=== PATIENT | female | born 1955 | race Caucasian/White ===

== ENCOUNTER → 2020-05-02 | Outpatient (CLI) | payer MEDICARE, BC ==
--- NOTE | 2020-05-02 11:10 | CT ---
EXAMINATION TYPE: CT sinus wo con DATE OF EXAM: 05/02/2020 COMPARISON: CT sinus 04/08/2015 HISTORY: Chronic sinusitis CT DLP: 619.7 mGycm. Automated Exposure Control for Dose Reduction was Utilized. TECHNIQUE: CT scan of the sinuses is performed without contrast, axial images are obtained, coronal r eformatted images are also reviewed. FINDINGS: The paranasal sinuses are remarkable for inflammatory change within the bilateral maxillar y sinuses, there is some lobular soft tissue within the bilateral maxillary sinuses. There is a devia arianna nasal septum present. Ostiomeatal units are patent. Visualized portion of mastoid air cells show no abnormal opacification. The globes are intact bilate rally. IMPRESSION: Correlate for chronic sinusitis, additional findings above
== END | disposition home or self-care (01) ==
LOC: RADCTMAIN 08:09
PROVIDERS: ATTEND Otolaryngology
DX: J32.0 Chronic maxillary sinusitis (principal); M79.89 Other specified soft tissue disorders; J34.2 Deviated nasal septum
CPT/HCPCS: 70486

== ENCOUNTER → 2022-12-02 | Outpatient (CLI) | payer MEDICARE, BC ==
[2022-12-02 12:55] LABS: African American GFR (CKD) 89 (>60 ml/min/1.73 sqM); Blood Urea Nitrogen 14 mg/dL (7-17); Non-African American GFR(CKD) 77 (>60 ml/min/1.73 sqM)
--- NOTE | 2022-12-02 14:46 | CT ---
EXAMINATION TYPE: CT abdomen pelvis wo/w con CT DLP: 1007.6 mGycm, Automated exposure control for dose reduction was used. DATE OF EXAM: 12/02/2022 2:34 PM COMPARISON: None CLINICAL INDICATION:Female, 67 years old with history of R19.00 INTRA-ABD AND PELVIC SWELLING; Incont inence, Intra-ABD and Pelvic swelling. TECHNIQUE: Standard CT of the abdomen and pelvis before and after the uneventful administration of 100 cc of Isovue-300 intravenously and oral contrast. Coronal and sagittal reformats were performed. FINDINGS: LOWER CHEST: Posterior dependent subsegmental atelectasis is noted. ABDOMEN LIVER: Unremarkable GALLBLADDER AND BILE DUCTS: Unremarkable. PANCREAS: Unremarkable. SPLEEN: Unremarkable. ADRENAL GLANDS: Unremarkable. KIDNEYS AND URETERS: No evidence of hydronephrosis or renal calculus. The kidneys enhance symmetrical ly. Subcentimeter hypodense focus within the cortex of the right kidney superior pole which is too sm all characterize. Contrast is demonstrated within both collecting systems on the delayed phase. PELVIS BLADDER: Unremarkable REPRODUCTIVE: The uterus is surgically absent. ABDOMEN & PELVIS STOMACH AND BOWEL: Stomach and duodenum are unremarkable. No focal bowel wall thickening or surroundi ng inflammatory changes. No evidence of bowel obstruction. Enteric contrast reaches the transverse co kan. Mild colonic stool burden. The appendix is within normal limits. PERITONEUM: No evidence of pneumoperitoneum or free fluid. VASCULATURE: No evidence of aortic aneurysm. MUSCULOSKELETAL: No acute osseous abnormalities LYMPH NODES: No gross evidence for lymphadenopathy. SOFT TISSUE/ABDOMINAL WALL: Tiny fat filled umbilical hernia. IMPRESSION: No acute abdominal/pelvic process.
== END | disposition home or self-care (01) ==
LOC: RADCTMAIN 12:06
PROVIDERS: ATTEND Obstetrics & Gynecology
DX: R19.09 Other intra-abdominal and pelvic swelling, mass and lump (principal)
CPT/HCPCS: 82565; 84520; 74178; 36415; Q9967

== ENCOUNTER → 2023-01-17 | Outpatient (CLI) | payer MEDICARE, BC ==
--- NOTE | 2023-01-18 09:07 | MR ---
EXAMINATION TYPE: MR pelvis wo/w con DATE OF EXAM: 01/17/2023 COMPARISON: Pet/CT 01/07/2023 CLINICAL INDICATION:Female, 67 years old with history of C52 MALIGNANT NEOPLASM OF VAGINA; Malignant neoplasm of vagina TECHNIQUE: Triplane multisequence imaging was performed of the pelvis. IV Contrast: 6.5 cc Gadavist FINDINGS: Reproductive: Vagina: Irregular vagina wall thickening extending from 11 to 7 o clock with wall thickening measurin g rand 5.0 x 3.0 x 4.4 cm with pedunculated mass projecting into the vagina. This extends through the posterior into the surrounding soft tissues measuring up to 26 mm in thickness anteriorly. This exte nds down towards the vagina introitus. Suspected microinvasion extends closely to the posterior bladd er wall 2-3 mm series 901 image 23 and closely to the right distal ureter series 701 image 25. Uterus: Uterus is surgically absent. Ovaries: Ovaries are not visualized and may be surgically absent. Bladder: Posterior bladder wall is in close approximation to suspected malignancy invasion. Bowel: Unremarkable as visualized. Peritoneum: No free fluid identified. Lymph nodes: No evidence of adenopathy. Vasculature: Unremarkable. Musculoskeletal: Bone marrow signal is within normal signal intensity. Abdominal wall/soft tissues: Right fat containing inguinal hernia. IMPRESSION: Findings compatible with vagina malignancy with thickening of the vagina wall and pedunculated mass e xtending into the vagina. This extends approximately from 11-7 o'clock with wall thickening and invas ion through the wall extending towards the posterior bladder wall. There is also close approximation of invasion to the right ureter and extends down towards the introitus.
== END | disposition home or self-care (01) ==
LOC: RADMRIMAIN 19:23
PROVIDERS: ATTEND Radiology Radiation Oncology
DX: C52 Malignant neoplasm of vagina (principal)
CPT/HCPCS: 72197; A9585

== ENCOUNTER → 2023-03-02 | Outpatient (CLI) | payer MEDICARE, BC ==
--- NOTE | 2023-03-03 10:16 | MR ---
EXAMINATION TYPE: MR pelvis wo/w con DATE OF EXAM: 03/02/2023 2:51 PM CLINICAL INDICATION:Female, 67 years old with history of C52 MALIG NEOPLASM OF VAGINA; PHH, Malignant neoplasm of vagina. Follow-up comparison to prior MRI 01-17-23. COMPARISON: MRI 01/17/2023 TECHNIQUE: Triplane multisequence imaging was performed of the pelvis. IV Contrast: 6 cc Gadavist FINDINGS: Reproductive: Vagina: There remains Irregular vagina wall thickening extending from 11 to 7 o clock on prior now ma y be 11 to 5:00 o'clock on today's exam with wall thickening measuring suspected post treatment baker es the vagina. There remains enhancing mucosa within the vagina. Wall thickening up to 9 mm anteriorl y and more superiorly up to 14 mm. This continues to extends inferiorly towards the vagina introitus. There remains hazy T1 intermediate signal around the vagina suspicious for microinvasion extends ray sely to the posterior bladder wall series 201 image 16. Uterus: Uterus is surgically absent. Ovaries: Ovaries are not visualized and may be surgically absent. Bladder: Posterior bladder wall is in close approximation to suspected malignancy likely invasion ser ies 201 image 16. The left ureter appears to have improved clearance now measuring up to possibly 8 m m though a, previously 5 mm from the vagina mass on today's exam. Bowel: Unremarkable as visualized. Peritoneum: No free fluid identified. Lymph nodes: No evidence of adenopathy. Vasculature: Unremarkable. Musculoskeletal: Bone marrow signal is within normal signal intensity. Abdominal wall/soft tissues: Right fat containing inguinal hernia. IMPRESSION: Interval decrease in size with persistent thickening of the vagina wall with underlying mass still ex tending towards the vagina introitus. This remains approximately from the 11-5 o'clock with wall thic kening and suspected micro- invasion through the wall extending towards the posterior bladder wall wh ich remains on this exam. There is improved clearance of the suspected malignancy microinvasion away from the left ureter when comparing to prior. No lymphadenopathy visualized.
== END | disposition home or self-care (01) ==
LOC: RADMRIMAIN 13:22
PROVIDERS: ATTEND Radiology Radiation Oncology
DX: C52 Malignant neoplasm of vagina (principal); N76.89 Other specified inflammation of vagina and vulva
CPT/HCPCS: 72197; A9585

== ENCOUNTER 2023-05-12 18:15 | Inpatient (IN) | payer MEDICARE, BC ==
[2023-05-12] MEDS ORDERED: HYDROcodone/APAP 7.5-325MG 1 EACH TAB PO ONE (20:30)
[2023-05-12] MEDS: LIDOCAINE 5% PATCH TOPICAL SCH (20:47)
[2023-05-12 21:14] LABS: Basophils % (A) 0 %; Eosinophils # (A) 0.2 k/uL (0-0.7); Eosinophils % (A) 2 %; HCT 34.7 % (34.0-46.0); HGB 11.8 gm/dL (11.4-16.0); Lymphocytes # (A) 0.8 k/uL (1.0-4.8); Lymphocytes % (A) 8 %; MCH 31.7 pg (25.0-35.0); MCV 93.3 fL (80.0-100.0); Mean Platelet Volume 8.5; Monocytes # (A) 0.5 k/uL (0-1.0); Monocytes % (A) 5 %; Neutrophils % (A) 84 %; Platelet Count 294 k/uL (150-450); RBC 3.72 m/uL (3.80-5.40); RDW 15.1 % (11.5-15.5); WBC 9.6 k/uL (3.8-10.6)
[2023-05-12 21:43] LABS: ALT 20 U/L (4-34); AST 37 U/L (14-36); African American GFR (CKD) >90 (>60 ml/min/1.73 sqM); Albumin 3.6 g/dL (3.5-5.0); Alkaline Phosphatase 60 U/L (38-126); Anion Gap 10 mmol/L; Blood Urea Nitrogen 14 mg/dL (7-17); Calcium 8.9 mg/dL (8.4-10.2); Carbon Dioxide 23 mmol/L (22-30); Chloride 101 mmol/L (98-107); Glucose 107 mg/dL (74-99); Non-African American GFR(CKD) 88 (>60 ml/min/1.73 sqM); Potassium 4.1 mmol/L (3.5-5.1); Sodium 134 mmol/L (137-145); Total Bilirubin 0.5 mg/dL (0.2-1.3); Total Protein 6.4 g/dL (6.3-8.2)
[2023-05-12] MEDS ORDERED: SODIUM CHLORIDE 0.9% 1,000 ML IV SCH (22:30)
[2023-05-12 23:24] LABS: Appearance,Urine Clear (Clear); Bilirubin,Urine Negative (Negative); Blood,Urine Negative (Negative); Color,Urine Yellow; Glucose,Urine (UA) Negative (Negative); Ketones,Urine 1+ (Negative); Leukocyte Esterase,Urine Small (Negative); Mucus,Urine Many /hpf; Nitrite,Urine Negative (Negative); PH, Urine 5.5 (5.0-8.0); Protein,Urine Trace (Negative); RBC,Urine 7 /hpf (0-5); Squamous Epithelial Cell,Urine <1 /hpf (0-4); Urobilinogen,Urine <2.0 mg/dL (<2.0); WBC,Urine 6 /hpf (0-5)
--- NOTE | 2023-05-12 23:24 | XR ---
EXAMINATION TYPE: XR chest 2V DATE OF EXAM: 05/12/2023 9:33 PM CLINICAL INDICATION:Female, 67 years old with history of cough, SOB; URI symptoms and lower left-side d back pain since Tuesday. COMPARISON: PET/CT 01/07/2023 TECHNIQUE: XR chest 2V Frontal and lateral views of the chest. FINDINGS: Lines/Tubes: No indwelling lines are seen. Lungs/Pleura: Large right pleural effusion with adjacent lung opacities. In the portion of visualized aerated right upper lung, there are a few nodules visible the largest about 9 mm in size. On the lef t, no significant effusion is seen. There are multiple left-sided pulmonary nodules, one of the large st 15.7 mm. No sizable left pleural effusion or pneumothorax identified. Of note, these lung findings are new since the prior PET/CT. Pulmonary vascularity: Unremarkable. Heart/mediastinum: Cardiomediastinal silhouette is partially obscured by the right lung opacities, ho wever heart does not appear grossly enlarged. Mildly tortuous aorta. Musculoskeletal: No acute osseous abnormality is suggested. Mild degenerative changes of the thoracol umbar spine with mild S-shaped scoliosis. Other findings: None IMPRESSION: 1. Large right pleural effusion with adjacent lung opacities, may reflect atelectasis and/or infiltr ate. 2. Multiple new bilateral pulmonary nodules. Findings may represent metastatic disease or septic emb isa, less likely granulomatous disease.
--- NOTE | 2023-05-12 23:27 | XR ---
EXAMINATION TYPE: XR lumbar spine 2 or 3V DATE OF EXAM: 05/12/2023 9:33 PM CLINICAL INDICATION:Female, 67 years old with history of low back pain; PHH COMPARISON: None TECHNIQUE: XR lumbar spine 2 or 3V - frontal and lateral views of the lumbar spine with coned-down la teral of the lumbosacral junction. FINDINGS: There appear to be 5 lumbar-type vertebral bodies. There is mild/moderate multilevel degenerative dis c disease and facet arthrosis mostly in the mid to lower lumbar spine. There is no evidence of acute compression fracture, significant listhesis, or osseous destructive process. Mild apex right curvatur e of the upper lumbar spine towards the right. Unremarkable bowel gas pattern is seen. Multiple speck led radiodensities are seen, mostly in the left abdomen, which are probably related to stool contents . Mild degenerative changes of the SI joints. IMPRESSION: 1. No acute compression fracture. 2. Mild to moderate multilevel spondylosis.
[2023-05-12 23:32] LABS: Specific Gravity,Urine >1.050 (1.001-1.035)
--- NOTE | 2023-05-13 | CT ---
EXAM: CT Angiography Chest With Intravenous Contrast CLINICAL HISTORY: CT Reason: elevated dimer, pleural effusion, hx malignancy TECHNIQUE: Axial computed tomographic angiography images of the chest with intravenous contrast. CTDI is the [place] 15.8 mGy and DLP is 279.9 mGy- cm. This CT exam was performed using one or more of the following dose reduction techniques: automated exposure control, adjustment of the mA and/or kV according to patient size, and/or use of iterative reconstruction technique. MIP reconstructed images were created and reviewed. COMPARISON: No relevant prior studies available. FINDINGS: Pulmonary arteries: The pulmonary arterial tree is well opacified with contrast. No pulmonary embolism is identified. Aorta: No acute findings. No thoracic aortic aneurysm. Lungs: There are multiple round mass lesion scattered throughout the left lung measuring up to 1.7 cm in diameter consistent with metastatic neoplasm. There are multiple pulmonary nodules in the remaining aerated right lung as well as rounded areas of decreased enhancement in the atelectatic right lower lobe and right middle lobe consistent with neoplasm. Pleural space: There is a large right pleural effusion measuring 11 cm AP filling approximately two thirds of the right hemithorax. No pneumothorax. Heart: Unremarkable. No cardiomegaly. No significant pericardial effusion. No evidence of RV dysfunction. Bones/joints: Mild multilevel degenerative change are seen throughout the spine. No acute fracture or destructive bone lesion is seen. No dislocation. Soft tissues: Unremarkable. Lymph nodes: There is right hilar fullness and lymphadenopathy. IMPRESSION: 1. There are multiple round mass lesion scattered throughout the left lung measuring up to 1.7 cm in diameter consistent with metastatic neoplasm. There are multiple pulmonary nodules in the remaining aerated right lung as well as rounded areas of decreased enhancement in the atelectatic right lower lobe and right middle lobe consistent with neoplasm. 2. There is a large right pleural effusion measuring 11 cm AP filling approximately two thirds of the right hemithorax. 3. The pulmonary arterial tree is well opacified with contrast. No pulmonary embolism is identified.
[2023-05-13] MEDS ORDERED: NALOXONE 0.4 MG/ML 1 ML VIAL IV PRN (00:14)
[2023-05-13] MEDS ORDERED: MORPHINE SULFATE 4 MG/ML SYRINGE IV PRN (00:14)
--- NOTE | 2023-05-13 00:20 | ED ---
General Adult HPI - General Chief complaint: Back Pain/Injury Stated complaint: Back Pain Time Seen by Provider: 05/12/23 20:19 Source: patient Mode of arrival: ambulatory Limitations: no limitations - History of Present Illness Initial comments: 67-year-old female presenting with chief complaint of lower back pain. Patient has had left-sided lower back pain since Tuesday. No injury or trauma. No loss of bowel or bladder control. No saddle paresthesia. No radiation of pain down the leg. No abdominal pain. No dysuria, hematuria, fever, chills. Patient also admits to URI like symptoms and shortness of breath. This has also been ongoing since Tuesday. She was to cough and congestion. She states that her symptoms have not improved since Tuesday. - Related Data Allergies Allergy/AdvReac Type Severity Reaction Status Date / Time prednisone Allergy Rash/Hives Verified 05/12/23 18:44 sulfamethoxazole Allergy Rash/Hives Verified 05/12/23 18:44 [From Bactrim] trimethoprim [From Bactrim] Allergy Rash/Hives Verified 05/12/23 18:44 Review of Systems ROS Statement: Those systems with pertinent positive or pertinent negative responses have been documented in the HPI. ROS Other: All systems not noted in ROS Statement are negative. Past Medical History Past Medical History: Cancer Additional Past Medical History / Comment(s): vaginal CA. History of Any Multi-Drug Resistant Organisms: None Reported Past Surgical History: Bladder Surgery, Hysterectomy Past Psychological History: No Psychological Hx Reported Smoking Status: Never smoker Past Alcohol Use History: None Reported Past Drug Use History: None Reported General Exam Limitations: no limitations General appearance: alert, in no apparent distress Head exam: Present: atraumatic, normocephalic, normal inspection Eye exam: Present: normal appearance, EOMI Neck exam: Present: normal inspection, full ROM Respiratory exam: Present: decreased breath sounds (large right-sided pleural effusion, diminished lung sounds). Absent: respiratory distress, wheezes, rales, rhonchi, stridor Cardiovascular Exam: Present: normal rhythm, tachycardia, normal heart sounds. Absent: systolic murmur, diastolic murmur, rubs, gallop, clicks Extremities exam: Present: normal inspection, full ROM Back exam: Present: normal inspection, paraspinal tenderness Neurological exam: Present: alert, oriented X3 Psychiatric exam: Present: normal affect, normal mood Skin exam: Present: warm, dry, intact, normal color. Absent: rash Course Vital Signs 05/12/23 05/12/23 18:40 23:42 Temperature 97.9 F Pulse Rate 122 H 89 Respiratory 20 18 Rate Blood Pressure 138/87 123/75 O2 Sat by Pulse 99 90 L Oximetry EKG Findings - EKG Comments: EKG Findings:: sinus tachycardia ventricular rate 110. NE interval 127. QRS 122. QT 348. QTC 413. Medical Decision Making - Medical Decision Making Was pt. sent in by a medical professional or institution (, PA, FRONT OFFICE SPEC, urgent care, hospital, or residential...) When possible be specific @ -[No] Did you speak to anyone other than the patient for history (EMS, parent, family, police, friend...)? What history was obtained from this source @ -[No] Did you review nursing and triage notes (agree or disagree)? Why? @ -[I reviewed and agree with nursing and triage notes] Were old charts reviewed (outside hosp., previous admission, EMS record, old EKG, old radiological studies, urgent care reports/EKG's, residential records)? Report findings @ -[No old charts were reviewed] Differential Diagnosis (chest pain, altered mental status, abdominal pain women, abdominal pain men, vaginal bleeding, weakness, fever, dyspnea, syncope, headache, dizziness, GI bleed, back pain, seizure, CVA, palpatations, mental health, musculoskeletal)? @ - [facility] Differential Back Pain: Strain, zoster, cauda equina syndrome, epidural abscess, vertebral osteomyelitis, discitis, fracture, subluxation, disc herniation, DJD, spinal stenosis, dissection, AAA, pancreatitis, peptic ulcer disease, pyelonephritis, kidney stone this is not meant to be an all-inclusive list. EKG interpreted by me (3pts min.). @ -[As above] X-rays interpreted by me (1pt min.). @ -Chest x-ray shows large right pleural effusion with adjacent lung opacities, may reflect atelectasis and/or infiltrate. Multiple bilateral pulmonary nodules. Findings may represent metastatic disease or septic emboli, less likely granulomatous disease Lumbar spine x-ray shows no acute compression fracture. Mild to moderate multilevel spondylosis CT interpreted by me (1pt min.). @ -There are multiple round mass lesion scattered throughout the left lung measuring up to 1.7 cm in diameter consistent with metastatic neoplasm. There are multiple pulmonary nodules and the remaining aerated right lung as well as rounded areas of decreased enhancement and atelectatic right lower lobe and right middle lobe consistent with neoplasm. There is a large right pleural effusion measuring 11 cm AP filling approximately two thirds of the right hemithorax. The pulmonary arterial tree is well opacified with contrast. No pulmonary embolism is identified. U/S interpreted by me (1pt. min.). @ -[None done] What testing was considered but not performed or refused? (CT, X-rays, U/S, labs)? Why? @ -[None] What meds were considered but not given or refused? Why? @ -[None] Did you discuss the management of the patient with other professionals (professionals i.e. , PA, FRONT OFFICE SPEC, lab, RT, psych nurse, forensic social worker, scientific artist, teacher, code enforcement officer, counseling case manager)? Give summary @ -I spoke with Dr. Jose who accepted admission Was smoking cessation discussed for >3mins.? @ -[No] Was critical care preformed (if so, how long)? @ -[No] Were there social determinants of health that impacted care today? How? (Homelessness, low income, unemployed, alcoholism, drug addiction, transportation, low edu. Level, literacy, decrease access to med. care, senior care, rehab)? @ -[No] Was there de-escalation of care discussed even if they declined (Discuss DNR or withdrawal of care, Hospice)? DNR status @ -[No] What co-morbidities impacted this encounter? (DM, HTN, Smoking, COPD, CAD, Cancer, CVA, ARF, Chemo, Hep., AIDS, mental health diagnosis, sleep apnea, mo rbid obesity)? @ -Vaginal cancer Was patient admitted / discharged? Hospital course, mention meds given and route, prescriptions, significant lab abnormalities, going to OR and other pertinent info. @ -67-year-old male with history of vaginal cancer presenting with chief complaint of pain URI-like symptoms. History and physical exam were conducted. No leukocytosis or anemia. Negative for influenza, RSV, and Covid. Urine shows no infectious process. D-dimer is 0.76. Chest x-ray shows large right- sided pleural effusion, CTA confirms multiple new pulmonary nodules and effusion. Negative x-ray of the lumbar spine. Patient is educated on today's findings. She has no knowledge of any metastatic disease or pleural effusion. She will be admitted with consult for thoracentesis. Patient is agreeable with this plan. I discussed this case with my attending Dr. Wallace Undiagnosed new problem with uncertain prognosis? @ -[No] Drug Therapy requiring intensive monitoring for toxicity (Heparin, Nitro, Insulin, Cardizem)? @ -[No] Were any procedures done? @ -[No] Diagnosis/symptom? @ -Pleural effusion Acute, or Chronic, or Acute on Chronic? @ -Acute Uncomplicated (without systemic symptoms) or Complicated (systemic symptoms)? @ -complicated Side effects of treatment? @ -[No] Exacerbation, Progression, or Severe Exacerbation? @ -[No] Poses a threat to life or bodily function? How? (Chest pain, USA, VT, pneumonia, PE, COPD, DKA, ARF, appy, cholecystitis, CVA, Diverticulitis, Homicidal, Suicidal, threat to staff... and all critical care pts) @ -yes - Lab Data Result diagrams: 05/12/23 20:42 05/12/23 20:42 Lab Results 05/12/23 05/12/23 05/12/23 Range/Units 20:42 20:42 20:42 WBC 9.6 (3.8-10.6) k/uL RBC 3.72 L (3.80-5.40) m/uL Hgb 11.8 (11.4-16.0) gm/dL Hct 34.7 (34.0-46.0) % MCV 93.3 (80.0-100.0) fL MCH 31.7 (25.0-35.0) pg MCHC 34.0 (31.0-37.0) g/dL RDW 15.1 (11.5-15.5) % Plt Count 294 (150-450) k/uL MPV 8.5 Neutrophils % 84 % Lymphocytes % 8 % Monocytes % 5 % Eosinophils % 2 % Basophils % 0 % Neutrophils # 8.0 H (1.3-7.7) k/uL Lymphocytes # 0.8 L (1.0-4.8) k/uL Monocytes # 0.5 (0-1.0) k/uL Eosinophils # 0.2 (0-0.7) k/uL Basophils # 0.0 (0-0.2) k/uL D-Dimer 0.76 H (<0.60) mg/L FEU Sodium (137-145) mmol/L Potassium (3.5-5.1) mmol/L Chloride (98-107) mmol/L Carbon Dioxide (22-30) mmol/L Anion Gap mmol/L BUN (7-17) mg/dL Creatinine (0.52-1.04) mg/dL Est GFR (CKD-EPI)AfAm (>60 ml/min/1.73 sqM) Est GFR (CKD-EPI)NonAf (>60 ml/min/1.73 sqM) Glucose (74-99) mg/dL Calcium (8.4-10.2) mg/dL Total Bilirubin (0.2-1.3) mg/dL AST (14-36) U/L ALT (4-34) U/L Alkaline Phosphatase (38-126) U/L Total Protein (6.3-8.2) g/dL Albumin (3.5-5.0) g/dL Urine Color Urine Appearance (Clear) Urine pH (5.0-8.0) Ur Specific [place] (1.001-1.035) Urine Protein (Negative) Urine Glucose (UA) (Negative) Urine Ketones (Negative) Urine Blood (Negative) Urine Nitrite (Negative) Urine Bilirubin (Negative) Urine Urobilinogen (<2.0) mg/dL Ur Leukocyte Esterase (Negative) Urine RBC (0-5) /hpf Urine WBC (0-5) /hpf Ur Squamous Epith Cells (0-4) /hpf Urine Mucus (None) /hpf Influenza Type A (PCR) Not Detected (Not Detectd) Influenza Type B (PCR) Not Detected (Not Detectd) RSV (PCR) Not Detected (Not Detectd) SARS-CoV-2 (PCR) Not Detected (Not Detectd) 05/12/23 05/12/23 Range/Units 20:42 23:00 WBC (3.8-10.6) k/uL RBC (3.80-5.40) m/uL Hgb (11.4-16.0) gm/dL Hct (34.0-46.0) % MCV (80.0-100.0) fL MCH (25.0-35.0) pg MCHC (31.0-37.0) g/dL RDW (11.5-15.5) % Plt Count (150-450) k/uL MPV Neutrophils % % Lymphocytes % % Monocytes % % Eosinophils % % Basophils % % Neutrophils # (1.3-7.7) k/uL Lymphocytes # (1.0-4.8) k/uL Monocytes # (0-1.0) k/uL Eosinophils # (0-0.7) k/uL Basophils # (0-0.2) k/uL D-Dimer (<0.60) mg/L FEU Sodium 134 L (137-145) mmol/L Potassium 4.1 (3.5-5.1) mmol/L Chloride 101 (98-107) mmol/L Carbon Dioxide 23 (22-30) mmol/L Anion Gap 10 mmol/L BUN 14 (7-17) mg/dL Creatinine 0.71 (0.52-1.04) mg/dL Est GFR (CKD-EPI)AfAm >90 (>60 ml/min/1.73 sqM) Est GFR (CKD-EPI)NonAf 88 (>60 ml/min/1.73 sqM) Glucose 107 H (74-99) mg/dL Calcium 8.9 (8.4-10.2) mg/dL Total Bilirubin 0.5 (0.2-1.3) mg/dL AST 37 H (14-36) U/L ALT 20 (4-34) U/L Alkaline Phosphatase 60 (38-126) U/L Total Protein 6.4 (6.3-8.2) g/dL Albumin 3.6 (3.5-5.0) g/dL Urine Color Yellow Urine Appearance Clear (Clear) Urine pH 5.5 (5.0-8.0) Ur Specific [place] >1.050 H (1.001-1.035) Urine Protein Trace H (Negative) Urine Glucose (UA) Negative (Negative) Urine Ketones 1+ H (Negative) Urine Blood Negative (Negative) Urine Nitrite Negative (Negative) Urine Bilirubin Negative (Negative) Urine Urobilinogen <2.0 (<2.0) mg/dL Ur Leukocyte Esterase Small H (Negative) Urine RBC 7 H (0-5) /hpf Urine WBC 6 H (0-5) /hpf Ur Squamous Epith Cells <1 (0-4) /hpf Urine Mucus Many H (None) /hpf Influenza Type A (PCR) (Not Detectd) Influenza Type B (PCR) (Not Detectd) RSV (PCR) (Not Detectd) SARS-CoV-2 (PCR) (Not Detectd) Disposition Clinical Impression: Pleural effusion, Pulmonary nodules Disposition: ADMITTED IP TO THIS HOSP Condition: Fair Time of Disposition: 00:20
[2023-05-13] MEDS: HYDROcodone/APAP 5-325MG 1 EACH TAB PO PRN ×4 (04:05→17:34)
[2023-05-13 08:25] VITALS: RESP 16
[2023-05-13] MEDS: LIDOCAINE 5% PATCH TOPICAL SCH (09:21)
--- NOTE | 2023-05-13 16:09 | P.CNPUL ---
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 She had undergone chemotherapy, radiation therapy and brachial therapy. She was due for a follow-up PET scan in June 2023. She presented here to the emergency room last evening with complaints of low back pain for the past several days. X-ray of the lumbar spine revealed no acute compression fractures. Mild to moderate multilevel spondylosis. Chest x-ray revealed a large right pleural effusion with adjacent lung opacities. Multiple new bilateral pulmonary nodules. Computed tomography scan of the chest revealed no evidence of pulmonary embolism however multiple round mass lesions scattered throughout the left lung measuring up to 1.7 cm consistent with metastatic neoplasm. There are multiple pulmonary nodules in the aerated portion of the right lung as well as a moderate right pleural effusion. White count 9.6. Hemoglobin 11.8. Platelets 294. Sodium 134. Potassium 4.1. Bicarb 23. BUN 14. Creatinine 0.71. Glucose 107. Viral screen negative. She is seen today in consultation in the emergency department. Currently sitting up in a stretcher. Awake and alert in no acute distress. His been receiving [place] for her low back pain which has improved. She denied any significant shortness of breath, cough or congestion. No hemoptysis. Normal saline at 50 MLS per hour. Review of Systems REVIEW OF SYSTEMS: CONSTITUTIONAL: Denies any recent significant weight loss or weight gain. EYES: Denies change in vision. EARS, NOSE, MOUTH, THROAT: Denies headaches, denies sore throat. CARDIOVASCULAR: Denies chest pain, palpitations or syncopal episodes. RESPIRATORY: Denies shortness of breath, cough, congestion or hemoptysis. GASTROINTESTINAL: Denies change in appetite, denies abdominal pain GENITOURINARY: Denies hematuria, denies infections. MUSKULOSKELETAL: Positive for low back pain. INTEGUMENTARY: Denies rash, denies eczema. NEUROLOGICAL: Denies recent memory loss, no recent seizure activity. PSYCHIATRIC: Denies anxiety, denies depression. HEMATOLOGIC/LYMPHATIC: Denies anemia, denies enlarged lymph nodes. Past Medical History Past Medical History: Cancer Additional Past Medical History / Comment(s): vaginal CA. History of Any Multi-Drug Resistant Organisms: None Reported Past Surgical History: Bladder Surgery, Hysterectomy Past Psychological History: No Psychological Hx Reported Smoking Status: Never smoker Past Alcohol Use History: None Reported Past Drug Use History: None Reported Medications and Allergies Home Medications Medication Instructions Recorded Confirmed Type Aspirin EC [Ecotrin Low Dose] 81 mg PO DAILY 05/13/23 05/13/23 History Benazepril HCl 20 mg PO DAILY 05/13/23 05/13/23 History Calcium Carbonate [Calcium] 600 mg PO BID 05/13/23 05/13/23 History Cholecalciferol [Vitamin D3 (25 25 mcg PO BID 05/13/23 05/13/23 History Mcg = 1000 Iu)] Loratadine [Claritin] 10 mg PO BID 05/13/23 05/13/23 History Multivitamins, Thera [Multivitamin 1 tab PO DAILY 05/13/23 05/13/23 History (formulary)] Sertraline [Zoloft] 100 mg PO DAILY 05/13/23 05/13/23 History Simvastatin [Zocor] 40 mg PO HS 05/13/23 05/13/23 History amLODIPine [Norvasc] 10 mg PO DAILY 05/13/23 05/13/23 History Allergies Allergy/AdvReac Type Severity Reaction Status Date / Time prednisone Allergy Rash/Hives Verified 05/13/23 08:10 sulfamethoxazole Allergy Rash/Hives Verified 05/13/23 08:10 [From Bactrim] trimethoprim [From Bactrim] Allergy Rash/Hives Verified 05/13/23 08:10 Physical Exam Vitals: Vital Signs Temp Pulse Resp BP Pulse Ox 05/13/23 14:00 96 05/13/23 13:42 97.6 F 90 106/62 91 L 05/13/23 08:00 97.1 F L 89 16 110/70 96 05/13/23 04:06 104 H 18 116/79 97 05/12/23 23:42 89 18 123/75 90 L 05/12/23 18:40 97.9 F 122 H 20 138/87 99 GENERAL EXAM: Alert, very pleasant 67-year-old female, on room air, fairly comfortable in no apparent distress. HEAD: Normocephalic. EYES: Normal reaction of pupils, equal size. NOSE: Clear with pink turbinates. THROAT: No erythema or exudates. NECK: No masses, no JVD. CHEST: No chest wall deformity. LUNGS: Equal air entry with diminished breath sounds in the right base. CVS: S1 and S2 normal with no audible murmur, regular rhythm. ABDOMEN: No hepatosplenomegaly, normal bowel sounds, no guarding or rigidity. SPINE: No scoliosis or deformity SKIN: No rashes CENTRAL NERVOUS SYSTEM: No focal deficits, tone is normal in all 4 extremities. EXTREMITIES: There is no peripheral edema. No clubbing, no cyanosis. Peripheral pulses are intact. Results - Laboratory Findings CBC and BMP: 05/12/23 20:42 05/12/23 20:42 PT/INR, D-dimer D-Dimer 0.76 mg/L FEU (<0.60) H 05/12/23 20:42 Abnormal lab findings: Abnormal Labs 05/12/23 05/12/23 05/12/23 20:42 20:42 20:42 RBC 3.72 L Neutrophils # 8.0 H Lymphocytes # 0.8 L D-Dimer 0.76 H Sodium 134 L Glucose 107 H AST 37 H Ur Specific [place] Urine Protein Urine Ketones Ur Leukocyte Esterase Urine RBC Urine WBC Urine Mucus 05/12/23 23:00 RBC Neutrophils # Lymphocytes # D-Dimer Sodium Glucose AST Ur Specific [place] >1.050 H Urine Protein Trace H Urine Ketones 1+ H Ur Leukocyte Esterase Small H Urine RBC 7 H Urine WBC 6 H Urine Mucus Many H - Diagnostic Findings Chest x-ray: image reviewed CT scan - chest: image reviewed Assessment and Plan Assessment: Acute low back pain of unclear etiology. Lumbar spine x-ray revealed no acute compression fracture. Mild to moderate multilevel spondylosis Acute hypoxemic respiratory failure secondary to a large right pleural effusion, status post thoracentesis today 05/13/2023 with 1.2 L bloody fluid returned Multiple new bilateral pulmonary nodules suspicious for metastatic disease History of vaginal cancer diagnosed in November 2022, status post chemotherapy, radiation therapy, brachial therapy Hypertension Hyperlipidemia Plan: The patient was seen and evaluated Chest x-ray, CAT scan chest, lumbar x-rays, medications and labs reviewed She did undergo a thoracentesis today with 1.2 L of bloody fluid returned Follow-up chest x-ray pending Fluid analysis and cytology pending Stable for discharge from the pulmonary standpoint Assure adequate pain control Follow-up in our office in 1 week I have personally seen and examined the patient, performed the documentation and the assessment and plan as written. Number of minutes spent on the visit: 20.
--- NOTE | 2023-05-13 16:23 | OP ---
OPERATIVE REPORT DATE OF SERVICE : PROCEDURE PERFORMED: Right-sided thoracentesis. PREOPERATIVE DIAGNOSIS: Large right-sided pleural effusion. POSTOPERATIVE DIAGNOSIS: Large right-sided pleural effusion. ANESTHESIA USED: 2 mL of 1% lidocaine. PROCEDURE: The patient was placed in a sitting upright position, the area below the right scapula was prepared in a sterile fashion and drapes were applied. At the level of the 8th intercostal space and tip of the scapula, the area was locally anesthetized with lidocaine and the pleural space was entered with a needle until the fluid was localized with the needle. Then, a small tiny incision was made, and a standard thoracentesis catheter and needle were used, advanced into the pleural space, and as soon as the fluid was obtained, the catheter was advanced over the needle and the needle was pulled out of the pleural space. Freely flowing fluid was removed, roughly 1200 mL of serosanguineous fluid was removed from the right pleural space. Fluid was sent for diagnostic studies/cytology and the procedure was well tolerated, no complications, chest x-ray was ordered postoperatively. MMODL / IJN: [id number] /
--- NOTE | 2023-05-13 16:48 | XR ---
EXAMINATION TYPE: XR chest 1V portable DATE OF EXAM: 05/13/2023 Comparison: 05/12/2023 Clinical History: 67-year-old female Post right sided thoracentesis Findings: Right heart margin remains obscured by adjacent pleural parenchymal opacity. A moderate right pleural effusion remains though decreased from prior. Opacity continues to extend up to the midlung level. S cattered pulmonary nodules are redemonstrated bilaterally. No appreciable pneumothorax. Impression: Residual moderate right pleural effusion with underlying atelectasis and/or consolidation. Opacity co ntinues to extend to the mid lung level though is slightly decreased from prior. Bilateral pulmonary nodules redemonstrated. No appreciable pneumothorax.
--- NOTE | 2023-05-13 17:09 | P.HPIM ---
History of Present Illness H&P Date: 05/13/23 This is a 67-year-old female patient who presented to the ER with concerns of lower back pain has been occurring since Tuesday. Patient denies any trauma. Patient also reports that she's had increase coughing and upper respiratory symptoms over the past few days. Patient has medical history of vaginal cancer in which she was treated with chemo and radiation and follows with oncology services. Chest x-ray completed showing large right pleural effusion with adjacent lung lipase studies which may reflect atelectasis and/or infiltrate. Multiple new bilateral pulmonary nodules findings may represent metastatic disease or septic emboli, less likely granulomatous disease. Lumbar spine x-ray completed showing no acute compression fracture. Mild to moderate multilevel spondylosis. Chest CTA completed showing multiple round mass lesions scattered throughout the left lung measuring up to 1.7 cm in diameter consistent with metastatic neoplasm their multiple pulmonary nodules in the remaining right lung as well as rounded areas of decreased enhancement in the atelectatic right lower lobe and lower lobe consistent with neoplasm. Large right pleural effusion measuring 11 cm no pulmonary embolism identified. At this time oncology services have been consulted will also consult pulmonary services. Patient is resting comfortably in bed. Patient still complaining of some shortness of br eath. Vital signs temp 97.1, heart rate 89, respiratory rate 16, blood pressure 110/70 with a pulse ox 96% on 2 L. Review of Systems Please refer to HPI otherwise unremarkable Past Medical History Past Medical History: Cancer Additional Past Medical History / Comment(s): vaginal CA. History of Any Multi-Drug Resistant Organisms: None Reported Past Surgical History: Bladder Surgery, Hysterectomy Past Psychological History: No Psychological Hx Reported Smoking Status: Never smoker Past Alcohol Use History: None Reported Past Drug Use History: None Reported Medications and Allergies Home Medications Medication Instructions Recorded Confirmed Type Aspirin EC [Ecotrin Low Dose] 81 mg PO DAILY 05/13/23 05/13/23 History Benazepril HCl 20 mg PO DAILY 05/13/23 05/13/23 History Calcium Carbonate [Calcium] 600 mg PO BID 05/13/23 05/13/23 History Cholecalciferol [Vitamin D3 (25 25 mcg PO BID 05/13/23 05/13/23 History Mcg = 1000 Iu)] Loratadine [Claritin] 10 mg PO BID 05/13/23 05/13/23 History Multivitamins, Thera [Multivitamin 1 tab PO DAILY 05/13/23 05/13/23 History (formulary)] Sertraline [Zoloft] 100 mg PO DAILY 05/13/23 05/13/23 History Simvastatin [Zocor] 40 mg PO HS 05/13/23 05/13/23 History amLODIPine [Norvasc] 10 mg PO DAILY 05/13/23 05/13/23 History Allergies Allergy/AdvReac Type Severity Reaction Status Date / Time prednisone Allergy Rash/Hives Verified 05/13/23 08:10 sulfamethoxazole Allergy Rash/Hives Verified 05/13/23 08:10 [From Bactrim] trimethoprim [From Bactrim] Allergy Rash/Hives Verified 05/13/23 08:10 Physical Exam Vitals: Vital Signs Temp Pulse Resp BP Pulse Ox 05/13/23 08:00 97.1 F L 89 16 110/70 96 05/13/23 04:06 104 H 18 116/79 97 05/12/23 23:42 89 18 123/75 90 L 05/12/23 18:40 97.9 F 122 H 20 138/87 99 Intake and Output 05/12/23 05/13/23 05/13/23 22:59 06:59 14:59 Other: Weight 58.967 kg Head normocephalic Neck supple Lungs diminished bilaterally Heart regular rate and rhythm S1-S2, no rub or gallop Abdomen is soft nontender nondistended positive bowel sounds no hepatosplenomegaly Extremities no edema Neuro alert and orientated to 3 Results CBC & Chem 7: 05/12/23 20:42 05/12/23 20:42 Labs: Abnormal Lab Results - Last 24 Hours (Table) 05/12/23 05/12/23 05/12/23 Range/Units 20:42 20:42 20:42 RBC 3.72 L (3.80-5.40) m/uL Neutrophils # 8.0 H (1.3-7.7) k/uL Lymphocytes # 0.8 L (1.0-4.8) k/uL D-Dimer 0.76 H (<0.60) mg/L FEU Sodium 134 L (137-145) mmol/L Glucose 107 H (74-99) mg/dL AST 37 H (14-36) U/L Ur Specific [place] (1.001-1.035) Urine Protein (Negative) Urine Ketones (Negative) Ur Leukocyte Esterase (Negative) Urine RBC (0-5) /hpf Urine WBC (0-5) /hpf Urine Mucus (None) /hpf 05/12/23 Range/Units 23:00 RBC (3.80-5.40) m/uL Neutrophils # (1.3-7.7) k/uL Lymphocytes # (1.0-4.8) k/uL D-Dimer (<0.60) mg/L FEU Sodium (137-145) mmol/L Glucose (74-99) mg/dL AST (14-36) U/L Ur Specific [place] >1.050 H (1.001-1.035) Urine Protein Trace H (Negative) Urine Ketones 1+ H (Negative) Ur Leukocyte Esterase Small H (Negative) Urine RBC 7 H (0-5) /hpf Urine WBC 6 H (0-5) /hpf Urine Mucus Many H (None) /hpf Assessment and Plan Assessment: 1. Back pain 2. Shortness of breath 3. Pleural effusion 4. Abnormal chest x-ray with new findings of pulmonary nodules 5. History of vaginal cancer patient reports she has been getting chemo and radiation. Follows with oncology services DVT prophylaxis SCDs due to possible thoracentesis. GI prophylaxis Protonix Oncology and pulmonary service is consulted Repeat labs ordered Time with Patient: Greater than 30 (Greater than 60% of the total time spent in counseling and coordination of care)
--- NOTE | 2023-05-13 17:13 | P.DS ---
Providers Date of admission: 05/13/23 14:40 Expected date of discharge: 05/13/23 Attending physician: Bernie Jose Consults: 05/13/23 03:11 Consult Physician Stat Consulting Provider: Codey Merino Consult Reason/Comments: vaginal cancer Do you want consulting provider notified?: Yes, Notify in am 05/13/23 12:00 Consult Physician Routine Consulting Provider: Bethany Leahy Consult Reason/Comments: Pleural effusion, abnormal chest x-ray pulmonary nodules Do you want consulting provider notified?: Yes Primary care physician: Emelia Whitney Hospital Course: Diagnosis on discharge: 1. Back pain 2. Shortness of breath 3. Pleural effusion 4. Abnormal chest x-ray with new findings of pulmonary nodules 5. History of vaginal cancer patient reports she has been getting chemo and radiation. Follows with oncology services Hospital course: This is a 67-year-old female patient who presented to the ER with concerns of lower back pain has been occurring since Tuesday. Patient denies any trauma. Patient also reports that she's had increase coughing and upper respiratory symptoms over the past few days. Patient has medical history of vaginal cancer in which she was treated with chemo and radiation and follows with oncology services. Chest x-ray completed showing large right pleural effusion with adjacent lung lipase studies which may reflect atelectasis and/or infiltrate. Multiple new bilateral pulmonary nodules findings may represent metastatic disease or septic emboli, less likely granulomatous disease. Lumbar spine x-ray completed showing no acute compression fracture. Mild to moderate multilevel spondylosis. Chest CTA completed showing multiple round mass lesions scattered throughout the left lung measuring up to 1.7 cm in diameter consistent with metastatic neoplasm their multiple pulmonary nodules in the remaining right lung as well as rounded areas of decreased enhancement in the atelectatic right lower lobe and lower lobe consistent with neoplasm. Large right pleural effusion measuring 11 cm no pulmonary embolism identified. At this time oncology services have been consulted will also consult pulmonary services. Patient is resting comfortably in bed. Patient still complaining of some shortness of breath. Vital signs temp 97.1, heart rate 89, respiratory rate 16, blood pressure 110/70 with a pulse ox 96% on 2 L. On 05/13/2023 patient was seen and examined on the medical floor she is alert and oriented 3 in no apparent distress she is feeling much better at this time she was seen earlier by Dr. Cotto and underwent right sided thoracentesis. 1200 mL of serosanguineous fluid were removed. Patient was feeling much better she was cleared by pulmonary for discharge patient was asking to be discharged home she was also asking for a prescription for pain medications. She was given a prescription for [place] 5 mg 1 every 4 hours when necessary #18 tablets she will follow-up with her primary care physician Dr. 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 Patient Condition at Discharge: Fair Plan - Discharge Summary New Discharge Prescriptions: Continue Multivitamins, Thera [Multivitamin (formulary)] 1 tab PO DAILY Loratadine [Claritin] 10 mg PO BID Cholecalciferol [Vitamin D3 (25 Mcg = 1000 Iu)] 25 mcg PO BID Calcium Carbonate [Calcium] 600 mg PO BID Benazepril HCl 20 mg PO DAILY Aspirin EC [Ecotrin Low Dose] 81 mg PO DAILY amLODIPine [Norvasc] 10 mg PO DAILY Simvastatin [Zocor] 40 mg PO HS Sertraline [Zoloft] 100 mg PO DAILY Discharge Medication List Aspirin EC [Ecotrin Low Dose] 81 mg PO DAILY 05/13/23 [History] Benazepril HCl 20 mg PO DAILY 05/13/23 [History] Calcium Carbonate [Calcium] 600 mg PO BID 05/13/23 [History] Cholecalciferol [Vitamin D3 (25 Mcg = 1000 Iu)] 25 mcg PO BID 05/13/23 [History] Loratadine [Claritin] 10 mg PO BID 05/13/23 [History] Multivitamins, Thera [Multivitamin (formulary)] 1 tab PO DAILY 05/13/23 [History] Sertraline [Zoloft] 100 mg PO DAILY 05/13/23 [History] Simvastatin [Zocor] 40 mg PO HS 05/13/23 [History] amLODIPine [Norvasc] 10 mg PO DAILY 05/13/23 [History] Follow up Appointment(s)/Referral(s): Emelia Whitney MD [Primary Care Provider] - 1-2 days
[2023-05-13 18:14] VITALS: BP 115/79; PULSE 86; TEMP 98
[2023-05-13] MEDS ORDERED: ATORVASTATIN 20 MG TAB PO SCH (21:00)
[2023-05-13] MEDS ORDERED: CALCIUM CARBONATE 500 MG CHEWABLE PO SCH (21:00)
[2023-05-13] MEDS ORDERED: LORATADINE 10 MG TAB PO SCH (21:00)
[2023-05-13] MEDS ORDERED: CHOLECALCIFEROL 25 MCG (1000 IU) TABLET PO SCH (21:00)
[2023-05-14] MEDS ORDERED: PANTOPRAZOLE 40 MG TABLET PO SCH (07:30)
[2023-05-14] MEDS ORDERED: ASPIRIN 81 MG PO SCH (09:00)
[2023-05-14] MEDS ORDERED: MULTIVITAMINS, THERA 1 EACH TAB PO SCH (09:00)
[2023-05-14] MEDS ORDERED: lisinopriL 20 MG TAB PO SCH (09:00)
[2023-05-14] MEDS ORDERED: SERTRALINE 100 MG TAB PO SCH (09:00)
[2023-05-14] MEDS ORDERED: amLODIPine 10 MG TAB PO SCH (09:00)
== END 2023-05-13 18:10 | disposition home or self-care (01) | DRG 186 ==
LOC: EC 18:15 → 5NMEDONC 05-13 00:14 → OBSVTOIN 05-13 14:40
PROVIDERS: ADMIT Internal Medicine; ATTEND Internal Medicine
PROC: 0W993ZZ Drainage of Right Pleural Cavity, Percutaneous Approach (ICD-10-PCS; principal; 2023-05-13)
DX: J90 Pleural effusion, not elsewhere classified (principal); J96.01 Acute respiratory failure with hypoxia; M47.896 Other spondylosis, lumbar region; E78.5 Hyperlipidemia, unspecified; Z92.21 Personal history of antineoplastic chemotherapy; Z92.3 Personal history of irradiation; I10 Essential (primary) hypertension; Z90.710 Acquired absence of both cervix and uterus; Z85.44 Personal history of malignant neoplasm of other female genital organs; Z79.899 Other long term (current) drug therapy; Z79.82 Long term (current) use of aspirin; Z20.822 Contact with and (suspected) exposure to COVID-19
CPT/HCPCS: 36415; 71045; 71046; 71275; 72100; 80053; 81001; 85025; 85379; 87636; 93005; 99285

== ENCOUNTER 2023-05-16 14:01 | Inpatient (IN) | payer MEDICARE, BC ==
--- NOTE | 2023-05-16 14:48 | ED ---
General Adult HPI - General Chief complaint: Shortness of Breath Stated complaint: SOB Time Seen by Provider: 05/16/23 14:30 Source: patient, RN notes reviewed Mode of arrival: ambulatory Limitations: no limitations - History of Present Illness Initial comments: Patient is a pleasant 67-year-old female presenting to the emergency department with concerns with shortness of breath. Onset of symptoms was last couple of days. Patient was in the hospital several days ago and did have 1.2 L removed from her right lung. Patient is unclear why she had fluid buildup in her lung. Patient does have history of vaginal cancer with chemotherapy and radiation less than one year ago followed by recent brachytherapy. Patient does not use oxygen at home. No significant cough. No fever. - Related Data Home Medications Medication Instructions Recorded Confirmed Aspirin EC [Ecotrin Low Dose] 81 mg PO DAILY 05/13/23 05/13/23 Benazepril HCl 20 mg PO DAILY 05/13/23 05/13/23 Calcium Carbonate [Calcium] 600 mg PO BID 05/13/23 05/13/23 Cholecalciferol [Vitamin D3 (25 25 mcg PO BID 05/13/23 05/13/23 Mcg = 1000 Iu)] Loratadine [Claritin] 10 mg PO BID 05/13/23 05/13/23 Multivitamins, Thera [Multivitamin 1 tab PO DAILY 05/13/23 05/13/23 (formulary)] Sertraline [Zoloft] 100 mg PO DAILY 05/13/23 05/13/23 Simvastatin [Zocor] 40 mg PO HS 05/13/23 05/13/23 amLODIPine [Norvasc] 10 mg PO DAILY 05/13/23 05/13/23 Allergies Allergy/AdvReac Type Severity Reaction Status Date / Time prednisone Allergy Rash/Hives Verified 05/16/23 14:34 sulfamethoxazole Allergy Rash/Hives Verified 05/16/23 14:34 [From Bactrim] trimethoprim [From Bactrim] Allergy Rash/Hives Verified 05/16/23 14:34 Review of Systems ROS Statement: Those systems with pertinent positive or pertinent negative responses have been documented in the HPI. ROS Other: All systems not noted in ROS Statement are negative. Constitutional: Denies: fever Eyes: Denies: eye pain ENT: Denies: ear pain Respiratory: Reports: as per HPI, dyspnea Cardiovascular: Denies: chest pain Endocrine: Reports: fatigue Gastrointestinal: Denies: abdominal pain Genitourinary: Denies: dysuria Musculoskeletal: Denies: back pain Past Medical History Past Medical History: Cancer Additional Past Medical History / Comment(s): vaginal CA. History of Any Multi-Drug Resistant Organisms: None Reported Past Surgical History: Bladder Surgery, Breast Surgery, Hysterectomy Past Psychological History: No Psychological Hx Reported Smoking Status: Never smoker Past Alcohol Use History: None Reported Past Drug Use History: None Reported General Exam Limitations: no limitations General appearance: alert, in no apparent distress Head exam: Present: normocephalic Eye exam: Present: normal appearance Neck exam: Present: normal inspection Respiratory exam: Present: decreased breath sounds (Right-sided up to the midlung.) Cardiovascular Exam: Present: regular rate, normal rhythm GI/Abdominal exam: Present: soft. Absent: tenderness Extremities exam: Present: normal inspection. Absent: pedal edema, calf tenderness Neurological exam: Present: alert Psychiatric exam: Present: normal affect, normal mood Skin exam: Present: normal color Course Vital Signs 05/16/23 14:29 Temperature 98.1 F Pulse Rate 98 Respiratory 20 Rate Blood Pressure 82/62 O2 Sat by Pulse 89 L Oximetry Medical Decision Making - Medical Decision Making Was pt. sent in by a medical professional or institution (, PA, FUNERAL SERVICE LICENSEE, urgent care, hospital, or [facility]...) When possible be specific @ -No Did you speak to anyone other than the patient for history (EMS, parent, family, police, friend...)? What history was obtained from this source @ -No Did you review nursing and triage notes (agree or disagree)? Why? @ -I reviewed and agree with nursing and triage notes Were old charts reviewed (outside hosp., previous admission, EMS record, old EKG, old radiological studies, urgent care reports/EKG's, [facility] records)? Report findings @ -Previous admission reviewed Differential Diagnosis (chest pain, altered mental status, abdominal pain women, abdominal pain men, vaginal bleeding, weakness, fever, dyspnea, syncope, head ache, dizziness, GI bleed, back pain, seizure, CVA, palpatations, mental health, musculoskeletal)? @ -Differential Dyspnea: Coronary syndrome, arrhythmia, tamponade, asthma, COPD, pulmonary embolism, pneumonia, pneumothorax, pulmonary effusion, anaphylaxis, diabetic ketoacidosis, flailed chest, pulmonary contusion, diaphragmatic rupture, anemia, neuromuscular, this is not meant to be an all-inclusive list. EKG interpreted by me (3pts min.). @ -As above X-rays interpreted by me (1pt min.). @ -Chest x-ray interpreted by myself shows large right effusion CT interpreted by me (1pt min.). @ -None done U/S interpreted by me (1pt. min.). @ -None done What testing was considered but not performed or refused? (CT, X-rays, U/S, labs)? Why? @ -None What meds were considered but not given or refused? Why? @ -None Did you discuss the management of the patient with other professionals (professionals i.e. , PA, FUNERAL SERVICE LICENSEE, lab, RT, psych nurse, social service director, heel seat fitter, teacher, youth probation officer, major case detective)? Give summary @ -Case was discussed with Dr. Jose who will admit covering Dr. nice. He is familiar with patient. Was smoking cessation discussed for >3mins.? @ -No Was critical care preformed (if so, how long)? @ -No Were there social determinants of health that impacted care today? How? (Homelessness, low income, unemployed, alcoholism, drug addiction, transportation, low edu. Level, literacy, decrease access to med. care, nursing home, rehab)? @ -No Was there de-escalation of care discussed even if they declined (Discuss DNR or withdrawal of care, Hospice)? DNR status @ -No What co-morbidities impacted this encounter? (DM, HTN, Smoking, COPD, CAD, Cancer, CVA, ARF, Chemo, Hep., AIDS, mental health diagnosis, sleep apnea, morbid obesity)? @ -History of vaginal cancer Was patient admitted / discharged? Hospital course, mention meds given and route, prescriptions, significant lab abnormalities, going to OR and other pertinent info. @ -Patient will be admitted with pulmonary consult. Admission orders written. Patient will remain on oxygen. Patient reevaluated and updated. Undiagnosed new problem with uncertain prognosis? @ -No Drug Therapy requiring intensive monitoring for toxicity (Heparin, Nitro, Insulin, Cardizem)? @ -No Were any procedures done? @ -No Diagnosis/symptom? @ -Pleural effusion Acute, or Chronic, or Acute on Chronic? @ -Acute Uncomplicated (without systemic symptoms) or Complicated (systemic symptoms)? @ -default Side effects of treatment? @ -No Exacerbation, Progression, or Severe Exacerbation? @ -No Poses a threat to life or bodily function? How? (Chest pain, [place], ID, pneumonia, PE, COPD, DKA, ARF, appy, cholecystitis, CVA, Diverticulitis, Homicidal, Suicidal, threat to staff... and all critical care pts) @ -No Disposition Clinical Impression: Pleural effusion Disposition: ADMITTED IP TO THIS HOSP Condition: Serious Is patient prescribed a controlled substance at d/c from ED?: No Referrals: Emelia Whitney MD [Primary Care Provider] - 1-2 days Time of Disposition: 15:35
--- NOTE | 2023-05-16 15:18 | XR ---
EXAMINATION TYPE: XR chest 2V DATE OF EXAM: 05/16/2023 COMPARISON: 05/13/2023 TECHNIQUE: PA and lateral views submitted. HISTORY: Shortness of breath FINDINGS: There is complete opacification right hemithorax progressed from prior exam. There are mass es seen in the left lung compatible with pulmonary metastases. Scoliosis is noted. Osseous structures stable. Heart size stable. Atherosclerotic change aorta. No pneumothorax. IMPRESSION: 1. Progressive findings in the right lung with near complete opacification now noted likely represent ing a combination of consolidation and pleural effusion. Obstructing neoplasm not excluded. 2. Multiple left-sided pulmonary masses.
[2023-05-16] MEDS ORDERED: ACETAMINOPHEN TAB 325 MG TAB PO PRN (15:35)
[2023-05-16] MEDS ORDERED: NALOXONE 0.4 MG/ML 1 ML VIAL IV PRN (15:35)
[2023-05-16 17:06] LABS: Basophils % (A) 0 %; Eosinophils # (A) 0.1 k/uL (0-0.7); Eosinophils % (A) 1 %; HCT 35.9 % (34.0-46.0); HGB 11.8 gm/dL (11.4-16.0); Lymphocytes # (A) 0.5 k/uL (1.0-4.8); Lymphocytes % (A) 5 %; MCH 30.7 pg (25.0-35.0); MCHC 32.7 g/dL (31.0-37.0); MCV 93.9 fL (80.0-100.0); Monocytes # (A) 0.5 k/uL (0-1.0); Monocytes % (A) 5 %; Neutrophils # (A) 10.1 k/uL (1.3-7.7); Neutrophils % (A) 88 %; Platelet Count 404 k/uL (150-450); RBC 3.83 m/uL (3.80-5.40); RDW 14.6 % (11.5-15.5); WBC 11.5 k/uL (3.8-10.6)
[2023-05-16 17:46] LABS: ALT 14 U/L (4-34); AST 20 U/L (14-36); African American GFR (CKD) 69 (>60 ml/min/1.73 sqM); Albumin 2.7 g/dL (3.5-5.0); Alkaline Phosphatase 67 U/L (38-126); Anion Gap 10 mmol/L; Blood Urea Nitrogen 31 mg/dL (7-17); Calcium 8.3 mg/dL (8.4-10.2); Carbon Dioxide 20 mmol/L (22-30); Chloride 103 mmol/L (98-107); Glucose 119 mg/dL (74-99); Non-African American GFR(CKD) 60 (>60 ml/min/1.73 sqM); Potassium 4.4 mmol/L (3.5-5.1); Sodium 133 mmol/L (137-145); Total Bilirubin 0.3 mg/dL (0.2-1.3); Total Protein 5.4 g/dL (6.3-8.2)
[2023-05-16] MEDS: MORPHINE SULFATE 4 MG/ML SYRINGE IV PRN (20:28)
[2023-05-17] MEDS: ONDANSETRON 4 MG/2 ML VIAL IVP PRN ×2 (00:08→20:32)
[2023-05-17] MEDS: MORPHINE SULFATE 4 MG/ML SYRINGE IV PRN ×4 (00:09→20:32)
--- NOTE | 2023-05-17 00:43 | P.CNPUL ---
History of Present Illness Consult date: 05/17/23 Requesting physician: Beto Wright Reason for consult: pleural effusion Chief complaint: Shortness of breath History of present illness: I am seeing this patient in consultation today 05/17/2023 on the general medical floor after she returned with shortness of breath and a recurrent large right-s ided pleural effusion. Patient is a 67-year-old white female with past medical history significant for hypertension, hyperlipidemia, and vaginal cancer. Vaginal cancer recently diagnosed November, and she underwent a combination of radiation and chemotherapy followed by brachytherapy. Patient did have a recent hospital admission back on May 13 for similar symptoms and right lower back pain. She was found to have a moderate to large size right-sided pleural effusion. Chest CTA demonstrated multiple pulmonary nodules throughout the left lung measuring up to 1.7 cm consistent with metastatic neoplasms. There were also multiple pulmonary nodules within the right lung and a large right-sided pleural effusion. Patient did undergo right sided thoracentesis that day, and had a total of 1.2 L of serosanguineous fluid drained. Cytology is still pending. Patient is currently sitting up in bed, on room air, in no acute distress. She does endorse shortness of breath especially with exertion and an occasional cough with minimal sputum production. Denies any fevers, hemoptysis. Denies any sick contacts. Chest x-ray demonstrated a recurrent large right- sided pleural effusion. Underlying consolidation and obstructive neoplasm not excluded. Multiple pulmonary nodules were again appreciated on the left. CBC on arrival shows a WBC count 11.5, hemoglobin 11.8, hematocrit 35.9, platelets 404. BMP on arrival shows sodium 133, potassium 4.4, chloride 103, serum bicarb 20, BUN 31, creatinine 0.97, glucose 119. Pain is reportedly well managed. Review of Systems REVIEW OF SYSTEMS: CONSTITUTIONAL: Denies any recent significant weight loss or weight gain. EYES: Denies change in vision. EARS, NOSE, MOUTH, THROAT: Denies headaches, denies sore throat. CARDIOVASCULAR: Denies chest pain, palpitations or syncopal episodes. RESPIRATORY: See HPI GASTROINTESTINAL: Denies change in appetite, abdominal pain, nausea and vomiting, or diarrhea GENITOURINARY: Denies hematuria or vaginal bleeding. Admits urinary incontinence that started back in November,. MUSKULOSKELETAL: Denies pain, denies swelling. INTEGUMENTARY: Denies rash, denies eczema. NEUROLOGICAL: Denies recent memory loss, no recent seizure activity. PSYCHIATRIC: Denies anxiety, denies depression. HEMATOLOGIC/LYMPHATIC: Denies anemia, denies enlarged lymph node Past Medical History Past Medical History: Cancer Additional Past Medical History / Comment(s): vaginal CA. History of Any Multi-Drug Resistant Organisms: None Reported Past Surgical History: Bladder Surgery, Breast Surgery, Hysterectomy Past Anesthesia/Blood Transfusion Reactions: No Reported Reaction Past Psychological History: No Psychological Hx Reported Smoking Status: Never smoker Past Alcohol Use History: None Reported Past Drug Use History: None Reported Medications and Allergies Home Medications Medication Instructions Recorded Confirmed Type Aspirin EC [Ecotrin Low Dose] 81 mg PO DAILY 05/13/23 05/16/23 History Benazepril HCl 20 mg PO DAILY 05/13/23 05/16/23 History Calcium Carbonate [Calcium] 600 mg PO BID 05/13/23 05/16/23 History Cholecalciferol [Vitamin D3 (25 25 mcg PO BID 05/13/23 05/16/23 History Mcg = 1000 Iu)] Loratadine [Claritin] 10 mg PO BID 05/13/23 05/16/23 History Multivitamins, Thera [Multivitamin 1 tab PO DAILY 05/13/23 05/16/23 History (formulary)] Sertraline [Zoloft] 100 mg PO DAILY 05/13/23 05/16/23 History Simvastatin [Zocor] 40 mg PO HS 05/13/23 05/16/23 History amLODIPine [Norvasc] 10 mg PO DAILY 05/13/23 05/16/23 History HYDROcodone/APAP 5-325MG [[place] 1 tab PO Q4HR 05/16/23 05/16/23 History 5-325] Allergies Allergy/AdvReac Type Severity Reaction Status Date / Time prednisone Allergy Rash/Hives Verified 05/16/23 16:43 sulfamethoxazole Allergy Rash/Hives Verified 05/16/23 16:43 [From Bactrim] trimethoprim [From Bactrim] Allergy Rash/Hives Verified 05/16/23 16:43 Physical Exam Vitals: Vital Signs Temp Pulse Resp BP BP Pulse Ox 05/16/23 20:00 98.6 F 16 99/64 94 L 05/16/23 18:16 98.0 F 96 20 98/61 95 05/16/23 16:24 101 H 20 108/82 97 05/16/23 14:29 98.1 F 98 20 82/62 89 L Intake and Output 05/16/23 05/16/23 05/17/23 14:59 22:59 06:59 Intake Total 120 Balance 120 Intake: Oral 120 Other: # Voids 2 Weight 58.967 kg 58.967 kg GENERAL EXAM: Alert, 67-year-old white female appearing stated age, comfortable in no apparent distress. HEAD: Normocephalic and atraumatic EYES: Normal reaction of pupils, equal size. NOSE: Clear with pink turbinates. THROAT: No erythema or exudates. NECK: No masses, no JVD. CHEST: No chest wall deformity. LUNGS: Markedly diminished right lung sounds. no crackles, wheeze, rhonchi. On room air. No conversational dyspnea or accessory muscle use.. CVS: S1 and S2 normal with no audible murmur, regular rhythm. No extra heart sounds ABDOMEN: No hepatosplenomegaly, active bowel sounds, no guarding or rigidity. SPINE: No scoliosis or deformity SKIN: No rashes CENTRAL NERVOUS SYSTEM: No focal deficits, tone is normal in all 4 extremities. EXTREMITIES: There is no peripheral edema, clubbing, or cyanosis. Peripheral pulses are intact. Results - Laboratory Findings CBC and BMP: 05/16/23 16:25 05/16/23 16:25 Abnormal lab findings: Abnormal Labs 05/16/23 05/16/23 16:25 16:25 WBC 11.5 H Neutrophils # 10.1 H Lymphocytes # 0.5 L Sodium 133 L Carbon Dioxide 20 L BUN 31 H Glucose 119 H Calcium 8.3 L Total Protein 5.4 L Albumin 2.7 L - Diagnostic Findings Chest x-ray: image reviewed Assessment and Plan Assessment: Acute dyspnea, secondary to recurrent large right-sided pleural effusion. Patient did recently have a right-sided thoracentesis done on 05/13/2023 with a total of 1.2 L of serosanguineous fluid removed. Cytology pending. Chest x-ray demonstrated a recurrent large right-sided pleural effusion. Underlying consolidation and obstructive neoplasm not excluded. Multiple pulmonary nodules were again appreciated on the left. Multiple bilateral pulmonary nodules, suspicious for metastatic disease History of vaginal cancer, recently diagnosed November, status/post chemotherapy and radiation therapy followed by brachytherapy Benign essential hypertension Hyperlipidemia Never smoker Plan: Patient's right-sided pleural effusion has returned relatively quickly. Recently drained on May 13, and fluid reaccumulated within 3 days. Consider cardiothoracic consultation for Pleurx catheter, and this will be discussed with Dr. Roberson in the morning. Fluid analysis and cytology are currently pending. CXR reporting a possible consolidative process along with the large right sided effusion. Will check procalcitonin level. Clinically, infectious processes felt to be less likely. Pain is reportedly well managed on current analgesics. We will continue to follow, and further recommendations are forthcoming. I have personally seen and examined the patient, performed the documentation and the assessment and plan as written. Number of minutes spent on the visit:20 Time with Patient: Greater than 30
[2023-05-17] MEDS: traMADol 50 MG TAB PO PRN ×2 (02:08→23:14)
[2023-05-17] MEDS ORDERED: HYDROcodone/APAP 5-325MG 1 EACH TAB PO SCH (08:00)
[2023-05-17] MEDS ORDERED: CALCIUM CARBONATE 500 MG CHEWABLE PO PRN (08:48)
[2023-05-17] MEDS: LORATADINE 10 MG TAB PO SCH (08:55)
[2023-05-17] MEDS: CHOLECALCIFEROL 25 MCG (1000 IU) TABLET PO SCH ×2 (08:55→20:32)
[2023-05-17] MEDS: SERTRALINE 100 MG TAB PO SCH (08:55)
[2023-05-17] MEDS: MULTIVITAMINS, THERA 1 EACH TAB PO SCH (08:55)
[2023-05-17] MEDS ORDERED: lisinopriL 20 MG TAB PO SCH (09:00)
[2023-05-17] MEDS ORDERED: amLODIPine 10 MG TAB PO SCH (09:00)
[2023-05-17] MEDS ORDERED: CALCIUM CARBONATE 500 MG CHEWABLE PO SCH (09:00)
--- NOTE | 2023-05-17 09:21 | P.HPIM ---
History of Present Illness H&P Date: 05/16/23 Harleen Santana, is a 67-year-old female who presented to [facility] emergency room with a chief complaint of worsening shortness of breath with concerns of recurrent pleural effusion patient was recently admitted and treated for pleural effusion with status post thoracentesis. 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 Patient was recently admitted for pleural effusions status post thoracentesis. A On review of systems patient is alert and oriented 3. Patient reports shortness of breath. Patient denies chest pain. Patient denies nausea vomiting or diarrhea. Patient denies any urinary burning or frequency Review of Systems Please refer to HPI otherwise unremarkable Past Medical History Past Medical History: Cancer Additional Past Medical History / Comment(s): vaginal CA. History of Any Multi-Drug Resistant Organisms: None Reported Past Surgical History: Bladder Surgery, Breast Surgery, Hysterectomy Past Psychological History: No Psychological Hx Reported Smoking Status: Never smoker Past Alcohol Use History: None Reported Past Drug Use History: None Reported Medications and Allergies Home Medications Medication Instructions Recorded Confirmed Type Aspirin EC [Ecotrin Low Dose] 81 mg PO DAILY 05/13/23 05/16/23 History Benazepril HCl 20 mg PO DAILY 05/13/23 05/16/23 History Calcium Carbonate [Calcium] 600 mg PO BID 05/13/23 05/16/23 History Cholecalciferol [Vitamin D3 (25 25 mcg PO BID 05/13/23 05/16/23 History Mcg = 1000 Iu)] Loratadine [Claritin] 10 mg PO BID 05/13/23 05/16/23 History Multivitamins, Thera [Multivitamin 1 tab PO DAILY 05/13/23 05/16/23 History (formulary)] Sertraline [Zoloft] 100 mg PO DAILY 05/13/23 05/16/23 History Simvastatin [Zocor] 40 mg PO HS 05/13/23 05/16/23 History amLODIPine [Norvasc] 10 mg PO DAILY 05/13/23 05/16/23 History HYDROcodone/APAP 5-325MG [[place] 1 tab PO Q4HR 05/16/23 05/16/23 History 5-325] Allergies Allergy/AdvReac Type Severity Reaction Status Date / Time prednisone Allergy Rash/Hives Verified 05/16/23 16:43 sulfamethoxazole Allergy Rash/Hives Verified 05/16/23 16:43 [From Bactrim] trimethoprim [From Bactrim] Allergy Rash/Hives Verified 05/16/23 16:43 Physical Exam Vitals: Vital Signs Temp Pulse Resp BP Pulse Ox 05/16/23 16:24 101 H 20 108/82 97 05/16/23 14:29 98.1 F 98 20 82/62 89 L Intake and Output 05/16/23 05/16/23 05/16/23 06:59 14:59 22:59 Other: Weight 58.967 kg In general patient is alert and oriented x 3 in no distress HEENT head normocephalic and atraumatic Neck is supple no JVD no goiter no lymphadenopathy no carotid bruit Chest examination is clear to auscultation no crackles no wheezing Cardiac exam reveals regular heart sounds S1 and S2 no gallops no murmurs Abdomen is soft nontender no organomegaly with normal bowel sounds Extremity exam reveals no edema no cyanosis or clubbing Neurological examination reveals no gross focal deficits Results CBC & Chem 7: 05/16/23 16:25 05/16/23 16:25 Assessment and Plan Plan: Worsening shortness of breath Recurrent pleural effusion Abnormal x-ray revealing multiple left-sided pulmonary masses History of malignant neoplasm of the vagina, patient received chemotherapy and radiation therapy Underlying history of hypertension Underlying history of hyperlipidemia Underlying history of anxiety disorder At this time patient will be admitted to telemetry floor Home medications reviewed and reordered Pulmonary and oncology consultation requested Will follow closely
--- NOTE | 2023-05-17 09:23 | P.PN ---
Subjective Progress Note Date: 05/17/23 Harleen Santana, is a 67-year-old female who presented to [facility] emergency room with a chief complaint of worsening shortness of breath with concerns of recurrent pleural effusion patient was recently admitted and treated for pleural effusion with status post thoracentesis. 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 Patient was recently admitted for pleural effusions status post thoracentesis. A On review of systems patient is alert and oriented 3. Patient reports shortness of breath. Patient denies chest pain. Patient denies nausea vomiting or diarrhea. Patient denies any urinary burning or frequency On 05/17/2023 patient is alert and oriented 3. Per pulmonary services consult placed for cardiothoracic surgery for possible Pleurx drain placement. Ultrasound of chest ordered. Current vital signs temp 97.4, heart rate 94, respiratory rate 16, blood pressure 84/59 with a pulse ox of 97%. Patient reports shortness breath. Patient denies chest pain. Patient denies nausea vomiting or diarrhea. Patient denies any urinary burning or frequency Objective - Vital Signs Vital signs: Vital Signs Temp 97.4 F L 05/17/23 07:27 Pulse 94 05/17/23 02:00 Resp 16 05/17/23 07:27 BP 84/60 05/17/23 08:57 Pulse Ox 97 05/17/23 07:27 FiO2 Intake & Output 05/16/23 05/17/23 05/17/23 18:59 06:59 18:59 Intake Total 120 Balance 120 Weight 58.967 kg 58.967 kg Intake: Oral 120 Other: # Voids 2 2 - Exam In general patient is alert and oriented x 3 in no distress HEENT head normocephalic and atraumatic Neck is supple no JVD no goiter no lymphadenopathy no carotid bruit Chest examination is clear to auscultation no crackles no wheezing Cardiac exam reveals regular heart sounds S1 and S2 no gallops no murmurs Abdomen is soft nontender no organomegaly with normal bowel sounds Extremity exam reveals no edema no cyanosis or clubbing Neurological examination reveals no gross focal deficits - Labs CBC & Chem 7: 05/16/23 16:25 05/16/23 16:25 Labs: Abnormal Lab Results - Last 24 Hours (Table) 05/16/23 05/16/23 05/16/23 Range/Units 16:25 16:25 16:25 WBC 11.5 H (3.8-10.6) k/uL Neutrophils # 10.1 H (1.3-7.7) k/uL Lymphocytes # 0.5 L (1.0-4.8) k/uL Sodium 133 L (137-145) mmol/L Carbon Dioxide 20 L (22-30) mmol/L BUN 31 H (7-17) mg/dL Glucose 119 H (74-99) mg/dL Calcium 8.3 L (8.4-10.2) mg/dL Total Protein 5.4 L (6.3-8.2) g/dL Albumin 2.7 L (3.5-5.0) g/dL Procalcitonin 0.22 H (0.02-0.09) ng/mL Assessment and Plan Plan: Worsening shortness of breath Recurrent pleural effusion Abnormal x-ray revealing multiple left-sided pulmonary masses History of malignant neoplasm of the vagina, patient received chemotherapy and radiation therapy Underlying history of hypertension Underlying history of hyperlipidemia Underlying history of anxiety disorder At this time patient will be admitted to telemetry floor Home medications reviewed and reordered Pulmonary and oncology consultation requested cardio thoracic surgery consulted for possible Pleurx catheter placement Will follow closely
--- NOTE | 2023-05-17 09:49 | US ---
EXAMINATION TYPE: US chest DATE OF EXAM: 05/17/2023 COMPARISON: 04/15/2023. CLINICAL INDICATION: Female, 67 years old with history of right pleural effusion; known effusion, SOB TECHNIQUE: Targeted ultrasound of the posterior lower Right EXAM MEASUREMENTS: Right Pleural Effusion pocket size: 20.7 cm Right skin surface to fluid distance: 3.9 cm Right side marked for possible thoracentesis outside the dept. Pulmonologists are able to review the images in the patient?s EMR. IMPRESSIONS: Moderate to large right pleural effusion.
[2023-05-17] MEDS: ALBUMIN HUMAN 25% 50 ML in EMPTY BAG 1 BAG IVPB SCH ×2 (10:46→11:41)
--- NOTE | 2023-05-17 10:56 | P.GSCN ---
History of Present Illness Consult date: 05/17/23 Reason for Consult: recurrent right pleural effusion, need for pleurx Requesting physician: Aren Roberson History of present illness: This is a 67 year old female who follows outpatient with Dr. Whitney for primary care and Dr. Sandoval for oncology. She has a previous medical history of vaginal cancer diagnosed in 11/2022 status post chemo and radiation as well as brachytherapy, hypertension, hyperlipidemia, and is a lifelong non-smoker. She was recently hospitalized for shortness of breath with findings of moderate right sided pleural effusion as well as multiple pulmonary nodules throughout the left lung felt to be consistent with metastatic disease. She underwent right sided thoracentesis on 05/13/23 with removal of 1.2L fluid which was sent for cytology and culture, results still pending. She was discharged to home but unfortunately has had increased shortness of breath and productive cought causing her to return to [facility] last night. CXR revealed complete opacification of the right lung felt to be combination of consolidation and pleural effusion, and multiple left-sided pulmonary masses. She was admitted for evaluation and treatment with consultation placed to pulmonology and on cology. This morning she had an ultrasound of the chest demonstrating 20.7 cm right sided fluid pocket. Consultation was placed to cardiothoracic surgery for consideration for placement of pleurx catheter. Review of Systems ROS was completed and was negative except as noted - Respiratory Reports as per HPI, Reports cough with sputum, Reports dyspnea Past Medical History Past Medical History: Cancer, Hyperlipidemia, Hypertension Additional Past Medical History / Comment(s): vaginal CA. History of Any Multi-Drug Resistant Organisms: None Reported Past Surgical History: Bladder Surgery, Breast Surgery, Hysterectomy Past Anesthesia/Blood Transfusion Reactions: No Reported Reaction Past Psychological History: No Psychological Hx Reported Smoking Status: Never smoker Past Alcohol Use History: None Reported Past Drug Use History: None Reported Medications and Allergies Home Medications Medication Instructions Recorded Confirmed Type Aspirin EC [Ecotrin Low Dose] 81 mg PO DAILY 05/13/23 05/16/23 History Benazepril HCl 20 mg PO DAILY 05/13/23 05/16/23 History Calcium Carbonate [Calcium] 600 mg PO BID 05/13/23 05/16/23 History Cholecalciferol [Vitamin D3 (25 25 mcg PO BID 05/13/23 05/16/23 History Mcg = 1000 Iu)] Loratadine [Claritin] 10 mg PO BID 05/13/23 05/16/23 History Multivitamins, Thera [Multivitamin 1 tab PO DAILY 05/13/23 05/16/23 History (formulary)] Sertraline [Zoloft] 100 mg PO DAILY 05/13/23 05/16/23 History Simvastatin [Zocor] 40 mg PO HS 05/13/23 05/16/23 History amLODIPine [Norvasc] 10 mg PO DAILY 05/13/23 05/16/23 History HYDROcodone/APAP 5-325MG [[place] 1 tab PO Q4HR 05/16/23 05/16/23 History 5-325] Allergies Allergy/AdvReac Type Severity Reaction Status Date / Time prednisone Allergy Rash/Hives Verified 05/16/23 16:43 sulfamethoxazole Allergy Rash/Hives Verified 05/16/23 16:43 [From Bactrim] trimethoprim [From Bactrim] Allergy Rash/Hives Verified 05/16/23 16:43 Surgical - Exam Vital Signs Temp Pulse Resp BP Pulse Ox 98.1 F 98 20 82/62 89 L 05/16/23 14:29 05/16/23 14:29 05/16/23 14:29 05/16/23 14:29 05/16/23 14:29 CONSTITUTIONAL: Awake and alert, appears comfortable, cooperative, well- developed, well-nourished, no pain, no acute distress EYES: Pupils equal, round, reactive to light, normal ocular movement ENT: Moist mucous membranes without oral lesions present NECK: No masses, no bruits, trachea midline RESPIRATORY: Lungs sounds diminished on the right. Respirations even, nonlabored. Currently on 2 LPM NC with oxygen saturation 97%. Strong cough CARDIOVASCULAR: S1, S2 present. Regular rate and rhythm. Palpable peripheral pulses bilaterally. No edema present GASTROINTESTINAL: Abdomen soft, nontender, nondistended without masses or organomegaly noted. There is no rebound or guarding present. Active bowel sounds present 4 quadrants. GENITOURINARY: Deferred INTEGUMENTARY: Skin is warm and dry NEUROLOGIC: Cranial nerves II through XII intact, normal coordination, no obvious motor or sensory deficits, speech is normal MUSKULOSKELETAL: Able to move all extremities, strength equal bilaterally, normal posture PSYCHIATRIC: Alert and oriented to person place and time, appropriate affect, intact judgment and insight Results - Labs 05/16/23 16:25 05/16/23 16:25 Abnormal Lab Results - Last 24 Hours (Table) 05/16/23 05/16/23 05/16/23 Range/Units 16:25 16:25 16:25 WBC 11.5 H (3.8-10.6) k/uL Neutrophils # 10.1 H (1.3-7.7) k/uL Lymphocytes # 0.5 L (1.0-4.8) k/uL Sodium 133 L (137-145) mmol/L Carbon Dioxide 20 L (22-30) mmol/L BUN 31 H (7-17) mg/dL Glucose 119 H (74-99) mg/dL Calcium 8.3 L (8.4-10.2) mg/dL Total Protein 5.4 L (6.3-8.2) g/dL Albumin 2.7 L (3.5-5.0) g/dL Procalcitonin 0.22 H (0.02-0.09) ng/mL Diabetes panel 05/16/23 Range/Units 16:25 Sodium 133 L (137-145) mmol/L Potassium 4.4 (3.5-5.1) mmol/L Chloride 103 (98-107) mmol/L Carbon Dioxide 20 L (22-30) mmol/L BUN 31 H (7-17) mg/dL Creatinine 0.97 (0.52-1.04) mg/dL Glucose 119 H (74-99) mg/dL Calcium 8.3 L (8.4-10.2) mg/dL AST 20 (14-36) U/L ALT 14 (4-34) U/L Alkaline Phosphatase 67 (38-126) U/L Total Protein 5.4 L (6.3-8.2) g/dL Albumin 2.7 L (3.5-5.0) g/dL Calcium panel 05/16/23 Range/Units 16:25 Calcium 8.3 L (8.4-10.2) mg/dL Albumin 2.7 L (3.5-5.0) g/dL Pituitary panel 05/16/23 Range/Units 16:25 Sodium 133 L (137-145) mmol/L Potassium 4.4 (3.5-5.1) mmol/L Chloride 103 (98-107) mmol/L Carbon Dioxide 20 L (22-30) mmol/L BUN 31 H (7-17) mg/dL Creatinine 0.97 (0.52-1.04) mg/dL Glucose 119 H (74-99) mg/dL Calcium 8.3 L (8.4-10.2) mg/dL Adrenal panel 05/16/23 Range/Units 16:25 Sodium 133 L (137-145) mmol/L Potassium 4.4 (3.5-5.1) mmol/L Chloride 103 (98-107) mmol/L Carbon Dioxide 20 L (22-30) mmol/L BUN 31 H (7-17) mg/dL Creatinine 0.97 (0.52-1.04) mg/dL Glucose 119 H (74-99) mg/dL Calcium 8.3 L (8.4-10.2) mg/dL Total Bilirubin 0.3 (0.2-1.3) mg/dL AST 20 (14-36) U/L ALT 14 (4-34) U/L Alkaline Phosphatase 67 (38-126) U/L Total Protein 5.4 L (6.3-8.2) g/dL Albumin 2.7 L (3.5-5.0) g/dL - Imaging Chest x-ray: report reviewed, image reviewed Additional studies: previous CTA (05/13/23) and PET (01/07/23) reviewed Assessment and Plan Assessment: Large right sided recurrent pleural effusion, last drained for 1.2 L on 05/13/23, cytology and culture pending Multiple left-sided pulmonary nodules, felt to be consistent with metastatic disease Shortness of breath secondary to above History of vaginal cancer diagnosed in 11/2022 status post chemo and radiation as well as brachytherapy History of hypertension, currently hypotensive History of hyperlipidemia Lifelong non-smoker Plan: The patient was seen and examined laying in bed on the medical oncology unit in no current acute distress although she is a bit hypotensive, does complain of shortness of breath with any activity. Chart/diagnostics were reviewed. The case was discussed in detail with Dr. Langford. We can place a right sided pleurx catheter to allow patient to drain recurrent effusions at home. This was discus sed with the patient and she is in agreement. The usual perioperative course was discussed, risks and benefits were reviewed, all questions were answered. We have tentatively scheduled her for pleurx placement tomorrow as she has already eaten today. She will be NPO after midnight. We will order home care to arrange drainage bottle delivery and teaching regarding pleurx drainage at home. Once pleurx placed patient may be discharged to home from our standpoint when ok with other services, and she may follow up in our office for pleurx removal once drainage less than 50 mL for 3 times in a row. Management of other comorbidities per internal medicine, pulmonology, oncology. Thank you Dr. Roberson for this consult, we will follow along with you. I have personally seen and examined the patient, performed the documentation and the assessment and plan as written. Number of minutes spent on the visit: 30. SVETA TavaresC Attending Addendum: Pt seen and evaluated with TECH ED/[employer] TE[employer]ER above. Agree with her assessment and plan. This is a 67 year-old F with recurrent right sided effusion, likely malignant. Will plan for pleurX placement. I spent 35 minutes reviewing the data and discussing the plan of care with the team. Time with Patient: Greater than 30
[2023-05-17] MEDS ORDERED: IOPAMIDOL CONTRAST (ORAL USE) VIAL PO PRN (12:52)
[2023-05-17 14:39] VITALS: BMI 24.5
[2023-05-17] MEDS: HYDROcodone/APAP 5-325MG 1 EACH TAB PO PRN (16:47)
[2023-05-17] MEDS: ALPRAZolam 0.25 MG TAB PO PRN (18:15)
[2023-05-17] MEDS: ATORVASTATIN 20 MG TAB PO SCH (20:32)
--- NOTE | 2023-05-17 21:59 | P.CONS ---
History of Present Illness - Reason for Consult Consult date: 05/17/23 hx vaginal cancer Requesting physician: Bernie Jose - Chief Complaint SOB - History of Present Illness Patient is a 67 yr old female with a significantt history of vaginal cancer. She is a patient of Dr. Megan Orozco. She initially presented with vulvovaginal itching with irritation with subsequent painless vaginal bleeding initially developing in October 2022. Vaginal exam noted fixed 5 x 3 cm nodular mass along the posterior vaginal wall. 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 IHC noted CD56 to be positive, there was no notation of synaptophysin staining being done. P53 was wild-type. CT abdomen/pelvis on 12/02/2022 followed by subsequent PET/CT on 01/07/2023 noted no evidence of lymphadenopathy or distant metastatic disease. PET/CT did note potential microinvasion of surrounding vaginal tissues. 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 Case was discussed with Dr. Garg of gynecologic oncology and upon review of her pathology at [facility], she was deemed not to have small cell component. She initiated concurrent chemoradiotherapy with weekly cisplatin on 01/31/2023 and completed cycle 5 of we ekly cisplatin on 02/28/2023 and completed radiation therapy on 03/09/2023. MRI of the pelvis on 03/02/2023 revealed persistent involvement of the vaginal introitus, but revealed no evidence of disease progression. Brachytherapy was performed on 04/13/2023 and 04/14/2023. PET/CT and MRI of the pelvis was planned for June 2023 Patient presented to the emergecy room with worsening SOB. Of note patient did have a recent hospitalization last week for similar symptoms. Chest CTA on 05/12 Revealed multiple round mass lesions scattered throughout the left lung measuring up to 1.7 cm in diameter. Multiple pulmonary nodules in the remaining aerated right lung as well as rounded areas of decreased enhancement in the atelectatic right lower lobe and right middle lobe. Large right pleural effusion was also noted. She had right sided thoracentesis at that time, with 1.2 L of serosanguineous fluid drained. Cytology is still pending. At today's visit patient is reporting persisting shortness of breath. Patient reports that shortness of breath began worsening over the last couple days with intermittent cough. Denies any associated fever or hemoptysis. Upon admission chest x-ray revealed progressive findings in the right lung with near complete opacification now noted. Multiple left-sided pulmonary masses. Cardiothoracic surgery has been consulted for possible Pleurx placement. Patient is afebrile. SPO2 97% on 2 L. Procalcitonin 0.22. CBC revealed WBC 11.5, hemoglobin 11.8, platelets 404,000. Review of Systems 10 point ROS is negative except as stated in the HPI Past Medical History Past Medical History: Cancer Additional Past Medical History / Comment(s): vaginal CA. History of Any Multi-Drug Resistant Organisms: None Reported Past Surgical History: Bladder Surgery, Breast Surgery, Hysterectomy Past Anesthesia/Blood Transfusion Reactions: No Reported Reaction Past Psychological History: No Psychological Hx Reported Smoking Status: Never smoker Past Alcohol Use History: None Reported Past Drug Use History: None Reported Medications and Allergies Home Medications Medication Instructions Recorded Confirmed Type Aspirin EC [Ecotrin Low Dose] 81 mg PO DAILY 05/13/23 05/16/23 History Benazepril HCl 20 mg PO DAILY 05/13/23 05/16/23 History Calcium Carbonate [Calcium] 600 mg PO BID 05/13/23 05/16/23 History Cholecalciferol [Vitamin D3 (25 25 mcg PO BID 05/13/23 05/16/23 History Mcg = 1000 Iu)] Loratadine [Claritin] 10 mg PO BID 05/13/23 05/16/23 History Multivitamins, Thera [Multivitamin 1 tab PO DAILY 05/13/23 05/16/23 History (formulary)] Sertraline [Zoloft] 100 mg PO DAILY 05/13/23 05/16/23 History Simvastatin [Zocor] 40 mg PO HS 05/13/23 05/16/23 History amLODIPine [Norvasc] 10 mg PO DAILY 05/13/23 05/16/23 History HYDROcodone/APAP 5-325MG [[place] 1 tab PO Q4HR 05/16/23 05/16/23 History 5-325] Allergies Allergy/AdvReac Type Severity Reaction Status Date / Time prednisone Allergy Rash/Hives Verified 05/16/23 16:43 sulfamethoxazole Allergy Rash/Hives Verified 05/16/23 16:43 [From Bactrim] trimethoprim [From Bactrim] Allergy Rash/Hives Verified 05/16/23 16:43 Physical Exam Vitals: Vital Signs Temp Pulse Pulse Resp BP BP BP 05/17/23 09:30 05/17/23 08:57 84/60 05/17/23 08:42 71/44 05/17/23 07:27 97.4 F L 16 84/59 05/17/23 02:00 97.6 F 94 16 90/62 05/16/23 20:00 98.6 F 16 99/64 05/16/23 18:16 98.0 F 96 20 98/61 05/16/23 16:24 101 H 20 108/82 05/16/23 14:29 98.1 F 98 20 82/62 BP BP BP Pulse Ox 05/17/23 09:30 93/64 82/54 77/48 05/17/23 08:57 05/17/23 08:42 05/17/23 07:27 97 05/17/23 02:00 92 L 05/16/23 20:00 94 L 05/16/23 18:16 95 05/16/23 16:24 97 05/16/23 14:29 89 L Intake and Output 05/16/23 05/17/23 05/17/23 22:59 06:59 14:59 Intake Total 120 Balance 120 Intake: Oral 120 Other: # Voids 2 2 Weight 58.967 kg - Constitutional General appearance: average body habitus, no acute distress - EENT Eyes: anicteric sclerae, EOMI ENT: hearing grossly normal - Neck Neck: no lymphadenopathy - Respiratory Respiratory: right: diminished - Cardiovascular Rhythm: regular Heart sounds: normal: S1, S2 - Gastrointestinal General gastrointestinal: soft, no tenderness - Integumentary Integumentary: no cyanotic - Neurologic grossly intact - Musculoskeletal Musculoskeletal: strength equal bilaterally - Psychiatric Psychiatric: A&O x's 3 Results CBC & Chem 7: 05/16/23 16:25 05/16/23 16:25 Labs: Abnormal Lab Results - Last 24 Hours (Table) 05/16/23 05/16/23 05/16/23 Range/Units 16:25 16:25 16:25 WBC 11.5 H (3.8-10.6) k/uL Neutrophils # 10.1 H (1.3-7.7) k/uL Lymphocytes # 0.5 L (1.0-4.8) k/uL Sodium 133 L (137-145) mmol/L Carbon Dioxide 20 L (22-30) mmol/L BUN 31 H (7-17) mg/dL Glucose 119 H (74-99) mg/dL Calcium 8.3 L (8.4-10.2) mg/dL Total Protein 5.4 L (6.3-8.2) g/dL Albumin 2.7 L (3.5-5.0) g/dL Procalcitonin 0.22 H (0.02-0.09) ng/mL Chest x-ray: report reviewed CT scan - chest: report reviewed Assessment and Plan (1) Pleural effusion Current Visit: Yes Status: Acute Priority: High Code(s): J90 - PLEURAL EFFUSION, NOT ELSEWHERE CLASSIFIED SNOMED Code(s): 23458626 (2) Pulmonary nodules Current Visit: Yes Status: Acute Code(s): R91.8 - OTHER NONSPECIFIC ABNORMAL FINDING OF LUNG FIELD SNOMED Code(s): 816227485 (3) Vaginal cancer Current Visit: Yes Status: Acute Priority: High Code(s): C52 - MALIGNANT NEOPLASM OF VAGINA SNOMED Code(s): 294183495 Plan: Lung nodules/Pleural effusion: -Chest CTA on 05/12 Revealed multiple round mass lesions scattered throughout the left lung measuring up to 1.7 cm in diameter. Multiple pulmonary nodules in the remaining aerated right lung as well as rounded areas of decreased enhancement in the atelectatic right lower lobe and right middle lobe. Large right pleural effusion was also noted. Discussed with patient scan findings and concern of recurrence of disease -Patient underwent right sided thoracentesis on 05/13, with 1.2 L of serosanguineous fluid drained. Cytology is still pending. -Upon admission chest x-ray revealed progressive findings in the right lung with near complete opacification now noted. Multiple left-sided pulmonary masses. Cardiothoracic surgery has been consulted with plan for Pleurx placement -Will obtain CT AP and bone scan to complete staging -Once cytology resulted, if malignancy is noted will request NGS and PDL1 on specimen -Clinic f/u with Dr. Megan Orozco will be scheduled upon discharge Vaginal Cancer: -Full oncological history in HPI -Completed concurrent chemo/RT in 02/2023 and brachytherapy in 03/2023. Pt was scheduled for repeat MRI pelvis and PET CT in 06/2023 Attests: I have seen and examined pt, performed H&P, developed impression and plan of care. Discussed with dictator. Agree with documentation, dictated as a scribe.
[2023-05-18] MEDS: MORPHINE SULFATE 4 MG/ML SYRINGE IV PRN (00:09)
[2023-05-18] MEDS: HYDROcodone/APAP 5-325MG 1 EACH TAB PO PRN ×2 (04:17→19:43)
[2023-05-18] MEDS: traMADol 50 MG TAB PO PRN (05:12)
[2023-05-18] MEDS: ONDANSETRON 4 MG/2 ML VIAL IVP PRN (06:56)
[2023-05-18] MEDS: SERTRALINE 100 MG TAB PO SCH (08:00)
[2023-05-18] MEDS: LORATADINE 10 MG TAB PO SCH (08:00)
[2023-05-18] MEDS: MULTIVITAMINS, THERA 1 EACH TAB PO SCH (08:00)
[2023-05-18] MEDS: CHOLECALCIFEROL 25 MCG (1000 IU) TABLET PO SCH ×2 (08:00→20:03)
--- NOTE | 2023-05-18 08:46 | CT ---
EXAMINATION TYPE: CT abdomen pelvis w con DATE OF EXAM: 05/17/2023 COMPARISON: 12/02/2022 HISTORY: abdominal pain, nausea, vomiting CT DLP: 562.5 mGycm CONTRAST: CT scan of the abdomen and pelvis is performed with Oral Contrast and with IV Contrast, patient injec arianna with 100cc mL of Isovue 300. FINDINGS: LUNG BASES-: Large right-sided pleural effusion with apparent collapse of the right lung. Underlying mass is not excluded. Multiple left pulmonary nodules appreciated. Correlate with recent CT chest. LIVER/GB: No calcified gallstones. No space occupying hepatic lesion. Biliary tree is of normal ca liber. PANCREAS: No inflammation. No distinct mass. SPLEEN: No splenic enlargement. No lesion seen. ADRENALS: 11 mm nodule left adrenal gland. Right adrenal gland is unremarkable. No thickening. KIDNEYS/BLADDER: No hydronephrosis. No nephrolithiasis. No distinct renal mass. Urinary bladder g rossly unremarkable. BOWEL: Normal appendix. Normal bowel caliber. No inflammation. GENITAL ORGANS: Abnormal attenuation in the region of the vagina. There is evidence of prior hystere ctomy. No adnexal masses seen. LYMPH NODES: No greater than 1cm abdominal or pelvic lymph nodes are appreciated. AORTA: No significant abnormality. OSSEOUS STRUCTURES: No significant abnormality is seen. OTHER: No significant additional abnormality is seen. IMPRESSION: 1. Abnormal attenuation in the region of the vagina. There is evidence of prior hysterectomy. No adne xal masses seen. 2. No evidence for metastatic disease to the abdomen or pelvis. 3. Multiple left pulmonary nodules. Large right-sided pleural effusion with collapse of the right russell ng
[2023-05-18] MEDS ORDERED: ONDANSETRON 4 MG/2 ML VIAL IVP ONE (09:05)
[2023-05-18] MEDS ORDERED: LACTATED RINGERS 1,000 ML IV ONE (09:05)
[2023-05-18] MEDS ORDERED: KETAMINE HCL IN 0.9 % NACL 50 MG/5 ML SYRINGE ONE (09:40)
[2023-05-18] MEDS ORDERED: MIDAZOLAM 2 MG/2 ML VIAL ONE (09:40)
[2023-05-18] MEDS ORDERED: fentaNYL (PF) 50 MCG/ML 2 ML AMP ONE (09:40)
[2023-05-18] MEDS ORDERED: LIDOCAINE 1% INJ 10MG/ML (5 ML VIAL-PF) SQ ONE ×2 (09:54)
--- NOTE | 2023-05-18 10:21 | P.OP ---
Date of Procedure: 05/18/23 Preoperative Diagnosis: Recurrent right sided pleural effusion Postoperative Diagnosis: Same Procedure(s) Performed: 1. Right sided pleurX catheter insertion Anesthesia: CANDACEA Surgeon: Prosper Langford Estimated Blood Loss (ml): 10 Pathology: other (pleural fluid for cytology) Condition: stable Disposition: PACU Indications for Procedure: This patient is a 67 year-old female with a hx of vaginal cancer who recently had a right sided pleural effusion which was tapped for 1.4L. Within several days she had complete opacification of her right yazan-thorax with recurrent effusion. Although cytology is pending this is most likely a malignant recurrent effusion and she now requires a pleurX catheter. Operative Findings: 4L of serous fluid drained. Description of Procedure: The patient was brought back to the operating room and placed in the supine position with right side bumped up. She was sedated and antibiotics were given. Two areas of the skin were anesthetized using 1% lidocaine. Two incisions were made. The catheter was tunneled from the costal margin posteriorly. Introducer needle was used to enter chest cavity with good return of pleural fluid. Guidewire was inserted. Then introducer sheath was inserted over the wire and catheter threaded into the pleural cavity. 4L of serous fluid was drained. A sterile dressing was applied and the posterior incision was closed with monocryl and glue.
--- NOTE | 2023-05-18 10:37 | XR ---
EXAMINATION TYPE: XR chest 1V portable DATE OF EXAM: 05/18/2023 COMPARISON: 05/16/2023. HISTORY: Post Pleurx placement. TECHNIQUE: Single frontal view of the chest is obtained. IMPRESSION: Significant decrease in the previously seen large right pleural effusion. There is patchy parietal ch anges remain as well as a [id number] right pleural effusion. Multiple nodules and masses are s een within the left lung which are unchanged. The cardiac silhouette is within normal limits.
[2023-05-18 11:02] LABS: Basophils # (A) 0.06 X 10*3/uL (0.00-0.10); Basophils % (A) 0.6 %; Eosinophils # (A) 0.11 X 10*3/uL (0.04-0.35); HCT 33.2 % (37.2-46.3); HGB 10.1 g/dL (12.0-15.0); Lymphocytes # (A) 0.33 X 10*3/uL (0.90-5.00); MCH 29.9 pg (27.0-32.0); MCHC 30.4 g/dL (32.0-37.0); MCV 98.2 FL (80.0-97.0); Mean Platelet Volume 9.8 FL (9.5-12.2); Monocytes % (A) 8.3 %; NRBC Per 100 WBC 0 X 10*3/uL (0.00-0.01); Neutrophils # (A) 9.33 X 10*3/uL (1.80-7.70); Neutrophils % (A) 86.2 %; Platelet Count 441 X 10*3/uL (140-440); RBC 3.38 X 10*6/uL (4.10-5.20); WBC 10.83 X 10*3/uL (4.50-10.00)
[2023-05-18 11:22] LABS: ALT 11 U/L (8-44); AST 11 U/L (13-35); Albumin 3.2 g/dL (3.8-4.9); Albumin/Globulin Ratio 1.39 Ratio (1.60-3.17); Alkaline Phosphatase 66 U/L (41-126); BUN/Creat Ratio 17.03 Ratio (12.00-20.00); Blood Urea Nitrogen 49.4 mg/dL (9.0-27.0); Calcium 9.4 mg/dL (8.7-10.3); Carbon Dioxide 21.7 mmol/L (21.6-31.8); Chloride 98 mmol/L (96-109); Globulin 2.3 g/dL (1.6-3.3); Glucose 123 mg/dL (70-110); Potassium 5.8 mmol/L (3.5-5.5); Sodium 134 mmol/L (135-145); Total Bilirubin 0.2 mg/dL (0.3-1.2); Total Protein 5.5 g/dL (6.2-8.2)
--- NOTE | 2023-05-18 11:28 | P.PN ---
Subjective Progress Note Date: 05/18/23 Harleen Santana, is a 67-year-old female who presented to [facility] emergency room with a chief complaint of worsening shortness of breath with concerns of recurrent pleural effusion patient was recently admitted and treated for pleural effusion with status post thoracentesis. 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 Patient was recently admitted for pleural effusions status post thoracentesis. A On review of systems patient is alert and oriented 3. Patient reports shortness of breath. Patient denies chest pain. Patient denies nausea vomiting or diarrhea. Patient denies any urinary burning or frequency On 05/17/2023 patient is alert and oriented 3. Per pulmonary services consult placed for cardiothoracic surgery for possible Pleurx drain placement. Ultrasound of chest ordered. Current vital signs temp 97.4, heart rate 94, respiratory rate 16, blood pressure 84/59 with a pulse ox of 97%. Patient reports shortness breath. Patient denies chest pain. Patient denies nausea vomiting or diarrhea. Patient denies any urinary burning or frequency On 05/18/2023 patient is alert and oriented 3 status post Pleurx catheter placement per cardiothoracic surgery. Bone scan ordered per oncology services. Patient reports improvement status post Pleurx catheter placement 4 L removed. Patient denies chest pain or shortness of breath. Patient denies nausea vomiting or diarrhea. Patient denies any urinary burning or frequency Objective - Vital Signs Vital signs: Vital Signs Temp 96.9 F L 05/18/23 10:13 Pulse 82 05/18/23 10:43 Resp 16 05/18/23 10:43 BP 79/44 05/18/23 10:43 Pulse Ox 95 05/18/23 10:43 FiO2 Intake & Output 05/17/23 05/18/23 05/18/23 18:59 06:59 18:59 Intake Total 100 550 Output Total 4010 Balance 100 -3460 Weight 58.967 kg Intake: IV 550 Intake, IV Titration 100 Amount Albumin Human 25% 50 ml 100 In Empty Bag 1 bag @ 50 mls/hr IVPB Q1H [facility] Rx#: [id number] Output: Pleural Fluid 4000 Estimated Blood Loss 10 Other: Voiding Method Toilet Toilet # Voids 3 - Exam In general patient is alert and oriented x 3 in no distress HEENT head normocephalic and atraumatic Neck is supple no JVD no goiter no lymphadenopathy no carotid bruit Chest examination is clear to auscultation no crackles no wheezing Cardiac exam reveals regular heart sounds S1 and S2 no gallops no murmurs Abdomen is soft nontender no organomegaly with normal bowel sounds Extremity exam reveals no edema no cyanosis or clubbing Neurological examination reveals no gross focal deficits - Labs CBC & Chem 7: 05/18/23 06:27 05/18/23 06:27 Labs: Abnormal Lab Results - Last 24 Hours (Table) 05/18/23 05/18/23 Range/Units 06:27 06:27 WBC 10.83 H (4.50-10.00) X 10*3/uL RBC 3.38 L (4.10-5.20) X 10*6/uL Hgb 10.1 L (12.0-15.0) g/dL Hct 33.2 L (37.2-46.3) % MCV 98.2 H (80.0-97.0) FL MCHC 30.4 L (32.0-37.0) g/dL RDW 15.0 H (11.5-14.5) % Plt Count 441 H (140-440) X 10*3/uL Neutrophils # 9.33 H (1.80-7.70) X 10*3/uL Lymphocytes # 0.33 L (0.90-5.00) X 10*3/uL Sodium 134 L (135-145) mmol/L Potassium 5.8 H (3.5-5.5) mmol/L Anion Gap 14.30 H (4.00-12.00) mmol/L BUN 49.4 H (9.0-27.0) mg/dL Creatinine 2.9 H (0.6-1.5) mg/dL Est GFR (CKD-EPI) 17 L (>=60) Glucose 123 H (70-110) mg/dL Total Bilirubin 0.2 L (0.3-1.2) mg/dL AST 11 L (13-35) U/L Total Protein 5.5 L (6.2-8.2) g/dL Albumin 3.2 L (3.8-4.9) g/dL Albumin/Globulin Ratio 1.39 L (1.60-3.17) Ratio Assessment and Plan Plan: Worsening shortness of breath Recurrent pleural effusion Abnormal x-ray revealing multiple left-sided pulmonary masses History of malignant neoplasm of the vagina, patient received chemotherapy and radiation therapy Underlying history of hypertension Underlying history of hyperlipidemia Underlying history of anxiety disorder At this time patient will be admitted to telemetry floor Home medications reviewed and reordered Pulmonary and oncology consultation requested Pleurx catheter placed on 05/18/2023 Bone scan ordered per oncology Will follow closely
--- NOTE | 2023-05-18 13:21 | P.CRDCN ---
History of Present Illness Consult date: 05/18/23 Reason for Consult (text): hypotension History of present illness: History of present illness: This is a 67-year-old female with no previous cardiac history does not follow with a sleep manager. We have been asked to evaluate the patient for h ypotension. She has a past medical history of recurrent right-sided pleural effusion status post right-sided thoracentesis with removal of 1.2 L of serosanguineous fluid followed by Pleurx catheter insertion which was performed today. She also has past medical history of hypertension, hyperlipidemia, vaginal cancer. Patient presented to the hospital due to shortness of breath was found to have recurrent large right-sided pleural effusion, multiple pulmonary nodules. Patient's heart rate is running in the 80s, blood pressure 70s systolic. Patient is followed by multiple consultants including oncology and scheduled for bone scan. Chest x-ray: Cardiac silhouette within normal limits following Pleurx placement CAT scan of the abdomen and pelvis revealed abnormal attenuation in the region of the vagina. Evidence of prior hysterectomy. No evidence of metastatic disease to the abdomen or pelvis. Multiple left pulmonary nodules. Large right-sided pleural effusion with collapse of the right lung. WBC 10.8, hemoglobin 10.1, platelet count 441. Sodium 134, potassium 5.8, chloride 98, CO2 21, BUN 49 creatinine 2.9 Home cardiac medications: Amlodipine 10 mg daily, benazepril 20 g daily, simvastatin 40 mg at bedtime Review Of Systems: At the time of my evaluation: Constitutional: No fever, no chills. + weakness, + fatigue. EENT: No headache. No dizziness. Lungs: No shortness of breath, cough, no sputum production. No wheezing. Cardiovascular: No chest pain, no lower extremity edema. No palpitations. No paroxysmal nocturnal dyspnea. No orthopnea. No lightheadedness or dizziness. No syncopal episodes. Abdominal: No abdominal pain. No nausea, vomiting. Musculoskeletal: No myalgias. No muscle weakness, no frequent falls. Integumentary: No wounds. No rash. No unusual bruising. Neurologic: No aphasia. No facial droop. No change in mentation. Physical examination: Gen: This is a ill-appearing 67-year-old female. No acute distress VS: reviewed HEENT: Head is atraumatic, normocephalic. Pupils equal, round. Sclerae is anicteric. NECK: Supple. No JVD. LUNGS: Clear to auscultation. No wheezes or rhonchi. No intercostal retractions. HEART: Regular rate and rhythm. No murmur. ABDOMEN: Soft No tenderness. EXTREMITIES: No pedal edema. No calf tenderness. NEUROLOGICAL: Patient is awake, alert and oriented x3. Assessment: Hypotension Recurrent right-sided pleural effusion status post thoracentesis and Pleurx catheter placement Acute kidney injury Pulmonary nodules, multiple Hypertension Hyperlipidemia History of vaginal cancer Plan: Start patient on midodrine 5 mg 3 times daily Obtain 2-D echocardiogram and Doppler study to assess cardiac structure and rule out pericardial effusion Obtain EKG Further recommendations to follow based upon clinical course Thank you kindly for this consultation. Nurse practitioner note has been reviewed, I agree with documented findings and plan of care. Patient was seen and examined. Past Medical History Past Medical History: Cancer, Hyperlipidemia, Hypertension Additional Past Medical History / Comment(s): vaginal CA. History of Any Multi-Drug Resistant Organisms: None Reported Past Surgical History: Bladder Surgery, Breast Surgery, Hysterectomy Past Anesthesia/Blood Transfusion Reactions: No Reported Reaction Past Psychological History: No Psychological Hx Reported Smoking Status: Never smoker Past Alcohol Use History: None Reported Past Drug Use History: None Reported Medications and Allergies Home Medications Medication Instructions Recorded Confirmed Type Aspirin EC [Ecotrin Low Dose] 81 mg PO DAILY 05/13/23 05/16/23 History Benazepril HCl 20 mg PO DAILY 05/13/23 05/16/23 History Calcium Carbonate [Calcium] 600 mg PO BID 05/13/23 05/16/23 History Cholecalciferol [Vitamin D3 (25 25 mcg PO BID 05/13/23 05/16/23 History Mcg = 1000 Iu)] Loratadine [Claritin] 10 mg PO BID 05/13/23 05/16/23 History Multivitamins, Thera [Multivitamin 1 tab PO DAILY 05/13/23 05/16/23 History (formulary)] Sertraline [Zoloft] 100 mg PO DAILY 05/13/23 05/16/23 History Simvastatin [Zocor] 40 mg PO HS 05/13/23 05/16/23 History amLODIPine [Norvasc] 10 mg PO DAILY 05/13/23 05/16/23 History HYDROcodone/APAP 5-325MG [[place] 1 tab PO Q4HR 05/16/23 05/16/23 History 5-325] Allergies Allergy/AdvReac Type Severity Reaction Status Date / Time prednisone Allergy Rash/Hives Verified 05/18/23 09:06 sulfamethoxazole Allergy Rash/Hives Verified 05/18/23 09:06 [From Bactrim] trimethoprim [From Bactrim] Allergy Rash/Hives Verified 05/18/23 09:06 Physical Exam Vitals: Vital Signs Temp Pulse Pulse Resp BP BP BP 05/18/23 10:43 82 16 79/44 05/18/23 10:28 86 16 78/44 05/18/23 10:13 96.9 F L 84 12 75/44 05/18/23 09:06 97.3 F L 96 16 88/58 05/18/23 07:20 98.2 F 96 17 78/52 05/18/23 06:43 98.7 F 92 16 05/18/23 06:30 88/59 05/18/23 05:10 99 89/60 05/18/23 04:18 94/68 05/18/23 01:49 114/67 05/18/23 01:25 05/18/23 01:22 05/18/23 01:17 96.5 F L 104 H 16 75/48 78/54 05/17/23 20:00 97.4 F L 96 18 05/17/23 15:04 96 18 05/17/23 14:21 98.5 F 94 20 BP BP Pulse Ox 05/18/23 10:43 95 05/18/23 10:28 99 05/18/23 10:13 92 L 05/18/23 09:06 96 05/18/23 07:20 94 L 05/18/23 06:43 94 L 05/18/23 06:30 05/18/23 05:10 05/18/23 04:18 05/18/23 01:49 05/18/23 01:25 90/63 05/18/23 01:22 87/60 05/18/23 01:17 97 05/17/23 20:00 102/57 96 05/17/23 15:04 100/65 92 L 05/17/23 14:21 101/69 90 L Intake and Output 05/17/23 05/18/2323 22:59 06:59 14:59 Intake Total 100 550 Output Total 4010 Balance 100 -3460 Intake: IV 550 Intake, IV Titration 100 Amount Albumin Human 25% 50 ml 100 In Empty Bag 1 bag @ 50 mls/hr IVPB Q1H [facility] Rx#: [id number] Output: Pleural Fluid 4000 Estimated Blood Loss 10 Other: Voiding Method Toilet Toilet # Voids 3 Results 05/18/23 06:27 05/18/23 06:27 Cardiac Enzymes 05/18/23 Range/Units 06:27 AST 11 L (13-35) U/L CBC 05/18/23 Range/Units 06:27 WBC 10.83 H (4.50-10.00) X 10*3/uL RBC 3.38 L (4.10-5.20) X 10*6/uL Hgb 10.1 L (12.0-15.0) g/dL Hct 33.2 L (37.2-46.3) % Plt Count 441 H (140-440) X 10*3/uL Comprehensive Metabolic Panel 05/18/23 Range/Units 06:27 Sodium 134 L (135-145) mmol/L Potassium 5.8 H (3.5-5.5) mmol/L Chloride 98 (96-109) mmol/L Carbon Dioxide 21.7 (21.6-31.8) mmol/L BUN 49.4 H (9.0-27.0) mg/dL Creatinine 2.9 H (0.6-1.5) mg/dL Glucose 123 H (70-110) mg/dL Calcium 9.4 (8.7-10.3) mg/dL AST 11 L (13-35) U/L ALT 11 (8-44) U/L Alkaline Phosphatase 66 (41-126) U/L Total Protein 5.5 L (6.2-8.2) g/dL Albumin 3.2 L (3.8-4.9) g/dL Current Medications Generic Name Dose Route Start Last Admin Trade Name Freq PRN Reason Stop Dose Admin Acetaminophen 650 mg 05/16/23 15:35 05/17/23 08:54 Acetaminophen Tab 325 Mg Tab PO 650 mg Q6HR PRN Administration Mild Pain or Fever > 100.5 Hydrocodone Bitart/Acetaminophen 1 each 05/17/23 07:56 05/18/23 04:17 Hydrocodone/Apap 5-325mg 1 Each Tab PO 1 each Q4HR PRN Administration Mild to Moderate Pain (1 - 6) Alprazolam 0.25 mg 05/17/23 15:04 05/17/23 18:15 Alprazolam 0.25 Mg Tab PO 0.25 mg QID PRN Administration Anxiety Atorvastatin Calcium 20 mg 05/17/23 21:00 05/17/23 20:32 Atorvastatin 20 Mg Tab PO 20 mg HS TARIQ Administration Calcium Carbonate/Glycine 500 mg 05/17/23 08:48 Calcium Carbonate 500 Mg Chewable PO BID PRN Indigestion Cholecalciferol 25 mcg 05/17/23 09:00 05/18/23 08:00 Cholecalciferol 25 Mcg (1000 Iu) Tablet PO Not Given BID TARIQ Loratadine 10 mg 05/17/23 09:00 05/18/23 08:00 Loratadine 10 Mg Tab PO Not Given DAILY [facility] Midodrine 5 mg 05/18/23 12:30 Midodrine 5 Mg Tab PO AC-TID [facility] Morphine Sulfate 4 mg 05/16/23 15:35 05/18/23 00:09 Morphine Sulfate 4 Mg/Ml Syringe IV 4 mg Q4HR PRN Administration Severe Pain (Scale 7 to 10) Multivitamins 1 each 05/17/23 09:00 05/18/23 08:00 Multivitamins, Thera 1 Each Tab PO Not Given DAILY [facility] Naloxone HCl 0.2 mg 05/16/23 15:35 Naloxone 0.4 Mg/Ml 1 Ml Vial IV Q2M PRN Opioid Reversal Ondansetron HCl 4 mg 05/16/23 22:26 05/18/23 06:56 Ondansetron 4 Mg/2 Ml Vial IVP 4 mg Q6HR PRN Administration Nausea And Vomiting Sertraline HCl 100 mg 05/17/23 09:00 05/18/23 08:00 Sertraline 100 Mg Tab PO Not Given DAILY [facility] Tramadol HCl 50 mg 05/16/23 15:35 05/18/23 05:12 Tramadol 50 Mg Tab PO 50 mg Q6H PRN Administration Moderate Pain (Scale 4 to 6) Intake and Output 05/17/23 05/18/23 05/18/23 22:59 06:59 14:59 Intake Total 100 550 Output Total 4010 Balance 100 -3460 Intake: IV 550 Intake, IV Titration 100 Amount Albumin Human 25% 50 ml 100 In Empty Bag 1 bag @ 50 mls/hr IVPB Q1H [facility] Rx#: [id number] Output: Pleural Fluid 4000 Estimated Blood Loss 10 Other: Voiding Method Toilet Toilet # Voids 3 05/18/23 06:27 05/18/23 06:27
[2023-05-18] MEDS: MIDODRINE 5 MG TAB PO SCH ×2 (13:36→17:48)
--- NOTE | 2023-05-18 14:25 | NM ---
EXAMINATION TYPE: NM bone scan whole body DATE OF EXAM: 05/18/2023 1:33 PM CLINICAL INDICATION:Female, 67 years old with history of lung mass, staging; COMPARISON: CT abdomen pelvis 05/09/2023 TECHNIQUE: Intravenous administration 23.0 mCi Tc 99m MDP followed by multiple scintigraphic images o f the appendicular and axial skeleton. Additionally, small field of view planar anterior and posterio r images of the lumbosacral spine and pelvis. Lastly, coronal, transverse, and sagittal SPECT images of the lumbosacral spine and pelvis were generated for review.Lastly, small [id number] anterior, p osterior and lateral views of the chest were submitted for review. Images acquired 5.25 hours post injection. FINDINGS: No abnormal uptake is identified within the appendicular or axial skeleton to suggest metastatic dise ase. There is increased uptake within the bilateral shoulder, sternoclavicular, and sacroiliac joints con sistent with degenerative changes. No other photopenic areas or areas of increased activity are ident ified. Physiologic radiotracer activity is demonstrated in the kidneys and bladder. IMPRESSION: 1. Nothing to suggest osteoblastic metastatic disease. Multiple pulmonary nodules seen on CT from however suggested diffuse metastatic disease at least to the lungs.
--- NOTE | 2023-05-18 14:36 | P.PN ---
Subjective Progress Note Date: 05/18/23 I am seeing this patient in consultation today 05/17/2023 on the general medical floor after she returned with shortness of breath and a recurrent large right- sided pleural effusion. Patient is a 67-year-old white female with past medical history significant for hypertension, hyperlipidemia, and vaginal cancer. Vaginal cancer recently diagnosed November, and she underwent a combination of radiation and chemotherapy followed by brachytherapy. Patient did have a recent hospital admission back on May 13 for similar symptoms and right lower back pain. She was found to have a moderate to large size right-sided pleural effusion. Chest CTA demonstrated multiple pulmonary nodules throughout the left lung measuring up to 1.7 cm consistent with metastatic neoplasms. There were also multiple pulmonary nodules within the right lung and a large right-sided pleural effusion. Patient did undergo right sided thoracentesis that day, and had a total of 1.2 L of serosanguineous fluid drained. Cytology is still pending. Patient is currently sitting up in bed, on room air, in no acute distress. She does endorse shortness of breath especially with exertion and an occasional cough with minimal sputum production. Denies any fevers, hemoptysis. Denies any sick contacts. Chest x-ray demonstrated a recurrent large right- sided pleural effusion. Underlying consolidation and obstructive neoplasm not excluded. Multiple pulmonary nodules were again appreciated on the left. CBC on arrival shows a WBC count 11.5, hemoglobin 11.8, hematocrit 35.9, platelets 404. BMP on arrival shows sodium 133, potassium 4.4, chloride 103, serum bicarb 20, BUN 31, creatinine 0.97, glucose 119. Pain is reportedly well managed. The patient is seen today 05/18/2023 in follow-up on the regular medical floor. She is currently sitting up in bed. Awake and alert in no acute distress. She is maintaining good O2 saturations in the 90s on 2 L/m nasal cannula. She did undergo a right-sided Pleurx catheter placement this morning. 4 L of fluid removed. Follow-up chest x-ray shows significant decrease in the previously seen large right pleural effusion. Pulmonary nodules and masses are seen within the left lung. Unchanged. Nuclear bone scan revealed no osteoblastic metastatic disease. Computed tomography scan of the abdomen and pelvis revealed no metastatic disease noted. White count 10.8. Hemoglobin 10.1. Let's 441. Sodium 134. Potassium 5.8. BUN 50. Creatinine 2.9. Glucose 123. AST 11. ALT 11. Pro-calcitonin was 0.22. Objective - Vital Signs Vital signs: Vital Signs Temp 96.9 F L 05/18/23 10:13 Pulse 97 05/18/23 14:17 Resp 20 05/18/23 14:17 BP 90/58 05/18/23 14:17 Pulse Ox 95 05/18/23 11:35 FiO2 Intake & Output 05/17/23 05/18/23 05/18/23 18:59 06:59 18:59 Intake Total 100 550 Output Total 4010 Balance 100 -3460 Weight 58.967 kg Intake: IV 550 Intake, IV Titration 100 Amount Albumin Human 25% 50 ml 100 In Empty Bag 1 bag @ 50 mls/hr IVPB Q1H [facility] Rx#: [id number] Output: Pleural Fluid 4000 Estimated Blood Loss 10 Other: Voiding Method Toilet Toilet # Voids 3 - Exam GENERAL EXAM: Alert, very pleasant 67-year-old female, on 2 L nasal cannula, early comfortable in no apparent distress. HEAD: Normocephalic and atraumatic EYES: Normal reaction of pupils, equal size. NOSE: Clear with pink turbinates. THROAT: No erythema or exudates. NECK: No masses, no JVD. CHEST: No chest wall deformity. Right chest Pleurx catheter placed LUNGS: Markedly diminished right lung sounds. no crackles, wheeze, rhonchi. No conversational dyspnea. CVS: S1 and S2 normal with no audible murmur, regular rhythm. No extra heart sounds ABDOMEN: No hepatosplenomegaly, active bowel sounds, no guarding or rigidity. SPINE: No scoliosis or deformity SKIN: No rashes CENTRAL NERVOUS SYSTEM: No focal deficits, tone is normal in all 4 extremities. EXTREMITIES: There is no peripheral edema, clubbing, or cyanosis. Peripheral pulses are intact. - Labs CBC & Chem 7: 05/18/23 06:27 05/18/23 06:27 Labs: Abnormal Lab Results - Last 24 Hours (Table) 05/18/23 05/18/23 Range/Units 06:27 06:27 WBC 10.83 H (4.50-10.00) X 10*3/uL RBC 3.38 L (4.10-5.20) X 10*6/uL Hgb 10.1 L (12.0-15.0) g/dL Hct 33.2 L (37.2-46.3) % MCV 98.2 H (80.0-97.0) FL MCHC 30.4 L (32.0-37.0) g/dL RDW 15.0 H (11.5-14.5) % Plt Count 441 H (140-440) X 10*3/uL Neutrophils # 9.33 H (1.80-7.70) X 10*3/uL Lymphocytes # 0.33 L (0.90-5.00) X 10*3/uL Sodium 134 L (135-145) mmol/L Potassium 5.8 H (3.5-5.5) mmol/L Anion Gap 14.30 H (4.00-12.00) mmol/L BUN 49.4 H (9.0-27.0) mg/dL Creatinine 2.9 H (0.6-1.5) mg/dL Est GFR (CKD-EPI) 17 L (>=60) Glucose 123 H (70-110) mg/dL Total Bilirubin 0.2 L (0.3-1.2) mg/dL AST 11 L (13-35) U/L Total Protein 5.5 L (6.2-8.2) g/dL Albumin 3.2 L (3.8-4.9) g/dL Albumin/Globulin Ratio 1.39 L (1.60-3.17) Ratio Assessment and Plan Assessment: Acute dyspnea, secondary to recurrent large right-sided pleural effusion. Patient did recently have a right-sided thoracentesis done on 05/13/2023 with a total of 1.2 L of serosanguineous fluid removed. Cytology pending. Chest x-ray demonstrated a recurrent large right-sided pleural effusion. Underlying consolidation and obstructive neoplasm not excluded. Multiple pulmonary nodules were again appreciated on the left. Recurrent right-sided pleural effusion, status post Pleurx catheter placement today 05/18/2023 with 4 L removed Acute kidney injury possibly contrast related Hyperkalemia secondary to above Hypotension, echocardiogram pending, initiated on midodrine Multiple bilateral pulmonary nodules, suspicious for metastatic disease History of vaginal cancer, recently diagnosed November, status/post chemotherapy and radiation therapy followed by brachytherapy. The CAT scan of the abdomen and pelvis revealed abnormal attenuation in the region of the vagina. No adnexal masses seen. No evidence of metastatic disease to the abdomen or pelvis. Benign essential hypertension Hyperlipidemia Never smoker Plan: The patient was seen and evaluated Operative report, abdominal computed tomography scan, bone scan, labs and medications reviewed Right-sided Pleurx catheter placed with 4 L removed Follow-up chest x-ray showed improved aeration, no pneumothorax Currently stable and on 2 L nasal cannula Heparin for DVT prophylaxis We will continue to follow This patient was seen independently by the nurse practitioner I have personally seen and examined the patient, performed the documentation and the assessment and plan as written. Number of minutes spent on the visit: 24.
[2023-05-18] MEDS ORDERED: LACTULOSE 20 GM/30 ML CUP PO ONE (17:31)
[2023-05-18] MEDS: HEPARIN SODIUM,PORCINE 5,000 UNIT/ML 1 ML VIAL SQ SCH (17:48)
[2023-05-18] MEDS: ATORVASTATIN 20 MG TAB PO SCH (20:03)
[2023-05-19] MEDS: HEPARIN SODIUM,PORCINE 5,000 UNIT/ML 1 ML VIAL SQ SCH ×4 (00:08→23:18)
[2023-05-19] MEDS: HYDROcodone/APAP 5-325MG 1 EACH TAB PO PRN ×3 (01:54→23:19)
--- NOTE | 2023-05-19 08:25 | XR ---
EXAMINATION TYPE: XR chest 1V portable DATE OF EXAM: 05/19/2023 HISTORY: post pleurx COMPARISON: 05/18/2023 TECHNIQUE: Single view of the chest is submitted. FINDINGS: Right basilar pleural catheter has been placed. Right-sided chest tube has been removed. There is inc reased right basilar effusion. Underlying infiltrate or mass suspected. Multiple left-sided pulmonary nodules redemonstrated. No sizable pneumothorax. There is no evidence for focal infiltrate. The heart is stable. Hilar and mediastinal structures are within normal limits. Degenerative changes are seen of the dorsal spine. IMPRESSION: 1. Right basilar pleural catheter has been placed. Right-sided chest tube has been removed. There is increased right basilar effusion. Underlying infiltrate or mass suspected. Multiple left-sided pulmo nary nodules redemonstrated.
[2023-05-19] MEDS: MIDODRINE 5 MG TAB PO SCH ×3 (09:42→16:54)
[2023-05-19] MEDS: CHOLECALCIFEROL 25 MCG (1000 IU) TABLET PO SCH ×2 (09:43→21:01)
[2023-05-19] MEDS: SERTRALINE 100 MG TAB PO SCH (09:43)
[2023-05-19] MEDS: LORATADINE 10 MG TAB PO SCH (09:43)
[2023-05-19] MEDS: MULTIVITAMINS, THERA 1 EACH TAB PO SCH (09:43)
[2023-05-19 11:08] LABS: Basophils # (A) 0.04 X 10*3/uL (0.00-0.10); Basophils % (A) 0.4 %; Eosinophils # (A) 0.09 X 10*3/uL (0.04-0.35); Eosinophils % (A) 0.9 %; HGB 9.8 g/dL (12.0-15.0); Lymphocytes # (A) 0.33 X 10*3/uL (0.90-5.00); Lymphocytes % (A) 3.5 %; MCH 29.7 pg (27.0-32.0); MCHC 31.6 g/dL (32.0-37.0); MCV 93.9 FL (80.0-97.0); Mean Platelet Volume 9.9 FL (9.5-12.2); Monocytes % (A) 9.4 %; NRBC Per 100 WBC 0 X 10*3/uL (0.00-0.01); Neutrophils # (A) 8.11 X 10*3/uL (1.80-7.70); Platelet Count 396 X 10*3/uL (140-440); RDW 14.9 % (11.5-14.5); WBC 9.55 X 10*3/uL (4.50-10.00)
--- NOTE | 2023-05-19 11:36 | P.PN ---
Subjective Progress Note Date: 05/19/23 I am seeing this patient in consultation today 05/17/2023 on the general medical floor after she returned with shortness of breath and a recurrent large right- sided pleural effusion. Patient is a 67-year-old white female with past medical history significant for hypertension, hyperlipidemia, and vaginal cancer. Vaginal cancer recently diagnosed November, and she underwent a combination of radiation and chemotherapy followed by brachytherapy. Patient did have a recent hospital admission back on May 13 for similar symptoms and right lower back pain. She was found to have a moderate to large size right-sided pleural effusion. Chest CTA demonstrated multiple pulmonary nodules throughout the left lung measuring up to 1.7 cm consistent with metastatic neoplasms. There were also multiple pulmonary nodules within the right lung and a large right-sided pleural effusion. Patient did undergo right sided thoracentesis that day, and had a total of 1.2 L of serosanguineous fluid drained. Cytology is still pending. Patient is currently sitting up in bed, on room air, in no acute distress. She does endorse shortness of breath especially with exertion and an occasional cough with minimal sputum production. Denies any fevers, hemoptysis. Denies any sick contacts. Chest x-ray demonstrated a recurrent large right- sided pleural effusion. Underlying consolidation and obstructive neoplasm not excluded. Multiple pulmonary nodules were again appreciated on the left. CBC on arrival shows a WBC count 11.5, hemoglobin 11.8, hematocrit 35.9, platelets 404. BMP on arrival shows sodium 133, potassium 4.4, chloride 103, serum bicarb 20, BUN 31, creatinine 0.97, glucose 119. Pain is reportedly well managed. The patient is seen today 05/18/2023 in follow-up on the regular medical floor. She is currently sitting up in bed. Awake and alert in no acute distress. She is maintaining good O2 saturations in the 90s on 2 L/m nasal cannula. She did undergo a right-sided Pleurx catheter placement this morning. 4 L of fluid removed. Follow-up chest x-ray shows significant decrease in the previously seen large right pleural effusion. Pulmonary nodules and masses are seen within the left lung. Unchanged. Nuclear bone scan revealed no osteoblastic metastatic disease. Computed tomography scan of the abdomen and pelvis revealed no metastatic disease noted. White count 10.8. Hemoglobin 10.1. Let's 441. Sodium 134. Potassium 5.8. BUN 50. Creatinine 2.9. Glucose 123. AST 11. ALT 11. Pro-calcitonin was 0.22. The patient is seen today 05/19/2023 in follow-up on the regular medical floor. She is awake and alert in no acute distress. She is maintaining O2 saturations in the low 90s on 3 L/m per nasal cannula. She's afebrile. Pleural fluid cytology pending. Chest x-ray reveals a right basilar pleural catheter in place. Right-sided chest tube had been removed. There is increased right basilar effusion. Underlying infiltrate or mass suspected. Multiple left-sided pulmonary nodules redemonstrated. White count 9.5. Hemoglobin 9.8. Platelets 396. She is continued on heparin for DVT prophylaxis. Objective - Vital Signs Vital signs: Vital Signs Temp 97.6 F 05/19/23 07:47 Pulse 86 05/19/23 07:47 Resp 24 05/19/23 07:47 BP 109/71 05/19/23 07:47 Pulse Ox 90 L 05/19/23 07:47 FiO2 Intake & Output 05/18/23 05/19/23 05/19/23 18:59 06:59 18:59 Intake Total 1258 Output Total 4010 Balance -2752 Intake: IV 550 Oral 708 Output: Pleural Fluid 4000 Estimated Blood Loss 10 Other: Voiding Method Toilet Toilet # Voids 2 2 - Exam GENERAL EXAM: Alert, 67-year-old female, on 3 L nasal cannula, early comfortable in no apparent distress. HEAD: Normocephalic and atraumatic EYES: Normal reaction of pupils, equal size. NOSE: Clear with pink turbinates. THROAT: No erythema or exudates. NECK: No masses, no JVD. CHEST: No chest wall deformity. Right chest Pleurx catheter in place LUNGS: Diminished right lung sounds with few crackles, no wheeze, rhonchi. No conversational dyspnea. CVS: S1 and S2 normal with no audible murmur, regular rhythm. No extra heart sounds ABDOMEN: No hepatosplenomegaly, active bowel sounds, no guarding or rigidity. SPINE: No scoliosis or deformity SKIN: No rashes CENTRAL NERVOUS SYSTEM: No focal deficits, tone is normal in all 4 extremities. EXTREMITIES: There is no peripheral edema, clubbing, or cyanosis. Peripheral pulses are intact. - Labs CBC & Chem 7: 05/19/23 06:42 05/18/23 06:27 Labs: Abnormal Lab Results - Last 24 Hours (Table) 05/19/23 Range/Units 06:42 RBC 3.30 L (4.10-5.20) X 10*6/uL Hgb 9.8 L (12.0-15.0) g/dL Hct 31.0 L (37.2-46.3) % MCHC 31.6 L (32.0-37.0) g/dL RDW 14.9 H (11.5-14.5) % Neutrophils # 8.11 H (1.80-7.70) X 10*3/uL Lymphocytes # 0.33 L (0.90-5.00) X 10*3/uL Assessment and Plan Assessment: Acute dyspnea, secondary to recurrent large right-sided pleural effusion. Patient did recently have a right-sided thoracentesis done on 05/13/2023 with a total of 1.2 L of serosanguineous fluid removed. Cytology still pending. Chest x-ray demonstrated a recurrent large right-sided pleural effusion. Underlying consolidation and obstructive neoplasm not excluded. Multiple pulmonary nodules were again appreciated on the left. Recurrent right-sided pleural effusion, status post Pleurx catheter placement 05/18/2023 with 4 L removed, cytology pending Acute kidney injury possibly contrast related Hyperkalemia secondary to above Hypotension, echocardiogram pending, initiated on midodrine Multiple bilateral pulmonary nodules, suspicious for metastatic disease History of vaginal cancer, recently diagnosed November, status/post chemoth erapy and radiation therapy followed by brachytherapy. The CAT scan of the abdomen and pelvis revealed abnormal attenuation in the region of the vagina. No adnexal masses seen. No evidence of metastatic disease to the abdomen or pelvis. Benign essential hypertension Hyperlipidemia Never smoker Plan: The patient was seen and evaluated Chest x-ray, labs and medications reviewed Right-sided Pleurx catheter in place Chest x-ray showed improved aeration, no pneumothorax Currently stable and on 3 L nasal cannula Heparin for DVT prophylaxis We will continue to follow This patient was seen independently by the nurse practitioner I have personally seen and examined the patient, performed the documentation and the assessment and plan as written. Number of minutes spent on the visit: 22.
[2023-05-19 12:07] LABS: ALT 12 U/L (8-44); AST 20 U/L (13-35); Albumin 2.5 g/dL (3.8-4.9); Albumin/Globulin Ratio 1.32 Ratio (1.60-3.17); Alkaline Phosphatase 123 U/L (41-126); BUN/Creat Ratio 23.91 Ratio (12.00-20.00); Calcium 8.6 mg/dL (8.7-10.3); Carbon Dioxide 21.6 mmol/L (21.6-31.8); Chloride 98 mmol/L (96-109); Globulin 1.9 g/dL (1.6-3.3); Glucose 114 mg/dL (70-110); Potassium 5.2 mmol/L (3.5-5.5); Sodium 131 mmol/L (135-145); Total Bilirubin <0.2 mg/dL (0.3-1.2); Total Protein 4.4 g/dL (6.2-8.2)
--- NOTE | 2023-05-19 12:28 | P.PN ---
Subjective Progress Note Date: 05/19/23 hypotension History of present illness: This is a 67-year-old female with no previous cardiac history does not follow with a planning management it specialist. We have been asked to evaluate the patient for hypotension. She has a past medical history of recurrent right-sided pleural effusion status post right-sided thoracentesis with removal of 1.2 L of serosanguineous fluid followed by Pleurx catheter insertion which was performed today. She also has past medical history of hypertension, hyperlipidemia, vaginal cancer. Patient presented to the hospital due to shortness of breath was found to have recurrent large right-sided pleural effusion, multiple pulmonary nodules. Patient's heart rate is running in the 80s, blood pressure 70s systolic. Patient is followed by multiple consultants including oncology and scheduled for bone scan. Chest x-ray: Cardiac silhouette within normal limits following Pleurx placement CAT scan of the abdomen and pelvis revealed abnormal attenuation in the region of the vagina. Evidence of prior hysterectomy. No evidence of metastatic disease to the abdomen or pelvis. Multiple left pulmonary nodules. Large right-sided pleural effusion with collapse of the right lung. WBC 10.8, hemoglobin 10.1, platelet count 441. Sodium 134, potassium 5.8, chloride 98, CO2 21, BUN 49 creatinine 2.9 Home cardiac medications: Amlodipine 10 mg daily, benazepril 20 g daily, simvastatin 40 mg at bedtime 05/19 Patient is seen today in follow-up. Yesterday, we started patient on midodrine 5 mg 3 times daily. Blood pressures have been slightly better. Systolic blood pressure overnight has been in the 80s, this morning 90/58. Heart rate is in the 80s and 90s. Echocardiogram is pending. EKG is sinus rhythm with incomplete right bundle branch block Physical examination: Gen: This is a ill-appearing 67-year-old female. No acute distress VS: reviewed HEENT: Head is atraumatic, normocephalic. Pupils equal, round. Sclerae is anicteric. NECK: Supple. No JVD. LUNGS: Clear to auscultation. No wheezes or rhonchi. No intercostal retractions. HEART: Regular rate and rhythm. No murmur. ABDOMEN: Soft No tenderness. EXTREMITIES: No pedal edema. No calf tenderness. NEUROLOGICAL: Patient is awake, alert and oriented x3. Assessment: Hypotension Recurrent right-sided pleural effusion status post thoracentesis and Pleurx catheter placement Acute kidney injury Pulmonary nodules, multiple Hypertension Hyperlipidemia History of vaginal cancer Plan: Continue patient on midodrine 5 mg 3 times daily to continue for another 24 hours. May consider increasing to 10 mg Obtain 2-D echocardiogram and Doppler study to assess cardiac structure and rule out pericardial effusion Further recommendations to follow based upon clinical course Thank you kindly for this consultation. Nurse practitioner note has been reviewed, I agree with documented findings and plan of care. Patient was seen and examined. Objective - Vital Signs Vital signs: Vital Signs Temp 97.6 F 05/19/23 07:47 Pulse 86 05/19/23 07:47 Resp 24 05/19/23 07:47 BP 109/71 05/19/23 07:47 Pulse Ox 90 L 05/19/23 07:47 FiO2 Intake & Output 05/18/23 05/19/23 05/19/23 18:59 06:59 18:59 Intake Total 1258 Output Total 4010 Balance -2752 Intake: IV 550 Oral 708 Output: Pleural Fluid 4000 Estimated Blood Loss 10 Other: Voiding Method Toilet Toilet # Voids 2 2 - Labs CBC & Chem 7: 05/19/23 06:42 05/19/23 06:42 Labs: Abnormal Lab Results - Last 24 Hours (Table) 05/18/23 05/18/23 Range/Units 06:27 06:27 WBC 10.83 H (4.50-10.00) X 10*3/uL RBC 3.38 L (4.10-5.20) X 10*6/uL Hgb 10.1 L (12.0-15.0) g/dL Hct 33.2 L (37.2-46.3) % MCV 98.2 H (80.0-97.0) FL MCHC 30.4 L (32.0-37.0) g/dL RDW 15.0 H (11.5-14.5) % Plt Count 441 H (140-440) X 10*3/uL Neutrophils # 9.33 H (1.80-7.70) X 10*3/uL Lymphocytes # 0.33 L (0.90-5.00) X 10*3/uL Sodium 134 L (135-145) mmol/L Potassium 5.8 H (3.5-5.5) mmol/L Anion Gap 14.30 H (4.00-12.00) mmol/L BUN 49.4 H (9.0-27.0) mg/dL Creatinine 2.9 H (0.6-1.5) mg/dL Est GFR (CKD-EPI) 17 L (>=60) Glucose 123 H (70-110) mg/dL Total Bilirubin 0.2 L (0.3-1.2) mg/dL AST 11 L (13-35) U/L Total Protein 5.5 L (6.2-8.2) g/dL Albumin 3.2 L (3.8-4.9) g/dL Albumin/Globulin Ratio 1.39 L (1.60-3.17) Ratio
--- NOTE | 2023-05-19 13:14 | P.PN ---
Subjective Progress Note Date: 05/19/23 Principal diagnosis: Large right sided recurrent pleural effusion, multiple left-sided pulmonary nodules, felt to be consistent with metastatic disease. History of vaginal cancer diagnosed in 11/2022 status post chemo and radiation as well as brachytherapy, hypertension, hyperlipidemia, lifelong non-smoker POD #1 right-sided Pleurx catheter insertion with removal of 4 L serous fluid The patient was seen and examined sitting up in bed in no acute distress on the medical oncology unit. Does complain of some incisional type pain, states shortness of breath has gotten better. Remains on 3 L nasal cannula. Blood pressure better this morning with addition of midodrine. Showered this morning. No other new concerns. Objective - Vital Signs Vital signs: Vital Signs Temp 97.6 F 05/19/23 07:47 Pulse 86 05/19/23 07:47 Resp 24 05/19/23 07:47 BP 109/71 05/19/23 07:47 Pulse Ox 90 L 05/19/23 07:47 FiO2 Intake & Output 05/18/23 05/19/23 05/19/23 18:59 06:59 18:59 Intake Total 1258 Output Total 4010 Balance -2752 Intake: IV 550 Oral 708 Output: Pleural Fluid 4000 Estimated Blood Loss 10 Other: Voiding Method Toilet Toilet # Voids 2 2 - Exam CONSTITUTIONAL: Appears comfortable, cooperative, no acute distress RESPIRATORY: Lungs sounds diminished bilaterally. Respirations even, nonlabored. Currently on 3 L nasal cannula with oxygen saturation 90% CARDIOVASCULAR: S1, S2 present. Regular rate and rhythm. Palpable peripheral pulses bilaterally. No edema present. No calf pain or tenderness noted GASTROINTESTINAL: Abdomen soft, nontender, nondistended. Active bowel sounds present 4 quadrants. Tolerating diet GENITOURINARY: Continues to void INTEGUMENTARY: Skin is warm and dry. Pleurx catheter present under clean dry dressing right-sided chest NEUROLOGIC: Cranial nerves II through XII intact MUSKULOSKELETAL: Able to move all extremities, strength equal bilaterally, gait normal PSYCHIATRIC: Alert and oriented to person place and time, appropriate affect, intact judgment and insight - Allied health notes Allied health notes reviewed: nursing - Labs CBC & Chem 7: 05/19/23 06:42 05/19/23 06:42 Labs: Abnormal Lab Results - Last 24 Hours (Table) 05/18/23 05/18/23 Range/Units 06:27 06:27 WBC 10.83 H (4.50-10.00) X 10*3/uL RBC 3.38 L (4.10-5.20) X 10*6/uL Hgb 10.1 L (12.0-15.0) g/dL Hct 33.2 L (37.2-46.3) % MCV 98.2 H (80.0-97.0) FL MCHC 30.4 L (32.0-37.0) g/dL RDW 15.0 H (11.5-14.5) % Plt Count 441 H (140-440) X 10*3/uL Neutrophils # 9.33 H (1.80-7.70) X 10*3/uL Lymphocytes # 0.33 L (0.90-5.00) X 10*3/uL Sodium 134 L (135-145) mmol/L Potassium 5.8 H (3.5-5.5) mmol/L Anion Gap 14.30 H (4.00-12.00) mmol/L BUN 49.4 H (9.0-27.0) mg/dL Creatinine 2.9 H (0.6-1.5) mg/dL Est GFR (CKD-EPI) 17 L (>=60) Glucose 123 H (70-110) mg/dL Total Bilirubin 0.2 L (0.3-1.2) mg/dL AST 11 L (13-35) U/L Total Protein 5.5 L (6.2-8.2) g/dL Albumin 3.2 L (3.8-4.9) g/dL Albumin/Globulin Ratio 1.39 L (1.60-3.17) Ratio - Imaging and Cardiology Chest x-ray: report reviewed, image reviewed Assessment and Plan Assessment: Large right sided recurrent pleural effusion, last drained for 1.2 L on 05/13/23, cytology and culture pending, status post Pleurx catheter placement with removal of 4 L serous fluid Multiple left-sided pulmonary nodules, felt to be consistent with metastatic disease Shortness of breath secondary to above History of vaginal cancer diagnosed in 11/2022 status post chemo and radiation as well as brachytherapy History of hypertension, currently hypotensive History of hyperlipidemia Lifelong non-smoker Plan: Pleurx catheter drained for 1000 mL bloody fluid with family present for teaching Cleared for discharge from our standpoint when ok with other services May follow up in our office for pleurx removal once drainage less than 50 mL for 3 times in a row Pleurx discharge instructions placed on discharge plan Home care ordered, to bring bottles and teach patient/family drainage Patient may be drained daily, every other day, twice weekly, etc. based on her needs Management of other comorbidities per internal medicine, pulmonology, oncology. Please call us with any further questions
[2023-05-19] MEDS ORDERED: NA PHOS,M-B/NA PHOS,DI-BA 133 ML ENEMA RECTAL ONE (13:30)
[2023-05-19] MEDS: SODIUM CHLORIDE 0.9% 1,000 ML IV SCH (15:01)
--- NOTE | 2023-05-19 16:16 | P.PN ---
Subjective Progress Note Date: 05/19/23 Harleen Santana, is a 67-year-old female who presented to [facility] emergency room with a chief complaint of worsening shortness of breath with concerns of recurrent pleural effusion patient was recently admitted and treated for pleural effusion with status post thoracentesis. 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 Patient was recently admitted for pleural effusions status post thoracentesis. A On review of systems patient is alert and oriented 3. Patient reports shortness of breath. Patient denies chest pain. Patient denies nausea vomiting or diarrhea. Patient denies any urinary burning or frequency On 05/17/2023 patient is alert and oriented 3. Per pulmonary services consult placed for cardiothoracic surgery for possible Pleurx drain placement. Ultrasound of chest ordered. Current vital signs temp 97.4, heart rate 94, respiratory rate 16, blood pressure 84/59 with a pulse ox of 97%. Patient reports shortness breath. Patient denies chest pain. Patient denies nausea vomiting or diarrhea. Patient denies any urinary burning or frequency On 05/18/2023 patient is alert and oriented 3 status post Pleurx catheter placement per cardiothoracic surgery. Bone scan ordered per oncology services. Patient reports improvement status post Pleurx catheter placement 4 L removed. Patient denies chest pain or shortness of breath. Patient denies nausea vomiting or diarrhea. Patient denies any urinary burning or frequency. On 05/19/2023 patient was seen and examined on to medical floor, she is alert and oriented 3 in no apparent distress there is no fever or chills no headache or dizziness no chest pain or shortness of breath has been improving there is occasional cough no nausea or vomiting no abdominal pain, she is complaining of constipation there is no urinary symptoms. Objective - Vital Signs Vital signs: Vital Signs Temp 97.8 F 05/19/23 12:31 Pulse 95 05/19/23 12:31 Resp 16 05/19/23 12:31 BP 114/81 05/19/23 12:31 Pulse Ox 95 05/19/23 12:38 FiO2 Intake & Output 05/18/23 05/19/23 05/19/23 18:59 06:59 18:59 Intake Total 1258 Output Total 4010 Balance -2752 Intake: IV 550 Oral 708 Output: Pleural Fluid 4000 Estimated Blood Loss 10 Other: Voiding Method Toilet Toilet Toilet # Voids 2 2 - Exam In general patient is alert and oriented x 3 in no distress HEENT head normocephalic and atraumatic Neck is supple no JVD no goiter no lymphadenopathy no carotid bruit Chest examination is clear to auscultation no crackles no wheezing Cardiac exam reveals regular heart sounds S1 and S2 no gallops no murmurs Abdomen is soft nontender no organomegaly with normal bowel sounds Extremity exam reveals no edema no cyanosis or clubbing Neurological examination reveals no gross focal deficits - Labs CBC & Chem 7: 05/19/23 06:42 05/19/23 06:42 Labs: Abnormal Lab Results - Last 24 Hours (Table) 05/19/23 05/19/23 Range/Units 06:42 06:42 RBC 3.30 L (4.10-5.20) X 10*6/uL Hgb 9.8 L (12.0-15.0) g/dL Hct 31.0 L (37.2-46.3) % MCHC 31.6 L (32.0-37.0) g/dL RDW 14.9 H (11.5-14.5) % Neutrophils # 8.11 H (1.80-7.70) X 10*3/uL Lymphocytes # 0.33 L (0.90-5.00) X 10*3/uL Sodium 131 L (135-145) mmol/L BUN 55.0 H (9.0-27.0) mg/dL Creatinine 2.3 H (0.6-1.5) mg/dL Est GFR (CKD-EPI) 22 L (>=60) BUN/Creatinine Ratio 23.91 H (12.00-20.00) Ratio Glucose 114 H (70-110) mg/dL Calcium 8.6 L (8.7-10.3) mg/dL Total Bilirubin <0.2 L (0.3-1.2) mg/dL Total Protein 4.4 L (6.2-8.2) g/dL Albumin 2.5 L (3.8-4.9) g/dL Albumin/Globulin Ratio 1.32 L (1.60-3.17) Ratio Assessment and Plan Plan: Worsening shortness of breath Recurrent pleural effusion Abnormal x-ray revealing multiple left-sided pulmonary masses History of malignant neoplasm of the vagina, patient received chemotherapy and radiation therapy Underlying history of hypertension Underlying history of hyperlipidemia Underlying history of anxiety disorder At this time patient will be admitted to telemetry floor Home medications reviewed and reordered Pulmonary and oncology consultation requested Pleurx catheter placed on 05/18/2023 Bone scan ordered per oncology Will follow closely
--- NOTE | 2023-05-19 20:07 | P.PN ---
Subjective Progress Note Date: 05/19/23 Patient is resting comfortably in bed. S/p Pleurx placement with 4 L of fluid removed. Patient is reporting improvement in breathing but discomfort around insertion site. Objective - Vital Signs Vital signs: Vital Signs Temp 97.7 F 05/19/23 19:42 Pulse 92 05/19/23 19:42 Resp 16 05/19/23 19:42 BP 105/71 05/19/23 19:42 Pulse Ox 95 05/19/23 19:42 FiO2 Intake & Output 05/19/23 05/19/23 05/20/23 06:59 18:59 06:59 Intake Total 200 Balance 200 Weight 58.967 kg Intake: Intake, IV Titration 200 Amount Sodium Chloride 0.9% 1, 200 000 ml @ 100 mls/hr IV . Q10H [facility] Rx#:[id number] Other: Voiding Method Toilet Toilet # Voids 2 # Bowel Movements 1 - Constitutional General appearance: Present: average body habitus, no acute distress - EENT Eyes: Present: anicteric sclerae, EOMI ENT: Present: hearing grossly normal - Respiratory Details: breathing is even and unlabored - Cardiovascular Details: skin warm and dry - Integumentary Integumentary: Absent: cyanotic - Neurologic Neurologic Comment(s): grossly intact - Musculoskeletal Musculoskeletal: Present: strength equal bilaterally - Psychiatric Psychiatric: Present: A&O x's 3 - Labs CBC & Chem 7: 05/19/23 06:42 05/19/23 06:42 Labs: Abnormal Lab Results - Last 24 Hours (Table) 05/19/23 05/19/23 Range/Units 06:42 06:42 RBC 3.30 L (4.10-5.20) X 10*6/uL Hgb 9.8 L (12.0-15.0) g/dL Hct 31.0 L (37.2-46.3) % MCHC 31.6 L (32.0-37.0) g/dL RDW 14.9 H (11.5-14.5) % Neutrophils # 8.11 H (1.80-7.70) X 10*3/uL Lymphocytes # 0.33 L (0.90-5.00) X 10*3/uL Sodium 131 L (135-145) mmol/L BUN 55.0 H (9.0-27.0) mg/dL Creatinine 2.3 H (0.6-1.5) mg/dL Est GFR (CKD-EPI) 22 L (>=60) BUN/Creatinine Ratio 23.91 H (12.00-20.00) Ratio Glucose 114 H (70-110) mg/dL Calcium 8.6 L (8.7-10.3) mg/dL Total Bilirubin <0.2 L (0.3-1.2) mg/dL Total Protein 4.4 L (6.2-8.2) g/dL Albumin 2.5 L (3.8-4.9) g/dL Albumin/Globulin Ratio 1.32 L (1.60-3.17) Ratio Assessment and Plan (1) Pleural effusion Current Visit: Yes Status: Acute Priority: High Code(s): J90 - PLEURAL EFFUSION, NOT ELSEWHERE CLASSIFIED SNOMED Code(s): 29235975 (2) Pulmonary nodules Current Visit: Yes Status: Acute Code(s): R91.8 - OTHER NONSPECIFIC ABNORMAL FINDING OF LUNG FIELD SNOMED Code(s): 825392955 (3) Vaginal cancer Current Visit: Yes Status: Acute Priority: High Code(s): C52 - MALIGNANT NEOPLASM OF VAGINA SNOMED Code(s): 274962835 (4) STEPH (acute kidney injury) Current Visit: Yes Status: Acute Priority: High Code(s): N17.9 - ACUTE KIDNEY FAILURE, UNSPECIFIED SNOMED Code(s): 89762212 Plan: Lung nodules/Pleural effusion: -Chest CTA on 05/12 Revealed multiple round mass lesions scattered throughout the left lung measuring up to 1.7 cm in diameter. Multiple pulmonary nodules in the remaining aerated right lung as well as rounded areas of decreased enhance ment in the atelectatic right lower lobe and right middle lobe. Large right pleural effusion was also noted. Discussed with patient scan findings and concern of recurrence of disease -Patient underwent right sided thoracentesis on 05/13, with 1.2 L of serosanguineous fluid drained. Cytology is still pending. -Upon admission chest x-ray revealed progressive findings in the right lung with near complete opacification now noted. Multiple left-sided pulmonary masses. Cardiothoracic surgery consulted, and Pleurx drain was placed on 05/18 with 4L removed -CT AP and bone scan obtained to complete staging. CT abdomen pelvis revealed abnormal attenuation in the region of the vagina. No evidence for metastatic disease to the abdomen or pelvis. Bone scan negative for osteoblastic metastatic disease. -Will request NGS and PDL1 on specimen once resulted -Clinic f/u with Dr. Megan Orozco will be scheduled upon discharge STEPH: -Creatinine noted at 2.9, GFR 17, was normal upon admission. Some improvement today noted, creatinine 2.3, GFR 22. -IV fluids started. Consult placed to nephrology Vaginal Cancer: -Full oncological history in consult HPI -Completed concurrent chemo/RT in 02/2023 and brachytherapy in 03/2023. Pt was scheduled for repeat MRI pelvis and PET CT in 06/2023
[2023-05-19] MEDS: ATORVASTATIN 20 MG TAB PO SCH (21:01)
[2023-05-19] MEDS: ONDANSETRON 4 MG/2 ML VIAL IVP PRN (23:18)
[2023-05-20] MEDS: SODIUM CHLORIDE 0.9% 1,000 ML IV SCH ×2 (01:29→09:59)
[2023-05-20] MEDS: HYDROcodone/APAP 5-325MG 1 EACH TAB PO PRN ×4 (04:34→20:09)
[2023-05-20 06:39] LABS: African American GFR (CKD) 62 (>60 ml/min/1.73 sqM); Anion Gap 8 mmol/L; Blood Urea Nitrogen 39 mg/dL (7-17); Carbon Dioxide 22 mmol/L (22-30); Chloride 98 mmol/L (98-107); Glucose 104 mg/dL (74-99); Non-African American GFR(CKD) 54 (>60 ml/min/1.73 sqM); Sodium 128 mmol/L (137-145)
[2023-05-20] MEDS: HEPARIN SODIUM,PORCINE 5,000 UNIT/ML 1 ML VIAL SQ SCH ×2 (08:36→16:13)
[2023-05-20] MEDS: CHOLECALCIFEROL 25 MCG (1000 IU) TABLET PO SCH ×2 (08:36→21:04)
[2023-05-20] MEDS: LORATADINE 10 MG TAB PO SCH (08:37)
[2023-05-20] MEDS: SERTRALINE 100 MG TAB PO SCH (08:37)
[2023-05-20] MEDS: MULTIVITAMINS, THERA 1 EACH TAB PO SCH (08:37)
--- NOTE | 2023-05-20 09:17 | CA ---
Transthoracic Echo Report Name: Harleen Santana Age: 67 Gender: F : 1955 Exam Date: 05/19/2023 12:48 Exam Location: [facility] Ht (in): 61 Wt (lb): 130 Ordering Physician: Sabine Batista Attending/Referring Phys: [id number], [employer] Douglas Fountain Procedure CPT: Indications: LVF, pericardial eff Cardiac Hx: Technical Quality: Fair Contrast 1: Total Dose (mL): Contrast 2: Total Dose (mL): MEASUREMENTS (Male / Female) Normal Values 2D ECHO LV Diastolic Diameter PLAX 3.9 cm 4.2 - 5.9 / 3.9 - 5.3 cm LV Systolic Diameter PLAX 2.5 cm IVS Diastolic Thickness 0.7 cm 0.6 - 1.0 / 0.6 - 0.9 cm LVPW Diastolic Thickness 0.9 cm 0.6 - 1.0 / 0.6 - 0.9 cm LV Relative Wall Thickness 0.4 RV Internal Dim ED PLAX 2.6 cm LVOT Diameter 2.0 cm Aortic Root Diameter 3.2 cm LA Systolic Diameter LX 1.9 cm 3.0 - 4.0 / 2.7 - 3.8 cm LV Diastolic Volume MOD BP 33.6 cm??? 67 - 155 / 56 - 104 cm??? LV Systolic Volume MOD BP 16.9 cm??? 22 - 58 / 19 - 49 cm??? LV Ejection Fraction MOD BP 49.8 % >= 55 % LV Cardiac Index MOD BP 992.0 cm???/min???m??? LV Diastolic Volume MOD 4C 29.2 cm??? LV Systolic Volume MOD 4C 16.6 cm??? LV Ejection Fraction MOD 4C 43.1 % LV Cardiac Index MOD 4C 744.6 cm???/min???m??? LV Diastolic Length 4C 5.3 cm LV Systolic Length 4C 5.1 cm LV Diastolic Volume MOD 2C 37.6 cm??? LV Systolic Volume MOD 2C 15.8 cm??? LV Ejection Fraction MOD 2C 58.0 % LV Cardiac Index MOD 2C 1292.5 cm???/min???m??? LV Diastolic Length 2C 5.5 cm LV Systolic Length 2C 4.7 cm LA Volume 15.0 cm??? 18 - 58 / 22 - 52 cm??? LA Volume Index 9.4 cm???/m??? 16 - 28 cm???/m??? Ascending Aorta Diameter 2.8 cm DOPPLER AV Peak Velocity 128.9 cm/s AV Peak Gradient 6.6 mmHg AI Peak Velocity 392.2 cm/s AI Peak Gradient 61.5 mmHg AI Pressure Half Time 472.1 ms LVOT Peak Velocity 95.8 cm/s LVOT Peak Gradient 3.7 mmHg LVOT Velocity Time Integral 13.6 cm LVOT Stroke Volume 41.9 cm??? LVOT Stroke Volume Index 26.6 ml/m??? LVOT Cardiac Index 2479.0 cm???/min???m??? AV Area Cont Eq pk 2.3 cm??? MV Peak Velocity 69.1 cm/s MV Peak Gradient 1.9 mmHg MV Mean Velocity 33.0 cm/s MV Mean Gradient 0.5 mmHg MV Velocity Time Integral 15.4 cm MR Peak Velocity 523.0 cm/s MR Peak Gradient 109.4 mmHg Mitral E Point Velocity 53.4 cm/s Mitral A Point Velocity 68.0 cm/s Mitral E to A Ratio 0.8 MV Deceleration Time 244.9 ms MV E' Velocity 5.3 cm/s Mitral E to MV E' Ratio 10.2 TR Peak Velocity 270.2 cm/s TR Peak Gradient 29.2 mmHg Right Ventricular Systolic Press 34.2 mmHg FINDINGS Left Ventricle Normal LV size and wall thickness.left ventricular ejection fraction is estimated at 55-60 %. Right Ventricle Normal right ventricular size. RVSP=34mmHg. Right Atrium Normal right atrial size. Left Atrium Normal left atrial size. Mitral Valve Structurally normal mitral valve. Mild MR. Aortic Valve Trileaflet aortic valve. Moderate AI. Tricuspid Valve Structurally normal tricuspid valve. Mild TR. Pulmonic Valve Pulmonic valve not well visualized. No pulmonic regurgitation. Pericardium Right pleural effusion. Aorta Normal size aortic root and proximal ascending aorta. CONCLUSIONS Normal LV function Mild mitral regurgitation Moderate aortic regurgitation Pleural effusion noted Previewed by: Dr. Dao Salgado MD (Electronically Signed) Final Date: 20 May 2023 09:16
--- NOTE | 2023-05-20 09:32 | P.PN ---
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 We have been asked to evaluate the patient for hypotension. She has a past medical history of recurrent right-sided pleural effusion status post right-sided thoracentesis with removal of 1.2 L of serosanguineous fluid followed by Pleurx catheter insertion which was performed today. She also has past medical history of hypertension, hyperlipidemia, vaginal cancer. Patient presented to the hospital due to shortness of breath was found to have recurrent large right-sided pleural effusion, multiple pulmonary nodules. Patient's heart rate is running in the 80s, blood pressure 70s systolic. Patient is followed by multiple consultants including oncology and scheduled for bone scan. Chest x-ray: Cardiac silhouette within normal limits following Pleurx placement CAT scan of the abdomen and pelvis revealed abnormal attenuation in the region of the vagina. Evidence of prior hysterectomy. No evidence of metastatic disease to the abdomen or pelvis. Multiple left pulmonary nodules. Large right-sided pleural effusion with collapse of the right lung. WBC 10.8, hemoglobin 10.1, platelet count 441. Sodium 134, potassium 5.8, chloride 98, CO2 21, BUN 49 creatinine 2.9 Home cardiac medications: Amlodipine 10 mg daily, benazepril 20 g daily, simvastatin 40 mg at bedtime 05/19 Patient is seen today in follow-up. Yesterday, we started patient on midodrine 5 mg 3 times daily. Blood pressures have been slightly better. Systolic blood pressure overnight has been in the 80s, this morning 90/58. Heart rate is in the 80s and 90s. Echocardiogram is pending. EKG is sinus rhythm with incomplete right bundle branch block 05/20 Patient is seen today in follow-up. Midodrine was started 2 days ago at 5 mg 3 times daily. Blood pressure is running systolic of [id number], heart rate is in the 70s and 90s, pulse ox 97% on 3 L. Patient is complaining of pain issue. No lightheadedness or dizziness. No chest pain. echocardiogram reveals normal LV function. Mild mitral regurgitation. Moderate aortic regurgitation. Pleural effusion noted. Physical examination: Gen: This is a ill-appearing 67-year-old female. No acute distress VS: reviewed HEENT: Head is atraumatic, normocephalic. Pupils equal, round. Sclerae is anicteric. NECK: Supple. No JVD. LUNGS: Clear to auscultation. No wheezes or rhonchi. No intercostal retractions. HEART: Regular rate and rhythm. No murmur. ABDOMEN: Soft No tenderness. EXTREMITIES: No pedal edema. No calf tenderness. NEUROLOGICAL: Patient is awake, alert and oriented x3. Assessment: Hypotension Recurrent right-sided pleural effusion status post thoracentesis and Pleurx catheter placement Acute kidney injury Pulmonary nodules, multiple Hypertension Hyperlipidemia History of vaginal cancer Plan: Continue patient on midodrine 5 mg 3 times daily Cardiology will sign off this case and follow on an as-needed basis. Please reconsult for any new concerns. Nurse practitioner note has been reviewed, I agree with documented findings and plan of care. Patient was seen and examined. Objective - Vital Signs Vital signs: Vital Signs Temp 97.6 F 05/20/23 07:32 Pulse 98 05/20/23 07:32 Resp 24 05/20/23 07:30 BP 125/82 05/20/23 07:32 Pulse Ox 95 05/20/23 07:32 FiO2 Intake & Output 05/19/23 05/20/23 05/20/23 18:59 06:59 18:59 Intake Total 200 380 Balance 200 380 Weight 58.967 kg Intake: Intake, IV Titration 200 Amount Sodium Chloride 0.9% 1, 200 000 ml @ 100 mls/hr IV . Q10H [facility] Rx#:[id number] Oral 380 Other: Voiding Method Toilet Toilet # Voids 1 # Bowel Movements 1 - Labs CBC & Chem 7: 05/19/23 06:42 05/20/23 06:02 Labs: Abnormal Lab Results - Last 24 Hours (Table) 05/19/23 05/19/23 05/20/23 Range/Units 06:42 06:42 06:02 RBC 3.30 L (4.10-5.20) X 10*6/uL Hgb 9.8 L (12.0-15.0) g/dL Hct 31.0 L (37.2-46.3) % MCHC 31.6 L (32.0-37.0) g/dL RDW 14.9 H (11.5-14.5) % Neutrophils # 8.11 H (1.80-7.70) X 10*3/uL Lymphocytes # 0.33 L (0.90-5.00) X 10*3/uL Sodium 131 L 128 L (135-145) mmol/L BUN 55.0 H 39 H (9.0-27.0) mg/dL Creatinine 2.3 H 1.06 H (0.6-1.5) mg/dL Est GFR (CKD-EPI) 22 L (>=60) BUN/Creatinine Ratio 23.91 H (12.00-20.00) Ratio Glucose 114 H 104 H (70-110) mg/dL Calcium 8.6 L 8.0 L (8.7-10.3) mg/dL Total Bilirubin <0.2 L (0.3-1.2) mg/dL Total Protein 4.4 L (6.2-8.2) g/dL Albumin 2.5 L (3.8-4.9) g/dL Albumin/Globulin Ratio 1.32 L (1.60-3.17) Ratio
--- NOTE | 2023-05-20 09:43 | XR ---
EXAMINATION TYPE: XR chest 1V portable DATE OF EXAM: 05/20/2023 9:00 AM CLINICAL INDICATION:Female, 67 years old with history of effusion; COMPARISON: Chest radiograph from one day prior. TECHNIQUE: XR chest 1V portable Frontal view of the chest. FINDINGS: Lungs/Pleura: Large right pleural effusion with associated atelectasis. There is no evidence of pleur al effusion, focal consolidation, or pneumothorax. Pulmonary vascularity: Unremarkable. Heart/mediastinum: Cardiomediastinal silhouette is unremarkable. Musculoskeletal: No acute osseous pathology. Other findings: None Lines/Tubes: Right thoracotomy tube is present without evidence of pneumothorax. IMPRESSION: Large right pleural effusion with associated atelectasis. Right thoracotomy tube in place.
[2023-05-20] MEDS: MIDODRINE 5 MG TAB PO SCH ×3 (09:54→17:48)
[2023-05-20] MEDS: ONDANSETRON 4 MG/2 ML VIAL IVP PRN ×2 (09:56→16:12)
--- NOTE | 2023-05-20 10:46 | P.PN ---
Subjective Progress Note Date: 05/20/23 Harleen Santana, is a 67-year-old female who presented to [facility] emergency room with a chief complaint of worsening shortness of breath with concerns of recurrent pleural effusion patient was recently admitted and treated for pleural effusion with status post thoracentesis. 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 Patient was recently admitted for pleural effusions status post thoracentesis. A On review of systems patient is alert and oriented 3. Patient reports shortness of breath. Patient denies chest pain. Patient denies nausea vomiting or diarrhea. Patient denies any urinary burning or frequency On 05/17/2023 patient is alert and oriented 3. Per pulmonary services consult placed for cardiothoracic surgery for possible Pleurx drain placement. Ultrasound of chest ordered. Current vital signs temp 97.4, heart rate 94, respiratory rate 16, blood pressure 84/59 with a pulse ox of 97%. Patient reports shortness breath. Patient denies chest pain. Patient denies nausea vomiting or diarrhea. Patient denies any urinary burning or frequency On 05/18/2023 patient is alert and oriented 3 status post Pleurx catheter placement per cardiothoracic surgery. Bone scan ordered per oncology services. Patient reports improvement status post Pleurx catheter placement 4 L removed. Patient denies chest pain or shortness of breath. Patient denies nausea vomiting or diarrhea. Patient denies any urinary burning or frequency. On 05/19/2023 patient was seen and examined on to medical floor, she is alert and oriented 3 in no apparent distress there is no fever or chills no headache or dizziness no chest pain or shortness of breath has been improving there is occasional cough no nausea or vomiting no abdominal pain, she is complaining of constipation there is no urinary symptoms. On 05/20/2023 3 patient is alert and oriented 3. Patient reports improvement with shortness of breath or complaining of generalized pain and back. Awaiting nephrology input. Creatinine was increased to 2.9 but has improved to 1.06 patient slightly hyponatremic at 128. Patient denies chest pain or shortness of breath. Patient denies nausea vomiting or diarrhea. Patient denies any urinary burning or frequency. Vital signs temp 97.6, heart rate 98, respiratory rate 20, blood pressure 121/80 with pulse ox 96% on 3 L Objective - Vital Signs Vital signs: Vital Signs Temp 97.6 F 05/20/23 09:28 Pulse 98 05/20/23 09:28 Resp 20 05/20/23 09:28 BP 121/80 05/20/23 09:28 Pulse Ox 97 05/20/23 09:28 FiO2 Intake & Output 05/19/23 05/20/23 05/20/23 18:59 06:59 18:59 Intake Total 200 380 Balance 200 380 Weight 58.967 kg Intake: Intake, IV Titration 200 Amount Sodium Chloride 0.9% 1, 200 000 ml @ 100 mls/hr IV . Q10H [facility] Rx#:[id number] Oral 380 Other: Voiding Method Toilet Toilet # Voids 1 # Bowel Movements 1 - Exam In general patient is alert and oriented x 3 in no distress HEENT head normocephalic and atraumatic Neck is supple no JVD no goiter no lymphadenopathy no carotid bruit Chest examination is clear to auscultation no crackles no wheezing Cardiac exam reveals regular heart sounds S1 and S2 no gallops no murmurs Abdomen is soft nontender no organomegaly with normal bowel sounds Extremity exam reveals no edema no cyanosis or clubbing Neurological examination reveals no gross focal deficits - Labs CBC & Chem 7: 05/19/23 06:42 05/20/23 06:02 Labs: Abnormal Lab Results - Last 24 Hours (Table) 05/19/23 05/19/23 05/20/23 Range/Units 06:42 06:42 06:02 RBC 3.30 L (4.10-5.20) X 10*6/uL Hgb 9.8 L (12.0-15.0) g/dL Hct 31.0 L (37.2-46.3) % MCHC 31.6 L (32.0-37.0) g/dL RDW 14.9 H (11.5-14.5) % Neutrophils # 8.11 H (1.80-7.70) X 10*3/uL Lymphocytes # 0.33 L (0.90-5.00) X 10*3/uL Sodium 131 L 128 L (135-145) mmol/L BUN 55.0 H 39 H (9.0-27.0) mg/dL Creatinine 2.3 H 1.06 H (0.6-1.5) mg/dL Est GFR (CKD-EPI) 22 L (>=60) BUN/Creatinine Ratio 23.91 H (12.00-20.00) Ratio Glucose 114 H 104 H (70-110) mg/dL Calcium 8.6 L 8.0 L (8.7-10.3) mg/dL Total Bilirubin <0.2 L (0.3-1.2) mg/dL Total Protein 4.4 L (6.2-8.2) g/dL Albumin 2.5 L (3.8-4.9) g/dL Albumin/Globulin Ratio 1.32 L (1.60-3.17) Ratio Assessment and Plan Plan: Worsening shortness of breath Recurrent pleural effusion Abnormal x-ray revealing multiple left-sided pulmonary masses History of malignant neoplasm of the vagina, patient received chemotherapy and radiation therapy Underlying history of hypertension Underlying history of hyperlipidemia Underlying history of anxiety disorder Acute kidney injury. Nephrology services consulted Hyponatremia At this time patient will be admitted to telemetry floor Home medications reviewed and reordered Pulmonary and oncology consultation requested Pleurx catheter placed on 05/18/2023 Bone scan ordered per oncology Will follow closely
--- NOTE | 2023-05-20 13:03 | P.NPCON ---
History of Present Illness - Reason for Consult acute renal failure - History of Present Illness Reason for consultation: Acute kidney injury History of present illness: Patient is a 67-year-old female seen in renal consultation for acute kidney injury. Patient's baseline creatinine is near 1 and peaked at 2.9 this admission on 05/18/2023. Patient with subsequently started on IV fluids and renal function is improving. Creatinine down to 1.06 today. She admits to good urine output. Patient states she had a thoracentesis done 05/13/2023 was 1.2 L drained from the right lung. Patient became short of breath and returned to the hospital. She was noted to have a large right-sided pleural effusion and had a Pleurx catheter placed with 4 L of serous fluid drained. Patient has history of vaginal cancer with concern for metastatic disease to the lungs. She does have pulmonary nodules. Patient states she has received chemotherapy as well as radiation at [facility]. She denies use of nonsteroidals. Denies history of coronary artery disease. Denies family history of renal disease. Blood pre ssure stable. Admits to good urine output. No hematuria or dysuria. No chest pain or shortness of breath at this time. Oral intake is fair. Vital signs are stable. General: No acute distress. HEENT: Head exam is unremarkable. LUNGS: No audible rhonchi or wheezes. HEART: Rate and Rhythm are regular. ABDOMEN: Nontender. EXTREMITITES: No edema. Past Medical History Past Medical History: Cancer, Hyperlipidemia, Hypertension Additional Past Medical History / Comment(s): vaginal CA. History of Any Multi-Drug Resistant Organisms: None Reported Past Surgical History: Bladder Surgery, Breast Surgery, Hysterectomy Past Anesthesia/Blood Transfusion Reactions: No Reported Reaction Past Psychological History: No Psychological Hx Reported Smoking Status: Never smoker Past Alcohol Use History: None Reported Past Drug Use History: None Reported Medications and Allergies Home Medications Medication Instructions Recorded Confirmed Type Aspirin EC [Ecotrin Low Dose] 81 mg PO DAILY 05/13/23 05/16/23 History Benazepril HCl 20 mg PO DAILY 05/13/23 05/16/23 History Calcium Carbonate [Calcium] 600 mg PO BID 05/13/23 05/16/23 History Cholecalciferol [Vitamin D3 (25 25 mcg PO BID 05/13/23 05/16/23 History Mcg = 1000 Iu)] Loratadine [Claritin] 10 mg PO BID 05/13/23 05/16/23 History Multivitamins, Thera [Multivitamin 1 tab PO DAILY 05/13/23 05/16/23 History (formulary)] Sertraline [Zoloft] 100 mg PO DAILY 05/13/23 05/16/23 History Simvastatin [Zocor] 40 mg PO HS 05/13/23 05/16/23 History amLODIPine [Norvasc] 10 mg PO DAILY 05/13/23 05/16/23 History HYDROcodone/APAP 5-325MG [[place] 1 tab PO Q4HR 05/16/23 05/16/23 History 5-325] Allergies Allergy/AdvReac Type Severity Reaction Status Date / Time prednisone Allergy Rash/Hives Verified 05/18/23 09:06 sulfamethoxazole Allergy Rash/Hives Verified 05/18/23 09:06 [From Bactrim] trimethoprim [From Bactrim] Allergy Rash/Hives Verified 05/18/23 09:06 Physical Exam Vitals: Vital Signs Temp Pulse Resp BP Pulse Ox 05/20/23 12:13 97.5 F L 97 16 129/85 97 05/20/23 11:21 95 05/20/23 09:28 97.6 F 98 20 121/80 97 05/20/23 07:32 97.6 F 98 125/82 95 05/20/23 07:30 24 05/20/23 02:00 97.7 F 79 15 102/62 98 05/19/23 19:42 97.7 F 92 16 105/71 95 05/19/23 16:56 85 104/59 Intake and Output 05/19/23 05/20/23 05/20/23 22:59 06:59 14:59 Intake Total 200 380 Balance 200 380 Intake: Intake, IV Titration 200 Amount Sodium Chloride 0.9% 1, 200 000 ml @ 100 mls/hr IV . Q10H [facility] Rx#:[id number] Oral 380 Other: Voiding Method Toilet # Voids 1 # Bowel Movements 1 Results - Lab Results Most recent lab results Calcium 8.0 mg/dL (8.4-10.2) L 05/20/23 06:02 05/19/23 06:42 05/20/23 06:02 Assessment and Plan Plan: Assessment: 1. Acute kidney injury secondary to vasomotor nephropathy secondary to hypotension. Also received IV contrast on 05/18/2023. Creatinine peaked at 2.9 this admission and is down to 1.06 today. No hydronephrosis noted on kidney ultrasound. 2. Recurrent right lung pleural effusion with concern for malignancy. Status post Pleurx catheter placement. 3. Vaginal cancer with concern for metastatic disease. 4. Hyponatremia from poor solute intake. Plan: Hep-Lock IV fluids. Add Lasix 20 mg once daily. Advised patient to maintain low salt diet and fluid restriction of less than 50 ounces per day. Repeat labs in the morning. Check TSH. Check serum and urine osmolality and urine sodium level. Thank you for the consultation. I will continue to follow the patient with you during her hospital stay.
[2023-05-20] MEDS: FUROSEMIDE 20 MG TAB PO SCH (13:20)
[2023-05-20] MEDS: DOCUSATE 100 MG CAP PO SCH ×2 (13:20→21:04)
--- NOTE | 2023-05-20 13:29 | P.PN ---
Subjective Progress Note Date: 05/20/23 I am seeing this patient in consultation today 05/17/2023 on the general medical floor after she returned with shortness of breath and a recurrent large right- sided pleural effusion. Patient is a 67-year-old white female with past medical history significant for hypertension, hyperlipidemia, and vaginal cancer. Vaginal cancer recently diagnosed November, and she underwent a combination of radiation and chemotherapy followed by brachytherapy. Patient did have a recent hospital admission back on May 13 for similar symptoms and right lower back pain. She was found to have a moderate to large size right-sided pleural effusion. Chest CTA demonstrated multiple pulmonary nodules throughout the left lung measuring up to 1.7 cm consistent with metastatic neoplasms. There were also multiple pulmonary nodules within the right lung and a large right-sided pleural effusion. Patient did undergo right sided thoracentesis that day, and had a total of 1.2 L of serosanguineous fluid drained. Cytology is still pending. Patient is currently sitting up in bed, on room air, in no acute distress. She does endorse shortness of breath especially with exertion and an occasional cough with minimal sputum production. Denies any fevers, hemoptysis. Denies any sick contacts. Chest x-ray demonstrated a recurrent large right- sided pleural effusion. Underlying consolidation and obstructive neoplasm not excluded. Multiple pulmonary nodules were again appreciated on the left. CBC on arrival shows a WBC count 11.5, hemoglobin 11.8, hematocrit 35.9, platelets 404. BMP on arrival shows sodium 133, potassium 4.4, chloride 103, serum bicarb 20, BUN 31, creatinine 0.97, glucose 119. Pain is reportedly well managed. The patient is seen today 05/18/2023 in follow-up on the regular medical floor. She is currently sitting up in bed. Awake and alert in no acute distress. She is maintaining good O2 saturations in the 90s on 2 L/m nasal cannula. She did undergo a right-sided Pleurx catheter placement this morning. 4 L of fluid removed. Follow-up chest x-ray shows significant decrease in the previously seen large right pleural effusion. Pulmonary nodules and masses are seen within the left lung. Unchanged. Nuclear bone scan revealed no osteoblastic metastatic disease. Computed tomography scan of the abdomen and pelvis revealed no metastatic disease noted. White count 10.8. Hemoglobin 10.1. Let's 441. Sodium 134. Potassium 5.8. BUN 50. Creatinine 2.9. Glucose 123. AST 11. ALT 11. Pro-calcitonin was 0.22. The patient is seen today 05/19/2023 in follow-up on the regular medical floor. She is awake and alert in no acute distress. She is maintaining O2 saturations in the low 90s on 3 L/m per nasal cannula. She's afebrile. Pleural fluid cytology pending. Chest x-ray reveals a right basilar pleural catheter in place. Right-sided chest tube had been removed. There is increased right basilar effusion. Underlying infiltrate or mass suspected. Multiple left-sided pulmonary nodules redemonstrated. White count 9.5. Hemoglobin 9.8. Platelets 396. She is continued on heparin for DVT prophylaxis. The patient is seen today 05/20/2023 in follow-up on the regular medical floor. She is currently resting in bed. Awake and alert in no acute distress. She is having some catheter insertion site discomfort and some back pain. She is currently maintaining good O2 saturations in the 90s on 3 L/m per nasal cannula. Afebrile. Hemodynamically stable. Chest x-ray reveals right thoracotomy tube in place without evidence of pneumothorax. There is a large right pleural effusion with associated atelectasis. Sodium 128. Potassium 5.0. Bicarb 22. BUN 39. Creatinine 1.06. Glucose 104. She is continued on oral diuretics. Heparin for DVT prophylaxis. Objective - Vital Signs Vital signs: Vital Signs Temp 97.5 F L 05/20/23 12:13 Pulse 97 05/20/23 12:13 Resp 16 05/20/23 12:13 BP 129/85 05/20/23 12:13 Pulse Ox 97 05/20/23 12:13 FiO2 Intake & Output 05/19/23 05/20/23 05/20/23 18:59 06:59 18:59 Intake Total 200 380 Balance 200 380 Weight 58.967 kg Intake: Intake, IV Titration 200 Amount Sodium Chloride 0.9% 1, 200 000 ml @ 100 mls/hr IV . Q10H [facility] Rx#:[id number] Oral 380 Other: Voiding Method Toilet Toilet Toilet # Voids 1 # Bowel Movements 1 - Exam GENERAL EXAM: Alert, 67-year-old female, on 3 L nasal cannula, early comfortable in no apparent distress. HEAD: Normocephalic and atraumatic EYES: Normal reaction of pupils, equal size. NOSE: Clear with pink turbinates. THROAT: No erythema or exudates. NECK: No masses, no JVD. CHEST: No chest wall deformity. Right chest Pleurx catheter in place. LUNGS: Diminished right lung sounds with few crackles, no wheeze, rhonchi. No conversational dyspnea. CVS: S1 and S2 normal with no audible murmur, regular rhythm. No extra heart sounds ABDOMEN: No hepatosplenomegaly, active bowel sounds, no guarding or rigidity. SPINE: No scoliosis or deformity SKIN: No rashes CENTRAL NERVOUS SYSTEM: No focal deficits, tone is normal in all 4 extremities. EXTREMITIES: There is no peripheral edema, clubbing, or cyanosis. Peripheral pulses are intact. - Labs CBC & Chem 7: 05/19/23 06:42 05/20/23 06:02 Labs: Abnormal Lab Results - Last 24 Hours (Table) 05/20/23 Range/Units 06:02 Sodium 128 L (137-145) mmol/L BUN 39 H (7-17) mg/dL Creatinine 1.06 H (0.52-1.04) mg/dL Glucose 104 H (74-99) mg/dL Calcium 8.0 L (8.4-10.2) mg/dL Assessment and Plan Assessment: Acute dyspnea, secondary to recurrent large right-sided pleural effusion. Ursula ient did recently have a right-sided thoracentesis done on 05/13/2023 with a total of 1.2 L of serosanguineous fluid removed. Cytology still pending. Chest x-ray demonstrated a recurrent large right-sided pleural effusion. Underlying consolidation and obstructive neoplasm not excluded. Multiple pulmonary nodules were again appreciated on the left. Recurrent right-sided pleural effusion, status post Pleurx catheter placement 05/18/2023 with 4 L removed, cytology pending Acute kidney injury possibly contrast related nephrology consulted Hyperkalemia secondary to above Hypotension, echocardiogram pending, initiated on midodrine Multiple bilateral pulmonary nodules, suspicious for metastatic disease History of vaginal cancer, recently diagnosed November, status/post chemotherapy and radiation therapy followed by brachytherapy. The CAT scan of the abdomen and pelvis revealed abnormal attenuation in the region of the vagina. No adnexal masses seen. No evidence of metastatic disease to the abdomen or pelvis. Benign essential hypertension Hyperlipidemia Never smoker Plan: The patient was seen and evaluated Chest x-ray, labs and medications reviewed Nephrology consulted Right-sided Pleurx catheter in place Currently stable and on 3 L nasal cannula Heparin for DVT prophylaxis Increase her activity as tolerated Titrate down the FiO2 as tolerated We will continue to follow This patient was seen independently by the nurse practitioner I have personally seen and examined the patient, performed the documentation and the assessment and plan as written. Number of minutes spent on the visit: 20.
--- NOTE | 2023-05-20 13:33 | P.PN ---
Subjective Progress Note Date: 05/20/23 Principal diagnosis: Large right sided recurrent pleural effusion, multiple left-sided pulmonary nodules, felt to be consistent with metastatic disease. History of vaginal cancer diagnosed in 11/2022 status post chemo and radiation as well as brachytherapy, hypertension, hyperlipidemia, lifelong non-smoker POD #2 right-sided Pleurx catheter insertion with removal of 4 L serous fluid The patient was seen and examined sitting up in bed in no acute distress on the medical oncology unit. Does complain of some incisional type pain, states shortness of breath has gotten better. Remains on 3 L nasal cannula. Did teaching of Pleurx catheter and drainage with patient's family yesterday. Chest x-ray reviewed. As it doesn't seem patient is going home today we hooked her Pleurx catheter up to an atrium to continue to drain until patient is discharged. Already patient had put out 2 L bloody drainage. Discussed with Dr. Jose, will disconnect Pleurx from atrium whenever she is ready to be discharged home. Objective - Vital Signs Vital signs: Vital Signs Temp 97.5 F L 05/20/23 12:13 Pulse 97 05/20/23 12:13 Resp 16 05/20/23 12:13 BP 129/85 05/20/23 12:13 Pulse Ox 97 05/20/23 12:13 FiO2 Intake & Output 05/19/23 05/20/23 05/20/23 18:59 06:59 18:59 Intake Total 200 380 Balance 200 380 Weight 58.967 kg Intake: Intake, IV Titration 200 Amount Sodium Chloride 0.9% 1, 200 000 ml @ 100 mls/hr IV . Q10H [facility] Rx#:[id number] Oral 380 Other: Voiding Method Toilet Toilet Toilet # Voids 1 # Bowel Movements 1 - Exam CONSTITUTIONAL: Appears comfortable, cooperative, no acute distress RESPIRATORY: Lungs sounds diminished on the right. Respirations even, nonlabored. Currently on 3 L nasal cannula with oxygen saturation 97% CARDIOVASCULAR: S1, S2 present. Regular rate and rhythm. Palpable peripheral pulses bilaterally. No edema present. No calf pain or tenderness noted GASTROINTESTINAL: Abdomen soft, nontender, nondistended. Active bowel sounds present 4 quadrants. Tolerating diet GENITOURINARY: Continues to void INTEGUMENTARY: Skin is warm and dry. Pleurx catheter present, connected to atrium with bloody drainage NEUROLOGIC: Cranial nerves II through XII intact MUSKULOSKELETAL: Able to move all extremities, strength equal bilaterally, gait normal PSYCHIATRIC: Alert and oriented to person place and time, appropriate affect, intact judgment and insight - Labs CBC & Chem 7: 05/19/23 06:42 05/20/23 06:02 Labs: Abnormal Lab Results - Last 24 Hours (Table) 05/20/23 Range/Units 06:02 Sodium 128 L (137-145) mmol/L BUN 39 H (7-17) mg/dL Creatinine 1.06 H (0.52-1.04) mg/dL Glucose 104 H (74-99) mg/dL Calcium 8.0 L (8.4-10.2) mg/dL - Imaging and Cardiology Chest x-ray: report reviewed, image reviewed Assessment and Plan Assessment: Large right sided recurrent pleural effusion, last drained for 1.2 L on 05/13/23, cytology and culture pending, status post Pleurx catheter placement with removal of 4 L serous fluid Multiple left-sided pulmonary nodules, felt to be consistent with metastatic disease Shortness of breath secondary to above History of vaginal cancer diagnosed in 11/2022 status post chemo and radiation as well as brachytherapy History of hypertension, currently hypotensive History of hyperlipidemia Lifelong non-smoker Plan: Pleurx catheter connected to atrium, 2 L drained already, will continue passive drainage until patient is discharged Cleared for discharge from our standpoint when ok with other services May follow up in our office for pleurx removal once drainage less than 50 mL for 3 times in a row Pleurx discharge instructions placed on discharge plan Home care ordered, to bring bottles and teach patient/family drainage Patient may be drained daily, every other day, twice weekly, etc. based on her needs Management of other comorbidities per internal medicine, pulmonology, oncology. Please call us with any further questions
[2023-05-20] MEDS: traMADol 50 MG TAB PO PRN (16:12)
[2023-05-20] MEDS: ATORVASTATIN 20 MG TAB PO SCH (21:04)
[2023-05-21] MEDS: HEPARIN SODIUM,PORCINE 5,000 UNIT/ML 1 ML VIAL SQ SCH ×4 (00:06→23:40)
[2023-05-21] MEDS: HYDROcodone/APAP 5-325MG 1 EACH TAB PO PRN ×4 (00:09→20:36)
[2023-05-21] MEDS: ONDANSETRON 4 MG/2 ML VIAL IVP PRN ×3 (06:05→20:39)
[2023-05-21] MEDS: LORATADINE 10 MG TAB PO SCH (08:22)
[2023-05-21] MEDS: FUROSEMIDE 20 MG TAB PO SCH (08:22)
[2023-05-21] MEDS: DOCUSATE 100 MG CAP PO SCH ×2 (08:22→20:36)
[2023-05-21] MEDS: MULTIVITAMINS, THERA 1 EACH TAB PO SCH (08:22)
[2023-05-21] MEDS: CHOLECALCIFEROL 25 MCG (1000 IU) TABLET PO SCH ×2 (08:22→20:36)
[2023-05-21] MEDS: MIDODRINE 5 MG TAB PO SCH ×3 (08:22→16:31)
[2023-05-21] MEDS: SERTRALINE 100 MG TAB PO SCH (08:22)
--- NOTE | 2023-05-21 09:10 | P.PN ---
Subjective Progress Note Date: 05/21/23 Principal diagnosis: Large right sided recurrent pleural effusion, multiple left-sided pulmonary nodules, felt to be consistent with metastatic disease. History of vaginal cancer diagnosed in 11/2022 status post chemo and radiation as well as brachytherapy, hypertension, hyperlipidemia, lifelong non-smoker POD #3 right-sided Pleurx catheter insertion with removal of 4 L serous fluid The patient was seen and examined sitting up in bed in no acute distress on the medical oncology unit. Does complain of some incisional type pain, states shortness of breath has gotten much better. Currently on room air with oxygen saturation in the mid 90s. Did place Pleurx to an atrium for continued drainage while in the hospital, she has drained another 3.7 L, fluid is becoming thinner and more serous. Chest x-ray reviewed, much improved. Objective - Vital Signs Vital signs: Vital Signs Temp 97.5 F L 05/21/23 08:00 Pulse 94 05/21/23 08:00 Resp 16 05/21/23 08:00 BP 116/81 05/21/23 08:00 Pulse Ox 95 05/21/23 08:00 FiO2 Intake & Output 05/20/23 05/21/23 05/21/23 18:59 06:59 18:59 Intake Total 480 720 Output Total 3160 770 Balance -2680 -50 Intake: Oral 480 720 Output: Chest Tube Drainage 2960 770 Pleural Catheter Right 2960 770 Lower Anterior Chest Urine 200 Other: Voiding Method Toilet Bedside Commode # Voids 2 1 - Exam CONSTITUTIONAL: Appears comfortable, cooperative, no acute distress RESPIRATORY: Lungs sounds diminished on the right. Respirations even, nonlabored. Currently on room air with oxygen saturation 95% CARDIOVASCULAR: S1, S2 present. Regular rate and rhythm. Palpable peripheral pulses bilaterally. No edema present. No calf pain or tenderness noted GASTROINTESTINAL: Abdomen soft, nontender, nondistended. Active bowel sounds present 4 quadrants. Tolerating diet GENITOURINARY: Continues to void INTEGUMENTARY: Skin is warm and dry. Pleurx catheter present, connected to atrium with 3.7 L bloody drainage in the last 24 hours NEUROLOGIC: Cranial nerves II through XII intact MUSKULOSKELETAL: Able to move all extremities, strength equal bilaterally, gait normal PSYCHIATRIC: Alert and oriented to person place and time, appropriate affect, intact judgment and insight - Allied health notes Allied health notes reviewed: nursing - Labs CBC & Chem 7: 05/19/23 06:42 05/20/23 06:02 Labs: Abnormal Lab Results - Last 24 Hours (Table) 05/20/23 Range/Units 18:20 Ur Random Sodium <20 L (40-220) mmol/L - Imaging and Cardiology Chest x-ray: image reviewed Assessment and Plan Assessment: Large right sided recurrent pleural effusion, last drained for 1.2 L on 05/13/23, cytology and culture pending, status post Pleurx catheter placement with removal of 4 L serous fluid Multiple left-sided pulmonary nodules, felt to be consistent with metastatic disease Shortness of breath secondary to above History of vaginal cancer diagnosed in 11/2022 status post chemo and radiation as well as brachytherapy History of hypertension, currently hypotensive History of hyperlipidemia Lifelong non-smoker Plan: Pleurx catheter connected to atrium, 3.7 L drained in the last 24 hours, will continue passive drainage for another 24 hours, will likely cap Pleurx tomorrow Cleared for discharge from our standpoint when ok with other services May follow up in our office for pleurx removal once drainage less than 50 mL for 3 times in a row Pleurx discharge instructions placed on discharge plan Home care ordered, to bring bottles and teach patient/family drainage Patient may be drained daily, every other day, twice weekly, etc. based on her needs Management of other comorbidities per internal medicine, pulmonology, oncology. Please call us with any further questions
--- NOTE | 2023-05-21 09:15 | XR ---
EXAMINATION TYPE: XR chest 1V portable DATE OF EXAM: 05/21/2023 COMPARISON: 05/20/2023 INDICATION: Pleural effusion TECHNIQUE: Single frontal view of the chest is obtained. FINDINGS: The heart size is normal. The pulmonary vasculature is normal. Multiple bilateral lung nodules are present compatible with metastasis. Previous right pleural effusi on is largely resolved. No pneumothorax is evident. IMPRESSION: 1. Multiple large nodules bilateral lung malave. 2. Resolution previous right pleural effusion
[2023-05-21 09:41] LABS: Basophils % (A) 0 %; Eosinophils % (A) 0 %; HCT 37.3 % (34.0-46.0); HGB 11.7 gm/dL (11.4-16.0); Hypochromasia Slight; Lymphocytes # (A) 0.5 k/uL (1.0-4.8); Lymphocytes % (A) 4 %; MCH 29.5 pg (25.0-35.0); MCHC 31.4 g/dL (31.0-37.0); MCV 93.9 fL (80.0-100.0); Mean Platelet Volume 9.7; Monocytes # (A) 0.9 k/uL (0-1.0); Monocytes % (A) 6 %; Neutrophils # (A) 12.9 k/uL (1.3-7.7); Neutrophils % (A) 89 %; Platelet Count 563 k/uL (150-450); RBC 3.98 m/uL (3.80-5.40); RDW 14.7 % (11.5-15.5); WBC 14.5 k/uL (3.8-10.6)
--- NOTE | 2023-05-21 11:31 | P.PN ---
Subjective Progress Note Date: 05/21/23 I am seeing this patient in consultation today 05/17/2023 on the general medical floor after she returned with shortness of breath and a recurrent large right- sided pleural effusion. Patient is a 67-year-old white female with past medical history significant for hypertension, hyperlipidemia, and vaginal cancer. Vaginal cancer recently diagnosed November, and she underwent a combination of radiation and chemotherapy followed by brachytherapy. Patient did have a recent hospital admission back on May 13 for similar symptoms and right lower back pain. She was found to have a moderate to large size right-sided pleural effusion. Chest CTA demonstrated multiple pulmonary nodules throughout the left lung measuring up to 1.7 cm consistent with metastatic neoplasms. There were also multiple pulmonary nodules within the right lung and a large right-sided pleural effusion. Patient did undergo right sided thoracentesis that day, and had a total of 1.2 L of serosanguineous fluid drained. Cytology is still pending. Patient is currently sitting up in bed, on room air, in no acute distress. She does endorse shortness of breath especially with exertion and an occasional cough with minimal sputum production. Denies any fevers, hemoptysis. Denies any sick contacts. Chest x-ray demonstrated a recurrent large right- sided pleural effusion. Underlying consolidation and obstructive neoplasm not excluded. Multiple pulmonary nodules were again appreciated on the left. CBC on arrival shows a WBC count 11.5, hemoglobin 11.8, hematocrit 35.9, platelets 404. BMP on arrival shows sodium 133, potassium 4.4, chloride 103, serum bicarb 20, BUN 31, creatinine 0.97, glucose 119. Pain is reportedly well managed. The patient is seen today 05/18/2023 in follow-up on the regular medical floor. She is currently sitting up in bed. Awake and alert in no acute distress. She is maintaining good O2 saturations in the 90s on 2 L/m nasal cannula. She did undergo a right-sided Pleurx catheter placement this morning. 4 L of fluid removed. Follow-up chest x-ray shows significant decrease in the previously seen large right pleural effusion. Pulmonary nodules and masses are seen within the left lung. Unchanged. Nuclear bone scan revealed no osteoblastic metastatic disease. Computed tomography scan of the abdomen and pelvis revealed no metastatic disease noted. White count 10.8. Hemoglobin 10.1. Let's 441. Sodium 134. Potassium 5.8. BUN 50. Creatinine 2.9. Glucose 123. AST 11. ALT 11. Pro-calcitonin was 0.22. The patient is seen today 05/19/2023 in follow-up on the regular medical floor. She is awake and alert in no acute distress. She is maintaining O2 saturations in the low 90s on 3 L/m per nasal cannula. She's afebrile. Pleural fluid cytology pending. Chest x-ray reveals a right basilar pleural catheter in place. Right-sided chest tube had been removed. There is increased right basilar effusion. Underlying infiltrate or mass suspected. Multiple left-sided pulmonary nodules redemonstrated. White count 9.5. Hemoglobin 9.8. Platelets 396. She is continued on heparin for DVT prophylaxis. The patient is seen today 05/20/2023 in follow-up on the regular medical floor. She is currently resting in bed. Awake and alert in no acute distress. She is having some catheter insertion site discomfort and some back pain. She is currently maintaining good O2 saturations in the 90s on 3 L/m per nasal cannula. Afebrile. Hemodynamically stable. Chest x-ray reveals right thoracotomy tube in place without evidence of pneumothorax. There is a large right pleural effusion with associated atelectasis. Sodium 128. Potassium 5.0. Bicarb 22. BUN 39. Creatinine 1.06. Glucose 104. She is continued on oral diuretics. Heparin for DVT prophylaxis. The patient is seen today 05/21/2023 in follow-up on the regular medical floor. She is awake and alert in no acute distress. Feeling a bit better today compared to yesterday. Dating she slept well. She is maintaining O2 saturations in the 90s on 2 L/m per nasal cannula. She has normal saline at KVO. Right-sided Pleurx catheter remains in place. Another 3.7 L drained in the past 24 hours. Chest x-ray showing improved aeration. White count 14.5. Hemoglobin 11.7. Platelets 563. She is continued on oral diuretics. Heparin for DVT prophylaxis. Objective - Vital Signs Vital signs: Vital Signs Temp 97.5 F L 05/21/23 08:00 Pulse 94 05/21/23 08:00 Resp 16 05/21/23 08:00 BP 116/81 05/21/23 08:00 Pulse Ox 95 05/21/23 08:00 FiO2 Intake & Output 05/20/23 05/21/23 05/21/23 18:59 06:59 18:59 Intake Total 480 720 200 Output Total 3160 770 Balance -2680 -50 200 Intake: Oral 480 720 200 Output: Chest Tube Drainage 2960 770 Pleural Catheter Right 2960 770 Lower Anterior Chest Urine 200 Other: Voiding Method Toilet Bedside Commode # Voids 2 1 1 # Bowel Movements 0 - Exam GENERAL EXAM: Awake, alert, pleasant 67-year-old female, on 2 L nasal cannula, comfortable in no apparent distress. HEAD: Normocephalic and atraumatic EYES: Normal reaction of pupils, equal size. NOSE: Clear with pink turbinates. THROAT: No erythema or exudates. NECK: No masses, no JVD. CHEST: No chest wall deformity. Right chest Pleurx catheter in place. LUNGS: Diminished right lung sounds with few crackles, no wheeze, rhonchi. No conversational dyspnea. CVS: S1 and S2 normal with no audible murmur, regular rhythm. No extra heart sounds ABDOMEN: No hepatosplenomegaly, active bowel sounds, no guarding or rigidity. SPINE: No scoliosis or deformity SKIN: No rashes CENTRAL NERVOUS SYSTEM: No focal deficits, tone is normal in all 4 extremities. EXTREMITIES: There is no peripheral edema, clubbing, or cyanosis. Peripheral pulses are intact. - Labs CBC & Chem 7: 05/21/23 06:47 05/20/23 06:02 Labs: Abnormal Lab Results - Last 24 Hours (Table) 05/20/23 05/21/23 Range/Units 18:20 06:47 WBC 14.5 H (3.8-10.6) k/uL Plt Count 563 H (150-450) k/uL Neutrophils # 12.9 H (1.3-7.7) k/uL Lymphocytes # 0.5 L (1.0-4.8) k/uL Ur Random Sodium <20 L (40-220) mmol/L Assessment and Plan Assessment: Acute dyspnea, secondary to recurrent large right-sided pleural effusion. Patient did recently have a right-sided thoracentesis done on 05/13/2023 with a total of 1.2 L of serosanguineous fluid removed. Cytology still pending. Chest x-ray demonstrated a recurrent large right-sided pleural effusion. Underlying consolidation and obstructive neoplasm not excluded. Multiple pulmonary nodules were again appreciated on the left. Recurrent right-sided pleural effusion, status post Pleurx catheter placement 05/18/2023 with 4 L removed, cytology pending Acute kidney injury possibly contrast related nephrology consulted Hyperkalemia secondary to above Hypotension, echocardiogram pending, initiated on midodrine Multiple bilateral pulmonary nodules, suspicious for metastatic disease History of vaginal cancer, recently diagnosed November, status/post chemotherapy and radiation therapy followed by brachytherapy. The CAT scan of the abdomen and pelvis revealed abnormal attenuation in the region of the vagina. No adnexal masses seen. No evidence of metastatic disease to the abdomen or pelvis. Benign essential hypertension Hyperlipidemia Never smoker Plan: The patient was seen and evaluated Chest x-ray, labs and medications reviewed Right-sided Pleurx catheter in place Heparin for DVT prophylaxis Increase her activity as tolerated Titrate down the FiO2 as tolerated We will continue to follow I have personally seen and examined the patient, performed the documentation and the assessment and plan as written. Number of minutes spent on the visit: 10.
--- NOTE | 2023-05-21 11:50 | P.PN ---
Subjective Patient is seen for follow-up for acute kidney injury. She is maintained on IV fluids. 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 Status post IV fluids. Sodium had dropped yesterday and patient received a dose of IV Lasix. IV fluids were discontinued yesterday. No significant complaints today. Objective - Vital Signs Vital signs: Vital Signs Temp 97.5 F L 05/21/23 08:00 Pulse 94 05/21/23 08:00 Resp 16 05/21/23 08:00 BP 116/81 05/21/23 08:00 Pulse Ox 95 05/21/23 08:00 FiO2 Intake & Output 05/20/23 05/21/23 05/21/23 18:59 06:59 18:59 Intake Total 480 720 200 Output Total 3160 770 Balance -2680 -50 200 Intake: Oral 480 720 200 Output: Chest Tube Drainage 2960 770 Pleural Catheter Right 2960 770 Lower Anterior Chest Urine 200 Other: Voiding Method Toilet Bedside Commode # Voids 2 1 1 # Bowel Movements 0 - Exam Patient is awake, comfortable, no acute distress Examination of the heart S1 and S2 Examination of the lungs bilateral breath sounds are heard Abdomen is soft nontender Examination of lower extremities shows no significant edema [employer]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 Acute kidney injury secondary to vasomotor nephropathy secondary to hypotension. Also received IV contrast on 05/18/2023. Creatinine peaked at 2.9 this admission and is down to 1.06 yesterday. No hydronephrosis noted on kidney ultrasound. 2. Recurrent right lung pleural effusion with concern for malignancy. Status post Pleurx catheter placement. 3. Vaginal cancer with concern for metastatic disease. 4. Hyponatremia from poor solute intake. IV fluids discontinued and status post IV Lasix yesterday. Plan: Check labs today and in a.m. Encourage increased oral intake
[2023-05-21 12:05] LABS: ALT 14 U/L (4-34); AST 20 U/L (14-36); African American GFR (CKD) 63 (>60 ml/min/1.73 sqM); Albumin 2.3 g/dL (3.5-5.0); Alkaline Phosphatase 109 U/L (38-126); Anion Gap 13 mmol/L; Blood Urea Nitrogen 34 mg/dL (7-17); Calcium 7.7 mg/dL (8.4-10.2); Carbon Dioxide 17 mmol/L (22-30); Chloride 96 mmol/L (98-107); Globulin 2.3 g/dL; Glucose 139 mg/dL (74-99); Magnesium 2.3 mg/dL (1.6-2.3); Non-African American GFR(CKD) 54 (>60 ml/min/1.73 sqM); Potassium 5.9 mmol/L (3.5-5.1); Sodium 126 mmol/L (137-145); Total Bilirubin 0.3 mg/dL (0.2-1.3); Total Protein 4.6 g/dL (6.3-8.2)
--- NOTE | 2023-05-21 13:11 | P.PN ---
Subjective Progress Note Date: 05/21/23 Harleen Santana, is a 67-year-old female who presented to [facility] emergency room with a chief complaint of worsening shortness of breath with concerns of recurrent pleural effusion patient was recently admitted and treated for pleural effusion with status post thoracentesis. 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 Patient was recently admitted for pleural effusions status post thoracentesis. A On review of systems patient is alert and oriented 3. Patient reports shortness of breath. Patient denies chest pain. Patient denies nausea vomiting or diarrhea. Patient denies any urinary burning or frequency On 05/17/2023 patient is alert and oriented 3. Per pulmonary services consult placed for cardiothoracic surgery for possible Pleurx drain placement. Ultrasound of chest ordered. Current vital signs temp 97.4, heart rate 94, respiratory rate 16, blood pressure 84/59 with a pulse ox of 97%. Patient reports shortness breath. Patient denies chest pain. Patient denies nausea vomiting or diarrhea. Patient denies any urinary burning or frequency On 05/18/2023 patient is alert and oriented 3 status post Pleurx catheter placement per cardiothoracic surgery. Bone scan ordered per oncology services. Patient reports improvement status post Pleurx catheter placement 4 L removed. Patient denies chest pain or shortness of breath. Patient denies nausea vomiting or diarrhea. Patient denies any urinary burning or frequency. On 05/19/2023 patient was seen and examined on to medical floor, she is alert and oriented 3 in no apparent distress there is no fever or chills no headache or dizziness no chest pain or shortness of breath has been improving there is occasional cough no nausea or vomiting no abdominal pain, she is complaining of constipation there is no urinary symptoms. On 05/20/2023 3 patient is alert and oriented 3. Patient reports improvement with shortness of breath or complaining of generalized pain and back. Awaiting nephrology input. Creatinine was increased to 2.9 but has improved to 1.06 patient slightly hyponatremic at 128. Patient denies chest pain or shortness of breath. Patient denies nausea vomiting or diarrhea. Patient denies any urinary burning or frequency. Vital signs temp 97.6, heart rate 98, respiratory rate 20, blood pressure 121/80 with pulse ox 96% on 3 L On 05/21/2023 patient was seen and examined on the medical floor she is alert and oriented 3 in no apparent distress there is no fever or chills no headache or dizziness no chest pain she is still having some shortness of breath, there is occasional cough, right sided Pleurx catheter remains in place. There is no nausea or vomiting no abdominal pain no diarrhea no blood in the stools no burning with urination no frequency or urgency and no hematuria Objective - Vital Signs Vital signs: Vital Signs Temp 97.5 F L 05/21/23 08:00 Pulse 94 05/21/23 08:00 Resp 16 05/21/23 08:00 BP 116/81 05/21/23 08:00 Pulse Ox 95 05/21/23 08:00 FiO2 Intake & Output 05/20/23 05/21/23 05/21/23 18:59 06:59 18:59 Intake Total 480 720 200 Output Total 3160 770 Balance -2680 -50 200 Intake: Oral 480 720 200 Output: Chest Tube Drainage 2960 770 Pleural Catheter Right 2960 770 Lower Anterior Chest Urine 200 Other: Voiding Method Toilet Bedside Commode # Voids 2 1 1 # Bowel Movements 0 - Exam In general patient is alert and oriented x 3 in no distress HEENT head normocephalic and atraumatic Neck is supple no JVD no goiter no lymphadenopathy no carotid bruit Chest examination is clear to auscultation no crackles no wheezing Cardiac exam reveals regular heart sounds S1 and S2 no gallops no murmurs Abdomen is soft nontender no organomegaly with normal bowel sounds Extremity exam reveals no edema no cyanosis or clubbing Neurological examination reveals no gross focal deficits - Labs CBC & Chem 7: 05/21/23 06:47 05/21/23 06:47 Labs: Abnormal Lab Results - Last 24 Hours (Table) 12/01/23 12/02/23 12/02/23 Range/Units 18:20 06:47 06:47 WBC 14.5 H (3.8-10.6) k/uL Plt Count 563 H (150-450) k/uL Neutrophils # 12.9 H (1.3-7.7) k/uL Lymphocytes # 0.5 L (1.0-4.8) k/uL Sodium 126 L (137-145) mmol/L Potassium 5.9 H (3.5-5.1) mmol/L Chloride 96 L (98-107) mmol/L Carbon Dioxide 17 L (22-30) mmol/L BUN 34 H (7-17) mg/dL Creatinine 1.05 H (0.52-1.04) mg/dL Glucose 139 H (74-99) mg/dL Calcium 7.7 L (8.4-10.2) mg/dL Total Protein 4.6 L (6.3-8.2) g/dL Albumin 2.3 L (3.5-5.0) g/dL Ur Random Sodium <20 L (40-220) mmol/L Assessment and Plan Plan: Worsening shortness of breath Recurrent pleural effusion Abnormal x-ray revealing multiple left-sided pulmonary masses History of malignant neoplasm of the vagina, patient received chemotherapy and radiation therapy Underlying history of hypertension Underlying history of hyperlipidemia Underlying history of anxiety disorder Acute kidney injury. Nephrology services consulted Hyponatremia At this time patient will be admitted to telemetry floor Home medications reviewed and reordered Pulmonary and oncology consultation requested Pleurx catheter placed on 05/18/2023 Bone scan ordered per oncology Will follow closely
[2023-05-21] MEDS ORDERED: SODIUM POLYSTYRENE SULFONATE 15 GM/60 ML BOTTLE PO STA (16:10)
[2023-05-21] MEDS: ATORVASTATIN 20 MG TAB PO SCH (20:36)
[2023-05-22] MEDS: ONDANSETRON 4 MG/2 ML VIAL IVP PRN ×3 (04:09→17:27)
[2023-05-22] MEDS: HYDROcodone/APAP 5-325MG 1 EACH TAB PO PRN ×3 (04:13→16:09)
[2023-05-22 07:49] LABS: HCT 36.6 % (34.0-46.0); HGB 12.2 gm/dL (11.4-16.0); MCH 30.7 pg (25.0-35.0); MCHC 33.3 g/dL (31.0-37.0); Mean Platelet Volume 8.4; Platelet Count 586 k/uL (150-450); RBC 3.98 m/uL (3.80-5.40); RDW 14.8 % (11.5-15.5); WBC 15.5 k/uL (3.8-10.6)
[2023-05-22] MEDS: FUROSEMIDE 20 MG TAB PO SCH (08:13)
[2023-05-22] MEDS: DOCUSATE 100 MG CAP PO SCH ×2 (08:13→22:10)
[2023-05-22] MEDS: MIDODRINE 5 MG TAB PO SCH ×3 (08:13→17:17)
[2023-05-22] MEDS: HEPARIN SODIUM,PORCINE 5,000 UNIT/ML 1 ML VIAL SQ SCH ×2 (08:13→16:09)
[2023-05-22] MEDS: LORATADINE 10 MG TAB PO SCH (08:14)
[2023-05-22] MEDS: CHOLECALCIFEROL 25 MCG (1000 IU) TABLET PO SCH ×2 (08:14→22:10)
[2023-05-22] MEDS: SERTRALINE 100 MG TAB PO SCH (08:14)
[2023-05-22] MEDS: MULTIVITAMINS, THERA 1 EACH TAB PO SCH (08:14)
--- NOTE | 2023-05-22 08:44 | P.PN ---
Subjective Progress Note Date: 05/22/23 Principal diagnosis: Large right sided recurrent pleural effusion, multiple left-sided pulmonary nodules, felt to be consistent with metastatic disease. History of vaginal cancer diagnosed in 11/2022 status post chemo and radiation as well as brachytherapy, hypertension, hyperlipidemia, lifelong non-smoker POD #4 right-sided Pleurx catheter insertion with removal of 4 L serous fluid The patient was seen and examined sitting up in bed in no acute distress on the medical oncology unit. Does complain of some incisional type pain, states shortness of breath has gotten much better. Currently on room air with oxygen saturation in the mid 90s. Pleurx drained another 2.3 L in the last 24 hours, fluid is becoming thinner and more serous. Chest x-ray reviewed. No new concer ns. Objective - Vital Signs Vital signs: Vital Signs Temp 98 F 05/22/23 08:00 Pulse 98 05/22/23 08:00 Resp 15 05/22/23 08:00 BP 116/80 05/22/23 08:00 Pulse Ox 97 05/22/23 08:00 FiO2 Intake & Output 05/21/23 05/22/23 05/22/23 18:59 06:59 18:59 Intake Total 670 960 Output Total 1030 1300 Balance -360 -340 Intake: Oral 670 960 Output: Chest Tube Drainage 1030 1300 Pleural Catheter Right 1030 1300 Lower Anterior Chest Other: Voiding Method Bedside Commode Bedside Commode # Voids 1 1 # Bowel Movements 0 - Exam CONSTITUTIONAL: Appears comfortable, cooperative, no acute distress RESPIRATORY: Lungs sounds diminished on the right. Respirations even, nonlabored. Currently on room air with oxygen saturation 97% CARDIOVASCULAR: S1, S2 present. Regular rate and rhythm. Palpable peripheral pulses bilaterally. No edema present. No calf pain or tenderness noted GASTROINTESTINAL: Abdomen soft, nontender, nondistended. Active bowel sounds present 4 quadrants. Tolerating diet GENITOURINARY: Continues to void INTEGUMENTARY: Skin is warm and dry. Pleurx catheter present, connected to atrium with 2.3 L thin serosanguinous drainage in the last 24 hours NEUROLOGIC: Cranial nerves II through XII intact MUSKULOSKELETAL: Able to move all extremities, strength equal bilaterally, gait normal PSYCHIATRIC: Alert and oriented to person place and time, appropriate affect, intact judgment and insight - Allied health notes Allied health notes reviewed: nursing - Labs CBC & Chem 7: 05/22/23 06:52 05/21/23 06:47 Labs: Abnormal Lab Results - Last 24 Hours (Table) 05/21/23 05/21/23 05/22/23 Range/Units 06:47 06:47 06:52 WBC 14.5 H 15.5 H (3.8-10.6) k/uL Plt Count 563 H 586 H (150-450) k/uL Neutrophils # 12.9 H (1.3-7.7) k/uL Lymphocytes # 0.5 L (1.0-4.8) k/uL Sodium 126 L (137-145) mmol/L Potassium 5.9 H (3.5-5.1) mmol/L Chloride 96 L (98-107) mmol/L Carbon Dioxide 17 L (22-30) mmol/L BUN 34 H (7-17) mg/dL Creatinine 1.05 H (0.52-1.04) mg/dL Glucose 139 H (74-99) mg/dL Calcium 7.7 L (8.4-10.2) mg/dL Total Protein 4.6 L (6.3-8.2) g/dL Albumin 2.3 L (3.5-5.0) g/dL - Imaging and Cardiology Chest x-ray: image reviewed Assessment and Plan Assessment: Large right sided recurrent pleural effusion, last drained for 1.2 L on 05/13/23, cytology and culture pending, status post Pleurx catheter placement with removal of 4 L serous fluid Multiple left-sided pulmonary nodules, felt to be consistent with metastatic disease Shortness of breath secondary to above History of vaginal cancer diagnosed in 11/2022 status post chemo and radiation as well as brachytherapy History of hypertension, currently hypotensive History of hyperlipidemia Lifelong non-smoker Plan: Pleurx catheter connected to atrium, 2.3 L drained in the last 24 hours, will continue passive drainage for another 24 hours although may cap pleurx if patient being discharged to home today Cleared for discharge from our standpoint when ok with other services May follow up in our office for pleurx removal once drainage less than 50 mL for 3 times in a row Pleurx discharge instructions placed on discharge plan Home care ordered, to bring bottles and teach patient/family drainage Patient may be drained daily, every other day, twice weekly, etc. based on her needs Management of other comorbidities per internal medicine, pulmonology, oncology. Please call us with any further questions
--- NOTE | 2023-05-22 11:40 | P.PN ---
Progress Note - Text Progress Note Date: 05/22/23 Progress Note - SOAP Patient Name: Harleen Santana Date of : 1955 Patient Status: Inpatient Attending Provider: Bernie Jose Date: 05/22/23 10:45 Initialization Date: 05/22/23 10:45 Subjective Progress Note Date: 05/22/23 Harleen Santana, is a 67-year-old female who presented to [facility] emergency room with a chief complaint of worsening shortness of breath with concerns of recurrent pleural effusion patient was recently admitted and treated for pleural effusion with status post thoracentesis. 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 Patient was recently admitted for pleural effusions status post thoracentesis. A On review of systems patient is alert and oriented 3. Patient reports s hortness of breath. Patient denies chest pain. Patient denies nausea vomiting or diarrhea. Patient denies any urinary burning or frequency On 05/17/2023 patient is alert and oriented 3. Per pulmonary services consult placed for cardiothoracic surgery for possible Pleurx drain placement. Ultrasound of chest ordered. Current vital signs temp 97.4, heart rate 94, respiratory rate 16, blood pressure 84/59 with a pulse ox of 97%. Patient reports shortness breath. Patient denies chest pain. Patient denies nausea vomiting or diarrhea. Patient denies any urinary burning or frequency On 05/18/2023 patient is alert and oriented 3 status post Pleurx catheter placement per cardiothoracic surgery. Bone scan ordered per oncology services. Patient reports improvement status post Pleurx catheter placement 4 L removed. Patient denies chest pain or shortness of breath. Patient denies nausea vomiting or diarrhea. Patient denies any urinary burning or frequency. On 05/19/2023 patient was seen and examined on to medical floor, she is alert and oriented 3 in no apparent distress there is no fever or chills no headache or dizziness no chest pain or shortness of breath has been improving there is occasional cough no nausea or vomiting no abdominal pain, she is complaining of constipation there is no urinary symptoms. On 05/20/2023 3 patient is alert and oriented 3. Patient reports improvement with shortness of breath or complaining of generalized pain and back. Awaiting nephrology input. Creatinine was increased to 2.9 but has improved to 1.06 patient slightly hyponatremic at 128. Patient denies chest pain or shortness of breath. Patient denies nausea vomiting or diarrhea. Patient denies any urinary burning or frequency. Vital signs temp 97.6, heart rate 98, respiratory rate 20, blood pressure 121/80 with pulse ox 96% on 3 L On 05/21/2023 patient was seen and examined on the medical floor she is alert and oriented 3 in no apparent distress there is no fever or chills no headache or dizziness no chest pain she is still having some shortness of breath, there is occasional cough, right sided Pleurx catheter remains in place. There is no nausea or vomiting no abdominal pain no diarrhea no blood in the stools no burning with urination no frequency or urgency and no hematuria On 05/22/2023 patient is alert and oriented 3. Patient reports she slightly feels improved today. Repeat CMP has been ordered patient was hyponatremic and hyperkalemic yesterday nephrology services are following. Pleurx catheter remains in place. Patient denies chest pain or shortness of breath. Patient denies nausea vomiting or diarrhea. Patient denies any urinary burning or frequency current vital signs temp 98.1, heart rate 94, respiratory rate 16, blood pressure 118/81 with pulse ox 97% on 2 L Objective - Vital Signs Vital signs: Vital Signs Temp 98 F 05/22/23 08:00 Pulse 98 05/22/23 08:00 Resp 15 05/22/23 08:00 BP 116/80 05/22/23 08:00 Pulse Ox 97 05/22/23 08:00 FiO2 Intake & Output 05/21/23 05/22/23 05/22/23 18:59 06:59 18:59 Intake Total 670 960 Output Total 1030 1300 Balance -360 -340 Intake: Oral 670 960 Output: Chest Tube Drainage 1030 1300 Pleural Catheter Right 1030 1300 Lower Anterior Chest Other: Voiding Method Bedside Commode Bedside Commode # Voids 1 1 # Bowel Movements 0 - Exam In general patient is alert and oriented x 3 in no distress HEENT head normocephalic and atraumatic Neck is supple no JVD no goiter no lymphadenopathy no carotid bruit Chest examination is clear to auscultation no crackles no wheezing Cardiac exam reveals regular heart sounds S1 and S2 no gallops no murmurs Abdomen is soft nontender no organomegaly with normal bowel sounds Extremity exam reveals no edema no cyanosis or clubbing Neurological examination reveals no gross focal deficits - Labs CBC & Chem 7: 05/22/23 06:52 05/21/23 06:47 Labs: Abnormal Lab Results - Last 24 Hours (Table) 05/21/23 05/22/23 Range/Units 06:47 06:52 WBC 15.5 H (3.8-10.6) k/uL Plt Count 586 H (150-450) k/uL Sodium 126 L (137-145) mmol/L Potassium 5.9 H (3.5-5.1) mmol/L Chloride 96 L (98-107) mmol/L Carbon Dioxide 17 L (22-30) mmol/L BUN 34 H (7-17) mg/dL Creatinine 1.05 H (0.52-1.04) mg/dL Glucose 139 H (74-99) mg/dL Calcium 7.7 L (8.4-10.2) mg/dL Total Protein 4.6 L (6.3-8.2) g/dL Albumin 2.3 L (3.5-5.0) g/dL Assessment and Plan Assessment: Worsening shortness of breath Recurrent pleural effusion Abnormal x-ray revealing multiple left-sided pulmonary masses History of malignant neoplasm of the vagina, patient received chemotherapy and radiation therapy Underlying history of hypertension Underlying history of hyperlipidemia Underlying history of anxiety disorder Acute kidney injury. Nephrology services consulted Hyponatremia' Hyperkalemia At this time patient will be admitted to telemetry floor Home medications reviewed and reordered Pulmonary and oncology consultation requested Pleurx catheter placed on 05/18/2023 Bone scan ordered per oncology Will follow closely
[2023-05-22 12:07] LABS: ALT 17 U/L (4-34); AST 29 U/L (14-36); African American GFR (CKD) 51 (>60 ml/min/1.73 sqM); Albumin 2.3 g/dL (3.5-5.0); Alkaline Phosphatase 188 U/L (38-126); Anion Gap 11 mmol/L; Blood Urea Nitrogen 41 mg/dL (7-17); Calcium 7.7 mg/dL (8.4-10.2); Carbon Dioxide 18 mmol/L (22-30); Chloride 95 mmol/L (98-107); Globulin 2.4 g/dL; Glucose 124 mg/dL (74-99); Non-African American GFR(CKD) 44 (>60 ml/min/1.73 sqM); Sodium 124 mmol/L (137-145); Total Bilirubin 0.3 mg/dL (0.2-1.3); Total Protein 4.7 g/dL (6.3-8.2)
--- NOTE | 2023-05-22 12:09 | P.PN ---
Subjective Patient is seen for follow-up for acute kidney injury. 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 Status post IV fluids. Sodium had dropped and IV fluids were discontinued on 05/20/2023 No significant complaints today except for weakness. Next Potassium at 5.9 today with sodium of 126. Creatinine remains at 1.0 mg/dL. Objective - Vital Signs Vital signs: Vital Signs Temp 98 F 05/22/23 08:00 Pulse 98 05/22/23 08:00 Resp 15 05/22/23 08:00 BP 116/80 05/22/23 08:00 Pulse Ox 97 05/22/23 08:00 FiO2 Intake & Output 05/21/23 05/22/23 05/22/23 18:59 06:59 18:59 Intake Total 670 960 200 Output Total 1030 1300 100 Balance -360 -340 100 Intake: Oral 670 960 200 Output: Chest Tube Drainage 1030 1300 Pleural Catheter Right 1030 1300 Lower Anterior Chest Post Void Residual 100 Other: Voiding Method Bedside Commode Bedside Commode # Voids 1 1 # Bowel Movements 0 - Exam Patient is awake, comfortable, no acute distress Examination of the heart S1 and S2 Examination of the lungs bilateral breath sounds are heard Abdomen is soft nontender Examination of lower extremities shows no significant edema PHARMACY MANAGER exam grossly intact - Labs CBC & Chem 7: 05/22/23 06:52 05/21/23 06:47 Labs: Abnormal Lab Results - Last 24 Hours (Table) 05/21/23 05/22/23 Range/Units 06:47 06:52 WBC 15.5 H (3.8-10.6) k/uL Plt Count 586 H (150-450) k/uL Sodium 126 L (137-145) mmol/L Potassium 5.9 H (3.5-5.1) mmol/L Chloride 96 L (98-107) mmol/L Carbon Dioxide 17 L (22-30) mmol/L BUN 34 H (7-17) mg/dL Creatinine 1.05 H (0.52-1.04) mg/dL Glucose 139 H (74-99) mg/dL Calcium 7.7 L (8.4-10.2) mg/dL Total Protein 4.6 L (6.3-8.2) g/dL Albumin 2.3 L (3.5-5.0) g/dL Assessment and Plan Assessment: 1. Acute kidney injury secondary to vasomotor nephropathy secondary to hypotension. Also received IV contrast on 05/18/2023. Creatinine peaked at 2.9 this admission and is down to 1.0 yesterday. No hydronephrosis noted on kidney ultrasound. 2. Recurrent right lung pleural effusion with concern for malignancy. Status post Pleurx catheter placement. 3. Vaginal cancer with concern for metastatic disease. 4. Hyponatremia from poor solute intake. IV fluids discontinued and status post IV Lasix on 05/20/2023. Urine sodium less than 20 5. Hyperkalemia, rule out urine retention. No evidence of obstruction noted on CAT scan. Blood sugar is not elevated. Rule out constipation Plan: Check urine osmolality Repeat potassium later today I will add Samsca if urine osmolality is high. Consider challenging with IV sa line again. Repeat labs in a.m. Check bladder scan Low potassium diet
--- NOTE | 2023-05-22 12:16 | P.PN ---
Subjective Progress Note Date: 05/22/23 I am seeing this patient in consultation today 05/17/2023 on the general medical floor after she returned with shortness of breath and a recurrent large right- sided pleural effusion. Patient is a 67-year-old white female with past medical history significant for hypertension, hyperlipidemia, and vaginal cancer. Vaginal cancer recently diagnosed November, and she underwent a combination of radiation and chemotherapy followed by brachytherapy. Patient did have a recent hospital admission back on May 13 for similar symptoms and right lower back pain. She was found to have a moderate to large size right-sided pleural effusion. Chest CTA demonstrated multiple pulmonary nodules throughout the left lung measuring up to 1.7 cm consistent with metastatic neoplasms. There were also multiple pulmonary nodules within the right lung and a large right-sided pleural effusion. Patient did undergo right sided thoracentesis that day, and had a total of 1.2 L of serosanguineous fluid drained. Cytology is still pending. Patient is currently sitting up in bed, on room air, in no acute distress. She does endorse shortness of breath especially with exertion and an occasional cough with minimal sputum production. Denies any fevers, hemoptysis. Denies any sick contacts. Chest x-ray demonstrated a recurrent large right- sided pleural effusion. Underlying consolidation and obstructive neoplasm not excluded. Multiple pulmonary nodules were again appreciated on the left. CBC on arrival shows a WBC count 11.5, hemoglobin 11.8, hematocrit 35.9, platelets 404. BMP on arrival shows sodium 133, potassium 4.4, chloride 103, serum bicarb 20, BUN 31, creatinine 0.97, glucose 119. Pain is reportedly well managed. The patient is seen today 05/18/2023 in follow-up on the regular medical floor. She is currently sitting up in bed. Awake and alert in no acute distress. She is maintaining good O2 saturations in the 90s on 2 L/m nasal cannula. She did undergo a right-sided Pleurx catheter placement this morning. 4 L of fluid removed. Follow-up chest x-ray shows significant decrease in the previously seen large right pleural effusion. Pulmonary nodules and masses are seen within the left lung. Unchanged. Nuclear bone scan revealed no osteoblastic metastatic disease. Computed tomography scan of the abdomen and pelvis revealed no metastatic disease noted. White count 10.8. Hemoglobin 10.1. Let's 441. Sodium 134. Potassium 5.8. BUN 50. Creatinine 2.9. Glucose 123. AST 11. ALT 11. Pro-calcitonin was 0.22. The patient is seen today 05/19/2023 in follow-up on the regular medical floor. She is awake and alert in no acute distress. She is maintaining O2 saturations in the low 90s on 3 L/m per nasal cannula. She's afebrile. Pleural fluid cytology pending. Chest x-ray reveals a right basilar pleural catheter in place. Right-sided chest tube had been removed. There is increased right basilar effusion. Underlying infiltrate or mass suspected. Multiple left-sided pulmonary nodules redemonstrated. White count 9.5. Hemoglobin 9.8. Platelets 396. She is continued on heparin for DVT prophylaxis. The patient is seen today 05/20/2023 in follow-up on the regular medical floor. She is currently resting in bed. Awake and alert in no acute distress. She is having some catheter insertion site discomfort and some back pain. She is currently maintaining good O2 saturations in the 90s on 3 L/m per nasal cannula. Afebrile. Hemodynamically stable. Chest x-ray reveals right thoracotomy tube in place without evidence of pneumothorax. There is a large right pleural effusion with associated atelectasis. Sodium 128. Potassium 5.0. Bicarb 22. BUN 39. Creatinine 1.06. Glucose 104. She is continued on oral diuretics. Heparin for DVT prophylaxis. The patient is seen today 05/21/2023 in follow-up on the regular medical floor. She is awake and alert in no acute distress. Feeling a bit better today compared to yesterday. Dating she slept well. She is maintaining O2 saturations in the 90s on 2 L/m per nasal cannula. She has normal saline at KVO. Right-sided Pleurx catheter remains in place. Another 3.7 L drained in the past 24 hours. Chest x-ray showing improved aeration. White count 14.5. Hemoglobin 11.7. Platelets 563. She is continued on oral diuretics. Heparin for DVT prophylaxis. The patient is seen today 05/22/2023 in follow-up on the regular medical floor. She is resting comfortably in bed. Awake and alert in no acute distress. Maintaining O2 saturation in the 90s on 2 L/m per nasal cannula. No IV fluids. She drained another 2.3 L from the Pleurx catheter. X-ray reveals minimal right pleural effusion. White count 15.5. Hemoglobin 12.2. Platelets 586. She remains on diuretics. Heparin for DVT prophylaxis. Objective - Vital Signs Vital signs: Vital Signs Temp 98 F 05/22/23 08:00 Pulse 98 05/22/23 08:00 Resp 15 05/22/23 08:00 BP 116/80 05/22/23 08:00 Pulse Ox 97 05/22/23 08:00 FiO2 Intake & Output 05/21/23 05/22/23 05/22/23 18:59 06:59 18:59 Intake Total 670 960 200 Output Total 1030 1300 100 Balance -360 -340 100 Intake: Oral 670 960 200 Output: Chest Tube Drainage 1030 1300 Pleural Catheter Right 1030 1300 Lower Anterior Chest Post Void Residual 100 Other: Voiding Method Bedside Commode Bedside Commode # Voids 1 1 # Bowel Movements 0 - Exam GENERAL EXAM: Awake, 67-year-old female, on 2 L nasal cannula, in no apparent distress. HEAD: Normocephalic and atraumatic EYES: Normal reaction of pupils, equal size. NOSE: Clear with pink turbinates. THROAT: No erythema or exudates. NECK: No masses, no JVD. CHEST: No chest wall deformity. Right chest Pleurx catheter in place. LUNGS: Diminished right lung sounds with few crackles in the right base, no wheeze, rhonchi. No conversational dyspnea. CVS: S1 and S2 normal with no audible murmur, regular rhythm. No extra heart sounds ABDOMEN: No hepatosplenomegaly, active bowel sounds, no guarding or rigidity. SPINE: No scoliosis or deformity SKIN: No rashes CENTRAL NERVOUS SYSTEM: No focal deficits, tone is normal in all 4 extremities. EXTREMITIES: There is no peripheral edema, clubbing, or cyanosis. Peripheral pulses are intact. - Labs CBC & Chem 7: 05/22/23 06:52 05/21/23 06:47 Labs: Abnormal Lab Results - Last 24 Hours (Table) 05/22/23 Range/Units 06:52 WBC 15.5 H (3.8-10.6) k/uL Plt Count 586 H (150-450) k/uL Assessment and Plan Assessment: Acute dyspnea, secondary to recurrent large right-sided pleural effusion. Patient did recently have a right-sided thoracentesis done on 05/13/2023 with a total of 1.2 L of serosanguineous fluid removed. Cytology pending. Chest x-ray demonstrated a recurrent large right-sided pleural effusion. Underlying consolidation and obstructive neoplasm not excluded. Multiple pulmonary nodules were again appreciated on the left. Recurrent right-sided pleural effusion, status post Pleurx catheter placement 05/18/2023 with 4 L removed, cytology still pending Acute kidney injury possibly contrast related nephrology consulted Hyperkalemia secondary to above Hypotension, echocardiogram pending, initiated on midodrine Multiple bilateral pulmonary nodules, suspicious for metastatic disease History of vaginal cancer, diagnosed November, status/post chemotherapy and radiation therapy followed by brachytherapy. The CAT scan of the abdomen and pelvis revealed abnormal attenuation in the region of the vagina. No adnexal masses seen. No evidence of metastatic disease to the abdomen or pelvis. Benign essential hypertension Hyperlipidemia Never smoker Plan: The patient was seen and evaluated Chest x-ray, labs and medications reviewed Right-sided Pleurx catheter in place, cytology pending Heparin for DVT prophylaxis Increase her activity as tolerated Titrate down the FiO2 as tolerated Evaluate for possible home oxygen We will continue to follow I have personally seen and examined the patient, performed the documentation and the assessment and plan as written. Number of minutes spent on the visit: 10.
[2023-05-22 12:39] LABS: Potassium 6.1 mmol/L (3.5-5.1)
[2023-05-22] MEDS ORDERED: SODIUM POLYSTYRENE SULFONATE 15 GM/60 ML BOTTLE PO STA (12:57)
--- NOTE | 2023-05-22 13:24 | P.PN ---
Subjective Progress Note Date: 05/22/23 Principal diagnosis: Dyspnea -No acute events overnight -Notes having dyspnea on exertion, but not at rest -Denies any nausea, vomiting, or diarrhea Objective - Vital Signs Vital signs: Vital Signs Temp 98.2 F 05/22/23 13:03 Pulse 107 H 05/22/23 13:03 Resp 16 05/22/23 13:03 BP 123/81 05/22/23 13:03 Pulse Ox 97 05/22/23 13:03 FiO2 Intake & Output 05/21/23 05/22/23 05/22/23 18:59 06:59 18:59 Intake Total 670 960 200 Output Total 1030 1300 100 Balance -360 -340 100 Intake: Oral 670 960 200 Output: Chest Tube Drainage 1030 1300 Pleural Catheter Right 1030 1300 Lower Anterior Chest Post Void Residual 100 Other: Voiding Method Bedside Commode Bedside Commode # Voids 1 1 # Bowel Movements 0 - Constitutional Constitutional Comment(s): Fatigued appearing General appearance: Present: no acute distress - Respiratory Details: Nonlabored breathing - Cardiovascular Details: Warm and well-perfused - Gastrointestinal General gastrointestinal: Present: soft. Absent: distended - Integumentary Integumentary: Present: pale. Absent: rash - Neurologic Neurologic: Present: CNII-XII intact. Absent: focal deficits - Musculoskeletal Musculoskeletal Comment(s): Pleurx catheter clean/dry/intact - Labs CBC & Chem 7: 05/22/23 06:52 05/22/23 06:52 Labs: Abnormal Lab Results - Last 24 Hours (Table) 05/22/23 05/22/23 Range/Units 06:52 06:52 WBC 15.5 H (3.8-10.6) k/uL Plt Count 586 H (150-450) k/uL Sodium 124 L (137-145) mmol/L Potassium 6.1 H* (3.5-5.1) mmol/L Chloride 95 L (98-107) mmol/L Carbon Dioxide 18 L (22-30) mmol/L BUN 41 H (7-17) mg/dL Creatinine 1.24 H (0.52-1.04) mg/dL Glucose 124 H (74-99) mg/dL Calcium 7.7 L (8.4-10.2) mg/dL Alkaline Phosphatase 188 H (38-126) U/L Total Protein 4.7 L (6.3-8.2) g/dL Albumin 2.3 L (3.5-5.0) g/dL - Imaging and Cardiology Chest x-ray: report reviewed, image reviewed Assessment and Plan (1) STEPH (acute kidney injury) Current Visit: Yes Status: Acute Priority: High Code(s): N17.9 - ACUTE KIDNEY FAILURE, UNSPECIFIED SNOMED Code(s): 92563336 (2) Pleural effusion Current Visit: Yes Status: Acute Priority: High Code(s): J90 - PLEURAL EFFUSION, NOT ELSEWHERE CLASSIFIED SNOMED Code(s): 33835023 (3) Pulmonary nodules Current Visit: Yes Status: Acute Code(s): R91.8 - OTHER NONSPECIFIC ABNORMAL FINDING OF LUNG FIELD SNOMED Code(s): 185500009 (4) Vaginal cancer Current Visit: Yes Status: Acute Priority: High Code(s): C52 - MALIGNANT NEOPLASM OF VAGINA SNOMED Code(s): 950524617 Plan: Lung nodules/Pleural effusion: -Chest CTA on 05/12 Revealed multiple round mass lesions scattered throughout the left lung measuring up to 1.7 cm in diameter. Multiple pulmonary nodules in the remaining aerated right lung as well as rounded areas of decreased enhancement in the atelectatic right lower lobe and right middle lobe. Large right pleural effusion was also noted. Discussed with patient scan findings and concern of recurrence of disease -Patient underwent right sided thoracentesis on 05/13, with 1.2 L of serosanguineous fluid drained. Cytology is still pending. -Upon admission chest x-ray revealed progressive findings in the right lung with near complete opacification now noted. Multiple left-sided pulmonary masses. Cardiothoracic surgery consulted, and Pleurx drain was placed on 05/18 with 4L removed -CT AP and bone scan obtained to complete staging. CT abdomen pelvis revealed abnormal attenuation in the region of the vagina. No evidence for metastatic disease to the abdomen or pelvis. Bone scan negative for osteoblastic metastatic disease. 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 Any treatment would be designed to prevent further disease progression and treat lesions already visualized -At this time, she notes she is unsure if she would want to proceed with additional chemotherapy -I did discuss sending NGS and PD-L1 from diagnostic tissue specimen in addition to obtaining circulating tumor DNA from the peripheral blood and upon discharge to circulating tumor DNA from the peripheral blood and upon discharge to determine treatment options -Following discussion, she was agreeable with this plan -Will request NGS and PDL1 on diagnostic specimen in addition to arranging Gu circulating tumor DNA test outpatient following discharge -Clinic f/u with Dr. 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 creatinine 1.24 today -Continue management per nephrology Vaginal Cancer: -Full oncological history in consult HPI -Completed concurrent chemo/RT in 02/2023 and brachytherapy in 03/2023. Pt was scheduled for repeat MRI pelvis and PET CT in 06/2023 -Clinically, she appears to have metastatic disease with multiple metastases to the lungs with right pleural effusion -Management as noted above Megan Orozco MD
--- NOTE | 2023-05-22 14:27 | XR ---
EXAMINATION TYPE: XR chest 1V portable DATE OF EXAM: 05/22/2023 COMPARISON: 05/21/2023 INDICATION: Effusion TECHNIQUE: Single frontal view of the chest is obtained. FINDINGS: The heart size is normal. The pulmonary vasculature is normal. Large pulmonary nodules are again evident. Minimal infiltrate along the right base is again evident. No effusion is evident. IMPRESSION: 1. Multiple bilateral pulmonary nodules. 2. Minimal subsegmental atelectasis may be at the right base
[2023-05-22] MEDS: NYSTATIN 100,000 UNIT/ML SUSP 500,000 UNIT/5 ML CUP PO SCH ×2 (17:24→22:10)
[2023-05-22] MEDS: ALPRAZolam 0.25 MG TAB PO PRN (19:20)
[2023-05-22] MEDS: MORPHINE SULFATE 4 MG/ML SYRINGE IV PRN (19:20)
--- NOTE | 2023-05-22 20:18 | P.CONS ---
History of Present Illness - Reason for Consult Consult date: 05/22/23 Leukocytosis Requesting physician: Karen Ortega - Chief Complaint Shortness of breath x few days - History of Present Illness Patient is a 67-year-old female with a past medical history significant for vaginal cancer in this patient completed course of chemo and radiation therapy now with evidence of multiple pulmonary nodules concerning for metastatic disease patient recently did have admission to hospital at the patient status post right-sided thoracocentesis patient presented to the hospital this admission about a week ago for evaluation of increasing shortness of breath and apparently has been getting worse over the last few days before presentation to hospital complaining of shortness of breath on minimal exertion patient also have a cough mild to moderate intensity no sputum production denies any nausea vomiting no abdominal pain or any diarrhea patient presented to the hospital was afebrile and no fever have been ordered subsequently patient did have a white count of 11.5 for admission and the subsequent normalized however over the last 2 days white count is trending up That has prompted this infectious disease consultation patient was evaluated by pulmonary and CT surgery at this patient s/p Pleurx catheter on the right side on 05/18/2023, patient did have the chest tube and is draining mostly bloodstained pleural fluid no purulence patient denies having any headache or URI symptoms denies any difficulty swallowing no nausea vomiting abdominal pain vomiting diarrhea no urinary symptoms Review of Systems Positive point and negatives has been mentioned in the HPI, complete review of systems was performed and all other systems are negative Past Medical History Past Medical History: Cancer, Hyperlipidemia, Hypertension Additional Past Medical History / Comment(s): vaginal CA. History of Any Multi-Drug Resistant Organisms: None Reported Past Surgical History: Bladder Surgery, Breast Surgery, Hysterectomy Past Anesthesia/Blood Transfusion Reactions: No Reported Reaction Past Psychological History: No Psychological Hx Reported Smoking Status: Never smoker Past Alcohol Use History: None Reported Past Drug Use History: None Reported Medications and Allergies Home Medications Medication Instructions Recorded Confirmed Type Aspirin EC [Ecotrin Low Dose] 81 mg PO DAILY 05/13/23 05/16/23 History Benazepril HCl 20 mg PO DAILY 05/13/23 05/16/23 History Calcium Carbonate [Calcium] 600 mg PO BID 05/13/23 05/16/23 History Cholecalciferol [Vitamin D3 (25 25 mcg PO BID 05/13/23 05/16/23 History Mcg = 1000 Iu)] Loratadine [Claritin] 10 mg PO BID 05/13/23 05/16/23 History Multivitamins, Thera [Multivitamin 1 tab PO DAILY 05/13/23 05/16/23 History (formulary)] Sertraline [Zoloft] 100 mg PO DAILY 05/13/23 05/16/23 History Simvastatin [Zocor] 40 mg PO HS 05/13/23 05/16/23 History amLODIPine [Norvasc] 10 mg PO DAILY 05/13/23 05/16/23 History HYDROcodone/APAP 5-325MG [[place] 1 tab PO Q4HR 05/16/23 05/16/23 History 5-325] Allergies Allergy/AdvReac Type Severity Reaction Status Date / Time prednisone Allergy Rash/Hives Verified 05/18/23 09:06 sulfamethoxazole Allergy Rash/Hives Verified 05/18/23 09:06 [From Bactrim] trimethoprim [From Bactrim] Allergy Rash/Hives Verified 05/18/23 09:06 Physical Exam Vitals: Vital Signs Temp Pulse Resp BP Pulse Ox 05/22/23 08:00 98 F 98 15 116/80 97 05/22/23 02:00 98.1 F 94 16 118/81 97 05/21/23 20:00 98.0 F 94 16 116/75 98 05/21/23 13:14 97.7 F 99 16 122/78 97 Intake and Output 05/21/23 05/22/23 05/22/23 22:59 06:59 14:59 Intake Total 710 720 Output Total 1300 Balance 710 -580 Intake: Oral 710 720 Output: Chest Tube Drainage 1300 Pleural Catheter Right 1300 Lower Anterior Chest Other: Voiding Method Bedside Commode Bedside Commode # Voids 1 GENERAL DESCRIPTION: Elderly female lying in bed, no distress. No tachypnea or accessory muscle of respiration use. HEENT: Shows Pallor , no scleral icterus. Oral mucous membrane is dry. Mild thrush NECK: Trachea central, no thyromegaly. LUNGS: Unlabored breathing. Decreased breath sound the bases HEART: S1, S2, regular rate and rhythm. No loud murmur ABDOMEN: Soft, no tenderness , guarding or rigidity, no organomegaly EXTREMITIES: No edema of feet. SKIN: No rash, no masses palpable. NEUROLOGICAL: The patient is awake, alert, oriented x3, mood and affect normal. Results CBC & Chem 7: 05/22/23 06:52 05/22/23 06:52 Labs: Abnormal Lab Results - Last 24 Hours (Table) 05/21/23 05/22/23 Range/Units 06:47 06:52 WBC 15.5 H (3.8-10.6) k/uL Plt Count 586 H (150-450) k/uL Sodium 126 L (137-145) mmol/L Potassium 5.9 H (3.5-5.1) mmol/L Chloride 96 L (98-107) mmol/L Carbon Dioxide 17 L (22-30) mmol/L BUN 34 H (7-17) mg/dL Creatinine 1.05 H (0.52-1.04) mg/dL Glucose 139 H (74-99) mg/dL Calcium 7.7 L (8.4-10.2) mg/dL Total Protein 4.6 L (6.3-8.2) g/dL Albumin 2.3 L (3.5-5.0) g/dL Assessment and Plan Plan: 1patient with a leukocytosis in this patient who did have a history of metastatic vaginal cancer with recurrent right-sided effusion status post Pleurx catheter placement patient has been afebrile during this hospital stay and does not look toxic with a question of possible reactive versus infectious etiology 2-patient also noticed to have mild thrush may be contributing to his elevated white count 3-we will obtain blood cultures CRP and procalcitonin 4-empiricallyadd nystatin swish and swallow We will follow on clinical condition and cultures to further adjust medication if needed Thank you for this consultation we will follow the patient along with you Dictation was produced using [employer] dictation software. please excuse any grammatical, word or spelling errors. This Time with Patient: Greater than 30
[2023-05-22] MEDS: ATORVASTATIN 20 MG TAB PO SCH (22:10)
[2023-05-23] MEDS: HEPARIN SODIUM,PORCINE 5,000 UNIT/ML 1 ML VIAL SQ SCH ×3 (00:22→17:17)
[2023-05-23] MEDS: ONDANSETRON 4 MG/2 ML VIAL IVP PRN ×5 (00:27→23:00)
[2023-05-23] MEDS: MORPHINE SULFATE 4 MG/ML SYRINGE IV PRN (06:32)
--- NOTE | 2023-05-23 07:55 | XR ---
EXAMINATION TYPE: XR chest 1V portable DATE OF EXAM: 05/23/2023 COMPARISON: 05/22/2023 INDICATION: Effusion TECHNIQUE: Single frontal view of the chest is obtained. FINDINGS: The heart size is normal. The pulmonary vasculature is normal. Multiple pulmonary nodules remain present. Findings the right base appears stable and may represent a n underlying effusion IMPRESSION: 1. Stable upright chest
[2023-05-23] MEDS: NYSTATIN 100,000 UNIT/ML SUSP 500,000 UNIT/5 ML CUP PO SCH ×4 (08:35→21:32)
[2023-05-23] MEDS: DOCUSATE 100 MG CAP PO SCH ×2 (08:36→20:41)
[2023-05-23] MEDS: LORATADINE 10 MG TAB PO SCH (08:36)
[2023-05-23] MEDS: MULTIVITAMINS, THERA 1 EACH TAB PO SCH (08:36)
[2023-05-23] MEDS: CHOLECALCIFEROL 25 MCG (1000 IU) TABLET PO SCH ×2 (08:36→20:41)
[2023-05-23] MEDS: FUROSEMIDE 20 MG TAB PO SCH (08:36)
[2023-05-23] MEDS: MIDODRINE 5 MG TAB PO SCH ×3 (08:36→17:18)
[2023-05-23] MEDS: SERTRALINE 100 MG TAB PO SCH (08:36)
--- NOTE | 2023-05-23 09:40 | P.PN ---
Subjective Progress Note Date: 05/23/23 Principal diagnosis: Large right sided recurrent pleural effusion, multiple left-sided pulmonary nodules, felt to be consistent with metastatic disease. History of vaginal cancer diagnosed in 11/2022 status post chemo and radiation as well as brachytherapy, hypertension, hyperlipidemia, lifelong non-smoker POD #5 right-sided Pleurx catheter insertion with removal of 4 L serous fluid The patient was seen and examined sitting up in bed in no acute distress on the medical oncology unit. Does complain of some incisional type pain, states shortness of breath has gotten much better. Currently on room air with oxygen saturation in the mid 90s. Pleurx drained another 1 L in the last 24 hours, remains connected to atrium. Chest x-ray reviewed. WBC 15.5, potassium 6.1, creat 1.24, procalcitonin 0.9, CRP 7.3, being managed by internal medicine, infectious disease, nephrology Objective - Vital Signs Vital signs: Vital Signs Temp 97.5 F L 05/23/23 07:29 Pulse 91 05/23/23 07:29 Resp 16 05/23/23 07:29 BP 115/70 05/23/23 07:29 Pulse Ox 95 05/23/23 07:29 FiO2 Intake & Output 05/22/23 05/23/23 05/23/23 18:59 06:59 18:59 Intake Total 260 480 Output Total 100 1000 Balance 160 480 -1000 Intake: Oral 260 480 Output: Chest Tube Drainage 1000 Pleural Catheter Right 1000 Lower Anterior Chest Post Void Residual 100 Other: Voiding Method Bedside Commode Bedside Commode # Voids 1 3 - Exam CONSTITUTIONAL: Appears comfortable, cooperative, no acute distress RESPIRATORY: Lungs sounds diminished on the right. Respirations even, nonlabored. Currently on room air with oxygen saturation 95% CARDIOVASCULAR: S1, S2 present. Regular rate and rhythm. Palpable peripheral pulses bilaterally. No edema present. No calf pain or tenderness noted GASTROINTESTINAL: Abdomen soft, nontender, nondistended. Active bowel sounds present 4 quadrants. Tolerating diet GENITOURINARY: Continues to void INTEGUMENTARY: Skin is warm and dry. Pleurx catheter present, connected to atrium with 1 L bloody drainage in the last 24 hours NEUROLOGIC: Cranial nerves II through XII intact MUSKULOSKELETAL: Able to move all extremities, strength equal bilaterally, gait normal PSYCHIATRIC: Alert and oriented to person place and time, appropriate affect, intact judgment and insight - Allied health notes Allied health notes reviewed: nursing - Labs CBC & Chem 7: 05/22/23 06:52 05/22/23 06:52 Labs: Abnormal Lab Results - Last 24 Hours (Table) 05/22/23 05/22/23 05/22/23 Range/Units 06:00 06:00 06:52 Sodium 124 L (137-145) mmol/L Potassium 6.1 H* (3.5-5.1) mmol/L Chloride 95 L (98-107) mmol/L Carbon Dioxide 18 L (22-30) mmol/L BUN 41 H (7-17) mg/dL Creatinine 1.24 H (0.52-1.04) mg/dL Glucose 124 H (74-99) mg/dL Calcium 7.7 L (8.4-10.2) mg/dL Alkaline Phosphatase 188 H (38-126) U/L C-Reactive Protein 7.3 H (<1.0) mg/dL Total Protein 4.7 L (6.3-8.2) g/dL Albumin 2.3 L (3.5-5.0) g/dL Procalcitonin 0.90 H (0.02-0.09) ng/mL - Imaging and Cardiology Chest x-ray: image reviewed Assessment and Plan Assessment: Large right sided recurrent pleural effusion, last drained for 1.2 L on 05/13/23, cytology and culture pending, status post Pleurx catheter placement with removal of 4 L serous fluid Multiple left-sided pulmonary nodules, felt to be consistent with metastatic disease Shortness of breath secondary to above History of vaginal cancer diagnosed in 11/2022 status post chemo and radiation as well as brachytherapy History of hypertension, currently hypotensive History of hyperlipidemia Lifelong non-smoker Plan: Pleurx catheter connected to atrium, 1 L drained in the last 24 hours, will continue passive drainage until patient being discharged Cleared for discharge from our standpoint when ok with other services May follow up in our office for pleurx removal once drainage less than 50 mL for 3 times in a row Pleurx discharge instructions placed on discharge plan Home care ordered, to bring bottles and teach patient/family drainage Patient may be drained daily, every other day, twice weekly, etc. based on her needs Management of other comorbidities per internal medicine, pulmonology, oncology Will not continue to write daily progress notes but will follow on the periphery for pleurx drainage amounts and will remove atrium and place occlusive cap once patient is being discharged Please call us with any further questions
[2023-05-23] MEDS: HYDROcodone/APAP 5-325MG 1 EACH TAB PO PRN ×2 (10:15→18:04)
[2023-05-23 10:43] LABS: HCT 36.2 % (37.2-46.3); HGB 11.6 g/dL (12.0-15.0); MCH 29.3 pg (27.0-32.0); MCV 91.4 FL (80.0-97.0); Mean Platelet Volume 10.5 FL (9.5-12.2); NRBC Per 100 WBC 0.07 X 10*3/uL (0.00-0.01); Platelet Count 587 X 10*3/uL (140-440); RBC 3.96 X 10*6/uL (4.10-5.20); RDW 14.9 % (11.5-14.5); WBC 17.38 X 10*3/uL (4.50-10.00)
[2023-05-23 10:54] LABS: African American GFR (CKD) 34 (>60 ml/min/1.73 sqM); Anion Gap 11 mmol/L; Blood Urea Nitrogen 53 mg/dL (7-17); Calcium 7.6 mg/dL (8.4-10.2); Carbon Dioxide 18 mmol/L (22-30); Chloride 92 mmol/L (98-107); Glucose 121 mg/dL (74-99); Non-African American GFR(CKD) 30 (>60 ml/min/1.73 sqM); Sodium 121 mmol/L (137-145)
[2023-05-23] MEDS ORDERED: CEFEPIME 2 GM in SODIUM CHLORIDE 0.9% 100 ML IVPB SCH (11:00)
[2023-05-23 11:08] LABS: Potassium 6.3 mmol/L (3.5-5.1)
[2023-05-23] MEDS ORDERED: DEXTROSE 50% SYRINGE 50 ML IVP STA (12:00)
--- NOTE | 2023-05-23 12:03 | P.PN ---
Subjective Patient is seen for follow-up for acute kidney injury. 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 Status post IV fluids. Sodium had dropped and IV fluids were discontinued on 05/20/2023 No significant complaints today except for weakness. Potassium at 6.3 today with sodium of 121. Creatinine increased to 1.7 mg/dL to day. Patient has been voiding. No urine retention. Objective - Vital Signs Vital signs: Vital Signs Temp 97.5 F L 05/23/23 07:29 Pulse 91 05/23/23 07:29 Resp 16 05/23/23 07:29 BP 115/70 05/23/23 07:29 Pulse Ox 95 05/23/23 07:29 FiO2 Intake & Output 05/22/23 05/23/23 05/23/23 18:59 06:59 18:59 Intake Total 260 480 Output Total 100 1000 Balance 160 480 -1000 Intake: Oral 260 480 Output: Chest Tube Drainage 1000 Pleural Catheter Right 1000 Lower Anterior Chest Post Void Residual 100 Other: Voiding Method Bedside Commode Bedside Commode Bedside Commode # Voids 1 3 - Exam Patient is awake, comfortable, no acute distress Examination of the heart S1 and S2 Examination of the lungs bilateral breath sounds are heard Abdomen is soft nontender Examination of lower extremities shows no significant edema [employer] exam grossly intact - Labs CBC & Chem 7: 05/23/23 07:23 05/23/23 07:23 Labs: Abnormal Lab Results - Last 24 Hours (Table) 05/22/23 05/22/23 05/22/23 Range/Units 06:00 06:00 06:52 WBC (4.50-10.00) X 10*3/uL RBC (4.10-5.20) X 10*6/uL Hgb (12.0-15.0) g/dL Hct (37.2-46.3) % RDW (11.5-14.5) % Plt Count (140-440) X 10*3/uL NRBC/100 WBC Diff (0.00-0.01) X 10*3/uL Sodium 124 L (137-145) mmol/L Potassium 6.1 H* (3.5-5.1) mmol/L Chloride 95 L (98-107) mmol/L Carbon Dioxide 18 L (22-30) mmol/L BUN 41 H (7-17) mg/dL Creatinine 1.24 H (0.52-1.04) mg/dL Glucose 124 H (74-99) mg/dL Calcium 7.7 L (8.4-10.2) mg/dL Alkaline Phosphatase 188 H (38-126) U/L C-Reactive Protein 7.3 H (<1.0) mg/dL Total Protein 4.7 L (6.3-8.2) g/dL Albumin 2.3 L (3.5-5.0) g/dL Procalcitonin 0.90 H (0.02-0.09) ng/mL 05/23/23 05/23/23 Range/Units 07:23 07:23 WBC 17.38 H (4.50-10.00) X 10*3/uL RBC 3.96 L (4.10-5.20) X 10*6/uL Hgb 11.6 L (12.0-15.0) g/dL Hct 36.2 L (37.2-46.3) % RDW 14.9 H (11.5-14.5) % Plt Count 587 H (140-440) X 10*3/uL NRBC/100 WBC Diff 0.07 H (0.00-0.01) X 10*3/uL Sodium 121 L (137-145) mmol/L Potassium 6.3 H* (3.5-5.1) mmol/L Chloride 92 L (98-107) mmol/L Carbon Dioxide 18 L (22-30) mmol/L BUN 53 H (7-17) mg/dL Creatinine 1.74 H (0.52-1.04) mg/dL Glucose 121 H (74-99) mg/dL Calcium 7.6 L (8.4-10.2) mg/dL Alkaline Phosphatase (38-126) U/L C-Reactive Protein (<1.0) mg/dL Total Protein (6.3-8.2) g/dL Albumin (3.5-5.0) g/dL Procalcitonin (0.02-0.09) ng/mL Assessment and Plan Assessment: 1. Acute kidney injury secondary to vasomotor nephropathy secondary to hypotension. Also received IV contrast on 05/18/2023. Creatinine peaked at 2.9 this admission and is down to 1.0 but started to increase again to 1.7 today. No hydronephrosis noted on kidney ultrasound. blood pressure had been low but now improved 2. Recurrent right lung pleural effusion with concern for malignancy. Status post Pleurx catheter placement. 3. Vaginal cancer with concern for metastatic disease. 4. Hyponatremia from poor solute intake. IV fluids discontinued and status post IV Lasix on 05/20/2023. Urine sodium less than 20 5. Hyperkalemia, associated with worsening renal function. No evidence of obstruction noted on CAT scan. Blood sugar is not elevated. Possible component of constipation contributing to hyperkalemia as well. Plan: start sodium chloride tabs DC oral Lasix Treat hyperkalemia with IV medications Add lokelma Repeat sodium and potassium this evening Decrease intake of milk
[2023-05-23] MEDS ORDERED: INSULIN REGULAR 100 UNIT/ML VIAL (IV) IV ONE (12:15)
[2023-05-23] MEDS: SODIUM ZIRCONIUM CYCLOSILICATE 10 GM PACKET PO SCH ×3 (12:37→21:32)
[2023-05-23] MEDS: SODIUM CHLORIDE TAB 1 GM TAB PO SCH ×3 (12:37→21:32)
--- NOTE | 2023-05-23 14:49 | P.PN ---
Subjective Progress Note Date: 05/23/23 I am seeing this patient in consultation today 05/17/2023 on the general medical floor after she returned with shortness of breath and a recurrent large right- sided pleural effusion. Patient is a 67-year-old white female with past medical history significant for hypertension, hyperlipidemia, and vaginal cancer. Vaginal cancer recently diagnosed November, and she underwent a combination of radiation and chemotherapy followed by brachytherapy. Patient did have a recent hospital admission back on May 13 for similar symptoms and right lower back pain. She was found to have a moderate to large size right-sided pleural effusion. Chest CTA demonstrated multiple pulmonary nodules throughout the left lung measuring up to 1.7 cm consistent with metastatic neoplasms. There were also multiple pulmonary nodules within the right lung and a large right-sided pleural effusion. Patient did undergo right sided thoracentesis that day, and had a total of 1.2 L of serosanguineous fluid drained. Cytology is still pending. Patient is currently sitting up in bed, on room air, in no acute distress. She does endorse shortness of breath especially with exertion and an occasional cough with minimal sputum production. Denies any fevers, hemoptysis. Denies any sick contacts. Chest x-ray demonstrated a recurrent large right- sided pleural effusion. Underlying consolidation and obstructive neoplasm not excluded. Multiple pulmonary nodules were again appreciated on the left. CBC on arrival shows a WBC count 11.5, hemoglobin 11.8, hematocrit 35.9, platelets 404. BMP on arrival shows sodium 133, potassium 4.4, chloride 103, serum bicarb 20, BUN 31, creatinine 0.97, glucose 119. Pain is reportedly well managed. The patient is seen today 05/18/2023 in follow-up on the regular medical floor. She is currently sitting up in bed. Awake and alert in no acute distress. She is maintaining good O2 saturations in the 90s on 2 L/m nasal cannula. She did undergo a right-sided Pleurx catheter placement this morning. 4 L of fluid removed. Follow-up chest x-ray shows significant decrease in the previously seen large right pleural effusion. Pulmonary nodules and masses are seen within the left lung. Unchanged. Nuclear bone scan revealed no osteoblastic metastatic disease. Computed tomography scan of the abdomen and pelvis revealed no metastatic disease noted. White count 10.8. Hemoglobin 10.1. Let's 441. Sodium 134. Potassium 5.8. BUN 50. Creatinine 2.9. Glucose 123. AST 11. ALT 11. Pro-calcitonin was 0.22. The patient is seen today 05/19/2023 in follow-up on the regular medical floor. She is awake and alert in no acute distress. She is maintaining O2 saturations in the low 90s on 3 L/m per nasal cannula. She's afebrile. Pleural fluid cytology pending. Chest x-ray reveals a right basilar pleural catheter in place. Right-sided chest tube had been removed. There is increased right basilar effusion. Underlying infiltrate or mass suspected. Multiple left-sided pulmonary nodules redemonstrated. White count 9.5. Hemoglobin 9.8. Platelets 396. She is continued on heparin for DVT prophylaxis. The patient is seen today 05/20/2023 in follow-up on the regular medical floor. She is currently resting in bed. Awake and alert in no acute distress. She is having some catheter insertion site discomfort and some back pain. She is currently maintaining good O2 saturations in the 90s on 3 L/m per nasal cannula. Afebrile. Hemodynamically stable. Chest x-ray reveals right thoracotomy tube in place without evidence of pneumothorax. There is a large right pleural effusion with associated atelectasis. Sodium 128. Potassium 5.0. Bicarb 22. BUN 39. Creatinine 1.06. Glucose 104. She is continued on oral diuretics. Heparin for DVT prophylaxis. The patient is seen today 05/21/2023 in follow-up on the regular medical floor. She is awake and alert in no acute distress. Feeling a bit better today compared to yesterday. Dating she slept well. She is maintaining O2 saturations in the 90s on 2 L/m per nasal cannula. She has normal saline at KVO. Right-sided Pleurx catheter remains in place. Another 3.7 L drained in the past 24 hours. Chest x-ray showing improved aeration. White count 14.5. Hemoglobin 11.7. Platelets 563. She is continued on oral diuretics. Heparin for DVT prophylaxis. The patient is seen today 05/22/2023 in follow-up on the regular medical floor. She is resting comfortably in bed. Awake and alert in no acute distress. Maintaining O2 saturation in the 90s on 2 L/m per nasal cannula. No IV fluids. She drained another 2.3 L from the Pleurx catheter. X-ray reveals minimal right pleural effusion. White count 15.5. Hemoglobin 12.2. Platelets 586. She remains on diuretics. Heparin for DVT prophylaxis. On today's evaluation of 05/23/2023, the patient is doing well. No specific complaints. She still has active drainage from the right-sided Pleurx catheter. The catheter drained more than 700 mL over the past 8 hours. No evidence of any pneumothorax. The chest x-ray shows bilateral pulmonary nodules consistent with metastatic disease. The second sample of the pleural fluid analysis was sent and the results are still pending for now.Other complaints otherwise. The echoes at 17.3, hemoglobin is 11.8, sodium is 121, potassium levels at 6.3, BUN is at 53 with a creatinine of 1.97. The patient is also is being offered fluid restriction. Nephrology is aware of the hyperkalemia and the patient is receiving lokelma and she also received D50 insulin and a potassium still pe nding for now. Serum bicarb is at 18. Objective - Vital Signs Vital signs: Vital Signs Temp 97.5 F L 05/23/23 12:11 Pulse 90 05/23/23 12:11 Resp 16 05/23/23 12:11 BP 107/71 05/23/23 12:11 Pulse Ox 92 L 05/23/23 12:11 FiO2 Intake & Output 05/22/23 05/23/23 05/23/23 18:59 06:59 18:59 Intake Total 260 480 Output Total 100 1000 Balance 160 480 -1000 Intake: Oral 260 480 Output: Chest Tube Drainage 1000 Pleural Catheter Right 1000 Lower Anterior Chest Post Void Residual 100 Other: Voiding Method Bedside Commode Bedside Commode Bedside Commode # Voids 1 3 3 - Exam GENERAL EXAM: Awake, 67-year-old female, on 2 L nasal cannula, in no apparent distress. HEAD: Normocephalic and atraumatic EYES: Normal reaction of pupils, equal size. NOSE: Clear with pink turbinates. THROAT: No erythema or exudates. NECK: No masses, no JVD. CHEST: No chest wall deformity. Right chest Pleurx catheter in place. LUNGS: Diminished right lung sounds with few crackles in the right base, no wheeze, rhonchi. No conversational dyspnea. CVS: S1 and S2 normal with no audible murmur, regular rhythm. No extra heart sounds ABDOMEN: No hepatosplenomegaly, active bowel sounds, no guarding or rigidity. SPINE: No scoliosis or deformity SKIN: No rashes CENTRAL NERVOUS SYSTEM: No focal deficits, tone is normal in all 4 extremities. EXTREMITIES: There is no peripheral edema, clubbing, or cyanosis. Peripheral pulses are intact. - Labs CBC & Chem 7: 05/23/23 07:23 05/23/23 07:23 Labs: Abnormal Lab Results - Last 24 Hours (Table) 05/22/23 05/22/23 05/23/23 Range/Units 06:00 06:00 07:23 WBC 17.38 H (4.50-10.00) X 10*3/uL RBC 3.96 L (4.10-5.20) X 10*6/uL Hgb 11.6 L (12.0-15.0) g/dL Hct 36.2 L (37.2-46.3) % RDW 14.9 H (11.5-14.5) % Plt Count 587 H (140-440) X 10*3/uL NRBC/100 WBC Diff 0.07 H (0.00-0.01) X 10*3/uL Sodium (137-145) mmol/L Potassium (3.5-5.1) mmol/L Chloride (98-107) mmol/L Carbon Dioxide (22-30) mmol/L BUN (7-17) mg/dL Creatinine (0.52-1.04) mg/dL Glucose (74-99) mg/dL Calcium (8.4-10.2) mg/dL C-Reactive Protein 7.3 H (<1.0) mg/dL Procalcitonin 0.90 H (0.02-0.09) ng/mL 05/23/23 Range/Units 07:23 WBC (4.50-10.00) X 10*3/uL RBC (4.10-5.20) X 10*6/uL Hgb (12.0-15.0) g/dL Hct (37.2-46.3) % RDW (11.5-14.5) % Plt Count (140-440) X 10*3/uL NRBC/100 WBC Diff (0.00-0.01) X 10*3/uL Sodium 121 L (137-145) mmol/L Potassium 6.3 H* (3.5-5.1) mmol/L Chloride 92 L (98-107) mmol/L Carbon Dioxide 18 L (22-30) mmol/L BUN 53 H (7-17) mg/dL Creatinine 1.74 H (0.52-1.04) mg/dL Glucose 121 H (74-99) mg/dL Calcium 7.6 L (8.4-10.2) mg/dL C-Reactive Protein (<1.0) mg/dL Procalcitonin (0.02-0.09) ng/mL Assessment and Plan Plan: Acute dyspnea, secondary to recurrent large right-sided pleural effusion. Patient did recently have a right-sided thoracentesis done on 05/13/2023 with a total of 1.2 L of serosanguineous fluid removed. Cytology pending. Chest x-ray demonstrated a recurrent large right-sided pleural effusion. Underlying consolidation and obstructive neoplasm not excluded. Multiple pulmonary nodules were again appreciated on the left. The second sample of the pleural fluid cytology is still pending, and the output from the right-sided Pleurx catheter remains quite elevated. Recurrent right-sided pleural effusion, status post Pleurx catheter placement 05/18/2023 wcytology still pending Acute kidney injury possibly contrast related nephrology consulted Hyperkalemia secondary to above Hypotension, echocardiogram pending, initiated on midodrine Multiple bilateral pulmonary nodules, suspicious for metastatic disease History of vaginal cancer, diagnosed November, status/post chemotherapy and radiation therapy followed by brachytherapy. The CAT scan of the abdomen and pelvis revealed abnormal attenuation in the region of the vagina. No adnexal masses seen. No evidence of metastatic disease to the abdomen or pelvis. Benign essential hypertension Hyperlipidemia Never smoker Plan: monitor the electrolytes and treat the hyperkalemia Monitor the output from the right-sided chest tube Right-sided Pleurx catheter in place, cytology pending Heparin for DVT prophylaxis Increase her activity as tolerated Titrate down the FiO2 as tolerated Evaluate for possible home oxygen We will continue to follow
--- NOTE | 2023-05-23 15:15 | P.PN ---
Subjective Progress Note Date: 05/23/23 Patient is resting comfortably in bed. S/p Pleurx placement with 4 L of fluid removed, draining bloody fluid. Patient is reporting some improvement in breathing but persisting SOB and fatigue Objective - Vital Signs Vital signs: Vital Signs Temp 97.5 F L 05/23/23 12:11 Pulse 90 05/23/23 12:11 Resp 16 05/23/23 12:11 BP 107/71 05/23/23 12:11 Pulse Ox 92 L 05/23/23 12:11 FiO2 Intake & Output 05/22/23 05/23/23 05/23/23 18:59 06:59 18:59 Intake Total 260 480 Output Total 100 1000 Balance 160 480 -1000 Intake: Oral 260 480 Output: Chest Tube Drainage 1000 Pleural Catheter Right 1000 Lower Anterior Chest Post Void Residual 100 Other: Voiding Method Bedside Commode Bedside Commode Bedside Commode # Voids 1 3 3 - Constitutional General appearance: Present: average body habitus, no acute distress - EENT Eyes: Present: anicteric sclerae, EOMI ENT: Present: hearing grossly normal - Respiratory Details: breathing is even and unlabored - Cardiovascular Details: skin warm and dry - Integumentary Integumentary: Absent: cyanotic - Musculoskeletal Musculoskeletal: Present: generalized weakness - Psychiatric Psychiatric: Present: A&O x's 3 - Labs CBC & Chem 7: 05/23/23 07:23 05/23/23 07:23 Labs: Abnormal Lab Results - Last 24 Hours (Table) 05/22/23 05/22/23 05/23/23 Range/Units 06:00 06:00 07:23 WBC 17.38 H (4.50-10.00) X 10*3/uL RBC 3.96 L (4.10-5.20) X 10*6/uL Hgb 11.6 L (12.0-15.0) g/dL Hct 36.2 L (37.2-46.3) % RDW 14.9 H (11.5-14.5) % Plt Count 587 H (140-440) X 10*3/uL NRBC/100 WBC Diff 0.07 H (0.00-0.01) X 10*3/uL Sodium (137-145) mmol/L Potassium (3.5-5.1) mmol/L Chloride (98-107) mmol/L Carbon Dioxide (22-30) mmol/L BUN (7-17) mg/dL Creatinine (0.52-1.04) mg/dL Glucose (74-99) mg/dL Calcium (8.4-10.2) mg/dL C-Reactive Protein 7.3 H (<1.0) mg/dL Procalcitonin 0.90 H (0.02-0.09) ng/mL 05/23/23 Range/Units 07:23 WBC (4.50-10.00) X 10*3/uL RBC (4.10-5.20) X 10*6/uL Hgb (12.0-15.0) g/dL Hct (37.2-46.3) % RDW (11.5-14.5) % Plt Count (140-440) X 10*3/uL NRBC/100 WBC Diff (0.00-0.01) X 10*3/uL Sodium 121 L (137-145) mmol/L Potassium 6.3 H* (3.5-5.1) mmol/L Chloride 92 L (98-107) mmol/L Carbon Dioxide 18 L (22-30) mmol/L BUN 53 H (7-17) mg/dL Creatinine 1.74 H (0.52-1.04) mg/dL Glucose 121 H (74-99) mg/dL Calcium 7.6 L (8.4-10.2) mg/dL C-Reactive Protein (<1.0) mg/dL Procalcitonin (0.02-0.09) ng/mL Assessment and Plan (1) Pleural effusion Current Visit: Yes Status: Acute Priority: High Code(s): J90 - PLEURAL EFFUSION, NOT ELSEWHERE CLASSIFIED SNOMED Code(s): 63557040 (2) Pulmonary nodules Current Visit: Yes Status: Acute Code(s): R91.8 - OTHER NONSPECIFIC ABNORMAL FINDING OF LUNG FIELD SNOMED Code(s): 251332969 (3) Vaginal cancer Current Visit: Yes Status: Acute Priority: High Code(s): C52 - MALIGNANT NEOPLASM OF VAGINA SNOMED Code(s): 105194610 (4) STEPH (acute kidney injury) Current Visit: Yes Status: Acute Priority: High Code(s): N17.9 - ACUTE KIDNEY FAILURE, UNSPECIFIED SNOMED Code(s): 01087858 Plan: Lung nodules/Pleural effusion: -Chest CTA on 05/12 Revealed multiple round mass lesions scattered throughout the left lung measuring up to 1.7 cm in diameter. Multiple pulmonary nodules in the remaining aerated right lung as well as rounded areas of decreased enhancement in the atelectatic right lower lobe and right middle lobe. Large right pleural effusion was also noted. Discussed with patient scan findings and concern of recurrence of disease -Patient underwent right sided thoracentesis on 05/13, with 1.2 L of serosanguineous fluid drained. Cytology negative for malignancy -Upon admission chest x-ray revealed progressive findings in the right lung with near complete opacification now noted. Multiple left-sided pulmonary masses. Cardiothoracic surgery consulted, and Pleurx drain was placed on 05/18 with 4L removed. Repeat cytology pending -CT AP and bone scan obtained to complete staging. CT abdomen pelvis revealed abnormal attenuation in the region of the vagina. No evidence for metastatic disease to the abdomen or pelvis. Bone scan negative for osteoblastic metastatic disease. 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 Any treatment would be designed to prevent further disease progression and treat lesions already visualized -At this time, she notes she is unsure if she would want to proceed with additional chemotherapy -I did discuss sending NGS and PD-L1 from diagnostic tissue specimen in addition to obtaining circulating tumor DNA from the peripheral blood and upon discharge to circulating tumor DNA from the peripheral blood and upon discharge to determine treatment options -Following discussion, she was agreeable with this plan -Will request NGS and PDL1 on diagnostic specimen in addition to arranging [id number] circulating tumor DNA test outpatient following discharge -Clinic f/u with Dr. Megan Orozco will be scheduled upon discharge -Management of Pleurx catheter per cardiothoracic surgery, appreciate their assistance Hyponatremia -Noted to have progressive during hospitalization with sodium at 121 today -Nephrology currently following and is on a fluid restriction -This could be due to SIADH from malignancy -Continued management per nephrology STEPH -Creatinine noted at 2.9, GFR 17, was normal upon admission. Creatinine 1.74 today -Continue management per nephrology Vaginal Cancer: -Full oncological history in consult HPI -Completed concurrent chemo/RT in 02/2023 and brachytherapy in 03/2023. Pt was scheduled for repeat MRI pelvis and PET CT in 06/2023 -Clinically, she appears to have metastatic disease with multiple metastases to the lungs with right pleural effusion -Management as noted above
--- NOTE | 2023-05-23 17:46 | P.PN ---
Subjective Progress Note Date: 05/23/23 Harleen Santana, is a 67-year-old female who presented to [facility] emergency room with a chief complaint of worsening shortness of breath with concerns of recurrent pleural effusion patient was recently admitted and treated for pleural effusion with status post thoracentesis. 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 Patient was recently admitted for pleural effusions status post thoracentesis. A On review of systems patient is alert and oriented 3. Patient reports shortness of breath. Patient denies chest pain. Patient denies nausea vomiting or diarrhea. Patient denies any urinary burning or frequency On 05/17/2023 patient is alert and oriented 3. Per pulmonary services consult placed for cardiothoracic surgery for possible Pleurx drain placement. Ultrasound of chest ordered. Current vital signs temp 97.4, heart rate 94, respiratory rate 16, blood pressure 84/59 with a pulse ox of 97%. Patient reports shortness breath. Patient denies chest pain. Patient denies nausea vomiting or diarrhea. Patient denies any urinary burning or frequency On 05/18/2023 patient is alert and oriented 3 status post Pleurx catheter placement per cardiothoracic surgery. Bone scan ordered per oncology services. Patient reports improvement status post Pleurx catheter placement 4 L removed. Patient denies chest pain or shortness of breath. Patient denies nausea vomiting or diarrhea. Patient denies any urinary burning or frequency. On 05/19/2023 patient was seen and examined on to medical floor, she is alert and oriented 3 in no apparent distress there is no fever or chills no headache or dizziness no chest pain or shortness of breath has been improving there is occasional cough no nausea or vomiting no abdominal pain, she is complaining of constipation there is no urinary symptoms. On 05/20/2023 3 patient is alert and oriented 3. Patient reports improvement with shortness of breath or complaining of generalized pain and back. Awaiting nephrology input. Creatinine was increased to 2.9 but has improved to 1.06 patient slightly hyponatremic at 128. Patient denies chest pain or shortness of breath. Patient denies nausea vomiting or diarrhea. Patient denies any urinary burning or frequency. Vital signs temp 97.6, heart rate 98, respiratory rate 20, blood pressure 121/80 with pulse ox 96% on 3 L On 05/21/2023 patient was seen and examined on the medical floor she is alert and oriented 3 in no apparent distress there is no fever or chills no headache or dizziness no chest pain she is still having some shortness of breath, there is occasional cough, right sided Pleurx catheter remains in place. There is no nausea or vomiting no abdominal pain no diarrhea no blood in the stools no burning with urination no frequency or urgency and no hematuria. On 05/22/2023 patient is alert and oriented 3. Patient reports she slightly feels improved today. Repeat CMP has been ordered patient was hyponatremic and hyperkalemic yesterday nephrology services are following. Pleurx catheter remains in place. Patient denies chest pain or shortness of breath. Patient denies nausea vomiting or diarrhea. Patient denies any urinary burning or frequency current vital signs temp 98.1, heart rate 94, respiratory rate 16, blood pressure 118/81 with pulse ox 97% on 2 L On 05/23/2023 patient was seen and examined on the medical floor she is alert and oriented 3 in no apparent distress there is no fever or chills no headache or dizziness no chest pain no shortness of breath she has occasional cough no nausea or vomiting no abdominal pain no diarrhea and no urinary symptoms temperature is 97.5 pulse 91 respirations 16 blood pressure 115/70 pulse ox 95% on room air white blood count is up to 17.38 sodium 121 potassium 6.3 BUN 53 creatinine 1.74, pulmonary, infectious disease, and nephrology are following. Objective - Vital Signs Vital signs: Vital Signs Temp 97.5 F L 05/23/23 12:11 Pulse 90 05/23/23 12:11 Resp 16 05/23/23 12:11 BP 107/71 05/23/23 12:11 Pulse Ox 92 L 05/23/23 12:11 FiO2 Intake & Output 05/22/23 05/23/23 05/23/23 18:59 06:59 18:59 Intake Total 260 480 Output Total 100 1000 Balance 160 480 -1000 Intake: Oral 260 480 Output: Chest Tube Drainage 1000 Pleural Catheter Right 1000 Lower Anterior Chest Post Void Residual 100 Other: Voiding Method Bedside Commode Bedside Commode Bedside Commode # Voids 1 3 3 - Exam In general patient is alert and oriented x 3 in no distress HEENT head normocephalic and atraumatic Neck is supple no JVD no goiter no lymphadenopathy no carotid bruit Chest examination is clear to auscultation no crackles no wheezing Cardiac exam reveals regular heart sounds S1 and S2 no gallops no murmurs Abdomen is soft nontender no organomegaly with normal bowel sounds Extremity exam reveals no edema no cyanosis or clubbing Neurological examination reveals no gross focal deficits - Labs CBC & Chem 7: 05/23/23 07:23 05/23/23 07:23 Labs: Abnormal Lab Results - Last 24 Hours (Table) 05/22/23 05/23/23 05/23/23 Range/Units 06:00 07:23 07:23 WBC 17.38 H (4.50-10.00) X 10*3/uL RBC 3.96 L (4.10-5.20) X 10*6/uL Hgb 11.6 L (12.0-15.0) g/dL Hct 36.2 L (37.2-46.3) % RDW 14.9 H (11.5-14.5) % Plt Count 587 H (140-440) X 10*3/uL NRBC/100 WBC Diff 0.07 H (0.00-0.01) X 10*3/uL Sodium 121 L (137-145) mmol/L Potassium 6.3 H* (3.5-5.1) mmol/L Chloride 92 L (98-107) mmol/L Carbon Dioxide 18 L (22-30) mmol/L BUN 53 H (7-17) mg/dL Creatinine 1.74 H (0.52-1.04) mg/dL Glucose 121 H (74-99) mg/dL Calcium 7.6 L (8.4-10.2) mg/dL Procalcitonin 0.90 H (0.02-0.09) ng/mL Assessment and Plan Plan: Worsening shortness of breath Recurrent pleural effusion Abnormal x-ray revealing multiple left-sided pulmonary masses History of malignant neoplasm of the vagina, patient received chemotherapy and radiation therapy in the past, possible metastatic disease to the lung at this time Underlying history of hypertension Underlying history of hyperlipidemia Underlying history of anxiety disorder Acute kidney injury. Nephrology services consulted Hyponatremia At this time patient will be admitted to telemetry floor Home medications reviewed and reordered Pulmonary and oncology consultation requested Pleurx catheter placed on 05/18/2023 Bone scan ordered per oncology Will follow closely
[2023-05-23 18:53] LABS: African American GFR (CKD) 31 (>60 ml/min/1.73 sqM); Anion Gap 11 mmol/L; Blood Urea Nitrogen 55 mg/dL (7-17); Calcium 7.4 mg/dL (8.4-10.2); Carbon Dioxide 17 mmol/L (22-30); Chloride 91 mmol/L (98-107); Glucose 167 mg/dL (74-99); Non-African American GFR(CKD) 27 (>60 ml/min/1.73 sqM); Potassium 5.2 mmol/L (3.5-5.1)
[2023-05-23 19:18] LABS: Sodium 119 mmol/L (137-145)
[2023-05-23] MEDS: CEFEPIME 1 GM in SODIUM CHLORIDE 0.9% 50 ML IVPB SCH (20:40)
[2023-05-23] MEDS ORDERED: TOLVAPTAN 15 MG TABLET PO ONE (21:00)
[2023-05-23] MEDS: ATORVASTATIN 20 MG TAB PO SCH (21:32)
[2023-05-23] MEDS: ALPRAZolam 0.25 MG TAB PO PRN (23:25)
[2023-05-24] MEDS: HEPARIN SODIUM,PORCINE 5,000 UNIT/ML 1 ML VIAL SQ SCH ×3 (00:54→16:46)
[2023-05-24] MEDS: HYDROcodone/APAP 5-325MG 1 EACH TAB PO PRN ×4 (02:37→22:59)
[2023-05-24] MEDS: ONDANSETRON 4 MG/2 ML VIAL IVP PRN ×2 (05:09→19:53)
[2023-05-24] MEDS: SODIUM ZIRCONIUM CYCLOSILICATE 10 GM PACKET PO SCH (09:23)
[2023-05-24] MEDS: MULTIVITAMINS, THERA 1 EACH TAB PO SCH (09:24)
[2023-05-24] MEDS: DOCUSATE 100 MG CAP PO SCH ×2 (09:25→19:53)
[2023-05-24] MEDS: LORATADINE 10 MG TAB PO SCH (09:25)
[2023-05-24] MEDS: SERTRALINE 100 MG TAB PO SCH (09:25)
[2023-05-24] MEDS: CHOLECALCIFEROL 25 MCG (1000 IU) TABLET PO SCH ×2 (09:26→19:53)
[2023-05-24] MEDS: SODIUM CHLORIDE TAB 1 GM TAB PO SCH ×3 (09:27→19:57)
[2023-05-24] MEDS: MIDODRINE 5 MG TAB PO SCH ×3 (09:27→16:46)
[2023-05-24] MEDS: NYSTATIN 100,000 UNIT/ML SUSP 500,000 UNIT/5 ML CUP PO SCH ×4 (09:27→19:57)
[2023-05-24] MEDS: CEFEPIME 1 GM in SODIUM CHLORIDE 0.9% 50 ML IVPB SCH ×2 (09:33→20:01)
--- NOTE | 2023-05-24 09:45 | P.PN ---
Subjective Progress Note Date: 05/24/23 Harleen Santana, is a 67-year-old female who presented to [facility] emergency room with a chief complaint of worsening shortness of breath with concerns of recurrent pleural effusion patient was recently admitted and treated for pleural effusion with status post thoracentesis. 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 Patient was recently admitted for pleural effusions status post thoracentesis. A On review of systems patient is alert and oriented 3. Patient reports shortness of breath. Patient denies chest pain. Patient denies nausea vomiting or diarrhea. Patient denies any urinary burning or frequency On 05/17/2023 patient is alert and oriented 3. Per pulmonary services consult placed for cardiothoracic surgery for possible Pleurx drain placement. Ultrasound of chest ordered. Current vital signs temp 97.4, heart rate 94, respiratory rate 16, blood pressure 84/59 with a pulse ox of 97%. Patient reports shortness breath. Patient denies chest pain. Patient denies nausea vomiting or diarrhea. Patient denies any urinary burning or frequency On 05/18/2023 patient is alert and oriented 3 status post Pleurx catheter placement per cardiothoracic surgery. Bone scan ordered per oncology services. Patient reports improvement status post Pleurx catheter placement 4 L removed. Patient denies chest pain or shortness of breath. Patient denies nausea vomiting or diarrhea. Patient denies any urinary burning or frequency. On 05/19/2023 patient was seen and examined on to medical floor, she is alert and oriented 3 in no apparent distress there is no fever or chills no headache or dizziness no chest pain or shortness of breath has been improving there is occasional cough no nausea or vomiting no abdominal pain, she is complaining of constipation there is no urinary symptoms. On 05/20/2023 3 patient is alert and oriented 3. Patient reports improvement with shortness of breath or complaining of generalized pain and back. Awaiting nephrology input. Creatinine was increased to 2.9 but has improved to 1.06 patient slightly hyponatremic at 128. Patient denies chest pain or shortness of breath. Patient denies nausea vomiting or diarrhea. Patient denies any urinary burning or frequency. Vital signs temp 97.6, heart rate 98, respiratory rate 20, blood pressure 121/80 with pulse ox 96% on 3 L On 05/21/2023 patient was seen and examined on the medical floor she is alert and oriented 3 in no apparent distress there is no fever or chills no headache or dizziness no chest pain she is still having some shortness of breath, there is occasional cough, right sided Pleurx catheter remains in place. There is no nausea or vomiting no abdominal pain no diarrhea no blood in the stools no burning with urination no frequency or urgency and no hematuria. On 05/22/2023 patient is alert and oriented 3. Patient reports she slightly feels improved today. Repeat CMP has been ordered patient was hyponatremic and hyperkalemic yesterday nephrology services are following. Pleurx catheter remains in place. Patient denies chest pain or shortness of breath. Patient denies nausea vomiting or diarrhea. Patient denies any urinary burning or frequency current vital signs temp 98.1, heart rate 94, respiratory rate 16, blood pressure 118/81 with pulse ox 97% on 2 L On 05/23/2023 patient was seen and examined on the medical floor she is alert and oriented 3 in no apparent distress there is no fever or chills no headache or dizziness no chest pain no shortness of breath she has occasional cough no nausea or vomiting no abdominal pain no diarrhea and no urinary symptoms temperature is 97.5 pulse 91 respirations 16 blood pressure 115/70 pulse ox 95% on room air white blood count is up to 17.38 sodium 121 potassium 6.3 BUN 53 creatinine 1.74, pulmonary, infectious disease, and nephrology are following. On 05/24/2023 patient is alert and oriented 3. Awaiting lab results. Patient reports she has been able to tolerate more oral intake. Vital signs temp 98.6, heart rate 91, blood pressure 108/79 respiratory 98% on room. Patient requesting to be DO NOT RESUSCITATE. This time patient denies chest pain or shortness of breath. Patient denies nausea vomiting or diarrhea. Patient de nies any urinary burning or frequency Objective - Vital Signs Vital signs: Vital Signs Temp 98.6 F 05/24/23 07:08 Pulse 91 05/24/23 07:08 Resp 18 05/24/23 07:08 BP 108/79 05/24/23 07:08 Pulse Ox 98 05/24/23 07:08 FiO2 Intake & Output 05/23/23 05/24/23 05/24/23 18:59 06:59 18:59 Intake Total 820 Output Total 1850 650 Balance -1030 -650 Intake: Intake, IV Titration 100 Amount Cefepime 1 gm In Sodium 100 Chloride 0.9% 50 ml @ 12. 5 mls/hr IVPB Q12HR [facility] Rx#:[id number] Oral 720 Output: Chest Tube Drainage 1850 650 Pleural Catheter Right 1850 650 Lower Anterior Chest Other: Voiding Method Bedside Commode Bedside Commode # Voids 3 - Exam In general patient is alert and oriented x 3 in no distress HEENT head normocephalic and atraumatic Neck is supple no JVD no goiter no lymphadenopathy no carotid bruit Chest examination is clear to auscultation no crackles no wheezing Cardiac exam reveals regular heart sounds S1 and S2 no gallops no murmurs Abdomen is soft nontender no organomegaly with normal bowel sounds Extremity exam reveals no edema no cyanosis or clubbing Neurological examination reveals no gross focal deficits - Labs CBC & Chem 7: 05/23/23 07:23 05/23/23 18:16 Labs: Abnormal Lab Results - Last 24 Hours (Table) 05/23/23 05/23/23 05/23/23 Range/Units 07: 07:23 18:16 WBC 17.38 H (4.50-10.00) X 10*3/uL RBC 3.96 L (4.10-5.20) X 10*6/uL Hgb 11.6 L (12.0-15.0) g/dL Hct 36.2 L (37.2-46.3) % RDW 14.9 H (11.5-14.5) % Plt Count 587 H (140-440) X 10*3/uL NRBC/100 WBC Diff 0.07 H (0.00-0.01) X 10*3/uL Sodium 121 L 119 L* (137-145) mmol/L Potassium 6.3 H* 5.2 H (3.5-5.1) mmol/L Chloride 92 L 91 L (98-107) mmol/L Carbon Dioxide 18 L 17 L (22-30) mmol/L BUN 53 H 55 H (7-17) mg/dL Creatinine 1.74 H 1.86 H (0.52-1.04) mg/dL Glucose 121 H 167 H (74-99) mg/dL Calcium 7.6 L 7.4 L (8.4-10.2) mg/dL Microbiology - Last 24 Hours (Table) 05/22/23 16:08 Blood Culture - Preliminary Blood Assessment and Plan Assessment: Worsening shortness of breath Recurrent pleural effusion Abnormal x-ray revealing multiple left-sided pulmonary masses History of malignant neoplasm of the vagina, patient received chemotherapy and radiation therapy in the past, possible metastatic disease to the lung at this time Underlying history of hypertension Underlying history of hyperlipidemia Underlying history of anxiety disorder Acute kidney injury. Nephrology services consulted Hyponatremia At this time patient will be admitted to telemetry floor Home medications reviewed and reordered Pulmonary and oncology consultation requested Pleurx catheter placed on 05/18/2023 Bone scan ordered per oncology Will follow closely
[2023-05-24 10:54] LABS: HCT 33.6 % (37.2-46.3); HGB 10.8 g/dL (12.0-15.0); MCH 29.6 pg (27.0-32.0); MCHC 32.1 g/dL (32.0-37.0); MCV 92.1 FL (80.0-97.0); Mean Platelet Volume 10.5 FL (9.5-12.2); Platelet Count 547 X 10*3/uL (140-440); RBC 3.65 X 10*6/uL (4.10-5.20); RDW 15.1 % (11.5-14.5); WBC 18.85 X 10*3/uL (4.50-10.00)
[2023-05-24 11:19] LABS: ALT 12 U/L (8-44); AST 17 U/L (13-35); Albumin 2.2 g/dL (3.8-4.9); Albumin/Globulin Ratio 1.05 Ratio (1.60-3.17); Alkaline Phosphatase 130 U/L (41-126); BUN/Creat Ratio 26.71 Ratio (12.00-20.00); Blood Urea Nitrogen 56.1 mg/dL (9.0-27.0); Calcium 7.9 mg/dL (8.7-10.3); Carbon Dioxide 17.4 mmol/L (21.6-31.8); Chloride 88 mmol/L (96-109); Globulin 2.1 g/dL (1.6-3.3); Glucose 128 mg/dL (70-110); Potassium 5.6 mmol/L (3.5-5.5); Sodium 121 mmol/L (135-145); Total Bilirubin <0.2 mg/dL (0.3-1.2); Total Protein 4.3 g/dL (6.2-8.2)
[2023-05-24 11:36] LABS: Basophils # (M) 0 X 10*3/uL (0.00-0.10); Lymphocytes # (M) 0 X 10*3/uL (0.90-5.00)
[2023-05-24] MEDS ORDERED: DEXTROSE 50% SYRINGE 50 ML IVP STA ×2 (12:05→12:09)
[2023-05-24 12:06] LABS: Crenated RBC 2+; Eosinophils # (M) 0.38 X 10*3/uL (0.04-0.35); Monocytes # (M) 0.94 X 10*3/uL (0.20-1.00); Neutrophils # (M) 17.53 X 10*3/uL (1.80-7.70); Neutrophils % (M) 93 %; Nucleated Red Blood Cells 1 /100 WBCS
[2023-05-24] MEDS ORDERED: INSULIN REGULAR 100 UNIT/ML VIAL (IM/SQ) SQ ONE (12:06)
[2023-05-24] MEDS ORDERED: SODIUM ZIRCONIUM CYCLOSILICATE 10 GM PACKET PO ONE (12:06)
--- NOTE | 2023-05-24 12:07 | P.PN ---
Subjective Patient is seen for follow-up for acute kidney injury. 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 Status post IV fluids. Sodium had dropped and IV fluids were discontinued on 05/20/2023 No significant complaints today except for weakness. Status post Samsca and look Anderson yesterday for worsening hyponatremia, hyperkale moose. Renal function has also worsened Objective - Vital Signs Vital signs: Vital Signs Temp 98.6 F 05/24/23 07:08 Pulse 91 05/24/23 07:08 Resp 18 05/24/23 07:08 BP 108/79 05/24/23 07:08 Pulse Ox 98 05/24/23 07:08 FiO2 Intake & Output 05/23/23 05/24/23 05/24/23 18:59 06:59 18:59 Intake Total 820 Output Total 1850 650 Balance -1030 -650 Intake: Intake, IV Titration 100 Amount Cefepime 1 gm In Sodium 100 Chloride 0.9% 50 ml @ 12. 5 mls/hr IVPB Q12HR [facility] Rx#:[id number] Oral 720 Output: Chest Tube Drainage 1850 650 Pleural Catheter Right 1850 650 Lower Anterior Chest Other: Voiding Method Bedside Commode Bedside Commode # Voids 3 - Exam Patient is awake, comfortable, no acute distress Examination of the heart S1 and S2 Examination of the lungs bilateral breath sounds are heard Abdomen is soft nontender Examination of lower extremities shows no significant edema ADMISSIONS SPECIALIST exam grossly intact - Labs CBC & Chem 7: 05/24/23 06:35 05/24/23 06:35 Labs: Abnormal Lab Results - Last 24 Hours (Table) 05/23/23 05/24/23 05/24/23 Range/Units 18:16 06:35 06:35 WBC 18.85 H (4.50-10.00) X 10*3/uL RBC 3.65 L (4.10-5.20) X 10*6/uL Hgb 10.8 L (12.0-15.0) g/dL Hct 33.6 L (37.2-46.3) % RDW 15.1 H (11.5-14.5) % Plt Count 547 H (140-440) X 10*3/uL Lymphocytes # (Manual) 0 L (0.90-5.00) X 10*3/uL NRBC/100 WBC Diff 0.10 H (0.00-0.01) X 10*3/uL Sodium 119 L* 121 L (137-145) mmol/L Potassium 5.2 H 5.6 H (3.5-5.1) mmol/L Chloride 91 L 88 L (98-107) mmol/L Carbon Dioxide 17 L 17.4 L (22-30) mmol/L Anion Gap 15.60 H (4.00-12.00) mmol/L BUN 55 H 56.1 H (7-17) mg/dL Creatinine 1.86 H 2.1 H (0.52-1.04) mg/dL Est GFR (CKD-EPI) 25 L (>=60) BUN/Creatinine Ratio 26.71 H (12.00-20.00) Ratio Glucose 167 H 128 H (74-99) mg/dL Calcium 7.4 L 7.9 L (8.4-10.2) mg/dL Total Bilirubin <0.2 L (0.3-1.2) mg/dL Alkaline Phosphatase 130 H (41-126) U/L Total Protein 4.3 L (6.2-8.2) g/dL Albumin 2.2 L (3.8-4.9) g/dL Albumin/Globulin Ratio 1.05 L (1.60-3.17) Ratio Microbiology - Last 24 Hours (Table) 05/22/23 16:08 Blood Culture - Preliminary Blood Assessment and Plan Assessment: 1. Acute kidney injury secondary to vasomotor nephropathy secondary to h ypotension. Also received IV contrast on 05/18/2023. Creatinine peaked at 2.9 this admission and is down to 1.0 but started to increase again to 2.1 today. No hydronephrosis noted on kidney ultrasound. blood pressure had been low but now improved 2. Recurrent right lung pleural effusion with concern for malignancy. Status post Pleurx catheter placement. 3. Vaginal cancer with concern for metastatic disease. 4. Hyponatremia from poor solute intake. IV fluids discontinued and status post IV Lasix on 05/20/2023. Urine sodium less than 20 5. Hyperkalemia, associated with worsening renal function. No evidence of obstruction noted on CAT scan. Blood sugar is not elevated. Possible component of constipation contributing to hyperkalemia as well. Plan: Repeat Samsca Add oral sodium bicarb Add IV sodium bicarb Treat hyperkalemia with insulin and D50. Expect improvement with correction of acidosis. Continue to encourage increase oral intake. CODE STATUS was changed to no code today.
[2023-05-24] MEDS ORDERED: TOLVAPTAN 15 MG TABLET PO ONE ×2 (12:08)
[2023-05-24] MEDS ORDERED: INSULIN REGULAR 100 UNIT/ML VIAL (IV) IV ONE (12:09)
[2023-05-24] MEDS ORDERED: SODIUM BICARBONATE TAB 650 MG TAB PO SCH (12:15)
[2023-05-24] MEDS ORDERED: DEXTROSE 5% IN WATER 1,000 ML with SODIUM BICARB (1 MEQ/ML) 150 ML IV SCH (13:00)
--- NOTE | 2023-05-24 13:14 | P.PN ---
Subjective Progress Note Date: 05/24/23 I am seeing this patient in consultation today 05/17/2023 on the general medical floor after she returned with shortness of breath and a recurrent large right- sided pleural effusion. Patient is a 67-year-old white female with past medical history significant for hypertension, hyperlipidemia, and vaginal cancer. Vaginal cancer recently diagnosed November, and she underwent a combination of radiation and chemotherapy followed by brachytherapy. Patient did have a recent hospital admission back on May 13 for similar symptoms and right lower back pain. She was found to have a moderate to large size right-sided pleural effusion. Chest CTA demonstrated multiple pulmonary nodules throughout the left lung measuring up to 1.7 cm consistent with metastatic neoplasms. There were also multiple pulmonary nodules within the right lung and a large right-sided pleural effusion. Patient did undergo right sided thoracentesis that day, and had a total of 1.2 L of serosanguineous fluid drained. Cytology is still pending. Patient is currently sitting up in bed, on room air, in no acute distress. She does endorse shortness of breath especially with exertion and an occasional cough with minimal sputum production. Denies any fevers, hemoptysis. Denies any sick contacts. Chest x-ray demonstrated a recurrent large right- sided pleural effusion. Underlying consolidation and obstructive neoplasm not excluded. Multiple pulmonary nodules were again appreciated on the left. CBC on arrival shows a WBC count 11.5, hemoglobin 11.8, hematocrit 35.9, platelets 404. BMP on arrival shows sodium 133, potassium 4.4, chloride 103, serum bicarb 20, BUN 31, creatinine 0.97, glucose 119. Pain is reportedly well managed. The patient is seen today 05/18/2023 in follow-up on the regular medical floor. She is currently sitting up in bed. Awake and alert in no acute distress. She is maintaining good O2 saturations in the 90s on 2 L/m nasal cannula. She did undergo a right-sided Pleurx catheter placement this morning. 4 L of fluid removed. Follow-up chest x-ray shows significant decrease in the previously seen large right pleural effusion. Pulmonary nodules and masses are seen within the left lung. Unchanged. Nuclear bone scan revealed no osteoblastic metastatic disease. Computed tomography scan of the abdomen and pelvis revealed no metastatic disease noted. White count 10.8. Hemoglobin 10.1. Let's 441. Sodium 134. Potassium 5.8. BUN 50. Creatinine 2.9. Glucose 123. AST 11. ALT 11. Pro-calcitonin was 0.22. The patient is seen today 05/19/2023 in follow-up on the regular medical floor. She is awake and alert in no acute distress. She is maintaining O2 saturations in the low 90s on 3 L/m per nasal cannula. She's afebrile. Pleural fluid cytology pending. Chest x-ray reveals a right basilar pleural catheter in place. Right-sided chest tube had been removed. There is increased right basilar effusion. Underlying infiltrate or mass suspected. Multiple left-sided pulmonary nodules redemonstrated. White count 9.5. Hemoglobin 9.8. Platelets 396. She is continued on heparin for DVT prophylaxis. The patient is seen today 05/20/2023 in follow-up on the regular medical floor. She is currently resting in bed. Awake and alert in no acute distress. She is having some catheter insertion site discomfort and some back pain. She is currently maintaining good O2 saturations in the 90s on 3 L/m per nasal cannula. Afebrile. Hemodynamically stable. Chest x-ray reveals right thoracotomy tube in place without evidence of pneumothorax. There is a large right pleural effusion with associated atelectasis. Sodium 128. Potassium 5.0. Bicarb 22. BUN 39. Creatinine 1.06. Glucose 104. She is continued on oral diuretics. Heparin for DVT prophylaxis. The patient is seen today 05/21/2023 in follow-up on the regular medical floor. She is awake and alert in no acute distress. Feeling a bit better today compared to yesterday. Dating she slept well. She is maintaining O2 saturations in the 90s on 2 L/m per nasal cannula. She has normal saline at KVO. Right-sided Pleurx catheter remains in place. Another 3.7 L drained in the past 24 hours. Chest x-ray showing improved aeration. White count 14.5. Hemoglobin 11.7. Platelets 563. She is continued on oral diuretics. Heparin for DVT prophylaxis. The patient is seen today 05/22/2023 in follow-up on the regular medical floor. She is resting comfortably in bed. Awake and alert in no acute distress. Maintaining O2 saturation in the 90s on 2 L/m per nasal cannula. No IV fluids. She drained another 2.3 L from the Pleurx catheter. X-ray reveals minimal right pleural effusion. White count 15.5. Hemoglobin 12.2. Platelets 586. She remains on diuretics. Heparin for DVT prophylaxis. On today's evaluation of 05/23/2023, the patient is doing well. No specific complaints. She still has active drainage from the right-sided Pleurx catheter. The catheter drained more than 700 mL over the past 8 hours. No evidence of any pneumothorax. The chest x-ray shows bilateral pulmonary nodules consistent with metastatic disease. The second sample of the pleural fluid analysis was sent and the results are still pending for now.Other complaints otherwise. The echoes at 17.3, hemoglobin is 11.8, sodium is 121, potassium levels at 6.3, BUN is at 53 with a creatinine of 1.97. The patient is also is being offered fluid restriction. Nephrology is aware of the hyperkalemia and the patient is receiving lokelma and she also received D50 insulin and a potassium still pe nding for now. Serum bicarb is at 18. On 05/24/2023, the patient is being seen for a follow-up. The patient continues to have increased output from the Pleurx catheter on the right. Output has been more than a liter over the past 24 hours. She is on room air oxygen. She was weak and dizzy last night. She had difficulty with mobility. At the same time, she has ongoing issues with renal failure. Sodium level is at 121, potassium level is at 5.6, chloride is 88 and the BUN is 56 with a creatinine of 2.1. Nephrology is on the case and the patient was given treatment for hyperkalemia. The patient was given D50 with insulin. The patient was given Talvaptan 15 milligrams by mouth. The patient was also started on bicarb 650 mg by mouth twice a day and salt tablets. She is also midodrine 5 mg by mouth 3 times a day. The white cell count remains elevated. The patient is on empiric antibiotic coverage with cefepime. Objective - Vital Signs Vital signs: Vital Signs Temp 97.5 F L 05/24/23 12:09 Pulse 105 H 05/24/23 12:09 Resp 16 05/24/23 12:09 BP 114/78 05/24/23 12:09 Pulse Ox 96 05/24/23 12:09 FiO2 Intake & Output 05/23/23 05/24/23 05/24/23 18:59 06:59 18:59 Intake Total 820 Output Total 1850 650 Balance -1030 -650 Intake: Intake, IV Titration 100 Amount Cefepime 1 gm In Sodium 100 Chloride 0.9% 50 ml @ 12. 5 mls/hr IVPB Q12HR [facility] Rx#:[id number] Oral 720 Output: Chest Tube Drainage 1850 650 Pleural Catheter Right 1850 650 Lower Anterior Chest Other: Voiding Method Bedside Commode Bedside Commode Bedside Commode # Voids 3 - Exam GENERAL EXAM: Awake, 67-year-old female, on 2 L nasal cannula, in no apparent distress. HEAD: Normocephalic and atraumatic EYES: Normal reaction of pupils, equal size. NOSE: Clear with pink turbinates. THROAT: No erythema or exudates. NECK: No masses, no JVD. CHEST: No chest wall deformity. Right chest Pleurx catheter in place. LUNGS: Diminished right lung sounds with few crackles in the right base, no wheeze, rhonchi. No conversational dyspnea. CVS: S1 and S2 normal with no audible murmur, regular rhythm. No extra heart sounds ABDOMEN: No hepatosplenomegaly, active bowel sounds, no guarding or rigidity. SPINE: No scoliosis or deformity SKIN: No rashes CENTRAL NERVOUS SYSTEM: No focal deficits, tone is normal in all 4 extremities. EXTREMITIES: There is no peripheral edema, clubbing, or cyanosis. Peripheral pulses are intact. - Labs CBC & Chem 7: 05/24/23 06:35 05/24/23 06:35 Labs: Abnormal Lab Results - Last 24 Hours (Table) 05/23/23 05/24/23 05/24/23 Range/Units 18:16 06:35 06:35 WBC 18.85 H (4.50-10.00) X 10*3/uL RBC 3.65 L (4.10-5.20) X 10*6/uL Hgb 10.8 L (12.0-15.0) g/dL Hct 33.6 L (37.2-46.3) % RDW 15.1 H (11.5-14.5) % Plt Count 547 H (140-440) X 10*3/uL Lymphocytes # (Manual) 0 L (0.90-5.00) X 10*3/uL Eosinophils # (Manual) 0.38 H (0.04-0.35) X 10*3/uL NRBC/100 WBC Diff 0.10 H (0.00-0.01) X 10*3/uL Crenated Cell 2+ A Sodium 119 L* 121 L (137-145) mmol/L Potassium 5.2 H 5.6 H (3.5-5.1) mmol/L Chloride 91 L 88 L (98-107) mmol/L Carbon Dioxide 17 L 17.4 L (22-30) mmol/L Anion Gap 15.60 H (4.00-12.00) mmol/L BUN 55 H 56.1 H (7-17) mg/dL Creatinine 1.86 H 2.1 H (0.52-1.04) mg/dL Est GFR (CKD-EPI) 25 L (>=60) BUN/Creatinine Ratio 26.71 H (12.00-20.00) Ratio Glucose 167 H 128 H (74-99) mg/dL Calcium 7.4 L 7.9 L (8.4-10.2) mg/dL Total Bilirubin <0.2 L (0.3-1.2) mg/dL Alkaline Phosphatase 130 H (41-126) U/L Total Protein 4.3 L (6.2-8.2) g/dL Albumin 2.2 L (3.8-4.9) g/dL Albumin/Globulin Ratio 1.05 L (1.60-3.17) Ratio Microbiology - Last 24 Hours (Table) 05/22/23 16:08 Blood Culture - Preliminary Blood Assessment and Plan Plan: Acute dyspnea, secondary to recurrent large right-sided pleural effusion. Chest x-ray demonstrated a recurrent large right-sided pleural effusion. The patient is a Pleurx catheter. Underlying consolidation and obstructive neoplasm not excluded. Multiple pulmonary nodules were again appreciated on the left. The pleural fluid cytology came back negative on the second sample. Never theless, the patient has metastatic disease and she continues to have increase output from the right-sided Pleurx catheter. Recurrent right-sided pleural effusion, status post Pleurx catheter placement 05/18/2023, cytology 2 has been negative Acute kidney injury, hyponatremia, hyperkalemia Hyperkalemia secondary to above Hypotension, echocardiogram pending, initiated on midodrine Multiple bilateral pulmonary nodules, suspicious for metastatic disease History of vaginal cancer, diagnosed November, status/post chemotherapy and radiation therapy followed by brachytherapy. The CAT scan of the abdomen and pelvis revealed abnormal attenuation in the region of the vagina. No adnexal masses seen. No evidence of metastatic disease to the abdomen or pelvis. Benign essential hypertension Hyperlipidemia Never smoker Plan: Monitor the output from the chest tube Nephrology regarding management of renal failure and hyperkalemia management Not stable enough for any form of lung biopsy at this point in time Heparin for DVT prophylaxis Increase her activity as tolerated Titrate down the FiO2 as tolerated, currently on room air oxygen Evaluate for possible home oxygen We will continue to follow
[2023-05-24] MEDS: SODIUM BICARBONATE TAB 650 MG TAB PO SCH ×2 (14:33→21:23)
--- NOTE | 2023-05-24 16:07 | P.PN ---
Subjective Progress Note Date: 05/23/23 Principal diagnosis: Reason for follow-up is leukocytosis Patient is a 67-year-old female with a past medical history significant for vaginal cancer in this patient completed course of chemo and radiation therapy now with evidence of multiple pulmonary nodules concerning for metastatic disease patient recently did have admission to hospital at the patient status post right-sided thoracocentesis and did have right-sided Pleurx catheter placement this admission for recurrent effusion noticed to have elevated white count prompted this consultation On today's evaluation that is05/23/2023 the patient remains to be afebrile, the patient is breathing comfortably on room air and no need for supplemental oxygen however complaining of shortness of breath on minimal exertion patient denies any worsening cough or sputum production, patient denies any abdominal pain no n ausea vomiting or any diarrhea, Patient white count is up to 17.38, creatinine 1.74, procalcitonin is 0.90 Objective - Vital Signs Vital signs: Vital Signs Temp 97.5 F L 05/23/23 07:29 Pulse 91 05/23/23 07:29 Resp 16 05/23/23 07:29 BP 115/70 05/23/23 07:29 Pulse Ox 95 05/23/23 07:29 FiO2 Intake & Output 05/22/23 05/23/23 05/23/23 18:59 06:59 18:59 Intake Total 260 480 Output Total 100 1000 Balance 160 480 -1000 Intake: Oral 260 480 Output: Chest Tube Drainage 1000 Pleural Catheter Right 1000 Lower Anterior Chest Post Void Residual 100 Other: Voiding Method Bedside Commode Bedside Commode Bedside Commode # Voids 1 3 - Exam GENERAL DESCRIPTION: An elderly female lying in bed in no distress RESPIRATORY SYSTEM: Unlabored breathing , decreased breath sound at the base HEART: S1 S2 regular rate and rhythm , ABDOMEN: Soft , no tenderness EXTREMITIES: No edema feet - Labs CBC & Chem 7: 05/24/23 06:35 05/24/23 06:35 Labs: Abnormal Lab Results - Last 24 Hours (Table) 05/22/23 05/22/23 05/22/23 Range/Units 06:00 06:00 06:52 WBC (4.50-10.00) X 10*3/uL RBC (4.10-5.20) X 10*6/uL Hgb (12.0-15.0) g/dL Hct (37.2-46.3) % RDW (11.5-14.5) % Plt Count (140-440) X 10*3/uL NRBC/100 WBC Diff (0.00-0.01) X 10*3/uL Sodium 124 L (137-145) mmol/L Potassium 6.1 H* (3.5-5.1) mmol/L Chloride 95 L (98-107) mmol/L Carbon Dioxide 18 L (22-30) mmol/L BUN 41 H (7-17) mg/dL Creatinine 1.24 H (0.52-1.04) mg/dL Glucose 124 H (74-99) mg/dL Calcium 7.7 L (8.4-10.2) mg/dL Alkaline Phosphatase 188 H (38-126) U/L C-Reactive Protein 7.3 H (<1.0) mg/dL Total Protein 4.7 L (6.3-8.2) g/dL Albumin 2.3 L (3.5-5.0) g/dL Procalcitonin 0.90 H (0.02-0.09) ng/mL 05/23/23 Range/Units 07:23 WBC 17.38 H (4.50-10.00) X 10*3/uL RBC 3.96 L (4.10-5.20) X 10*6/uL Hgb 11.6 L (12.0-15.0) g/dL Hct 36.2 L (37.2-46.3) % RDW 14.9 H (11.5-14.5) % Plt Count 587 H (140-440) X 10*3/uL NRBC/100 WBC Diff 0.07 H (0.00-0.01) X 10*3/uL Sodium (137-145) mmol/L Potassium (3.5-5.1) mmol/L Chloride (98-107) mmol/L Carbon Dioxide (22-30) mmol/L BUN (7-17) mg/dL Creatinine (0.52-1.04) mg/dL Glucose (74-99) mg/dL Calcium (8.4-10.2) mg/dL Alkaline Phosphatase (38-126) U/L C-Reactive Protein (<1.0) mg/dL Total Protein (6.3-8.2) g/dL Albumin (3.5-5.0) g/dL Procalcitonin (0.02-0.09) ng/mL Assessment and Plan (1) Leukocytosis Current Visit: Yes Status: Acute Code(s): D72.829 - ELEVATED WHITE BLOOD CELL COUNT, UNSPECIFIED SNOMED Code(s): 667481026 Plan: 1patient with a leukocytosis in this patient who did have a history of metastatic vaginal cancer with recurrent right-sided effusion status post Pleurx catheter placement patient has been afebrile during this hospital stay and does not look toxic with a question of possible reactive versus infectious etiology 2-patient blood cultures are currently pending patient noticed to have elevated procalcitonin 3patient continue with nystatin swish and swallow, however with worsening of th e white count we will add Cefepime empirically while waiting for the cultures to finalize Dictation was produced using [employer] dictation software. please excuse any grammatical, word or spelling errors. This Time with Patient: Less than 30
--- NOTE | 2023-05-24 16:08 | P.PN ---
Subjective Progress Note Date: 05/24/23 Principal diagnosis: Reason for follow-up is leukocytosis Patient is a 67-year-old female with a past medical history significant for vaginal cancer in this patient completed course of chemo and radiation therapy now with evidence of multiple pulmonary nodules concerning for metastatic disease patient recently did have admission to hospital at the patient status post right-sided thoracocentesis and did have right-sided Pleurx catheter placement this admission for recurrent effusion noticed to have elevated white count prompted this consultation On today's evaluation that is 05/24/2023, the patient continues to be afebrile and is breathing comfortably on room air, however still complaining of shortness of breath on minimal exertion, chest pain denies any worsening cough or sputum production, patient denies nausea/vomiting /diarrhea and no abdominal pain. Patient white count is up to 18.85, creatinine is 2.1, procalcitonin is 0.90 Objective - Vital Signs Vital signs: Vital Signs Temp 97.5 F L 05/24/23 12:09 Pulse 105 H 05/24/23 12:09 Resp 16 05/24/23 12:09 BP 114/78 05/24/23 12:09 Pulse Ox 96 05/24/23 12:09 FiO2 Intake & Output 05/23/23 05/24/23 05/24/23 18:59 06:59 18:59 Intake Total 820 Output Total 1850 650 Balance -1030 -650 Weight 58.967 kg Intake: Intake, IV Titration 100 Amount Cefepime 1 gm In Sodium 100 Chloride 0.9% 50 ml @ 12. 5 mls/hr IVPB Q12HR [facility] Rx#:[id number] Oral 720 Output: Chest Tube Drainage 1850 650 Pleural Catheter Right 1850 650 Lower Anterior Chest Other: Voiding Method Bedside Commode Bedside Commode Bedside Commode # Voids 3 - Exam GENERAL DESCRIPTION: An elderly female lying in bed in no distress RESPIRATORY SYSTEM: Unlabored breathing , decreased breath sound at the base HEART: S1 S2 regular rate and rhythm , ABDOMEN: Soft , no tenderness EXTREMITIES: No edema feet - Labs CBC & Chem 7: 05/24/23 06:35 05/24/23 06:35 Labs: Abnormal Lab Results - Last 24 Hours (Table) 05/23/23 05/24/23 05/24/23 Range/Units 18:16 06:35 06:35 WBC 18.85 H (4.50-10.00) X 10*3/uL RBC 3.65 L (4.10-5.20) X 10*6/uL Hgb 10.8 L (12.0-15.0) g/dL Hct 33.6 L (37.2-46.3) % RDW 15.1 H (11.5-14.5) % Plt Count 547 H (140-440) X 10*3/uL Lymphocytes # (Manual) 0 L (0.90-5.00) X 10*3/uL Eosinophils # (Manual) 0.38 H (0.04-0.35) X 10*3/uL NRBC/100 WBC Diff 0.10 H (0.00-0.01) X 10*3/uL Crenated Cell 2+ A Sodium 119 L* 121 L (137-145) mmol/L Potassium 5.2 H 5.6 H (3.5-5.1) mmol/L Chloride 91 L 88 L (98-107) mmol/L Carbon Dioxide 17 L 17.4 L (22-30) mmol/L Anion Gap 15.60 H (4.00-12.00) mmol/L BUN 55 H 56.1 H (7-17) mg/dL Creatinine 1.86 H 2.1 H (0.52-1.04) mg/dL Est GFR (CKD-EPI) 25 L (>=60) BUN/Creatinine Ratio 26.71 H (12.00-20.00) Ratio Glucose 167 H 128 H (74-99) mg/dL Calcium 7.4 L 7.9 L (8.4-10.2) mg/dL Total Bilirubin <0.2 L (0.3-1.2) mg/dL Alkaline Phosphatase 130 H (41-126) U/L Total Protein 4.3 L (6.2-8.2) g/dL Albumin 2.2 L (3.8-4.9) g/dL Albumin/Globulin Ratio 1.05 L (1.60-3.17) Ratio Microbiology - Last 24 Hours (Table) 05/22/23 16:08 Blood Culture - Preliminary Blood Assessment and Plan (1) Leukocytosis Current Visit: Yes Status: Acute Code(s): D72.829 - ELEVATED WHITE BLOOD CELL COUNT, UNSPECIFIED SNOMED Code(s): 398887909 Plan: 1patient with a leukocytosis in this patient who did have a history of metastatic vaginal cancer with recurrent right-sided effusion status post Pleurx catheter placement patient has been afebrile during this hospital stay and does not look toxic with a question of possible reactive versus infectious etiology 2-patient blood cultures are currently pending patient noticed to have elevated procalcitonin 3patient did have worsening of the white count, to continue with Cefepime empirically however discussed with the WEB [employer] DES[employer]ER for surgical team to obtain pleural fluid sample for culture Dictation was produced using [employer] dictation software. please excuse any gram matical, word or spelling errors. This Time with Patient: Less than 30
[2023-05-24] MEDS: ATORVASTATIN 20 MG TAB PO SCH (19:53)
[2023-05-24] MEDS: ALPRAZolam 0.25 MG TAB PO PRN (23:00)
[2023-05-25] MEDS: HEPARIN SODIUM,PORCINE 5,000 UNIT/ML 1 ML VIAL SQ SCH ×4 (01:03→23:59)
--- NOTE | 2023-05-25 04:22 | XR ---
EXAM: XR Chest, 1 View CLINICAL HISTORY: ITS.REASON XR Reason: chest pain TECHNIQUE: Frontal view of the chest. COMPARISON: 05/12/2023 FINDINGS: Lungs: Multiple nodules are seen bilaterally. Pleural space: No acute findings Heart: No cardiomegaly. Bones/joints: No acute findings. IMPRESSION: Multiple nodules are seen bilaterally.
[2023-05-25] MEDS: MORPHINE SULFATE 4 MG/ML SYRINGE IV PRN ×4 (05:50→21:29)
[2023-05-25] MEDS: ONDANSETRON 4 MG/2 ML VIAL IVP PRN ×3 (05:59→21:29)
[2023-05-25] MEDS: CEFEPIME 1 GM in SODIUM CHLORIDE 0.9% 50 ML IVPB SCH ×2 (09:22→21:16)
[2023-05-25] MEDS: SODIUM CHLORIDE TAB 1 GM TAB PO SCH ×3 (09:24→21:06)
[2023-05-25] MEDS: MULTIVITAMINS, THERA 1 EACH TAB PO SCH (09:24)
[2023-05-25] MEDS: SODIUM BICARBONATE TAB 650 MG TAB PO SCH ×2 (09:24→21:06)
[2023-05-25] MEDS: SERTRALINE 100 MG TAB PO SCH (09:24)
[2023-05-25] MEDS: MIDODRINE 5 MG TAB PO SCH ×3 (09:24→17:18)
[2023-05-25] MEDS: DOCUSATE 100 MG CAP PO SCH ×2 (09:24→21:06)
[2023-05-25] MEDS: LORATADINE 10 MG TAB PO SCH (09:24)
[2023-05-25] MEDS: CHOLECALCIFEROL 25 MCG (1000 IU) TABLET PO SCH ×2 (09:24→21:06)
[2023-05-25] MEDS: NYSTATIN 100,000 UNIT/ML SUSP 500,000 UNIT/5 ML CUP PO SCH ×4 (09:25→21:07)
[2023-05-25] MEDS: ALPRAZolam 0.25 MG TAB PO PRN ×2 (09:29→21:29)
[2023-05-25] MEDS: HYDROcodone/APAP 5-325MG 1 EACH TAB PO PRN ×2 (09:29→15:31)
[2023-05-25 10:02] LABS: ALT 16 U/L (4-34); AST 24 U/L (14-36); African American GFR (CKD) 31 (>60 ml/min/1.73 sqM); Albumin 2.1 g/dL (3.5-5.0); Alkaline Phosphatase 101 U/L (38-126); Anion Gap 14 mmol/L; Blood Urea Nitrogen 65 mg/dL (7-17); Calcium 6.8 mg/dL (8.4-10.2); Carbon Dioxide 21 mmol/L (22-30); Chloride 83 mmol/L (98-107); Globulin 2.2 g/dL; Glucose 201 mg/dL (74-99); Non-African American GFR(CKD) 27 (>60 ml/min/1.73 sqM); Potassium 4.2 mmol/L (3.5-5.1); Total Bilirubin 0.4 mg/dL (0.2-1.3); Total Protein 4.3 g/dL (6.3-8.2)
[2023-05-25 10:09] LABS: Sodium 118 mmol/L (137-145)
[2023-05-25 10:16] LABS: Basophils # (A) 0.1 k/uL (0-0.2); Basophils % (A) 0 %; Eosinophils # (A) 0.2 k/uL (0-0.7); Eosinophils % (A) 1 %; HCT 28.9 % (34.0-46.0); Lymphocytes # (A) 0.8 k/uL (1.0-4.8); Lymphocytes % (A) 4 %; MCH 30.1 pg (25.0-35.0); MCHC 33.1 g/dL (31.0-37.0); MCV 90.8 fL (80.0-100.0); Mean Platelet Volume 10.2; Monocytes # (A) 0.8 k/uL (0-1.0); Monocytes % (A) 4 %; Neutrophils % (A) 90 %; Platelet Count 506 k/uL (150-450); RBC 3.19 m/uL (3.80-5.40); RDW 15.3 % (11.5-15.5)
[2023-05-25 10:24] LABS: HGB 9.6 gm/dL (11.4-16.0)
--- NOTE | 2023-05-25 10:37 | P.PN ---
Subjective Progress Note Date: 05/25/23 Harleen Santana, is a 67-year-old female who presented to [facility] emergency room with a chief complaint of worsening shortness of breath with concerns of recurrent pleural effusion patient was recently admitted and treated for pleural effusion with status post thoracentesis. 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 Patient was recently admitted for pleural effusions status post thoracentesis. A On review of systems patient is alert and oriented 3. Patient reports shortness of breath. Patient denies chest pain. Patient denies nausea vomiting or diarrhea. Patient denies any urinary burning or frequency On 05/17/2023 patient is alert and oriented 3. Per pulmonary services consult placed for cardiothoracic surgery for possible Pleurx drain placement. Ultrasound of chest ordered. Current vital signs temp 97.4, heart rate 94, respiratory rate 16, blood pressure 84/59 with a pulse ox of 97%. Patient reports shortness breath. Patient denies chest pain. Patient denies nausea vomiting or diarrhea. Patient denies any urinary burning or frequency On 05/18/2023 patient is alert and oriented 3 status post Pleurx catheter placement per cardiothoracic surgery. Bone scan ordered per oncology services. Patient reports improvement status post Pleurx catheter placement 4 L removed. Patient denies chest pain or shortness of breath. Patient denies nausea vomiting or diarrhea. Patient denies any urinary burning or frequency. On 05/19/2023 patient was seen and examined on to medical floor, she is alert and oriented 3 in no apparent distress there is no fever or chills no headache or dizziness no chest pain or shortness of breath has been improving there is occasional cough no nausea or vomiting no abdominal pain, she is complaining of constipation there is no urinary symptoms. On 05/20/2023 3 patient is alert and oriented 3. Patient reports improvement with shortness of breath or complaining of generalized pain and back. Awaiting nephrology input. Creatinine was increased to 2.9 but has improved to 1.06 patient slightly hyponatremic at 128. Patient denies chest pain or shortness of breath. Patient denies nausea vomiting or diarrhea. Patient denies any urinary burning or frequency. Vital signs temp 97.6, heart rate 98, respiratory rate 20, blood pressure 121/80 with pulse ox 96% on 3 L On 05/21/2023 patient was seen and examined on the medical floor she is alert and oriented 3 in no apparent distress there is no fever or chills no headache or dizziness no chest pain she is still having some shortness of breath, there is occasional cough, right sided Pleurx catheter remains in place. There is no nausea or vomiting no abdominal pain no diarrhea no blood in the stools no burning with urination no frequency or urgency and no hematuria. On 05/22/2023 patient is alert and oriented 3. Patient reports she slightly feels improved today. Repeat CMP has been ordered patient was hyponatremic and hyperkalemic yesterday nephrology services are following. Pleurx catheter remains in place. Patient denies chest pain or shortness of breath. Patient denies nausea vomiting or diarrhea. Patient denies any urinary burning or frequency current vital signs temp 98.1, heart rate 94, respiratory rate 16, blood pressure 118/81 with pulse ox 97% on 2 L On 05/23/2023 patient was seen and examined on the medical floor she is alert and oriented 3 in no apparent distress there is no fever or chills no headache or dizziness no chest pain no shortness of breath she has occasional cough no nausea or vomiting no abdominal pain no diarrhea and no urinary symptoms temperature is 97.5 pulse 91 respirations 16 blood pressure 115/70 pulse ox 95% on room air white blood count is up to 17.38 sodium 121 potassium 6.3 BUN 53 creatinine 1.74, pulmonary, infectious disease, and nephrology are following. On 05/24/2023 patient is alert and oriented 3. Awaiting lab results. Patient reports she has been able to tolerate more oral intake. Vital signs temp 98.6, heart rate 91, blood pressure 108/79 respiratory 98% on room. Patient requesting to be DO NOT RESUSCITATE. This time patient denies chest pain or shortness of breath. Patient denies nausea vomiting or diarrhea. Patient de nies any urinary burning or frequency On 05/25/2023 patient is alert and oriented 3. Blood cell continuing to increase to 20.0. Infectious disease service is following. Sodium critically low at 118. Creatinine 1.89 bun 65. Potassium 4.2 nephrology services following. Patient remains on IV Maxipime. Patient maintained on sodium bicarb sodium chloride tabs. Objective - Vital Signs Vital signs: Vital Signs Temp 96.9 F L 05/25/23 07:20 Pulse 87 05/25/23 07:20 Resp 16 05/25/23 07:20 BP 104/72 05/25/23 07:20 Pulse Ox 98 05/25/23 07:20 FiO2 Intake & Output 05/24/23 05/25/23 05/25/23 18:59 06:59 18:59 Intake Total 920 240 120 Output Total 640 600 Balance 280 -360 120 Weight 58.967 kg Intake: Intake, IV Titration 200 Amount Cefepime 1 gm In Sodium 50 Chloride 0.9% 50 ml @ 12. 5 mls/hr IVPB Q12HR TARIQ Rx#:[id number] Dextrose 5% in Water 1, 150 000 ml @ 50 mls/hr IV . Q23H TARIQ with Sodium Bicarb (1 Meq/ml) 150 ml Rx#:[id number] Oral 720 240 120 Output: Chest Tube Drainage 640 600 Pleural Catheter Right 640 600 Lower Anterior Chest Other: Voiding Method Bedside Commode Bedside Commode # Voids 2 - Exam In general patient is alert and oriented x 3 in no distress HEENT head normocephalic and atraumatic Neck is supple no JVD no goiter no lymphadenopathy no carotid bruit Chest examination is clear to auscultation no crackles no wheezing Cardiac exam reveals regular heart sounds S1 and S2 no gallops no murmurs Abdomen is soft nontender no organomegaly with normal bowel sounds Extremity exam reveals no edema no cyanosis or clubbing Neurological examination reveals no gross focal deficits - Labs CBC & Chem 7: 05/25/23 09:23 05/25/23 09:23 Labs: Abnormal Lab Results - Last 24 Hours (Table) 05/24/23 05/24/23 05/25/23 Range/Units 06:35 06:35 09:23 WBC 18.85 H 20.0 H (4.50-10.00) X 10*3/uL RBC 3.65 L 3.19 L (4.10-5.20) X 10*6/uL Hgb 10.8 L 9.6 L D (12.0-15.0) g/dL Hct 33.6 L 28.9 L (37.2-46.3) % RDW 15.1 H (11.5-14.5) % Plt Count 547 H 506 H (140-440) X 10*3/uL Neutrophils # 18.0 H (1.3-7.7) k/uL Neutrophils # (Manual) 17.53 H (1.80-7.70) X 10*3/uL Lymphocytes # 0.8 L (1.0-4.8) k/uL Lymphocytes # (Manual) 0 L (0.90-5.00) X 10*3/uL Eosinophils # (Manual) 0.38 H (0.04-0.35) X 10*3/uL NRBC/100 WBC Diff 0.10 H (0.00-0.01) X 10*3/uL Crenated Cell 2+ A Sodium 121 L (135-145) mmol/L Potassium 5.6 H (3.5-5.5) mmol/L Chloride 88 L (96-109) mmol/L Carbon Dioxide 17.4 L (21.6-31.8) mmol/L Anion Gap 15.60 H (4.00-12.00) mmol/L BUN 56.1 H (9.0-27.0) mg/dL Creatinine 2.1 H (0.6-1.5) mg/dL Est GFR (CKD-EPI) 25 L (>=60) BUN/Creatinine Ratio 26.71 H (12.00-20.00) Ratio Glucose 128 H (70-110) mg/dL Calcium 7.9 L (8.7-10.3) mg/dL Total Bilirubin <0.2 L (0.3-1.2) mg/dL Alkaline Phosphatase 130 H (41-126) U/L Total Protein 4.3 L (6.2-8.2) g/dL Albumin 2.2 L (3.8-4.9) g/dL Albumin/Globulin Ratio 1.05 L (1.60-3.17) Ratio 05/25/23 Range/Units 09:23 WBC (4.50-10.00) X 10*3/uL RBC (4.10-5.20) X 10*6/uL Hgb (12.0-15.0) g/dL Hct (37.2-46.3) % RDW (11.5-14.5) % Plt Count (140-440) X 10*3/uL Neutrophils # (1.3-7.7) k/uL Neutrophils # (Manual) (1.80-7.70) X 10*3/uL Lymphocytes # (1.0-4.8) k/uL Lymphocytes # (Manual) (0.90-5.00) X 10*3/uL Eosinophils # (Manual) (0.04-0.35) X 10*3/uL NRBC/100 WBC Diff (0.00-0.01) X 10*3/uL Crenated Cell Sodium 118 L* (135-145) mmol/L Potassium (3.5-5.5) mmol/L Chloride 83 L (96-109) mmol/L Carbon Dioxide 21 L (21.6-31.8) mmol/L Anion Gap (4.00-12.00) mmol/L BUN 65 H (9.0-27.0) mg/dL Creatinine 1.89 H (0.6-1.5) mg/dL Est GFR (CKD-EPI) (>=60) BUN/Creatinine Ratio (12.00-20.00) Ratio Glucose 201 H (70-110) mg/dL Calcium 6.8 L (8.7-10.3) mg/dL Total Bilirubin (0.3-1.2) mg/dL Alkaline Phosphatase (41-126) U/L Total Protein 4.3 L (6.2-8.2) g/dL Albumin 2.1 L (3.8-4.9) g/dL Albumin/Globulin Ratio (1.60-3.17) Ratio Microbiology - Last 24 Hours (Table) 05/24/23 12:30 Gram Stain - Preliminary Pleural Fluid 05/22/23 16:08 Blood Culture - Preliminary Blood Assessment and Plan Assessment: Worsening shortness of breath Recurrent pleural effusion Abnormal x-ray revealing multiple left-sided pulmonary masses History of malignant neoplasm of the vagina, patient received chemotherapy and radiation therapy in the past, possible metastatic disease to the lung at this time Underlying history of hypertension Underlying history of hyperlipidemia Underlying history of anxiety disorder Acute kidney injury. Nephrology services consulted Hyponatremia Leukocytosis. Infectious disease service is following patient remains on IV antibiotics At this time patient will be admitted to telemetry floor Home medications reviewed and reordered Pulmonary and oncology consultation requested Pleurx catheter placed on 05/18/2023 Bone scan ordered per oncology Will follow closely
[2023-05-25] MEDS ORDERED: TOLVAPTAN 30 MG TABLET PO ONE (10:50)
--- NOTE | 2023-05-25 10:50 | P.PN ---
Subjective Patient is seen for follow-up for acute kidney injury. 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 No significant complaints today except for weakness. Sodium has dropped to 118 today. Creatinine improved to 1.89 and potassium is 4.2. Patient states that she does not want to continue with chemotherapy and she may be looking into hospice. Objective - Vital Signs Vital signs: Vital Signs Temp 96.9 F L 05/25/23 07:20 Pulse 87 05/25/23 07:20 Resp 16 05/25/23 07:20 BP 104/72 05/25/23 07:20 Pulse Ox 98 05/25/23 07:20 FiO2 Intake & Output 05/24/23 05/25/23 05/25/23 18:59 06:59 18:59 Intake Total 920 240 120 Output Total 640 600 Balance 280 -360 120 Weight 58.967 kg Intake: Intake, IV Titration 200 Amount Cefepime 1 gm In Sodium 50 Chloride 0.9% 50 ml @ 12. 5 mls/hr IVPB Q12HR TARIQ Rx#:[id number] Dextrose 5% in Water 1, 150 000 ml @ 50 mls/hr IV . Q23H TARIQ with Sodium Bicarb (1 Meq/ml) 150 ml Rx#:[id number] Oral 720 240 120 Output: Chest Tube Drainage 640 600 Pleural Catheter Right 640 600 Lower Anterior Chest Other: Voiding Method Bedside Commode Bedside Commode # Voids 2 - Exam Patient is awake, comfortable, no acute distress Examination of the heart S1 and S2 Examination of the lungs bilateral breath sounds are heard Abdomen is soft nontender Examination of lower extremities shows no significant edema [employer]GER exam grossly intact - Labs CBC & Chem 7: 05/25/23 09:23 05/25/23 09:23 Labs: Abnormal Lab Results - Last 24 Hours (Table) 05/24/23 05/24/23 05/25/23 Range/Units 06:35 06:35 09:23 WBC 18.85 H 20.0 H (4.50-10.00) X 10*3/uL RBC 3.65 L 3.19 L (4.10-5.20) X 10*6/uL Hgb 10.8 L 9.6 L D (12.0-15.0) g/dL Hct 33.6 L 28.9 L (37.2-46.3) % RDW 15.1 H (11.5-14.5) % Plt Count 547 H 506 H (140-440) X 10*3/uL Neutrophils # 18.0 H (1.3-7.7) k/uL Neutrophils # (Manual) 17.53 H (1.80-7.70) X 10*3/uL Lymphocytes # 0.8 L (1.0-4.8) k/uL Lymphocytes # (Manual) 0 L (0.90-5.00) X 10*3/uL Eosinophils # (Manual) 0.38 H (0.04-0.35) X 10*3/uL NRBC/100 WBC Diff 0.10 H (0.00-0.01) X 10*3/uL Crenated Cell 2+ A Sodium 121 L (135-145) mmol/L Potassium 5.6 H (3.5-5.5) mmol/L Chloride 88 L (96-109) mmol/L Carbon Dioxide 17.4 L (21.6-31.8) mmol/L Anion Gap 15.60 H (4.00-12.00) mmol/L BUN 56.1 H (9.0-27.0) mg/dL Creatinine 2.1 H (0.6-1.5) mg/dL Est GFR (CKD-EPI) 25 L (>=60) BUN/Creatinine Ratio 26.71 H (12.00-20.00) Ratio Glucose 128 H (70-110) mg/dL Calcium 7.9 L (8.7-10.3) mg/dL Total Bilirubin <0.2 L (0.3-1.2) mg/dL Alkaline Phosphatase 130 H (41-126) U/L Total Protein 4.3 L (6.2-8.2) g/dL Albumin 2.2 L (3.8-4.9) g/dL Albumin/Globulin Ratio 1.05 L (1.60-3.17) Ratio 05/25/23 Range/Units 09:23 WBC (4.50-10.00) X 10*3/uL RBC (4.10-5.20) X 10*6/uL Hgb (12.0-15.0) g/dL Hct (37.2-46.3) % RDW (11.5-14.5) % Plt Count (140-440) X 10*3/uL Neutrophils # (1.3-7.7) k/uL Neutrophils # (Manual) (1.80-7.70) X 10*3/uL Lymphocytes # (1.0-4.8) k/uL Lymphocytes # (Manual) (0.90-5.00) X 10*3/uL Eosinophils # (Manual) (0.04-0.35) X 10*3/uL NRBC/100 WBC Diff (0.00-0.01) X 10*3/uL Crenated Cell Sodium 118 L* (135-145) mmol/L Potassium (3.5-5.5) mmol/L Chloride 83 L (96-109) mmol/L Carbon Dioxide 21 L (21.6-31.8) mmol/L Anion Gap (4.00-12.00) mmol/L BUN 65 H (9.0-27.0) mg/dL Creatinine 1.89 H (0.6-1.5) mg/dL Est GFR (CKD-EPI) (>=60) BUN/Creatinine Ratio (12.00-20.00) Ratio Glucose 201 H (70-110) mg/dL Calcium 6.8 L (8.7-10.3) mg/dL Total Bilirubin (0.3-1.2) mg/dL Alkaline Phosphatase (41-126) U/L Total Protein 4.3 L (6.2-8.2) g/dL Albumin 2.1 L (3.8-4.9) g/dL Albumin/Globulin Ratio (1.60-3.17) Ratio Microbiology - Last 24 Hours (Table) 05/24/23 12:30 Gram Stain - Preliminary Pleural Fluid 05/22/23 16:08 Blood Culture - Preliminary Blood Assessment and Plan Assessment: 1. Acute kidney injury secondary to vasomotor nephropathy secondary to hypotension. Also received IV contrast on 05/18/2023. Creatinine peaked at 2.9 this admission and is down to 1.0 but started to increase again.. No hydronephrosis noted on kidney ultrasound. blood pressure had been low but now improved 2. Recurrent right lung pleural effusion with concern for malignancy. Status post Pleurx catheter placement. 3. Vaginal cancer with concern for metastatic disease. 4. Hyponatremia from poor solute intake. IV fluids discontinued and status post IV Lasix on 05/20/2023. Urine sodium less than 20, urine osmolality 567 5. Hyperkalemia, associated with worsening renal function. No evidence of obstruction noted on CAT scan. Blood sugar is not elevated. Possible component of constipation contributing to hyperkalemia as well. Plan: Repeat [facility] Continue oral sodium bicarb DC IV sodium bicarb Continue to encourage increase oral intake. CODE STATUS was changed to no code, considering hospice care down the road
--- NOTE | 2023-05-25 11:49 | P.PN ---
Subjective HISTORY OF PRESENT ILLNESS: This is a 67-year-old female with no previous cardiac history does not follow with a health care facility administrator. We have been asked to evaluate the patient for hypotension. She has a past medical history of recurrent right-sided pleural effusion status post right-sided thoracentesis with removal of 1.2 L of serosanguineous fluid followed by Pleurx catheter insertion which was performed today. She also has past medical history of hypertension, hyperlipidemia, vaginal cancer. Patient presented to the hospital due to shortness of breath was found to have recurrent large right-sided pleural effusion, multiple pulmonary nodules. Patient's heart rate is running in the 80s, blood pressure 70s systolic. Patient is followed by multiple consultants including oncology and scheduled for bone scan. Chest x-ray: Cardiac silhouette within normal limits following Pleurx placement CAT scan of the abdomen and pelvis revealed abnormal attenuation in the region of the vagina. Evidence of prior hysterectomy. No evidence of metastatic disease to the abdomen or pelvis. Multiple left pulmonary nodules. Large right-sided pleural effusion with collapse of the right lung. WBC 10.8, hemoglobin 10.1, platelet count 441. Sodium 134, potassium 5.8, chloride 98, CO2 21, BUN 49 creatinine 2.9 Home cardiac medications: Amlodipine 10 mg daily, benazepril 20 g daily, simvastatin 40 mg at bedtime 05/19 Patient is seen today in follow-up. Yesterday, we started patient on midodrine 5 mg 3 times daily. Blood pressures have been slightly better. Systolic blood pressure overnight has been in the 80s, this morning 90/58. Heart rate is in the 80s and 90s. Echocardiogram is pending. EKG is sinus rhythm with incomplete right bundle branch block 05/20 Patient is seen today in follow-up. Midodrine was started 2 days ago at 5 mg 3 times daily. Blood pressure is running systolic of [id number], heart rate is in the 70s and 90s, pulse ox 97% on 3 L. Patient is complaining of pain issue. No lightheadedness or dizziness. No chest pain. echocardiogram reveals normal LV function. Mild mitral regurgitation. Moderate aortic regurgitation. Pleural effusion noted. 05/25/2023 Cardiology was reconsulted by primary medicine secondary to chest pain. Patient states overnight she had chest discomfort. She states the pain is worse with deep inspiration. She also reports pain is worse with coughing. She denied any radiation of pain. Patient continues to have Pleurx catheter in place, connected to atrium. Troponins are negative 4. EKG obtained with no signs of acute ischemia with incomplete right bundle-branch block. Vital signs are stable. PHYSICAL EXAM: VITAL SIGNS: Reviewed. GENERAL: Well-developed in no acute distress. NECK: Supple. No JVD or thyromegaly LUNGS: Respirations even and unlabored. Lungs essentially clear to auscultation bilaterally. HEART: Regular rate and rhythm. S1 and S2 heard. EXTREMITIES: Normal range of motion. No clubbing or cyanosis. Peripheral pulses intact. No lower extremity edema ASSESSMENT: Chest pain, pleuritic in nature, troponin negative 4 Recurrent right-sided pleural effusion status post thoracentesis and Pleurx catheter placement Acute kidney injury Pulmonary nodules Hypertension Hyperlipidemia History of vaginal cancer Hypotension, improved PLAN: An acute coronary event has been ruled out Obtain limited echo to assess for pericardial effusion Continue additional cardiac medications If echocardiogram does not reveal any significant abnormalities, we will sign off. Nurse practitioner note has been reviewed by physician. Signing provider agrees with the documented findings, assessment, and plan of care. Objective - Vital Signs Vital signs: Vital Signs Temp 96.9 F L 05/25/23 07:20 Pulse 87 05/25/23 07:20 Resp 16 05/25/23 07:20 BP 104/72 05/25/23 07:20 Pulse Ox 98 05/25/23 07:20 FiO2 Intake & Output 05/24/23 05/25/23 05/25/23 18:59 06:59 18:59 Intake Total 920 240 120 Output Total 640 600 Balance 280 -360 120 Weight 58.967 kg Intake: Intake, IV Titration 200 Amount Cefepime 1 gm In Sodium 50 Chloride 0.9% 50 ml @ 12. 5 mls/hr IVPB Q12HR TARIQ Rx#:[id number] Dextrose 5% in Water 1, 150 000 ml @ 50 mls/hr IV . Q23H TARIQ with Sodium Bicarb (1 Meq/ml) 150 ml Rx#:[id number] Oral 720 240 120 Output: Chest Tube Drainage 640 600 Pleural Catheter Right 640 600 Lower Anterior Chest Other: Voiding Method Bedside Commode Bedside Commode # Voids 2 - Labs CBC & Chem 7: 05/25/23 09:23 05/25/23 09:23 Labs: Abnormal Lab Results - Last 24 Hours (Table) 05/24/23 05/25/23 05/25/23 Range/Units 06:35 09:23 09:23 WBC 20.0 H (3.8-10.6) k/uL RBC 3.19 L (3.80-5.40) m/uL Hgb 9.6 L D (11.4-16.0) gm/dL Hct 28.9 L (34.0-46.0) % Plt Count 506 H (150-450) k/uL Neutrophils # 18.0 H (1.3-7.7) k/uL Neutrophils # (Manual) 17.53 H (1.80-7.70) X 10*3/uL Lymphocytes # 0.8 L (1.0-4.8) k/uL Eosinophils # (Manual) 0.38 H (0.04-0.35) X 10*3/uL Crenated Cell 2+ A Sodium 118 L* (137-145) mmol/L Chloride 83 L (98-107) mmol/L Carbon Dioxide 21 L (22-30) mmol/L BUN 65 H (7-17) mg/dL Creatinine 1.89 H (0.52-1.04) mg/dL Glucose 201 H (74-99) mg/dL Calcium 6.8 L (8.4-10.2) mg/dL Total Protein 4.3 L (6.3-8.2) g/dL Albumin 2.1 L (3.5-5.0) g/dL Microbiology - Last 24 Hours (Table) 05/24/23 12:30 Gram Stain - Preliminary Pleural Fluid Body Fluid Culture - Preliminary 05/22/23 16:08 Blood Culture - Preliminary Blood
--- NOTE | 2023-05-25 12:03 | CA ---
Transthoracic Echo Report Name: Harleen Santana Age: 67 Gender: F : 1955 Exam Date: 05/25/2023 10:57 Exam Location: [facility] Ht (in): 61 Wt (lb): 130 Ordering Physician: Priti Whiting Attending/Referring Phys: [id number], Henok Caramel Coloring Operator Douglas Fountain Procedure CPT: Indications: r/o effusion Cardiac Hx: Technical Quality: Fair Contrast 1: Total Dose (mL): Contrast 2: Total Dose (mL): MEASUREMENTS (Male / Female) Normal Values FINDINGS Left Ventricle Right Ventricle Right Atrium Left Atrium Mitral Valve Aortic Valve Tricuspid Valve Pulmonic Valve Pericardium Normal pericardium. Aorta CONCLUSIONS No evidence of pericardial effusion. Previewed by: Dr. Remy Hung MD (Electronically Signed) Final Date: 25 May 2023 12:02
[2023-05-25] MEDS ORDERED: DAPTOmycin 350 MG in SODIUM CHLORIDE 0.9% 50 ML IVPB SCH (14:00)
--- NOTE | 2023-05-25 14:01 | P.PN ---
Subjective Progress Note Date: 05/25/23 Patient is resting comfortably in bed. S/p Pleurx placement. Patient is reports worsening SOB and CP overnight, and nausea. Persisting fatigue and weakness Objective - Vital Signs Vital signs: Vital Signs Temp 96.9 F L 05/25/23 07:20 Pulse 87 05/25/23 07:20 Resp 12 05/25/23 11:55 BP 104/72 05/25/23 07:20 Pulse Ox 98 05/25/23 07:20 FiO2 Intake & Output 05/24/23 05/25/23 05/25/23 18:59 06:59 18:59 Intake Total 920 240 120 Output Total 640 600 Balance 280 -360 120 Weight 58.967 kg Intake: Intake, IV Titration 200 Amount Cefepime 1 gm In Sodium 50 Chloride 0.9% 50 ml @ 12. 5 mls/hr IVPB Q12HR TARIQ Rx#:[id number] Dextrose 5% in Water 1, 150 000 ml @ 50 mls/hr IV . Q23H TARIQ with Sodium Bicarb (1 Meq/ml) 150 ml Rx#:[id number] Oral 720 240 120 Output: Chest Tube Drainage 640 600 Pleural Catheter Right 640 600 Lower Anterior Chest Other: Voiding Method Bedside Commode Bedside Commode # Voids 2 - Constitutional General appearance: Present: average body habitus, no acute distress - EENT ENT: Present: hearing grossly normal - Respiratory Details: breathing mildly labored - Cardiovascular Details: skin warm and dry - Integumentary Integumentary: Absent: cyanotic - Musculoskeletal Musculoskeletal: Present: generalized weakness - Psychiatric Psychiatric: Present: A&O x's 3 - Labs CBC & Chem 7: 05/25/23 09:23 05/25/23 09:23 Labs: Abnormal Lab Results - Last 24 Hours (Table) 05/24/23 05/25/23 05/25/23 Range/Units 06:35 09:23 09:23 WBC 20.0 H (3.8-10.6) k/uL RBC 3.19 L (3.80-5.40) m/uL Hgb 9.6 L D (11.4-16.0) gm/dL Hct 28.9 L (34.0-46.0) % Plt Count 506 H (150-450) k/uL Neutrophils # 18.0 H (1.3-7.7) k/uL Neutrophils # (Manual) 17.53 H (1.80-7.70) X 10*3/uL Lymphocytes # 0.8 L (1.0-4.8) k/uL Sodium 118 L* (137-145) mmol/L Chloride 83 L (98-107) mmol/L Carbon Dioxide 21 L (22-30) mmol/L BUN 65 H (7-17) mg/dL Creatinine 1.89 H (0.52-1.04) mg/dL Glucose 201 H (74-99) mg/dL Calcium 6.8 L (8.4-10.2) mg/dL Total Protein 4.3 L (6.3-8.2) g/dL Albumin 2.1 L (3.5-5.0) g/dL Microbiology - Last 24 Hours (Table) 05/24/23 12:30 Gram Stain - Preliminary Pleural Fluid Body Fluid Culture - Preliminary 05/22/23 16:08 Blood Culture - Preliminary Blood Assessment and Plan (1) Pleural effusion Current Visit: Yes Status: Acute Priority: High Code(s): J90 - PLEURAL EFFUSION, NOT ELSEWHERE CLASSIFIED SNOMED Code(s): 71724808 (2) Pulmonary nodules Current Visit: Yes Status: Acute Code(s): R91.8 - OTHER NONSPECIFIC ABNORMAL FINDING OF LUNG FIELD SNOMED Code(s): 591517010 (3) Vaginal cancer Current Visit: Yes Status: Acute Priority: High Code(s): C52 - MALIGNANT NEOPLASM OF VAGINA SNOMED Code(s): 538527245 (4) STEPH (acute kidney injury) Current Visit: Yes Status: Acute Priority: High Code(s): N17.9 - ACUTE KIDNEY FAILURE, UNSPECIFIED SNOMED Code(s): 56572270 Plan: Lung nodules/Pleural effusion: -Chest CTA on 05/12 Revealed multiple round mass lesions scattered throughout the left lung measuring up to 1.7 cm in diameter. Multiple pulmonary nodules in the remaining aerated right lung as well as rounded areas of decreased enhancement in the atelectatic right lower lobe and right middle lobe. Large right pleural effusion was also noted. Discussed with patient scan findings and concern of recurrence of disease -Patient underwent right sided thoracentesis on 05/13, with 1.2 L of serosanguineous fluid drained. Cytology negative for malignancy -Upon admission chest x-ray revealed progressive findings in the right lung with near complete opacification now noted. Multiple left-sided pulmonary masses. Cardiothoracic surgery consulted, and Pleurx drain was placed on 05/18 with 4L removed. Repeat cytology negative for malignancy -CT AP and bone scan obtained to complete staging. CT abdomen pelvis revealed abnormal attenuation in the region of the vagina. No evidence for metastatic disease to the abdomen or pelvis. Bone scan negative for osteoblastic metastatic disease. 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 Any treatment would be designed to prevent further disease progression and treat lesions already visualized -At this time, she notes she is unsure if she would want to proceed with additional chemotherapy -We previously discussed sending NGS and PD-L1 from diagnostic tissue specimen in addition to obtaining circulating tumor DNA from the peripheral blood -Since our previous discussion, she's had progressive clinical decline with weakness and nausea due to hyponatremia and progressive STEPH -Discussed with patient at todays visit, that repeat cytology was again negative, and that a biopsy of left lung mass could be obtained to confirm diagnosis, but would be on hold at this time, as pulm does not feel like she is a good candidate for bronch at this time. Patient verbalized that she does not want to pursue any further testing and is not interested in any further systemic treatment. Hospice/palliative care was discussed with patient and she wishes to pursue hospice/comfort care. Hospice consult was placed. Instructed pt that if she has further questions, concerns or needs any further assistance from our service to please do not hesitate to call our office Vaginal Cancer: -Full oncological history in consult HPI -Completed concurrent chemo/RT in 02/2023 and brachytherapy in 03/2023. Pt was scheduled for repeat MRI pelvis and PET CT in 06/2023 -Clinically, she appears to have metastatic disease with multiple metastases to the lungs with right pleural effusion -Hospice being pursued as above Attests: I have seen and examined pt, performed H&P, developed impression and plan of care. Discussed with dictator. Agree with documentation, dictated as a scribe.
[2023-05-25] MEDS: SODIUM CHLORIDE 0.45% 1,000 ML with SODIUM BICARB (1 MEQ/ML) 150 ML IV SCH ×2 (15:26)
--- NOTE | 2023-05-25 18:10 | P.PN ---
Subjective Progress Note Date: 05/25/23 I am seeing this patient in consultation today 05/17/2023 on the general medical floor after she returned with shortness of breath and a recurrent large right- sided pleural effusion. Patient is a 67-year-old white female with past medical history significant for hypertension, hyperlipidemia, and vaginal cancer. Vaginal cancer recently diagnosed November, and she underwent a combination of radiation and chemotherapy followed by brachytherapy. Patient did have a recent hospital admission back on May 13 for similar symptoms and right lower back pain. She was found to have a moderate to large size right-sided pleural effusion. Chest CTA demonstrated multiple pulmonary nodules throughout the left lung measuring up to 1.7 cm consistent with metastatic neoplasms. There were also multiple pulmonary nodules within the right lung and a large right-sided pleural effusion. Patient did undergo right sided thoracentesis that day, and had a total of 1.2 L of serosanguineous fluid drained. Cytology is still pending. Patient is currently sitting up in bed, on room air, in no acute distress. She does endorse shortness of breath especially with exertion and an occasional cough with minimal sputum production. Denies any fevers, hemoptysis. Denies any sick contacts. Chest x-ray demonstrated a recurrent large right- sided pleural effusion. Underlying consolidation and obstructive neoplasm not excluded. Multiple pulmonary nodules were again appreciated on the left. CBC on arrival shows a WBC count 11.5, hemoglobin 11.8, hematocrit 35.9, platelets 404. BMP on arrival shows sodium 133, potassium 4.4, chloride 103, serum bicarb 20, BUN 31, creatinine 0.97, glucose 119. Pain is reportedly well managed. The patient is seen today 05/18/2023 in follow-up on the regular medical floor. She is currently sitting up in bed. Awake and alert in no acute distress. She is maintaining good O2 saturations in the 90s on 2 L/m nasal cannula. She did undergo a right-sided Pleurx catheter placement this morning. 4 L of fluid removed. Follow-up chest x-ray shows significant decrease in the previously seen large right pleural effusion. Pulmonary nodules and masses are seen within the left lung. Unchanged. Nuclear bone scan revealed no osteoblastic metastatic disease. Computed tomography scan of the abdomen and pelvis revealed no metastatic disease noted. White count 10.8. Hemoglobin 10.1. Let's 441. Sodium 134. Potassium 5.8. BUN 50. Creatinine 2.9. Glucose 123. AST 11. ALT 11. Pro-calcitonin was 0.22. The patient is seen today 05/19/2023 in follow-up on the regular medical floor. She is awake and alert in no acute distress. She is maintaining O2 saturations in the low 90s on 3 L/m per nasal cannula. She's afebrile. Pleural fluid cytology pending. Chest x-ray reveals a right basilar pleural catheter in place. Right-sided chest tube had been removed. There is increased right basilar effusion. Underlying infiltrate or mass suspected. Multiple left-sided pulmonary nodules redemonstrated. White count 9.5. Hemoglobin 9.8. Platelets 396. She is continued on heparin for DVT prophylaxis. The patient is seen today 05/20/2023 in follow-up on the regular medical floor. She is currently resting in bed. Awake and alert in no acute distress. She is having some catheter insertion site discomfort and some back pain. She is currently maintaining good O2 saturations in the 90s on 3 L/m per nasal cannula. Afebrile. Hemodynamically stable. Chest x-ray reveals right thoracotomy tube in place without evidence of pneumothorax. There is a large right pleural effusion with associated atelectasis. Sodium 128. Potassium 5.0. Bicarb 22. BUN 39. Creatinine 1.06. Glucose 104. She is continued on oral diuretics. Heparin for DVT prophylaxis. The patient is seen today 05/21/2023 in follow-up on the regular medical floor. She is awake and alert in no acute distress. Feeling a bit better today compared to yesterday. Dating she slept well. She is maintaining O2 saturations in the 90s on 2 L/m per nasal cannula. She has normal saline at KVO. Right-sided Pleurx catheter remains in place. Another 3.7 L drained in the past 24 hours. Chest x-ray showing improved aeration. White count 14.5. Hemoglobin 11.7. Platelets 563. She is continued on oral diuretics. Heparin for DVT prophylaxis. The patient is seen today 05/22/2023 in follow-up on the regular medical floor. She is resting comfortably in bed. Awake and alert in no acute distress. Maintaining O2 saturation in the 90s on 2 L/m per nasal cannula. No IV fluids. She drained another 2.3 L from the Pleurx catheter. X-ray reveals minimal right pleural effusion. White count 15.5. Hemoglobin 12.2. Platelets 586. She remains on diuretics. Heparin for DVT prophylaxis. On today's evaluation of 05/23/2023, the patient is doing well. No specific complaints. She still has active drainage from the right-sided Pleurx catheter. The catheter drained more than 700 mL over the past 8 hours. No evidence of any pneumothorax. The chest x-ray shows bilateral pulmonary nodules consistent with metastatic disease. The second sample of the pleural fluid analysis was sent and the results are still pending for now.Other complaints otherwise. The echoes at 17.3, hemoglobin is 11.8, sodium is 121, potassium levels at 6.3, BUN is at 53 with a creatinine of 1.97. The patient is also is being offered fluid restriction. Nephrology is aware of the hyperkalemia and the patient is receiving lokelma and she also received D50 insulin and a potassium still pe nding for now. Serum bicarb is at 18. On 05/24/2023, the patient is being seen for a follow-up. The patient continues to have increased output from the Pleurx catheter on the right. Output has been more than a liter over the past 24 hours. She is on room air oxygen. She was weak and dizzy last night. She had difficulty with mobility. At the same time, she has ongoing issues with renal failure. Sodium level is at 121, potassium level is at 5.6, chloride is 88 and the BUN is 56 with a creatinine of 2.1. Nephrology is on the case and the patient was given treatment for hyperkalemia. The patient was given D50 with insulin. The patient was given Talvaptan 15 milligrams by mouth. The patient was also started on bicarb 650 mg by mouth twice a day and salt tablets. She is also midodrine 5 mg by mouth 3 times a day. The white cell count remains elevated. The patient is on empiric antibiotic coverage with cefepime. On today's evaluation. 2022, the patient continues to have a high output from the Pleurx catheter in the right. Output is slightly bloody. Pleural fluid cytology was negative for malignancy on 2 separate occasions. Nevertheless, the patient has metastatic lesions throughout his lungs bilaterally. She is feeling weak, debilitated, poor appetite, is dizzy and she had difficulties with mobility. She is on room air oxygen with a pulse ox of 94%. She is afebrile. Meanwhile, in regards to her hemoglobin is at 9.6 with a white cell count of 20. Sodium level is at 218 with a BUN of 65 and a creatinine of 1.8 which is slightly improved compared to yesterday. However, there is a drop in the sodium level from 121 down to 180. BUN is at 65 and a creatinine of 1.8. LFTs are normal. Troponins are negative. Serum albumin is at 2.1 with a protein of 4.3. The patient is currently on normal saline at 50 mL an hour. The patient is also on bicarb 650 mg by mouth twice a day. The patient was taken off the bicarb infusion. Antibiotic coverage is a combination of cefepime and daptomycin. Daptomycin was added by infectious disease due to her persistent leukocytosis. Note that the cultures are all negative and this includes the cultures from the pleural fluid on the right. A limited echocardiogram was done and the patient had no evidence of any pericardial effusion or tamponade. Objective - Vital Signs Vital signs: Vital Signs Temp 97.5 F L 05/25/23 14:54 Pulse 95 05/25/23 14:54 Resp 16 05/25/23 14:54 BP 94/65 05/25/23 14:54 Pulse Ox 94 L 05/25/23 14:54 FiO2 Intake & Output 05/24/23 05/25/23 05/25/23 18:59 06:59 18:59 Intake Total 920 240 120 Output Total 640 600 Balance 280 -360 120 Weight 58.967 kg Intake: Intake, IV Titration 200 Amount Cefepime 1 gm In Sodium 50 Chloride 0.9% 50 ml @ 12. 5 mls/hr IVPB Q12HR [facility] Rx#:[id number] Dextrose 5% in Water 1, 150 000 ml @ 50 mls/hr IV . Q23H [facility]IQ with Sodium Bicarb (1 Meq/ml) 150 ml Rx#:[id number] Oral 720 240 120 Output: Chest Tube Drainage 640 600 Pleural Catheter Right 640 600 Lower Anterior Chest Other: Voiding Method Bedside Commode Bedside Commode # Voids 2 - Exam GENERAL EXAM: Awake, 67-year-old female, on 2 L nasal cannula, in no apparent distress. HEAD: Normocephalic and atraumatic EYES: Normal reaction of pupils, equal size. NOSE: Clear with pink turbinates. THROAT: No erythema or exudates. NECK: No masses, no JVD. CHEST: No chest wall deformity. Right chest Pleurx catheter in place. LUNGS: Diminished right lung sounds with few crackles in the right base, no wheeze, rhonchi. No conversational dyspnea. CVS: S1 and S2 normal with no audible murmur, regular rhythm. No extra heart so unds ABDOMEN: No hepatosplenomegaly, active bowel sounds, no guarding or rigidity. SPINE: No scoliosis or deformity SKIN: No rashes CENTRAL NERVOUS SYSTEM: No focal deficits, tone is normal in all 4 extremities. EXTREMITIES: There is no peripheral edema, clubbing, or cyanosis. Peripheral pulses are intact. - Labs CBC & Chem 7: 05/25/23 09:23 05/25/23 09:23 Labs: Abnormal Lab Results - Last 24 Hours (Table) 05/24/23 05/25/23 05/25/23 Range/Units 06:35 09:23 09:23 WBC 20.0 H (3.8-10.6) k/uL RBC 3.19 L (3.80-5.40) m/uL Hgb 9.6 L D (11.4-16.0) gm/dL Hct 28.9 L (34.0-46.0) % Plt Count 506 H (150-450) k/uL Neutrophils # 18.0 H (1.3-7.7) k/uL Neutrophils # (Manual) 17.53 H (1.80-7.70) X 10*3/uL Lymphocytes # 0.8 L (1.0-4.8) k/uL Sodium 118 L* (137-145) mmol/L Chloride 83 L (98-107) mmol/L Carbon Dioxide 21 L (22-30) mmol/L BUN 65 H (7-17) mg/dL Creatinine 1.89 H (0.52-1.04) mg/dL Glucose 201 H (74-99) mg/dL Calcium 6.8 L (8.4-10.2) mg/dL Total Protein 4.3 L (6.3-8.2) g/dL Albumin 2.1 L (3.5-5.0) g/dL Microbiology - Last 24 Hours (Table) 05/24/23 12:30 Gram Stain - Preliminary Pleural Fluid Body Fluid Culture - Preliminary 05/22/23 16:08 Blood Culture - Preliminary Blood Assessment and Plan Plan: Acute dyspnea, secondary to recurrent large right-sided pleural effusion. Chest x-ray demonstrated a recurrent large right-sided pleural effusion. The patient is a Pleurx catheter.. Multiple pulmonary nodules were again appreciated on the left. The pleural fluid cytology came back negative on the second sample. Nevertheless, the patient has metastatic disease and she continues to have increase output from the right-sided Pleurx catheter. The pleural fluid drained approximately 2.5 L yesterday and today has already drained around 1.2 L. Fluid cytology is negative for malignancy. Multiple bilateral pulmonary nodules consistent with metastatic disease Recurrent right-sided pleural effusion, status post Pleurx catheter placement 05/18/2023, cytology 2 has been negative Acute kidney injury, hyponatremia, hyperkalemia, and a sodium level is still low at 118 and the creatinine is improving and is currently up to 1.89. Rule out a component of SIADH along with acute kidney injury Hyperkalemia secondary to above, improved Hypotension, echocardiogram shows no evidence of any pericardial effusion/tamponade Multiple bilateral pulmonary nodules, suspicious for metastatic disease History of vaginal cancer, diagnosed November, status/post chemotherapy and radiation therapy followed by brachytherapy. The CAT scan of the abdomen and pelvis revealed abnormal attenuation in the region of the vagina. No adnexal masses seen. No evidence of metastatic disease to the abdomen or pelvis. Benign essential hypertension Hyperlipidemia Never smoker Plan: Monitor the output from the chest tube, continues to have high output Continue normal saline Monitor sodium level Monitor potassium Nephrology regarding management of renal failure and hyperkalemia management Not stable enough for any form of lung biopsy at this point in time Heparin for DVT prophylaxis Increase her activity as tolerated Titrate down the FiO2 as tolerated, currently on room air oxygen As stated, the patient is not a good candidate for lung biopsy for confirmation of malignancy the pulmonary nodules. These are most likely metastatic lesions. The patient stated that she doesn't want to pursue any further treatment or diagnostic procedures. She is interested in hospice care. As such, no biopsy is scheduled this point in time. We will continue to follow
[2023-05-25] MEDS: ATORVASTATIN 20 MG TAB PO SCH (21:06)
[2023-05-26] MEDS: MORPHINE SULFATE 4 MG/ML SYRINGE IV PRN ×2 (05:04→12:48)
[2023-05-26] MEDS: ONDANSETRON 4 MG/2 ML VIAL IVP PRN ×2 (05:04→12:48)
[2023-05-26 07:48] VITALS: RESP 16
[2023-05-26] MEDS: HEPARIN SODIUM,PORCINE 5,000 UNIT/ML 1 ML VIAL SQ SCH ×2 (08:34→16:52)
[2023-05-26] MEDS: DOCUSATE 100 MG CAP PO SCH ×2 (08:34→09:44)
[2023-05-26] MEDS: SODIUM BICARBONATE TAB 650 MG TAB PO SCH (08:34)
[2023-05-26] MEDS: SERTRALINE 100 MG TAB PO SCH (08:34)
[2023-05-26] MEDS: LORATADINE 10 MG TAB PO SCH (08:34)
[2023-05-26] MEDS: CHOLECALCIFEROL 25 MCG (1000 IU) TABLET PO SCH (08:34)
[2023-05-26] MEDS: MULTIVITAMINS, THERA 1 EACH TAB PO SCH ×2 (08:34→09:44)
[2023-05-26] MEDS: MIDODRINE 5 MG TAB PO SCH ×3 (08:35→16:35)
[2023-05-26] MEDS: CEFEPIME 1 GM in SODIUM CHLORIDE 0.9% 50 ML IVPB SCH (08:35)
[2023-05-26] MEDS: NYSTATIN 100,000 UNIT/ML SUSP 500,000 UNIT/5 ML CUP PO SCH ×4 (08:35→16:52)
[2023-05-26] MEDS: SODIUM CHLORIDE TAB 1 GM TAB PO SCH ×2 (08:38→16:52)
[2023-05-26] MEDS: HYDROcodone/APAP 5-325MG 1 EACH TAB PO PRN (09:51)
[2023-05-26 11:49] LABS: Anion Gap 14 mmol/L; Blood Urea Nitrogen 75 mg/dL (7-17); Carbon Dioxide 22 mmol/L (22-30); Chloride 81 mmol/L (98-107); Glucose 150 mg/dL (74-99); Potassium 4.4 mmol/L (3.5-5.1)
[2023-05-26 11:55] LABS: African American GFR (CKD) 21 (>60 ml/min/1.73 sqM); Non-African American GFR(CKD) 18 (>60 ml/min/1.73 sqM)
[2023-05-26 12:02] LABS: Sodium 117 mmol/L (137-145)
[2023-05-26 12:03] LABS: Calcium 6.4 mg/dL (8.4-10.2)
--- NOTE | 2023-05-26 12:46 | P.PN ---
Subjective Patient is seen for follow-up for acute kidney injury. 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 No significant complaints today except for weakness. Patient has decided to proceed with hospice care. Labs from this morning showed sodium 117 and serum creatinine worse at 2.6 Objective - Vital Signs Vital signs: Vital Signs Temp 96.9 F L 05/26/23 07:29 Pulse 85 05/26/23 07:29 Resp 16 05/26/23 07:29 BP 96/62 05/26/23 07:29 Pulse Ox 95 05/26/23 07:29 FiO2 Intake & Output 05/25/23 05/26/23 05/26/23 18:59 06:59 18:59 Intake Total 960 Output Total 600 500 Balance 360 -500 Intake: Oral 960 Output: Chest Tube Drainage 600 500 Pleural Catheter Right 600 500 Lower Anterior Chest Other: Voiding Method Bedside Commode Bedside Commode # Voids 1 - Exam Patient is awake, comfortable, no acute distress Examination of lower extremities shows no significant edema UR COORDINATOR exam grossly intact - Labs CBC & Chem 7: 05/25/23 09:23 05/26/23 10:34 Labs: Abnormal Lab Results - Last 24 Hours (Table) 05/26/23 Range/Units 10:34 Sodium 117 L* (137-145) mmol/L Chloride 81 L (98-107) mmol/L BUN 75 H (7-17) mg/dL Creatinine 2.60 H (0.52-1.04) mg/dL Glucose 150 H (74-99) mg/dL Calcium 6.4 L* (8.4-10.2) mg/dL Microbiology - Last 24 Hours (Table) 05/24/23 12:30 Gram Stain - Preliminary Pleural Fluid Body Fluid Culture - Preliminary 05/22/23 16:08 Blood Culture - Preliminary Blood Assessment and Plan Assessment: 1. Acute kidney injury secondary to ATN secondary to hypotension. Also received IV contrast on 05/18/2023. Creatinine peaked at 2.9 this admission and is down to 1.0 but started to increase again. No hydronephrosis noted on kidney ultrasound. blood pressure had been low but now improved 2. Recurrent right lung pleural effusion with concern for malignancy. Status post Pleurx catheter placement. 3. Vaginal cancer with concern for metastatic disease. 4. Hyponatremia from poor solute intake. IV fluids discontinued and status post IV Lasix on 05/20/2023. Urine sodium less than 20, urine osmolality 567 5. Hyperkalemia, associated with worsening renal function. No evidence of obstruction noted on CAT scan. Blood sugar is not elevated. Possible component of constipation contributing to hyperkalemia as well. Plan: We will sign off
[2023-05-26] MEDS: SODIUM CHLORIDE 0.45% 1,000 ML with SODIUM BICARB (1 MEQ/ML) 150 ML IV SCH ×2 (13:20)
[2023-05-26 14:15] VITALS: PULSE 89; TEMP 96.6
[2023-05-26 15:27] VITALS: BP 86/58
[2023-05-26] MEDS ORDERED: MORPHINE SULFATE 4 MG/ML SYRINGE IV PRN (15:49)
--- NOTE | 2023-05-26 16:43 | P.PN ---
Subjective Progress Note Date: 05/26/23 I am seeing this patient in consultation today 05/17/2023 on the general medical floor after she returned with shortness of breath and a recurrent large right- sided pleural effusion. Patient is a 67-year-old white female with past medical history significant for hypertension, hyperlipidemia, and vaginal cancer. Vaginal cancer recently diagnosed November, and she underwent a combination of radiation and chemotherapy followed by brachytherapy. Patient did have a recent hospital admission back on May 13 for similar symptoms and right lower back pain. She was found to have a moderate to large size right-sided pleural effusion. Chest CTA demonstrated multiple pulmonary nodules throughout the left lung measuring up to 1.7 cm consistent with metastatic neoplasms. There were also multiple pulmonary nodules within the right lung and a large right-sided pleural effusion. Patient did undergo right sided thoracentesis that day, and had a total of 1.2 L of serosanguineous fluid drained. Cytology is still pending. Patient is currently sitting up in bed, on room air, in no acute distress. She does endorse shortness of breath especially with exertion and an occasional cough with minimal sputum production. Denies any fevers, hemoptysis. Denies any sick contacts. Chest x-ray demonstrated a recurrent large right- sided pleural effusion. Underlying consolidation and obstructive neoplasm not excluded. Multiple pulmonary nodules were again appreciated on the left. CBC on arrival shows a WBC count 11.5, hemoglobin 11.8, hematocrit 35.9, platelets 404. BMP on arrival shows sodium 133, potassium 4.4, chloride 103, serum bicarb 20, BUN 31, creatinine 0.97, glucose 119. Pain is reportedly well managed. The patient is seen today 05/18/2023 in follow-up on the regular medical floor. She is currently sitting up in bed. Awake and alert in no acute distress. She is maintaining good O2 saturations in the 90s on 2 L/m nasal cannula. She did undergo a right-sided Pleurx catheter placement this morning. 4 L of fluid removed. Follow-up chest x-ray shows significant decrease in the previously seen large right pleural effusion. Pulmonary nodules and masses are seen within the left lung. Unchanged. Nuclear bone scan revealed no osteoblastic metastatic disease. Computed tomography scan of the abdomen and pelvis revealed no metastatic disease noted. White count 10.8. Hemoglobin 10.1. Let's 441. Sodium 134. Potassium 5.8. BUN 50. Creatinine 2.9. Glucose 123. AST 11. ALT 11. Pro-calcitonin was 0.22. The patient is seen today 05/19/2023 in follow-up on the regular medical floor. She is awake and alert in no acute distress. She is maintaining O2 saturations in the low 90s on 3 L/m per nasal cannula. She's afebrile. Pleural fluid cytology pending. Chest x-ray reveals a right basilar pleural catheter in place. Right-sided chest tube had been removed. There is increased right basilar effusion. Underlying infiltrate or mass suspected. Multiple left-sided pulmonary nodules redemonstrated. White count 9.5. Hemoglobin 9.8. Platelets 396. She is continued on heparin for DVT prophylaxis. The patient is seen today 05/20/2023 in follow-up on the regular medical floor. She is currently resting in bed. Awake and alert in no acute distress. She is having some catheter insertion site discomfort and some back pain. She is currently maintaining good O2 saturations in the 90s on 3 L/m per nasal cannula. Afebrile. Hemodynamically stable. Chest x-ray reveals right thoracotomy tube in place without evidence of pneumothorax. There is a large right pleural effusion with associated atelectasis. Sodium 128. Potassium 5.0. Bicarb 22. BUN 39. Creatinine 1.06. Glucose 104. She is continued on oral diuretics. Heparin for DVT prophylaxis. The patient is seen today 05/21/2023 in follow-up on the regular medical floor. She is awake and alert in no acute distress. Feeling a bit better today compared to yesterday. Dating she slept well. She is maintaining O2 saturations in the 90s on 2 L/m per nasal cannula. She has normal saline at KVO. Right-sided Pleurx catheter remains in place. Another 3.7 L drained in the past 24 hours. Chest x-ray showing improved aeration. White count 14.5. Hemoglobin 11.7. Platelets 563. She is continued on oral diuretics. Heparin for DVT prophylaxis. The patient is seen today 05/22/2023 in follow-up on the regular medical floor. She is resting comfortably in bed. Awake and alert in no acute distress. Maintaining O2 saturation in the 90s on 2 L/m per nasal cannula. No IV fluids. She drained another 2.3 L from the Pleurx catheter. X-ray reveals minimal right pleural effusion. White count 15.5. Hemoglobin 12.2. Platelets 586. She remains on diuretics. Heparin for DVT prophylaxis. On today's evaluation of 05/23/2023, the patient is doing well. No specific complaints. She still has active drainage from the right-sided Pleurx catheter. The catheter drained more than 700 mL over the past 8 hours. No evidence of any pneumothorax. The chest x-ray shows bilateral pulmonary nodules consistent with metastatic disease. The second sample of the pleural fluid analysis was sent and the results are still pending for now.Other complaints otherwise. The echoes at 17.3, hemoglobin is 11.8, sodium is 121, potassium levels at 6.3, BUN is at 53 with a creatinine of 1.97. The patient is also is being offered fluid restriction. Nephrology is aware of the hyperkalemia and the patient is receiving lokelma and she also received D50 insulin and a potassium still pe nding for now. Serum bicarb is at 18. On 05/24/2023, the patient is being seen for a follow-up. The patient continues to have increased output from the Pleurx catheter on the right. Output has been more than a liter over the past 24 hours. She is on room air oxygen. She was weak and dizzy last night. She had difficulty with mobility. At the same time, she has ongoing issues with renal failure. Sodium level is at 121, potassium level is at 5.6, chloride is 88 and the BUN is 56 with a creatinine of 2.1. Nephrology is on the case and the patient was given treatment for hyperkalemia. The patient was given D50 with insulin. The patient was given Talvaptan 15 milligrams by mouth. The patient was also started on bicarb 650 mg by mouth twice a day and salt tablets. She is also midodrine 5 mg by mouth 3 times a day. The white cell count remains elevated. The patient is on empiric antibiotic coverage with cefepime. On today's evaluation. 2022, the patient continues to have a high output from the Pleurx catheter in the right. Output is slightly bloody. Pleural fluid cytology was negative for malignancy on 2 separate occasions. Nevertheless, the patient has metastatic lesions throughout his lungs bilaterally. She is feeling weak, debilitated, poor appetite, is dizzy and she had difficulties with mobility. She is on room air oxygen with a pulse ox of 94%. She is afebrile. Meanwhile, in regards to her hemoglobin is at 9.6 with a white cell count of 20. Sodium level is at 218 with a BUN of 65 and a creatinine of 1.8 which is slightly improved compared to yesterday. However, there is a drop in the sodium level from 121 down to 180. BUN is at 65 and a creatinine of 1.8. LFTs are normal. Troponins are negative. Serum albumin is at 2.1 with a protein of 4.3. The patient is currently on normal saline at 50 mL an hour. The patient is also on bicarb 650 mg by mouth twice a day. The patient was taken off the bicarb infusion. Antibiotic coverage is a combination of cefepime and daptomycin. Daptomycin was added by infectious disease due to her persistent leukocytosis. Note that the cultures are all negative and this includes the cultures from the pleural fluid on the right. A limited echocardiogram was done and the patient had no evidence of any pericardial effusion or tamponade. On today's evaluation of 05/26/2023, the patient is doing extremely poorly. There is active drainage from the right-sided Pleurx catheter. The patient is weak and lethargic. The patient has to hyponatremia with a sodium level CXVII. The patient developed an acute kidney injury with a creatinine of 2.6 and a BUN of 75. Family is at the bedside and they're interested in hospice care. She is currently on 2 L of Oxymizer nasal cannula with pulse ox of 96%. No apparent signs of respiratory distress. She is getting progressively more weak. Objective - Vital Signs Vital signs: Vital Signs Temp 96.6 F L 05/26/23 13:41 Pulse 89 05/26/23 13:41 Resp 16 05/26/23 13:41 BP 86/58 05/26/23 15:11 Pulse Ox 96 05/26/23 13:41 FiO2 Intake & Output 05/25/23 05/26/23 05/26/23 18:59 06:59 18:59 Intake Total 960 701 Output Total 600 500 Balance 360 201 Intake: Oral 960 701 Output: Chest Tube Drainage 600 500 Pleural Catheter Right 600 500 Lower Anterior Chest Other: Voiding Method Bedside Commode Bedside Commode # Voids 1 1 - Exam GENERAL EXAM: Awake, 67-year-old female, on 2 L nasal cannula, in no apparent distress. HEAD: Normocephalic and atraumatic EYES: Normal reaction of pupils, equal size. NOSE: Clear with pink turbinates. THROAT: No erythema or exudates. NECK: No masses, no JVD. CHEST: No chest wall deformity. Right chest Pleurx catheter in place. LUNGS: Diminished right lung sounds with few crackles in the right base, no wheeze, rhonchi. No conversational dyspnea. CVS: S1 and S2 normal with no audible murmur, regular rhythm. No extra heart magnolia nds ABDOMEN: No hepatosplenomegaly, active bowel sounds, no guarding or rigidity. SPINE: No scoliosis or deformity SKIN: No rashes CENTRAL NERVOUS SYSTEM: No focal deficits, tone is normal in all 4 extremities. EXTREMITIES: There is no peripheral edema, clubbing, or cyanosis. Peripheral pulses are intact. - Labs CBC & Chem 7: 05/25/23 09:23 05/26/23 10:34 Labs: Abnormal Lab Results - Last 24 Hours (Table) 05/26/23 Range/Units 10:34 Sodium 117 L* (137-145) mmol/L Chloride 81 L (98-107) mmol/L BUN 75 H (7-17) mg/dL Creatinine 2.60 H (0.52-1.04) mg/dL Glucose 150 H (74-99) mg/dL Calcium 6.4 L* (8.4-10.2) mg/dL Microbiology - Last 24 Hours (Table) 05/24/23 12:30 Gram Stain - Preliminary Pleural Fluid Body Fluid Culture - Preliminary 05/22/23 16:08 Blood Culture - Preliminary Blood Assessment and Plan Plan: Acute dyspnea, secondary to recurrent large right-sided pleural effusion. Chest x-ray demonstrated a recurrent large right-sided pleural effusion. The patient is a Pleurx catheter.. Multiple pulmonary nodules were again appreciated on the left. The pleural fluid cytology came back negative on the second sample. Nevertheless, the patient has metastatic disease and she continues to have increase output from the right-sided Pleurx catheter. The pleural fluid drained approximately 2.5 L yesterday and today has already drained around 1.2 L. Fluid cytology is negative for malignancy. The drainage from the right-sided tube is quite active this point in time. Multiple bilateral pulmonary nodules consistent with metastatic disease Recurrent right-sided pleural effusion, status post Pleurx catheter placement 05/18/2023, cytology 2 has been negative Acute kidney injury, hyponatremia, hyperkalemia, and a sodium level is still low at 118 and the creatinine is improving and is currently up to 1.89. Rule out a component of SIADH along with acute kidney injury Hyperkalemia secondary to above, improved Hypotension, echocardiogram shows no evidence of any pericardial ef fusion/tamponade Multiple bilateral pulmonary nodules, suspicious for metastatic disease History of vaginal cancer, diagnosed November, status/post chemotherapy and radiation therapy followed by brachytherapy. The CAT scan of the abdomen and pelvis revealed abnormal attenuation in the region of the vagina. No adnexal masses seen. No evidence of metastatic disease to the abdomen or pelvis. Benign essential hypertension Hyperlipidemia Never smoker Plan: Progressive worsening renal function secondary to HPI Monitor the output from the chest tube, continues to have high output As stated, the patient is not a good candidate for lung biopsy for confirmation of malignancy the pulmonary nodules. These are most likely metastatic lesions. The patient stated that she doesn't want to pursue any further treatment or diagnostic procedures. She is interested in hospice care. As such, no biopsy is scheduled this point in time. Patient family understands in hospice care.
[2023-05-27] MEDS ORDERED: DAPTOmycin 350 MG in SODIUM CHLORIDE 0.9% 50 ML IVPB SCH (12:00)
--- NOTE | 2023-05-28 10:54 | P.DS ---
Providers Date of admission: 05/17/23 12:59 Expected date of discharge: 05/26/23 Attending physician: Bernie Jose Consults: 05/16/23 15:35 Consult Physician Urgent Consulting Provider: Aren Roberson Consult Reason/Comments: Pleural effusion Do you want consulting provider notified?: Yes 05/16/23 17:15 Consult Physician Routine Consulting Provider: Hitesh Orozco Consult Reason/Comments: history of vaginal cancer Do you want consulting provider notified?: Yes 05/17/23 08:31 Consult Physician Routine Consulting Provider: Prosper Langford Consult Reason/Comments: Pleurx Do you want consulting provider notified?: Already Contacted 05/18/23 01:40 Consult Physician Stat Consulting Provider: Antonio Quiroga Consult Reason/Comments: hypotension Do you want consulting provider notified?: Already Contacted 05/19/23 12:21 Consult Physician Routine Consulting Provider: Owen Vazquez Consult Reason/Comments: STEPH Do you want consulting provider notified?: Yes 05/22/23 10:56 Consult Physician Routine Consulting Provider: Cindy Vance Consult Reason/Comments: Elevated white blood cell count Do you want consulting provider notified?: Yes Primary care physician: Emelia Whitney Hospital Course: Discharge diagnosis Worsening shortness of breath Recurrent pleural effusion Abnormal x-ray revealing multiple left-sided pulmonary masses History of malignant neoplasm of the vagina, patient received chemotherapy and radiation therapy in the past, possible metastatic disease to the lung at this time Underlying history of hypertension Underlying history of hyperlipidemia Underlying history of anxiety disorder Acute kidney injury. Nephrology services consulted Hyponatremia Leukocytosis. Infectious disease service is following patient remains on IV antibiotics Hospital course Harleen Santana, is a 67-year-old female who presented to [facility] emergency room with a chief complaint of worsening shortness of breath with concerns of recurrent pleural effusion patient was recently admitted and treated for pleural effusion with status post thoracentesis. Patient reports s he was DC'd home but developed increased shortness of breath over the past few days She was evaluated in the emergency room vital examination on presentation revealed patient having increased shortness of breath Laboratory data reveals WBC 11.5, creatinine 0.97 bun 31 Testing in the emergency room revealed chest x-ray revealed progressive findings in the right lung with near complete place case now representing examination of consolidation and pleural effusion obstructing neoplasm not excluded Patient was admitted to medical floor for further evaluation and treatment Past medical history is significant for vaginal cancer with treatment of chemo and radiation. Patient was recently admitted for pleural effusions status post thoracentesis. A On review of systems patient is alert and oriented 3. Patient reports shortness of breath. Patient denies chest pain. Patient denies nausea vomiting or diarrhea. Patient denies any urinary burning or frequency On 05/17/2023 patient is alert and oriented 3. Per pulmonary services consult placed for cardiothoracic surgery for possible Pleurx drain placement. Ultrasound of chest ordered. Current vital signs temp 97.4, heart rate 94, resp iratory rate 16, blood pressure 84/59 with a pulse ox of 97%. Patient reports shortness breath. Patient denies chest pain. Patient denies nausea vomiting or diarrhea. Patient denies any urinary burning or frequency On 05/18/2023 patient is alert and oriented 3 status post Pleurx catheter placement per cardiothoracic surgery. Bone scan ordered per oncology services. Patient reports improvement status post Pleurx catheter placement 4 L removed. Patient denies chest pain or shortness of breath. Patient denies nausea vomiting or diarrhea. Patient denies any urinary burning or frequency. On 05/19/2023 patient was seen and examined on to medical floor, she is alert and oriented 3 in no apparent distress there is no fever or chills no headache or dizziness no chest pain or shortness of breath has been improving there is occasional cough no nausea or vomiting no abdominal pain, she is complaining of constipation there is no urinary symptoms. On 05/20/2023 3 patient is alert and oriented 3. Patient reports improvement with shortness of breath or complaining of generalized pain and back. Awaiting nephrology input. Creatinine was increased to 2.9 but has improved to 1.06 p atient slightly hyponatremic at 128. Patient denies chest pain or shortness of breath. Patient denies nausea vomiting or diarrhea. Patient denies any urinary burning or frequency. Vital signs temp 97.6, heart rate 98, respiratory rate 20, blood pressure 121/80 with pulse ox 96% on 3 L On 05/21/2023 patient was seen and examined on the medical floor she is alert and oriented 3 in no apparent distress there is no fever or chills no headache or dizziness no chest pain she is still having some shortness of breath, there is occasional cough, right sided Pleurx catheter remains in place. There is no nausea or vomiting no abdominal pain no diarrhea no blood in the stools no burning with urination no frequency or urgency and no hematuria. On 05/22/2023 patient is alert and oriented 3. Patient reports she slightly feels improved today. Repeat CMP has been ordered patient was hyponatremic and hyperkalemic yesterday nephrology services are following. Pleurx catheter remains in place. Patient denies chest pain or shortness of breath. Patient denies nausea vomiting or diarrhea. Patient denies any urinary burning or frequency current vital signs temp 98.1, heart rate 94, respiratory rate 16, blood pressure 118/81 with pulse ox 97% on 2 L On 05/23/2023 patient was seen and examined on the medical floor she is alert and oriented 3 in no apparent distress there is no fever or chills no headache or dizziness no chest pain no shortness of breath she has occasional cough no nausea or vomiting no abdominal pain no diarrhea and no urinary symptoms temperature is 97.5 pulse 91 respirations 16 blood pressure 115/70 pulse ox 95% on room air white blood count is up to 17.38 sodium 121 potassium 6.3 BUN 53 creatinine 1.74, pulmonary, infectious disease, and nephrology are following. On 05/24/2023 patient is alert and oriented 3. Awaiting lab results. Patient reports she has been able to tolerate more oral intake. Vital signs temp 98.6, heart rate 91, blood pressure 108/79 respiratory 98% on room. Patient requesting to be DO NOT RESUSCITATE. This time patient denies chest pain or shortness of breath. Patient denies nausea vomiting or diarrhea. Patient denies any urinary burning or frequency On 05/25/2023 patient is alert and oriented 3. Blood cell continuing to increase to 20.0. Infectious disease service is following. Sodium critically low at 118. Creatinine 1.89 bun 65. Potassium 4.2 nephrology services following. Patient remains on IV Maxipime. Patient maintained on sodium bicarb sodium chloride tabs. On 05/26/2023 patient will be admitted to hospice care Gen. inpatient Plan - Discharge Summary Discharge Rx Participant: No New Discharge Prescriptions: No Action Multivitamins, Thera [Multivitamin (formulary)] 1 tab PO DAILY Loratadine [Claritin] 10 mg PO BID Cholecalciferol [Vitamin D3 (25 Mcg = 1000 Iu)] 25 mcg PO BID Calcium Carbonate [Calcium] 600 mg PO BID Benazepril HCl 20 mg PO DAILY HYDROcodone/APAP 5-325MG [[place] 5-325] 1 tab PO Q4HR Aspirin EC [Ecotrin Low Dose] 81 mg PO DAILY amLODIPine [Norvasc] 10 mg PO DAILY Simvastatin [Zocor] 40 mg PO HS Sertraline [Zoloft] 100 mg PO DAILY Discharge Medication List Aspirin EC [Ecotrin Low Dose] 81 mg PO DAILY 05/13/23 [History] Benazepril HCl 20 mg PO DAILY 05/13/23 [History] Calcium Carbonate [Calcium] 600 mg PO BID 05/13/23 [History] Cholecalciferol [Vitamin D3 (25 Mcg = 1000 Iu)] 25 mcg PO BID 05/13/23 [History] Loratadine [Claritin] 10 mg PO BID 05/13/23 [History] Multivitamins, Thera [Multivitamin (formulary)] 1 tab PO DAILY 05/13/23 [History] Sertraline [Zoloft] 100 mg PO DAILY 05/13/23 [History] Simvastatin [Zocor] 40 mg PO HS 05/13/23 [History] amLODIPine [Norvasc] 10 mg PO DAILY 05/13/23 [History] HYDROcodone/APAP 5-325MG [[place] 5-325] 1 tab PO Q4HR 05/16/23 [History] Follow up Appointment(s)/Referral(s): Emelia Whitney MD [Primary Care Provider] - 1-2 days [facility] [NON-STAFF] - 1 Week ([facility] will call you to arrange a visit) Prosper Langford MD [STAFF PHYSICIAN] - As Needed (Please call office for pleurx removal once drainage less than 50 mL for 3 times in a row) Activity/Diet/Wound Care/Special Instructions: PleurX discharge instructions: 1. Home Care is ordered, they will obtain new bottles. 2. May shower after 24 hours, no tub baths/hot tubs. 3. Do not drain more than 1 liter or 1000 mL in 24 hours. 4. New drainage bottle needed with each drainage. 5. Drainage frequency dictated by patient symptoms, may be every day, every other day, weekly, or however often the patient is symptomatic. 6. Please notify DRAIN TILE MACHINE OPERATOR or office if temperature >101F, excessive pain at insertion site, drainage consistency changes to cloudy or smells bad, catheter falls out, or anything else that concerns you. 7. Contact surgery office with weekly drainage amounts. May fax the amounts. 8. Once drainage is less than 50 mL three times in a row, notify the surgery office for possible removal. PLEASE SEND 2 OR 3 DRAIN KITS HOME WITH PATIENT. Surgery office: , fax Discharge Disposition: DISCH TO HOSPICE MED FACILTY
== END 2023-05-26 17:09 | disposition hospice, inpatient (51) | DRG 843 ==
LOC: EC 14:01 → 5NMEDONC 15:35 → OBSVTOIN 05-17 12:59
PROVIDERS: ADMIT Internal Medicine; ATTEND Internal Medicine
PROC: 0W9930Z Drainage of Right Pleural Cavity with Drainage Device, Percutaneous Approach (ICD-10-PCS; principal; 2023-05-18 09:45)
DX: C7B.8 Other secondary neuroendocrine tumors (principal); N17.0 Acute kidney failure with tubular necrosis; J91.8 Pleural effusion in other conditions classified elsewhere; E87.1 Hypo-osmolality and hyponatremia; J98.11 Atelectasis; C7A.1 Malignant poorly differentiated neuroendocrine tumors; I95.9 Hypotension, unspecified; Z66 Do not resuscitate; Z51.5 Encounter for palliative care; Z28.310 Unvaccinated for COVID-19; E78.5 Hyperlipidemia, unspecified; E87.5 Hyperkalemia; I10 Essential (primary) hypertension; I35.1 Nonrheumatic aortic (valve) insufficiency; F41.9 Anxiety disorder, unspecified; R26.9 Unspecified abnormalities of gait and mobility; M54.50 Low back pain, unspecified; Z79.82 Long term (current) use of aspirin; Z79.891 Long term (current) use of opiate analgesic; Z79.899 Other long term (current) drug therapy; I45.10 Unspecified right bundle-branch block; Z92.21 Personal history of antineoplastic chemotherapy; Z92.3 Personal history of irradiation; Z88.2 Allergy status to sulfonamides; Z88.8 Allergy status to other drugs, medicaments and biological substances
CPT/HCPCS: 71045; 71046; 74177; 76604; 78306; 80048; 80053; 82533; 83735; 83930; 83935; 84145; 84300; 84443; 84484; 85025; 85027; 86140; 86850; 86900; 86901; 87040; 87070; 87205; 88108; 88305; 88341; 88342; 93005; 93306; 93308; 94760; 96374; 99285

== ENCOUNTER 2023-05-26 17:12 | Inpatient (IN) | payer MEDICAID ==
[2023-05-26] MEDS ORDERED: DRY MOUTH SPRAY 44.3 SPRAY/44.3 ML SPRAY MUCOUS MEM PRN (17:14)
[2023-05-26] MEDS ORDERED: ACETAMINOPHEN SUPPOSITORY 650 MG SUPP RECTAL PRN (17:14)
[2023-05-26] MEDS ORDERED: METOCLOPRAMIDE 5 MG/ML 2 ML VIAL IVP PRN (17:14)
[2023-05-26] MEDS ORDERED: GLYCOPYRROLATE 0.2 MG/ML 2 ML VIAL IVP PRN (17:14)
[2023-05-26] MEDS ORDERED: MORPHINE SULFATE 4 MG/ML SYRINGE IV PRN (17:14)
[2023-05-26] MEDS ORDERED: ONDANSETRON 4 MG/2 ML VIAL IVP PRN (17:14)
[2023-05-26] MEDS ORDERED: ATROPINE OPHTH SOLN 1% 5ML BTL SUBLINGUAL PRN (17:14)
[2023-05-26] MEDS ORDERED: SCOPOLAMINE 1 MG/72 HR PATCH TRANSDERM SCH (17:30)
[2023-05-26] MEDS ORDERED: MORPHINE SULFATE (100 MG/2 ML) 100 MG in SODIUM CHLORIDE 0.9% 100 ML IV SCH (17:30)
[2023-05-26] MEDS: LORazepam 2 MG/ML INJ IV PRN ×2 (18:05→22:29)
--- NOTE | 2023-05-28 10:58 | P.HPIM ---
History of Present Illness H&P Date: 05/26/23 Devi Santana is a 67-year-old female who initially presented to [facility] with chief complaint of worsening shortness of breath. Patient has a history of recurrent pleural effusions with concerns of metastatic cancer. During hospital stay first catheter was placed. Patient has a significant past medical history of vaginal cancer with treatment of chemo and radiation patient was seen by oncology pulmonary infectious disease and nephrology services during hospital stay patient continuing to have declining kidney function and decreasing sodium levels. Patient also having increased white blood cell count with and concerns were infection. It was determined per family and patient that she would like to proceed with hospice care at this time Review of Systems Please refer to HPI otherwise unremarkable Past Medical History Past Medical History: Cancer, Hyperlipidemia, Hypertension Additional Past Medical History / Comment(s): vaginal CA. History of Any Multi-Drug Resistant Organisms: None Reported Past Surgical History: Bladder Surgery, Breast Surgery, Hysterectomy Past Anesthesia/Blood Transfusion Reactions: No Reported Reaction Past Psychological History: No Psychological Hx Reported Smoking Status: Never smoker Past Alcohol Use History: None Reported Past Drug Use History: None Reported Medications and Allergies Home Medications Medication Instructions Recorded Confirmed Type Aspirin EC [Ecotrin Low Dose] 81 mg PO DAILY 05/13/23 05/16/23 History Benazepril HCl 20 mg PO DAILY 05/13/23 05/16/23 History Calcium Carbonate [Calcium] 600 mg PO BID 05/13/23 05/16/23 History Cholecalciferol [Vitamin D3 (25 25 mcg PO BID 05/13/23 05/16/23 History Mcg = 1000 Iu)] Loratadine [Claritin] 10 mg PO BID 05/13/23 05/16/23 History Multivitamins, Thera [Multivitamin 1 tab PO DAILY 05/13/23 05/16/23 History (formulary)] Sertraline [Zoloft] 100 mg PO DAILY 05/13/23 05/16/23 History Simvastatin [Zocor] 40 mg PO HS 05/13/23 05/16/23 History amLODIPine [Norvasc] 10 mg PO DAILY 05/13/23 05/16/23 History HYDROcodone/APAP 5-325MG [[place] 1 tab PO Q4HR 05/16/23 05/16/23 History 5-325] Allergies Allergy/AdvReac Type Severity Reaction Status Date / Time prednisone Allergy Rash/Hives Verified 05/18/23 09:06 sulfamethoxazole Allergy Rash/Hives Verified 05/18/23 09:06 [From Bactrim] trimethoprim [From Bactrim] Allergy Rash/Hives Verified 05/18/23 09:06 Assessment and Plan Assessment: Recurrent pleural effusion secondary to likely metastatic disease with known history of vaginal cancer Abnormal x-ray revealing multiple left-sided pulmonary masses History of malignant neoplasm of the vagina, patient received chemotherapy and radiation therapy in the past, possible metastatic disease to the lung at this time Underlying history of hypertension Underlying history of hyperlipidemia Underlying history of anxiety disorder Acute kidney injury. Nephrology services consulted Hyponatremia Leukocytosis. Patient has been admitted to hospice care Gen. inpatient
--- NOTE | 2023-05-28 10:59 | P.DS ---
Providers Date of admission: 05/26/23 17:12 Expected date of discharge: 05/27/23 Attending physician: Bernie Jose Primary care physician: Emelia Whitney Hospital Course: Discharge diagnosis Recurrent pleural effusion secondary to likely metastatic disease with known history of vaginal cancer Abnormal x-ray revealing multiple left-sided pulmonary masses History of malignant neoplasm of the vagina, patient received chemotherapy and radiation therapy in the past, possible metastatic disease to the lung at this time Underlying history of hypertension Underlying history of hyperlipidemia Underlying history of anxiety disorder Acute kidney injury. Nephrology services consulted Hyponatremia Leukocytosis. Hospital course Devi Santana is a 67-year-old female who initially presented to [facility] with chief complaint of worsening shortness of breath. Patient has a history of recurrent pleural effusions with concerns of metastatic cancer. During hospital stay first catheter was placed. Patient has a significant past medical history of vaginal cancer with treatment of chemo and radiation patient was seen by oncology pulmonary infectious disease and nephrology services during hospital stay patient continuing to have declining kidney function and decreasing sodium levels. Patient also having increased white blood cell count with and concerns were infection. It was determined per family and patient that she would like to proceed with hospice care at this time According to records on 05/27/2023 patient patient was under hospice care Plan - Discharge Summary Discharge Rx Participant: No New Discharge Prescriptions: No Action Multivitamins, Thera [Multivitamin (formulary)] 1 tab PO DAILY Loratadine [Claritin] 10 mg PO BID Cholecalciferol [Vitamin D3 (25 Mcg = 1000 Iu)] 25 mcg PO BID Calcium Carbonate [Calcium] 600 mg PO BID Benazepril HCl 20 mg PO DAILY HYDROcodone/APAP 5-325MG [[place] 5-325] 1 tab PO Q4HR Aspirin EC [Ecotrin Low Dose] 81 mg PO DAILY amLODIPine [Norvasc] 10 mg PO DAILY Simvastatin [Zocor] 40 mg PO HS Sertraline [Zoloft] 100 mg PO DAILY Discharge Medication List Aspirin EC [Ecotrin Low Dose] 81 mg PO DAILY 05/13/23 [History] Benazepril HCl 20 mg PO DAILY 05/13/23 [History] Calcium Carbonate [Calcium] 600 mg PO BID 05/13/23 [History] Cholecalciferol [Vitamin D3 (25 Mcg = 1000 Iu)] 25 mcg PO BID 05/13/23 [History] Loratadine [Claritin] 10 mg PO BID 05/13/23 [History] Multivitamins, Thera [Multivitamin (formulary)] 1 tab PO DAILY 05/13/23 [History] Sertraline [Zoloft] 100 mg PO DAILY 05/13/23 [History] Simvastatin [Zocor] 40 mg PO HS 05/13/23 [History] amLODIPine [Norvasc] 10 mg PO DAILY 05/13/23 [History] HYDROcodone/APAP 5-325MG [[place] 5-325] 1 tab PO Q4HR 05/16/23 [History] Discharge Disposition: - Preliminary Cause of Preliminary Cause of : 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
== END 2023-05-27 05:40 | disposition expired | DRG 951 ==
LOC: 5NMEDONC 17:12
PROVIDERS: ADMIT Internal Medicine; ATTEND Internal Medicine
DX: Z51.5 Encounter for palliative care (principal); C78.00 Secondary malignant neoplasm of unspecified lung; E87.1 Hypo-osmolality and hyponatremia; N17.9 Acute kidney failure, unspecified; J91.0 Malignant pleural effusion; Z66 Do not resuscitate; C52 Malignant neoplasm of vagina; D72.829 Elevated white blood cell count, unspecified; E78.5 Hyperlipidemia, unspecified; I10 Essential (primary) hypertension; Z79.82 Long term (current) use of aspirin; Z79.899 Other long term (current) drug therapy; Z90.710 Acquired absence of both cervix and uterus; Z92.21 Personal history of antineoplastic chemotherapy; Z92.3 Personal history of irradiation